=== PATIENT | male | born 1945 | race Caucasian/White ===

== ENCOUNTER → 2018-01-24 10:47 | Outpatient (CLI) | payer OTHER, SELFPAY ==
[2018-01-24 11:38] LABS: Add Manual Diff / Slide Review NO; Basophils Percent Auto 0.5 % (0-2); Eosinophils Percent Auto 1.1 % (2-4); Hematocrit 43.8 % (41-53); Lymphocytes Percent Auto 29.4 % (25-40); Mean Corpuscular HGB Conc 34.2 % (30-36); Mean Corpuscular Volume 93.7 fL (80-100); Monocytes Percent Auto 9.5 % (3-14); Neutrophils Absolute Auto 3400 /uL (3000-5900); Neutrophils Percent Auto 59.5 % (50-75); Platelet Count 106 X10^3/uL (150-400); Red Blood Cell Count 4.68 X10^6/uL (4.5-5.9); Red Cell Distribution Width 14.7 % (11.6-14.8); White Blood Cell Count 5.7 X10^3/uL (4.5-11.0)
[2018-01-24 11:43] LABS: Alanine Aminotransferase 35 IU/L (21-72); Albumin 4.4 g/dL (3.5-5.0); Albumin Globulin Ratio 1.4 (1.0-2.8); Alkaline Phosphatase 118 U/L (38-126); Aspartate Aminotransferase 35 IU/L (17-59); BUN Creatinine Ratio 17.3 (6-22); Bilirubin Total 2.1 mg/dL (0.2-1.3); Blood Urea Nitrogen 19 mg/dL (9-20); Calcium 9.5 mg/dL (8.4-10.2); Carbon Dioxide 27 mmol/L (22-32); Chloride 102 mmol/L (98-107); Cholesterol 114 mg/dL (140-199); Estimated Glomerular Filt Rate > 60.0 mL/min (>60); Globulin 3.2 g/dL (1.7-4.1); Glucose 110 mg/dL (80-110); HDL Cholesterol 44 mg/dL (40-60); HEMOLYSIS 28 (0-50); LDL Cholesterol Calculated 51 mg/dL (<100); Potassium 4.3 mmol/L (3.4-5.1); Sodium 141 mmol/L (137-145); Total Protein 7.6 g/dL (6.3-8.2); Triglycerides 94 mg/dL (35-150)
[2018-01-24 12:11] LABS: Prostate Specific Antigen Scrn 1.73 ng/mL (0.1-4.0)
== END ==
PROVIDERS: PCP Family Medicine; Visit Provider Family Medicine
DX: E78.2 Mixed hyperlipidemia (principal); I10 Essential (primary) hypertension; I25.10 Atherosclerotic heart disease of native coronary artery without angina pectoris; Z12.5 Encounter for screening for malignant neoplasm of prostate
CPT/HCPCS: 36415; 80053; 80061; 85025; G0103

== ENCOUNTER → 2018-07-10 10:00 | Outpatient (CLI) | payer OTHER, SELFPAY ==
[2018-07-10 10:40] LABS: Add Manual Diff / Slide Review NO; Basophils Percent Auto 0.4 % (0-2); Eosinophils Percent Auto 1.2 % (2-4); Hemoglobin 16.5 g/dL (13.5-17.5); Lymphocytes Percent Auto 27.6 % (25-40); Mean Corpuscular HGB Conc 34.4 % (30-36); Mean Corpuscular Volume 93.1 fL (80-100); Monocytes Percent Auto 11.7 % (3-14); Neutrophils Absolute Auto 3500 /uL (1500-7000); Neutrophils Percent Auto 59.1 % (50-75); Platelet Count 108 X10^3/uL (150-400); Red Blood Cell Count 5.16 X10^6/uL (4.5-5.9); Red Cell Distribution Width 14.3 % (11.6-14.8); White Blood Cell Count 5.9 X10^3/uL (4.5-11.0)
[2018-07-10 10:51] LABS: Alanine Aminotransferase 28 IU/L (21-72); Albumin 4.6 g/dL (3.5-5.0); Albumin Globulin Ratio 1.4 (1.0-2.8); Alkaline Phosphatase 119 U/L (38-126); Aspartate Aminotransferase 27 IU/L (17-59); BUN Creatinine Ratio 16.7 (6-22); Bilirubin Total 2.5 mg/dL (0.2-1.3); Blood Urea Nitrogen 20 mg/dL (9-20); Calcium 9.8 mg/dL (8.4-10.2); Carbon Dioxide 27 mmol/L (22-32); Chloride 101 mmol/L (98-107); Cholesterol 131 mg/dL (140-199); Estimated Glomerular Filt Rate 59.3 mL/min (>60); Globulin 3.2 g/dL (1.7-4.1); Glucose 119 mg/dL (80-110); HDL Cholesterol 42 mg/dL (40-60); HEMOLYSIS < 15 (0-50); LDL Cholesterol Calculated 65 mg/dL (<100); Potassium 4.6 mmol/L (3.4-5.1); Sodium 139 mmol/L (137-145); Total Protein 7.8 g/dL (6.3-8.2); Triglycerides 121 mg/dL (35-150)
[2018-07-10 11:09] LABS: Creatinine Urine Random 203.9 mg/dL
[2018-07-10 11:12] LABS: Microalbumi Creatinin Ratio Ur 11.7 ug/mg CR (<30); Microalbumin Urine Random 2.4 mg/dL (0-1.6)
[2018-07-10 11:17] LABS: Prostate Specific Antigen Scrn 2.13 ng/mL (0.1-4.0)
[2018-07-10 11:39] LABS: Thyroid Stimulating Hormone 3.12 uIU/mL (0.47-4.68)
== END ==
PROVIDERS: PCP Family Medicine; Visit Provider Family Medicine
DX: E78.2 Mixed hyperlipidemia (principal); Z12.5 Encounter for screening for malignant neoplasm of prostate; I10 Essential (primary) hypertension; I25.10 Atherosclerotic heart disease of native coronary artery without angina pectoris
CPT/HCPCS: 36415; 80053; 80061; 82043; 82570; 84443; 85025; G0103

== ENCOUNTER → 2019-04-17 10:31 | Outpatient (CLI) | payer OTHER, SELFPAY ==
[2019-04-17 11:10] LABS: Add Manual Diff / Slide Review NO; Basophils Absolute Auto 0 /uL (0-100); Basophils Percent Auto 0.4 % (0-2); Eosinophils Absolute Auto 100 /uL (0-450); Eosinophils Percent Auto 1.2 % (2-4); Hematocrit 44.9 % (41-53); Hemoglobin 15.4 g/dL (13.5-17.5); Lymphocytes Absolute Auto 1800 /uL (1100-4500); Mean Corpuscular HGB Conc 34.2 % (30-36); Mean Corpuscular Hemoglobin 32.2 PG (26-34); Mean Corpuscular Volume 94.1 fL (80-100); Monocytes Absolute Auto 600 /uL (0-900); Monocytes Percent Auto 9.1 % (3-14); Neutrophils Absolute Auto 3900 /uL (1500-7000); Neutrophils Percent Auto 61.3 % (50-75); Platelet Count 109 X10^3/uL (150-400); Red Blood Cell Count 4.77 X10^6/uL (4.5-5.9); Red Cell Distribution Width 14.3 % (11.6-14.8); White Blood Cell Count 6.4 X10^3/uL (4.5-11.0)
[2019-04-17 12:02] LABS: Alanine Aminotransferase 28 IU/L (21-72); Albumin 4.3 g/dL (3.5-5.0); Albumin Globulin Ratio 1.6 (1.0-2.8); Alkaline Phosphatase 123 U/L (38-126); Aspartate Aminotransferase 27 IU/L (17-59); BUN Creatinine Ratio 16.7 (6-22); Bilirubin Total 1.6 mg/dL (0.2-1.3); Blood Urea Nitrogen 20 mg/dL (9-20); Calcium 9.4 mg/dL (8.4-10.2); Carbon Dioxide 30 mmol/L (22-32); Chloride 102 mmol/L (98-107); Cholesterol 123 mg/dL (140-199); Estimated Glomerular Filt Rate 59.2 mL/min (>60); Globulin 2.7 g/dL (1.7-4.1); Glucose 115 mg/dL (80-110); HDL Cholesterol 50 mg/dL (40-60); HEMOLYSIS < 15 (0-50); LDL Cholesterol Calculated 56 mg/dL (<100); Potassium 3.9 mmol/L (3.4-5.1); Sodium 139 mmol/L (137-145); Triglycerides 85 mg/dL (35-150)
== END ==
PROVIDERS: PCP Family Medicine; Visit Provider Family Medicine
DX: E78.2 Mixed hyperlipidemia (principal); I10 Essential (primary) hypertension; I25.10 Atherosclerotic heart disease of native coronary artery without angina pectoris
CPT/HCPCS: 36415; 80053; 80061; 85025

== ENCOUNTER 2019-09-15 09:42 | Day surgery (SDC) | payer OTHER, SELFPAY ==
[2019-09-15] VITALS (16 sets, daily range): BP systolic 94–141; BP diastolic 55–75; PULSE 16–81; RESP 12–98; TEMP 36.1–36.4; O2SAT 93–98; BMI 24.9
--- NOTE | 2019-09-15 10:19 | PM.HP.1 ---
History of Present Illness History of Present Illness Date Patient Seen: 09/15/19 Time Patient Seen: 10:20 Chief complaint: [id number] SCREENING COLONOSCOPY Narrative: The patient is a gentleman whose last colonoscopy was 10 years ago. He has no family history colon cancer. He is here for screening exam. The patient does have small-vessel cardiac disease. He has had a 4 vessel bypass in the distant past. He has had no chest pain since then but does get short of breath with exertion. He had a cardiac catheterization that revealed small vessel disease which could not be treated other than medically. He is normally takes a nitroglycerin patch but did not wear it this morning and and he is being a given 1 now. The patient also takes a beta sam any took it last night as he normally does. Patient History Medical History (Updated 09/15/19 @ 10:22 by Ceasar Cowan MD) Coronary artery disease (Chronic) History of kidney stones (Acute) Hyperlipidemia (Chronic) Hypertension (Chronic) Myocardial infarction (Resolved) Surgical History Status post coronary artery bypass graft (~1998) Family & Social History Tobacco & Substance use: Smoking Status Never smoker Meds Home Medications and Allergies Home Medications Medication Instructions Recorded Confirmed Type ASPIRIN (Aspirin) 81 mg PO Q DAY #0 05/15/11 06/19/19 History triamcinolone acetonide 0 TOPICAL BID #30 g 10/29/16 06/19/19 Rx lorazepam 0.5 - 1 mg PO Q4HP PRN #25 tab 11/16/16 06/19/19 Rx gabapentin [Neurontin] 300 mg PO BID #180 cap 01/14/17 06/19/19 Rx ranolazine [Ranexa] 500 mg PO BID #0 05/01/17 06/19/19 History hydrocodone 5 mg-acetaminophen 325 1 - 2 tab PO Q4HP PRN #30 tab 01/05/19 06/19/19 Rx mg tablet metoprolol succinate 25 mg 25 mg PO QDAY #90 tab 06/19/19 06/19/19 Rx tablet,extended release 24 hr niacin 1,000 mg tablet,extended 1,000 mg PO Q DAY #180 tab 06/19/19 06/19/19 Rx release 24 hr simvastatin 40 mg tablet 40 mg PO QDAY #90 tab 06/19/19 06/19/19 Rx nitroglycerin 0.4 mg/hr 1 patch TRANSDERMAL Q24H #30 each 07/07/19 Rx transdermal 24 hour patch Allergies Allergy/AdvReac Type Severity Reaction Status Date / Time No Known Drug Allergies Allergy Unverified 06/19/19 11:40 Review of Systems Review of Systems ROS: Yes All systems reviewed with the patient and are negative except as otherwise documented Cardiovascular Comments: Elevated cholesterol Neurologic Comments: Headaches Exam Narrative Exam Narrative: Pleasant cooperative patient no apparent distress. Lungs are clear to auscultation. No rales or rhonchi. Heart regular rate and rhythm no murmur gallop. Abdomen is soft nontender without mass. No obvious hernias. Lower abdominal midline scar noted(kidney stone extractions scar). Patient is alert and oriented x3. Assessment & Plan Assessment & Plan narrative: The patient for a screening colonoscopy. I have discussed the procedure with them. Risks of bleeding, perforation which would necessitate major operation, failure to find remove all lesions, the potential tattoo were all discussed. All questions were answered. They wished to proceed. I also discussed heart issues with him.
--- NOTE | 2019-09-15 10:26 | PM.PREOP ---
Pre-operative Note Interval Note History & Physical reviewed/Exam performed by Physician: Yes Changes to H&P: No ASA Class (for procedural sedation): III
[2019-09-15] MEDS: NITROGLYCERIN 0.4 MG PATCH TOP (10:27)
[2019-09-15] MEDS: fentaNYL 250 MCG/5 ML INJ IV (10:51)
[2019-09-15] MEDS: MIDAZOLAM 5 MG/5 ML VIAL IV (10:52)
--- NOTE | 2019-09-15 10:56 | PM.OP.ENDO ---
Operative Date/Time/Diagnoses Date of procedure: 09/15/19 Time of procedure: 10:56 Pre-op diagnosis: Screening examination. Last colonoscopy 10 years ago. Post-op diagnosis: same (Sigmoid diverticulosis) Procedure & Clinicians Study performed: Colonoscopy Same procedure as scheduled: Yes Indications: Screening Surgeon: Ceasar Cowan Procedure Notes SCOAP/Timeout: Performed Procedure in detail: The patient was placed in the left lateral decubitus position and underwent IV sedation directed by the surgeon consisting of fentanyl and Versed. Digital exam was unremarkable. Prostate felt normal for age. I could feel no masses in it. The scope was inserted and advanced through the rectum into the sigmoid, descending, transverse, and ascending colon. Sigmoid diverticulosis was noted. The cecum was reached identified by the ileocecal valve and the appendiceal opening. The ileocecal valve was successfully cannulated. The terminal ileum was normal in appearance. The scope was gradually brought out. No Polyps were found. The scope ultimately was retroflexed in the rectum. The appearance was normal. The scope was removed and the patient tolerated the procedure well. The prep was excellent Scope withdrawal time: 7-1/2 minutes Sedation minutes: 24 Findings: diverticulosis (Sigmoid) Specimen(s): none sent Complications: none Post-procedure Recommendations: High fiber diet Plan for aftercare: Due to her age you probably do not need any additional colonoscopies for screening purposes. We usually stop these between 75 and 80 years of age. Your neck is recommended colonoscopy would be at age 79 for which is beyond both of those limits. Follow up: as needed Disposition: PACU
[2019-09-15] MEDS: ONDANSETRON 4 MG/2 ML INJ IV (11:40)
--- NOTE | 2019-09-15 11:45 | SUR.PHASEI ---
Patient states relief of nausea after zofran. Sipping on gingerale, vss.
--- NOTE | 2019-09-15 12:30 | SUR.PHASEII ---
Patient nauseated after moving to chair to be discharged. Aromatherapy attempted. Daughter at bedside. Patient sitting for a few minutes before going to car. No pain at this time. Report given to IRIS Sanbaria.
== END 2019-09-15 12:36 | disposition home or self-care (01) ==
PROVIDERS: PCP Family Medicine; Referring Provider Specialist; Visit Provider Specialist
PROC: 0DJD8ZZ Inspection of Lower Intestinal Tract, Via Natural or Artificial Opening Endoscopic (ICD-10-PCS; CPT 45378; principal; 2019-09-15 10:45)
DX: Z12.11 Encounter for screening for malignant neoplasm of colon (principal); I25.10 Atherosclerotic heart disease of native coronary artery without angina pectoris; E78.5 Hyperlipidemia, unspecified; I10 Essential (primary) hypertension; I25.2 Old myocardial infarction; Z95.1 Presence of aortocoronary bypass graft; K57.30 Diverticulosis of large intestine without perforation or abscess without bleeding
CPT/HCPCS: G0121; 99152; J2250; J2405; J3010

== ENCOUNTER → 2020-03-01 08:28 | Outpatient (CLI) | payer OTHER, SELFPAY ==
[2020-03-01 09:26] LABS: Add Manual Diff / Slide Review NO; Basophils Absolute Auto 0 /uL (0-100); Basophils Percent Auto 0.4 % (0-2); Eosinophils Absolute Auto 100 /uL (0-450); Eosinophils Percent Auto 1.4 % (2-4); Hematocrit 43.8 % (41-53); Hemoglobin 14.9 g/dL (13.5-17.5); Lymphocytes Absolute Auto 1500 /uL (1100-4500); Lymphocytes Percent Auto 30.1 % (25-40); Mean Corpuscular HGB Conc 33.9 % (30-36); Mean Corpuscular Hemoglobin 33.3 PG (26-34); Mean Corpuscular Volume 98.3 fL (80-100); Monocytes Absolute Auto 500 /uL (0-900); Neutrophils Absolute Auto 2900 /uL (1500-7000); Neutrophils Percent Auto 58.1 % (50-75); Platelet Count 90 X10^3/uL (150-400); Red Blood Cell Count 4.46 X10^6/uL (4.5-5.9); Red Cell Distribution Width 14.6 % (11.6-14.8); White Blood Cell Count 4.9 X10^3/uL (4.5-11.0)
[2020-03-01 09:40] LABS: Alanine Aminotransferase 31 IU/L (<50); Albumin 3.9 g/dL (3.5-5.0); Albumin Globulin Ratio 1.5 (1.0-2.8); Alkaline Phosphatase 137 U/L (38-126); Aspartate Aminotransferase 36 IU/L (17-59); BUN Creatinine Ratio 14.9 (6-22); Bilirubin Total 1.9 mg/dL (0.2-1.3); Blood Urea Nitrogen 17 mg/dL (9-20); Calcium 9.1 mg/dL (8.4-10.2); Carbon Dioxide 28 mmol/L (22-32); Chloride 104 mmol/L (98-107); Cholesterol 100 mg/dL (140-199); Estimated Glomerular Filt Rate > 60.0 mL/min (>60); Globulin 2.6 g/dL (1.7-4.1); Glucose 106 mg/dL (80-110); HDL Cholesterol 52 mg/dL (40-60); HEMOLYSIS < 15 (0-50); LDL Cholesterol Calculated 32 mg/dL (<100); Potassium 4.2 mmol/L (3.4-5.1); Sodium 140 mmol/L (137-145); Total Protein 6.5 g/dL (6.3-8.2); Triglycerides 82 mg/dL (35-150)
[2020-03-01 10:12] LABS: Prostate Specific Antigen Scrn 1.68 ng/mL (0.1-4.0)
== END ==
PROVIDERS: PCP Family Medicine; Referring Provider Family Medicine; Visit Provider Family Medicine
DX: Z95.1 Presence of aortocoronary bypass graft (principal)
CPT/HCPCS: 36415; 80053; 80061; 85025; G0103

== ENCOUNTER → 2020-07-28 07:27 | Outpatient (CLI) | payer MEDICARE, SELFPAY ==
[2020-07-28] MEDS: COVID-19 VACC #1, MRNA(MOD) 100 MCG/0.5 ML VIAL IM (07:36)
== END ==
PROVIDERS: PCP Family Medicine; Visit Provider Internal Medicine
DX: Z23 Encounter for immunization (principal)
CPT/HCPCS: 0011A; 91301

== ENCOUNTER → 2020-08-05 07:29 | Outpatient (CLI) | payer OTHER, SELFPAY ==
--- NOTE | 2020-08-05 07:31 | DI.US.S_ITS ---
PROCEDURE: US ABD AORTA ANEURYSM SCREEN INDICATIONS: AAA screen TECHNIQUE: Real time scanning was performed of the aorta and iliac arteries, with image documentation. COMPARISON: None. FINDINGS: Aorta: Proximal aortic diameter measures 2.5 cm. Mid-aorta measures 2.1 cm. Distal aortic diameter is 2.1 cm. Iliac arteries: Right common iliac artery measures 1.7 cm. Left common iliac artery measures 1.7 cm. IMPRESSION: No aneurysm found. Dictated by: Joe Martinez M.D. on 08/05/2020 at 9:40 Approved by: Joe Martinez M.D. on 08/05/2020 at 9:41
== END ==
PROVIDERS: PCP Student in an Organized Health Care Education/Training Program; Referring Provider Student in an Organized Health Care Education/Training Program; Visit Provider Student in an Organized Health Care Education/Training Program
DX: Z13.6 Encounter for screening for cardiovascular disorders (principal); Z87.891 Personal history of nicotine dependence
CPT/HCPCS: 76706

== ENCOUNTER → 2020-08-25 07:26 | Outpatient (CLI) | payer MEDICARE, SELFPAY ==
[2020-08-25] MEDS: COVID-19 VACC #2, MRNA(MOD) 100 MCG/0.5 ML VIAL IM (07:28)
== END ==
PROVIDERS: PCP Student in an Organized Health Care Education/Training Program; Visit Provider Internal Medicine
DX: Z23 Encounter for immunization (principal)
CPT/HCPCS: 0012A; 91301

== ENCOUNTER → 2021-01-04 15:16 | Outpatient (CLI) | payer OTHER, SELFPAY ==
[2021-01-04 15:23] LABS: RBC Urine None Seen (0-5/HPF)
[2021-01-04 16:22] LABS: Appearance Urine UA CLEAR; Bilirubin Urine UA NEGATIVE (NEGATIVE); Color Urine UA YELLOW; Glucose Urine UA TRACE g/dL (Negative); Ketones Urine UA NEGATIVE (NEGATIVE); Leukocyte Esterase Urine UA NEGATIVE (NEGATIVE); Nitrite Urine UA NEGATIVE (Negative); Occult Blood Urine UA NEGATIVE (Negative); Protein Urine UA TRACE (Negative)
[2021-01-04 16:36] LABS: Bacteria Urine Occasional (0-1); Culture Indicated Urine Specimen Cultured; Squamous Epithelial Cell Urine 0-1 /HPF (0-5/HPF); WBC Urine 5-10/HPF (0-5/HPF)
== END ==
PROVIDERS: PCP Student in an Organized Health Care Education/Training Program; Referring Provider Student in an Organized Health Care Education/Training Program; Visit Provider Student in an Organized Health Care Education/Training Program
DX: R30.0 Dysuria (principal)
CPT/HCPCS: 81001; 87086

== ENCOUNTER → 2021-01-05 08:44 | Outpatient (CLI) | payer OTHER, SELFPAY ==
[2021-01-05 09:55] LABS: Add Manual Diff / Slide Review NO; Basophils Absolute Auto 0 /uL (0-100); Basophils Percent Auto 0.3 % (0-2); Eosinophils Absolute Auto 100 /uL (0-450); Hematocrit 44.6 % (41-53); Hemoglobin 15.3 g/dL (13.5-17.5); Lymphocytes Absolute Auto 1400 /uL (1100-4500); Lymphocytes Percent Auto 25.7 % (25-40); Mean Corpuscular HGB Conc 34.2 % (30-36); Mean Corpuscular Hemoglobin 33.2 PG (26-34); Monocytes Absolute Auto 500 /uL (0-900); Monocytes Percent Auto 8.6 % (3-14); Neutrophils Absolute Auto 3600 /uL (1500-7000); Neutrophils Percent Auto 64.4 % (50-75); Platelet Count 84 X10^3/uL (150-400); Red Cell Distribution Width 14.3 % (11.6-14.8); White Blood Cell Count 5.6 X10^3/uL (4.5-11.0)
[2021-01-05 10:14] LABS: Alanine Aminotransferase 19 IU/L (<50); Albumin 4.1 g/dL (3.5-5.0); Albumin Globulin Ratio 1.4 (1.0-2.8); Alkaline Phosphatase 111 U/L (38-126); Aspartate Aminotransferase 30 IU/L (17-59); BUN Creatinine Ratio 18.5 (6-22); Bilirubin Total 1.5 mg/dL (0.2-1.3); Blood Urea Nitrogen 23 mg/dL (9-20); Calcium 9.5 mg/dL (8.4-10.2); Carbon Dioxide 27 mmol/L (22-32); Chloride 104 mmol/L (98-107); Cholesterol 113 mg/dL (140-199); Estimated Glomerular Filt Rate 56.7 mL/min (>60); Globulin 2.9 g/dL (1.7-4.1); Glucose 107 mg/dL (80-110); HDL Cholesterol 52 mg/dL (40-60); HEMOLYSIS < 15 (0-50); LDL Cholesterol Calculated 44 mg/dL (<100); Potassium 4.6 mmol/L (3.4-5.1); Sodium 138 mmol/L (137-145); Triglycerides 83 mg/dL (35-150)
== END ==
PROVIDERS: PCP Student in an Organized Health Care Education/Training Program; Referring Provider Student in an Organized Health Care Education/Training Program; Visit Provider Student in an Organized Health Care Education/Training Program
DX: E78.2 Mixed hyperlipidemia (principal); I10 Essential (primary) hypertension; I20.8 Other forms of angina pectoris; I25.10 Atherosclerotic heart disease of native coronary artery without angina pectoris
CPT/HCPCS: 80053; 80061; 85025

== ENCOUNTER → 2021-08-16 07:05 | Outpatient (CLI) | payer OTHER, SELFPAY ==
[2021-08-16 09:28] LABS: Hematocrit 44.7 % (41-53); Hemoglobin 15.4 g/dL (13.5-17.5); Mean Corpuscular HGB Conc 34.4 % (30-36); Mean Corpuscular Hemoglobin 33.3 PG (26-34); Mean Corpuscular Volume 96.6 fL (80-100); Platelet Count 94 X10^3/uL (150-400); Red Blood Cell Count 4.63 X10^6/uL (4.5-5.9); Red Cell Distribution Width 14.2 % (11.6-14.8); White Blood Cell Count 5.2 X10^3/uL (4.5-11.0)
[2021-08-16 09:49] LABS: Alanine Aminotransferase 16 IU/L (<50); Albumin 4.5 g/dL (3.5-5.0); Albumin Globulin Ratio 1.6 (1.0-2.8); Alkaline Phosphatase 103 U/L (38-126); Aspartate Aminotransferase 28 IU/L (17-59); BUN Creatinine Ratio 21.8 (6-22); Bilirubin Total 1.4 mg/dL (0.2-1.3); Blood Urea Nitrogen 24 mg/dL (9-20); Calcium 9.3 mg/dL (8.4-10.2); Carbon Dioxide 29 mmol/L (22-32); Chloride 102 mmol/L (98-107); Cholesterol 135 mg/dL (140-199); Estimated Glomerular Filt Rate > 60.0 mL/min (>60); Globulin 2.9 g/dL (1.7-4.1); Glucose 97 mg/dL (80-110); HDL Cholesterol 56 mg/dL (40-60); HEMOLYSIS < 15 (0-50); LDL Cholesterol Calculated 65 mg/dL (<100); Potassium 4.5 mmol/L (3.4-5.1); Sodium 139 mmol/L (137-145); Total Protein 7.4 g/dL (6.3-8.2); Triglycerides 71 mg/dL (35-150)
== END ==
PROVIDERS: PCP Student in an Organized Health Care Education/Training Program; Referring Provider Internal Medicine Cardiovascular Disease; Visit Provider Internal Medicine Cardiovascular Disease
DX: I20.8 Other forms of angina pectoris (principal)
CPT/HCPCS: 36415; 80053; 80061; 85027

== ENCOUNTER 2021-09-06 19:25 | Emergency (ER) | payer OTHER, SELFPAY ==
[2021-09-06] VITALS (17 sets, daily range): BP systolic 165–221; BP diastolic 72–82; PULSE 51–60; RESP 7–22; TEMP 36.6; O2SAT 96–100; BMI 31.9
--- NOTE | 2021-09-06 19:44 | DI.RAD.S_ITS ---
PROCEDURE: XR ACUTE ABDOMEN SERIES INDICATIONS: abdominal pain, N/V TECHNIQUE: One view chest and two views of the abdomen were acquired. COMPARISON: [facility], , CHEST 2 VIEW, 08/27/2012, 14:21. FINDINGS: Surgical changes and devices: Sternotomy wires and mediastinal clips are noted. Chest: Lungs are clear. Heart size is normal. No pleural effusions. No pneumoperitoneum. Aortic atherosclerotic calcifications are noted. Abdomen: Bowel gas pattern is normal. No suspicious calcifications. Visualized solid organ contours appear normal. Bones: No suspicious bony lesions. Degenerative changes are seen in the spine. IMPRESSION: Nonobstructive bowel gas pattern. No pneumoperitoneum. Dictated by: Odin Haley M.D. on 09/06/2021 at 20:01 Approved by: Odin Haley M.D. on 09/06/2021 at 20:02
--- NOTE | 2021-09-06 19:46 | ED_ITS ---
HPI - Abdominal Pain General Chief Complaint: Dizziness Stated Complaint: dizziness, abd pain, dryheaving, weakness x 3 days Time Seen by Provider: 09/06/21 19:32 History of Present Illness HPI narrative: 75-year-old male nonsmoker with extensive cardiac history and a prior for way CABG presents with his daughter and a chief complaint of a few days of increasing generalized abdominal pain, nausea, vomiting, dry heaves and now dizziness and lightheadedness. He states he went to bed in his normal state of health on Saturday evening and woke up at about 3:00 a.m. the morning with dry h eaves. He then developed generalized abdominal pain and has become lightheaded. Prior to this he denies any medication or dietary change. Denies recent antibiotics, exposure to bad foods or other ill persons. He has had no runny nose, sore throat or cough. He denies any fever or chills. He is still having normal bowel movements and passing gas. He denies any abdominal surgeries. He denies any change in urination such as dysuria, frequency or urgency. Related Data Home Medications Medication Instructions Recorded Confirmed aspirin 81 mg tablet,delayed 81 mg PO DAILY 07/29/20 09/06/21 release ranolazine 500 mg tablet,extended 1,000 mg PO BID 07/29/20 09/06/21 release,12 hr (Ranexa) Previous Rx's Medication Instructions Recorded niacin 1,000 mg tablet,extended 2,000 mg PO Q DAY #180 tab 11/21/20 release 24 hr (Niaspan) metoprolol succinate 25 mg 25 mg PO DAILY #90 tab 06/27/21 tablet,extended release 24 hr simvastatin 40 mg tablet 40 mg PO BEDTIME #90 tab 06/27/21 hydrocodone 5 mg-acetaminophen 325 1 - 2 tab PO Q4HP PRN #10 tab 08/07/21 mg tablet nitroglycerin 0.4 mg/hr 1 patch TRANSDERMAL Q24H #30 each 08/08/21 transdermal 24 hour patch (Nitro-Dur) ondansetron 4 mg disintegrating 4 mg PO TID-QID PRN #10 tab 09/06/21 tablet pantoprazole 40 mg tablet,delayed 40 mg PO DAILY #30 tab 09/06/21 release (Protonix) Allergies Allergy/AdvReac Type Severity Reaction Status Date / Time No Known Drug Allergies Allergy Verified 08/07/21 08:52 Review of Systems Review of Systems Narrative: GENERAL: See HPI HEENT: Denies sinus pain, ear pain, sore throat, difficulty swallowing, dizziness. RESPIRATORY: Denies dyspnea, cough, wheezing, hemoptysis, sputum. CARDIOVASCULAR: Denies chest pain, palpitations, orthopnea, edema, GASTROINTESTINAL: See HPI : Denies dysuria, frequency, incontinence, hematuria, urinary retention. MUSCULOSKELETAL: denies weakness, joint pain, or bony pain SKIN: Denies rash, skin lesions, or other NEUROLOGIC: Denies weakness, headache, numbness, change in speech, confusion, s eizures, incoordination. PSYCHIATRIC: No concerning psychosocial issues. 12 point review of systems is negative except for those stated above Patient History Medical History Coronary artery disease involving cher-ae heights coronary artery of cher-ae heights heart without angina pectoris (12/21/15) Healed perforation of tympanic membrane (06/03/14) History of kidney stones Hyperlipidemia Hypertension Myocardial infarction Subconjunctival hemorrhage of left eye (05/01/17) Surgical History Status post coronary artery bypass graft (~1998) Social History household members: friend(s) Smoking Status: Former smoker alcohol intake: former Smoking Status: Former smoker Substance Use Type: does not use Exam Narrative Exam Narrative: GENERAL: [75 year old patient appears stated age. Well-developed patient, in mild distress. HEAD: Atraumatic. Normocephalic. EYES: Pupils equal round and reactive. Extraocular motions intact. No scleral icterus. No injection or drainage. ENT: Nose without bleeding, purulent drainage. Throat without erythema, tonsillar hypertrophy or exudate. Airway patent. NECK: Trachea midline. Non tender CARDIOVASCULAR: Regular rate and rhythm without murmurs, gallops, or rubs. RESPIRATORY: Clear to auscultation. Breath sounds equal bilaterally. No wheezes, rales, or rhonchi. GASTROINTESTINAL: Abdomen soft, slightly distended in mild periumbilical pain. Bowel sounds present in all 4 quadrants EXTREMITIES: No edema or joint tenderness. BACK: Nontender without deformity or crepitance. No flank tenderness. NEURO: AOx3. SKIN: No rash or erythema of visible areas Initial Vital Signs Initial Vital Signs: Vital Signs Pulse Oximetry 100 09/06/21 19:32 Course Orders Ordered: Discontinued Medications Hydromorphone HCl (Hydromorphone 0.5 Mg Inj) 0.5 mg IV NOW ONE Stop: 09/06/21 20:14 Last Admin: 09/06/21 20:19 Dose: 0.5 mg Documented by: JULIEN Sodium Chloride (Normal Saline 0.9%) 1,000 mls @ 1,000 mls/hr IV BOLUS ONE Stop: 09/06/21 20:43 Last Infusion: 09/06/21 22:04 Dose: 0 mls/hr Documented by: Admin: 09/06/21 19:59 Dose: 1,000 mls/hr Documented by: JULIEN Ondansetron HCl (Ondansetron 4 Mg/2 Ml Inj) 4 mg IV NOW ONE Stop: 09/06/21 19:45 Last Admin: 09/06/21 20:00 Dose: 4 mg Documented by: JULIEN Ondansetron HCl (Ondansetron 4 Mg Odt Prepack) 1 bottle MISC SEEINSTR ONE Stop: 09/06/21 23:48 Last Admin: 09/07/21 00:00 Dose: 1 bottle Documented by: JULIEN Pantoprazole Sodium (Pantoprazole 40 Mg Vial) 40 mg IV NOW ONE Stop: 09/06/21 19:45 Last Admin: 09/06/21 20:00 Dose: 40 mg Documented by: JULIEN Vital Signs Vital signs: Vital Signs - 8 hr 09/06/21 19:32 09/06/21 19:33 09/06/21 19:35 Temperature 97.9 F Pulse Rate 59 L 60 Respiratory Rate 18 Blood Pressure 221/82 H Pulse Oximetry 100 99 100 09/06/21 20:01 09/06/21 20:03 09/06/21 20:30 Temperature Pulse Rate 54 L 53 L 51 L Respiratory Rate 20 10 L Blood Pressure 190/79 H Pulse Oximetry 96 98 09/06/21 20:31 09/06/21 21:04 09/06/21 21:05 Temperature Pulse Rate 51 L 59 L 58 L Respiratory Rate 13 11 L 8 L Blood Pressure 174/72 H 194/79 H Pulse Oximetry 96 99 98 09/06/21 21:30 09/06/21 21:31 09/06/21 22:00 Temperature Pulse Rate 56 L 56 L 55 L Respiratory Rate 7 L 9 L 14 Blood Pressure 165/82 H Pulse Oximetry 99 98 98 09/06/21 22:01 09/06/21 22:30 09/06/21 22:31 Temperature Pulse Rate 55 L 56 L 56 L Respiratory Rate 12 19 22 Blood Pressure 166/72 H 193/81 H Pulse Oximetry 98 100 98 09/06/21 23:00 09/06/21 23:01 Temperature Pulse Rate 55 L 55 L Respiratory Rate 12 10 L Blood Pressure 179/76 H Pulse Oximetry 99 97 MDM - Abdominal Pain Lab Data Result diagrams: 09/06/21 19:35 09/06/21 19:35 Labs: Lab Results 09/06/21 09/06/21 09/06/21 Range/Units 19:35 19:35 19:35 WBC 5.6 (4.5-11.0) X10^3/uL RBC 4.71 (4.5-5.9) X10^6/uL Hgb 15.3 (13.5-17.5) g/dL Hct 45.8 (41-53) % MCV 97.2 (80-100) fL MCH 32.6 (26-34) PG MCHC 33.5 (30-36) % RDW 14.0 (11.6-14.8) % Plt Count 99 L (150-400) X10^3/uL Neut % (Auto) 64.4 (50-75) % Lymph % (Auto) 24.1 L (25-40) % Stanton % (Auto) 10.3 (3-14) % Eos % (Auto) 0.8 L (2-4) % Baso % (Auto) 0.4 (0-2) % Neut # (Auto) 3600 (6206-1503) /uL Lymph # (Auto) 1400 (5203-5544) /uL Stanton # (Auto) 600 (0-900) /uL Eos # (Auto) 0 (0-450) /uL Baso # (Auto) 0 (0-100) /uL PT 13.3 H (10.1-12.7) SECONDS INR 1.2 (0.9-1.3) APTT 30 (26.4-36.2) SECONDS Sodium 137 (137-145) mmol/L Potassium 4.3 (3.4-5.1) mmol/L Chloride 102 (98-107) mmol/L Carbon Dioxide 27 (22-32) mmol/L BUN 14 (9-20) mg/dL Creatinine 0.98 (0.66-1.25) mg/dL Estimated GFR > 60.0 (>60) mL/min BUN/Creatinine Ratio 14.3 (6-22) Glucose 139 H (80-110) mg/dL Calcium 9.7 (8.4-10.2) mg/dL Magnesium 1.9 (1.6-2.3) mg/dL Total Bilirubin 1.9 H (0.2-1.3) mg/dL AST 32 (17-59) IU/L ALT 19 (<50) IU/L Alkaline Phosphatase 83 (38-126) U/L Total Creatine Kinase 77 (55-170) U/L CK-MB (CK-2) TNP CK-MB (CK-2) Rel Index TNP Troponin I 0.022 (0.01-0.034) ng/mL Total Protein 7.9 (6.3-8.2) g/dL Albumin 4.6 (3.5-5.0) g/dL Globulin 3.3 (1.7-4.1) g/dL Albumin/Globulin Ratio 1.4 (1.0-2.8) Lipase 102 (23-300) U/L SARS-CoV-2 (PCR) (Negative) Influenza A (RT-PCR) (NEGATIVE) Influenza B (RT-PCR) (NEGATIVE) 09/06/21 Range/Units 20:00 WBC (4.5-11.0) X10^3/uL RBC (4.5-5.9) X10^6/uL Hgb (13.5-17.5) g/dL Hct (41-53) % MCV (80-100) fL MCH (26-34) PG MCHC (30-36) % RDW (11.6-14.8) % Plt Count (150-400) X10^3/uL Neut % (Auto) (50-75) % Lymph % (Auto) (25-40) % Stanton % (Auto) (3-14) % Eos % (Auto) (2-4) % Baso % (Auto) (0-2) % Neut # (Auto) (4164-6477) /uL Lymph # (Auto) (0184-1282) /uL Stanton # (Auto) (0-900) /uL Eos # (Auto) (0-450) /uL Baso # (Auto) (0-100) /uL PT (10.1-12.7) SECONDS INR (0.9-1.3) APTT (26.4-36.2) SECONDS Sodium (137-145) mmol/L Potassium (3.4-5.1) mmol/L Chloride (98-107) mmol/L Carbon Dioxide (22-32) mmol/L BUN (9-20) mg/dL Creatinine (0.66-1.25) mg/dL Estimated GFR (>60) mL/min BUN/Creatinine Ratio (6-22) Glucose (80-110) mg/dL Calcium (8.4-10.2) mg/dL Magnesium (1.6-2.3) mg/dL Total Bilirubin (0.2-1.3) mg/dL AST (17-59) IU/L ALT (<50) IU/L Alkaline Phosphatase (38-126) U/L Total Creatine Kinase (55-170) U/L CK-MB (CK-2) CK-MB (CK-2) Rel Index Troponin I (0.01-0.034) ng/mL Total Protein (6.3-8.2) g/dL Albumin (3.5-5.0) g/dL Globulin (1.7-4.1) g/dL Albumin/Globulin Ratio (1.0-2.8) Lipase (23-300) U/L SARS-CoV-2 (PCR) Negative (Negative) Influenza A (RT-PCR) Flu a negative (NEGATIVE) Influenza B (RT-PCR) Flu b negative (NEGATIVE) Imaging Data CT scan - abdomen/pelvis: Radiologist's Impression: Chart Viewer Diagnostics Subcategory All Activity ??:?? All Time ??:?? All Subcategories Filter Laboratory Imaging Microbiology Pathology Blood Bank Tests Cardiovascular Other Specialty DATE TYPE STATUS REF RANGE/AUTHOR Hx Today 20:50 Abdomen/Pelvis CT Signed Odin Haley Today 20:03 Abdomen Ultrasound Signed Odin Haley Today 19:44 Chest/Abdomen X-ray Signed Odin Haley 06/21/21 10:26 DI Result CC MRI Cardiac w stress w/wo c 08/05/20 07:31 Abdominal Arterial Study US Signed JuanJoe 09/15/19 09:42 Telemetry Strips ? 02/04/19 08:33 DI Result CC Echocardiogram (Hardeep) Ceasar Euceda ED 75, M?1945 MRN#? [id number] REG ER,?Main ED??R04?? 172.72cm 95.254kg BMI: 31.9kg/m? Dizziness Acc#? [id number] Resus Status Not Ordered No Hx Avail Special Indicators Preferred Name Home Meds Confirmed Prescription Monitoring Program Total 0 MME/Day Incomplete MEDICATIONS (INSTRUCTIONS) LAST TAKEN Active aspirin 81 mg tablet,delayed release 81 mgPODAILY Unknown hydrocodone 5 mg-acetaminophen 325 mg tablet 1 - 2 [id number]#10 tab Unknown 0 MME/Day metoprolol succinate 25 mg tablet,extended release 24 hr 25 mgPODAILY#90 tab Unknown niacin 1,000 mg tablet,extended release 24 hr 2,000 mgPOQ DAY#180 tab Unknown nitroglycerin 0.4 mg/hr transdermal 24 hour patch 1 [id number]#30 each Unknown ranolazine 500 mg tablet,extended release,12 hr 1,000 mgPOBID Unknown simvastatin 40 mg tablet 40 mgPOBEDTIME#90 tab Unknown Allergies No Known Drug Allergies Problems ? ONSET Myofascial muscle pain Coronary artery disease involving cher-ae heights coronary artery of cher-ae heights heart without angina pectoris 12/21/15 Stable angina pectoris Essential hypertension 05/01/17 Mixed hyperlipidemia 05/01/17 Vital Signs Today 23:01 BP 179/76?H Pulse 55?L Resp 10?L O2 Sat 97? Diagnostics Reports Ceasar Euceda?(Hardeep)??75??M??1945 ? Allergy/Adv: No Known Drug Allergies (More??) Close Abdomen/Pelvis CT (Signed) Odin Haley - 09/06/21 Abdomen Ultrasound (Signed) Odin Haley - 09/06/21 Chest/Abdomen X-ray (Signed) Odin Haley - 09/06/21 DI Result CC 06/21/21 Abdominal Arterial Study US (Signed) Joe Martinez - 08/05/20 Telemetry Strips 09/15/19 DI Result CC 02/04/19 Launch?[address] [address] [address] Scan Report Signed Patient: Ceasar Euceda MR#: [id number] : 1945 Acct:[id number] Age/Sex: 75 / M Date of Service: 09/06/21 Loc: ED Accession Number: [id number] ?? Procedure: CT abdomen pelvis w con Ordering Provider: Ángel Willingham D.O. PROCEDURE:? CT ABDOMEN PELVIS W CON ? INDICATIONS:? severe abdominal pain, N/V ? TECHNIQUE:? After the administration of intravenous contrast, axial sections acquired from the lung bases to the pubic symphysis.? Coronal and sagittal reformats were performed.? For radiation dose reduction, the following was used:? automated exposure control, adjustment of mA and/or kV according to patient size.? ? COMPARISON:? None. ? FINDINGS:? Image quality:? Excellent.? ? Lung bases:? Atelectasis is seen in the lung bases with possible superimposed reticulations that could indicate a component of chronic interstitial lung disease. Heart:? No significant findings. ? ABDOMEN: Liver:? Unremarkable.? ? Gallbladder:? Unremarkable. Biliary ducts:? Unremarkable.? ? Pancreas:? Unremarkable.? ? Spleen:? Unremarkable.? ? Adrenal Glands:? Unremarkable.? ? Kidneys and Ureters:? A 4 mm calculus is seen at the superior pole of the left kidney.? Additional calculi are seen in the inferior pole of the left kidney.? No right renal calculus.? No ureteral calculus or hydronephrosis.? Multiple bilateral renal cysts. ? Stomach and Bowel:? Stomach, small bowel loops, and colon are unremarkable.? Normal appendix. Peritoneum:? No abnormal intraperitoneal fluid.? No free air.? ? Ventral Wall: ? No hernias.? Abdominal Nodes:? No retroperitoneal or mesenteric adenopathy by size criteria.? Vessels:? Focal saccular outpouching of the infrarenal abdominal aorta measuring up to 3.2 x 2.5 cm in axial dimensions by 2.5 cm in length.? No surrounding inflammatory changes are seen.? Moderate to severe aortic atherosclerotic calcifications. ? PELVIS: Pelvic Organs:? Unremarkable.? ? Bladder:? Unremarkable.? ? Pelvic Nodes: No enlarged lymph nodes.? Miscellaneous:? Small fat containing left inguinal hernia. ? Bones:? Generalized osteopenia.? Multilevel degenerative changes. ? ? IMPRESSION: 1. No acute abnormality identified in the abdomen or pelvis. 2. Nonobstructing left renal calculi measuring up to 4 mm.? No ureteral calculus or hydronephrosis. 3. 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 ? ? Dictated by: Odin Haley M.D. on 09/06/2021 at 21:59 ? ? Approved by: Odin Haley M.D. on 09/06/2021 at 22:04 ? US - abdomen: Radiologist's Impression: Ceasar Euceda?(Hardeep)??75??M??1945 ? Allergy/Adv: No Known Drug Allergies (More??) Close Abdomen/Pelvis CT (Signed) Odin Haley - 09/06/21 Abdomen Ultrasound (Signed) Odin Haley - 09/06/21 Chest/Abdomen X-ray (Signed) Odin Haley - 09/06/21 DI Result CC 06/21/21 Abdominal Arterial Study US (Signed) Joe Martinez - 08/05/20 Telemetry Strips 09/15/19 DI Result CC 02/04/19 Launch?[address] [address] Ultrasound Report Signed Patient: Ceasar Euceda MR#: [id number] : 1945 Acct:[id number] Age/Sex: 75 / M Date of Service: 09/06/21 Loc: ED Accession Number: [id number] ?? Procedure: US abdomen limited Ordering Provider: Ángel Willingham D.O. PROCEDURE: US ABDOMEN LIMITED ? INDICATIONS:? ELEVATED BILIRUBIN; PAIN, N/V ? TECHNIQUE:? Real-time focused scanning was performed of the abdomen, with image documentation.? ? COMPARISON:? [facility], CT, CT ABDOMEN PELVIS W CON, 09/06/2021, 20:53. ? FINDINGS:? Liver is normal in size and echogenicity, measuring 15.9 cm in length. ? The gallbladder appears normal without gallstones or gallbladder wall thickening.? There is no pericholecystic fluid.? Sonographic Holcomb sign is negative. ? No intrahepatic or extrahepatic biliary ductal dilatation.? Common bile duct measures 5 mm in diameter. ? Pancreas is not well visualized due to overlying bowel gas. ? IMPRESSION:? No acute sonographic abnormality is seen in the right upper quadrant. ? ? Dictated by: Odin Haley M.D. on 09/06/2021 at 22:05 ? ? Approved by: Odin Haley M.D. on 09/06/2021 at 22:0 Discharge Plan Departure Patient Disposition: Home Clinical Impression: Abdominal pain, Nausea & vomiting Instructions: DI for Abdominal Pain-Adult, DI for Nausea -- Adult Activity Restrictions/Additional Instructions: *You have been diagnosed with [abdominal pain with nausea and vomiting. As we discussed, your history and physical exam as well as labs and CT scan are very reassuring. There is no evidence of an emergent condition that would require a specific intervention or surgery. Also as we discussed there is a potential that this is even a side effect of 1 of your medications. *What to do: *Please continue to take your regular medications as directed. [x ] New medication prescriptions sent to your pharmacy: [ [facility]] [ ] New medication written as a paper prescription [ ] No new medications given *Please follow up with your primary care provider in 2-3 days, call for an appointment. Let them know you were seen in the Emergency Department and that we ask that you be seen in follow up. We will electronically transmit a record of today's note if your PCP is in our system *If you do not have a primary care provider please contact the [facility] Resource line at [phone]. They will ask some questions about your medical history and help get you set up with a doctor in the community. *Return to Emergency Department if you should have any new, worsening or concer cornelius symptoms, such as [fever greater than 101 F, shaking chills, worsening pain, persistent vomiting or other bothersome symptoms] Prescriptions: New pantoprazole [Protonix] 40 mg tablet,delayed release (DR/EC) 40 mg PO DAILY Qty: 30 0RF ondansetron 4 mg tablet,disintegrating 4 mg PO TID-QID PRN (Reason: nausea and vomiting) Qty: 10 0RF No Action niacin [Niaspan Extended-Release] 1,000 mg tablet extended release 24 hr 2,000 mg PO Q DAY Qty: 180 2RF Rx Instructions: Take two tabs by mouth daily. simvastatin 40 mg tablet 40 mg PO BEDTIME Qty: 90 1RF metoprolol succinate 25 mg tablet extended release 24 hr 25 mg PO DAILY Qty: 90 1RF nitroglycerin [Nitro-Dur] 0.4 mg/hr patch 24 hour 1 patch transdermal Q24H Qty: 30 11RF Rx Instructions: allow nitrate-free interval of approx. 10-12 hrs per 24-hour period, Apply at 0800, off at 1400. hydrocodone-acetaminophen 5-325 mg tablet 1 - 2 tab PO Q4HP PRN (Reason: pain, moderate) Qty: 10 0RF Hold Instructions: Change to #10 with next fill ranolazine [Ranexa] 500 mg tablet extended release 12 hr 1,000 mg PO BID 0RF aspirin 81 mg tablet,delayed release (DR/EC) 81 mg PO DAILY 0RF Referrals: Daniel Almanza MD [Primary Care Provider] -
[2021-09-06 19:52] LABS: INR 1.2 (0.9-1.3); Prothrombin Time 13.3 SECONDS (10.1-12.7)
[2021-09-06 19:54] LABS: PTT Partial Thromboplastin Tim 30 SECONDS (26.4-36.2)
[2021-09-06 19:56] LABS: Alanine Aminotransferase 19 IU/L (<50); Albumin 4.6 g/dL (3.5-5.0); Albumin Globulin Ratio 1.4 (1.0-2.8); Alkaline Phosphatase 83 U/L (38-126); Aspartate Aminotransferase 32 IU/L (17-59); BUN Creatinine Ratio 14.3 (6-22); Bilirubin Total 1.9 mg/dL (0.2-1.3); Blood Urea Nitrogen 14 mg/dL (9-20); Calcium 9.7 mg/dL (8.4-10.2); Carbon Dioxide 27 mmol/L (22-32); Chloride 102 mmol/L (98-107); Creatine Kinase 77 U/L (55-170); Estimated Glomerular Filt Rate > 60.0 mL/min (>60); Globulin 3.3 g/dL (1.7-4.1); Glucose 139 mg/dL (80-110); HEMOLYSIS 46 (0-50); Lipase 102 U/L (23-300); Magnesium 1.9 mg/dL (1.6-2.3); Potassium 4.3 mmol/L (3.4-5.1); Sodium 137 mmol/L (137-145); Total Protein 7.9 g/dL (6.3-8.2)
[2021-09-06 19:57] LABS: Add Manual Diff / Slide Review NO; Basophils Absolute Auto 0 /uL (0-100); Basophils Percent Auto 0.4 % (0-2); Eosinophils Absolute Auto 0 /uL (0-450); Eosinophils Percent Auto 0.8 % (2-4); Hematocrit 45.8 % (41-53); Hemoglobin 15.3 g/dL (13.5-17.5); Lymphocytes Absolute Auto 1400 /uL (1100-4500); Lymphocytes Percent Auto 24.1 % (25-40); Mean Corpuscular HGB Conc 33.5 % (30-36); Mean Corpuscular Hemoglobin 32.6 PG (26-34); Mean Corpuscular Volume 97.2 fL (80-100); Monocytes Absolute Auto 600 /uL (0-900); Monocytes Percent Auto 10.3 % (3-14); Neutrophils Absolute Auto 3600 /uL (1500-7000); Neutrophils Percent Auto 64.4 % (50-75); Platelet Count 99 X10^3/uL (150-400); Red Blood Cell Count 4.71 X10^6/uL (4.5-5.9); White Blood Cell Count 5.6 X10^3/uL (4.5-11.0)
[2021-09-06] MEDS: SODIUM CHLORIDE 0.9% 1,000 ML 1000 ML IV (19:59)
[2021-09-06] MEDS: ONDANSETRON 4 MG/2 ML INJ IV (20:00)
[2021-09-06] MEDS: PANTOPRAZOLE 40 MG VIAL IV (20:00)
--- NOTE | 2021-09-06 20:03 | DI.US.S_ITS ---
PROCEDURE: US ABDOMEN LIMITED INDICATIONS: ELEVATED BILIRUBIN; PAIN, N/V TECHNIQUE: Real-time focused scanning was performed of the abdomen, with image documentation. COMPARISON: [facility], CT, CT ABDOMEN PELVIS W CON, 09/06/2021, 20:53. FINDINGS: Liver is normal in size and echogenicity, measuring 15.9 cm in length. The gallbladder appears normal without gallstones or gallbladder wall thickening. There is no pericholecystic fluid. Sonographic Holcomb sign is negative. No intrahepatic or extrahepatic biliary ductal dilatation. Common bile duct measures 5 mm in diameter. Pancreas is not well visualized due to overlying bowel gas. IMPRESSION: No acute sonographic abnormality is seen in the right upper quadrant. Dictated by: Odin Haley M.D. on 09/06/2021 at 22:05 Approved by: Odin Haley M.D. on 09/06/2021 at 22:06
[2021-09-06 20:07] LABS: Troponin I 0.022 ng/mL (0.01-0.034)
[2021-09-06] MEDS: HYDROMORPHONE 0.5 MG INJ IV (20:19)
--- NOTE | 2021-09-06 20:50 | DI.CT.S_ITS ---
PROCEDURE: CT ABDOMEN PELVIS W CON INDICATIONS: severe abdominal pain, N/V TECHNIQUE: After the administration of intravenous contrast, axial sections acquired from the lung bases to the pubic symphysis. Coronal and sagittal reformats were performed. For radiation dose reduction, the following was used: automated exposure control, adjustment of mA and/or kV according to patient size. COMPARISON: None. FINDINGS: Image quality: Excellent. Lung bases: Atelectasis is seen in the lung bases with possible superimposed reticulations that could indicate a component of chronic interstitial lung disease. Heart: No significant findings. ABDOMEN: Liver: Unremarkable. Gallbladder: Unremarkable. Biliary ducts: Unremarkable. Pancreas: Unremarkable. Spleen: Unremarkable. Adrenal Glands: Unremarkable. Kidneys and Ureters: A 4 mm calculus is seen at the superior pole of the left kidney. Additional calculi are seen in the inferior pole of the left kidney. No right renal calculus. No ureteral calculus or hydronephrosis. Multiple bilateral renal cysts. Stomach and Bowel: Stomach, small bowel loops, and colon are unremarkable. Normal appendix. Peritoneum: No abnormal intraperitoneal fluid. No free air. Ventral Wall: No hernias. Abdominal Nodes: No retroperitoneal or mesenteric adenopathy by size criteria. Vessels: Focal saccular outpouching of the infrarenal abdominal aorta measuring up to 3.2 x 2.5 cm in axial dimensions by 2.5 cm in length. No surrounding inflammatory changes are seen. Moderate to severe aortic atherosclerotic calcifications. PELVIS: Pelvic Organs: Unremarkable. Bladder: Unremarkable. Pelvic Nodes: No enlarged lymph nodes. Miscellaneous: Small fat containing left inguinal hernia. Bones: Generalized osteopenia. Multilevel degenerative changes. IMPRESSION: 1. No acute abnormality identified in the abdomen or pelvis. 2. Nonobstructing left renal calculi measuring up to 4 mm. No ureteral calculus or hydronephrosis. 3. 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 Dictated by: Odin Haley M.D. on 09/06/2021 at 21:59 Approved by: Odin Haley M.D. on 09/06/2021 at 22:04
[2021-09-06 21:34] LABS: Influenza A - CEPHEID Flu A NEGATIVE (NEGATIVE); Influenza B - CEPHEID Flu B NEGATIVE (NEGATIVE)
[2021-09-06 21:36] LABS: COVID-19 CEPHEID PCR (VTM/NP) Negative (Negative)
[2021-09-07] MEDS: ONDANSETRON 4 MG ODT PREPACK 1 BOTTLE MISC
== END 2021-09-07 00:02 | disposition home or self-care (01) ==
PROVIDERS: Emergency Provider Emergency Medicine; PCP Student in an Organized Health Care Education/Training Program
DX: R10.33 Periumbilical pain (principal); R11.2 Nausea with vomiting, unspecified; Z87.891 Personal history of nicotine dependence; Z20.822 Contact with and (suspected) exposure to COVID-19
CPT/HCPCS: 36415; 74022; 74177; 76705; 80053; 82550; 83690; 83735; 84484; 85025; 85610; 85730; 87635; 93005; 93010; 96361; 96374; 96375; 99284; C9803; C9113; J1170; J2405; Q9967

== ENCOUNTER → 2021-11-06 15:16 | Outpatient (CLI) | payer OTHER, SELFPAY ==
[2021-11-06 16:26] LABS: Alanine Aminotransferase 21 IU/L (<50); Albumin 4.5 g/dL (3.5-5.0); Albumin Globulin Ratio 1.5 (1.0-2.8); Alkaline Phosphatase 109 U/L (38-126); Aspartate Aminotransferase 31 IU/L (17-59); Bilirubin Total 1.3 mg/dL (0.2-1.3); Bilirubin Unconjugated 1.3 mg/dL (0.0-1.1); HEMOLYSIS 15 (0-50); Total Protein 7.5 g/dL (6.3-8.2)
[2021-11-07 07:36] LABS: HBsAg Screen Negative (Negative); Hepatitis A Antibody IgM Negative (Negative); Hepatitis B Core Antibody IgM Negative (Negative); Hepatitis C Antibody 0.2 s/co ratio (0.0-0.9)
== END ==
PROVIDERS: PCP Student in an Organized Health Care Education/Training Program; Referring Provider Student in an Organized Health Care Education/Training Program; Visit Provider Student in an Organized Health Care Education/Training Program
DX: R17 Unspecified jaundice (principal)
CPT/HCPCS: 36415; 80074; 80076

== ENCOUNTER 2021-11-10 12:14 | Emergency (ER) | payer OTHER, SELFPAY ==
[2021-11-10] VITALS (11 sets, daily range): BP systolic 120–175; BP diastolic 56–76; PULSE 53–71; RESP 15–21; TEMP 36.4; O2SAT 97–98; BMI 31.3
[2021-11-10 12:46] LABS: Add Manual Diff / Slide Review NO; Basophils Absolute Auto 0 /uL (0-100); Basophils Percent Auto 0.4 % (0-2); Eosinophils Absolute Auto 0 /uL (0-450); Eosinophils Percent Auto 0.8 % (2-4); Hematocrit 39.4 % (41-53); Hemoglobin 13.6 g/dL (13.5-17.5); Lymphocytes Absolute Auto 1200 /uL (1100-4500); Lymphocytes Percent Auto 24.9 % (25-40); Mean Corpuscular HGB Conc 34.6 % (30-36); Mean Corpuscular Hemoglobin 33.2 PG (26-34); Mean Corpuscular Volume 96.2 fL (80-100); Monocytes Absolute Auto 700 /uL (0-900); Monocytes Percent Auto 13.1 % (3-14); Neutrophils Absolute Auto 3000 /uL (1500-7000); Neutrophils Percent Auto 60.8 % (50-75); Platelet Count 114 X10^3/uL (150-400); Red Cell Distribution Width 14.5 % (11.6-14.8)
[2021-11-10 12:52] LABS: INR 1.2 (0.9-1.3); Prothrombin Time 13.6 SECONDS (10.1-12.7)
[2021-11-10 12:54] LABS: PTT Partial Thromboplastin Tim 28 SECONDS (26.4-36.2)
[2021-11-10 13:01] LABS: Alanine Aminotransferase 23 IU/L (<50); Albumin 4.3 g/dL (3.5-5.0); Albumin Globulin Ratio 1.5 (1.0-2.8); Alkaline Phosphatase 117 U/L (38-126); Aspartate Aminotransferase 34 IU/L (17-59); Bilirubin Total 1.6 mg/dL (0.2-1.3); Blood Urea Nitrogen 15 mg/dL (9-20); Carbon Dioxide 27 mmol/L (22-32); Chloride 104 mmol/L (98-107); Estimated Glomerular Filt Rate > 60 mL/min (>60); Globulin 2.9 g/dL (1.7-4.1); Glucose 110 mg/dL (80-110); HEMOLYSIS < 15 (0-50); Lipase 182 U/L (23-300); Sodium 137 mmol/L (137-145); Total Protein 7.2 g/dL (6.3-8.2)
--- NOTE | 2021-11-10 13:57 | ED.GENADULT ---
HPI - General Adult General Chief complaint: Abdominal Pain Stated complaint: Chills/Abd Pain/Weakness/Nausea Time Seen by Provider: 11/10/21 12:58 Source: patient and family Mode of arrival: Wheelchair History of Present Illness HPI narrative: 76-year-old male who for the past several days has been having issues with weakness. He has seen his primary doctor and also [place] attorney and they have made some adjustments to his medications they thought that this was potentially causing some of his issues. Over the past 24 hours he has developed some abdominal pain and chills and nausea. No vomiting. No change in bowel habits. No urinary symptoms. Does have a history of diverticulosis but no history of diverticulitis. No objective fevers. Related Data Home Medications Medication Instructions Recorded Confirmed aspirin 81 mg tablet,delayed 81 mg PO DAILY 07/29/20 11/06/21 release metoprolol succinate 25 mg 12.5 mg PO DAILY tab 11/06/21 11/06/21 tablet,extended release 24 hr ranolazine 500 mg tablet,extended 500 mg PO BID tab 11/06/21 11/06/21 release,12 hr (Ranexa) Previous Rx's Medication Instructions Recorded niacin 1,000 mg tablet,extended 2,000 mg PO Q DAY #180 tab 11/21/20 release 24 hr (Niaspan) simvastatin 40 mg tablet 40 mg PO BEDTIME #90 tab 06/27/21 hydrocodone 5 mg-acetaminophen 325 1 - 2 tab PO Q4HP PRN #10 tab 08/07/21 mg tablet nitroglycerin 0.4 mg/hr 1 patch TRANSDERMAL Q24H #30 each 08/08/21 transdermal 24 hour patch (Nitro-Dur) Parking Permit... #1 ea 11/06/21 Allergies Allergy/AdvReac Type Severity Reaction Status Date / Time No Known Drug Allergies Allergy Verified 11/06/21 14:29 Review of Systems Constitutional Constitutional: Reports system reviewed and no additional complaints, except as documented Cardiovascular Cardiovascular: Reports system reviewed and no additional complaints, except as documented Respiratory Respiratory: Reports system reviewed and no additional complaints, except as documented Gastrointestinal Gastrointestinal: Reports as per HPI and Reports system reviewed and no additional complaints, except as documented Genitourinary Genitourinary: Reports system reviewed and no additional complaints, except as documented Integumentary/Breasts Skin/Breast: Reports system reviewed and no additional complaints, except as documented Hematologic/Lymphatic On Anticoagulants: No Patient History Medical History Coronary artery disease involving [place] coronary artery of [place] heart without angina pectoris (12/21/15) Healed perforation of tympanic membrane (06/03/14) History of kidney stones Hyperlipidemia Hypertension Myocardial infarction Subconjunctival hemorrhage of left eye (05/01/17) Surgical History Status post coronary artery bypass graft (~1998) Social History household members: friend(s) Smoking Status: Former smoker alcohol intake: former Smoking Status: Former smoker Substance Use Type: does not use Exam Initial Vital Signs Initial Vital Signs: Vital Signs Temperature 97.6 F 11/10/21 12:20 Pulse Rate 65 11/10/21 12:20 Respiratory Rate 18 11/10/21 12:20 Blood Pressure 175/76 H 11/10/21 12:20 Pulse Oximetry 98 11/10/21 12:20 HENMT Head: normal to inspection and normocephalic Resp Effort & Inspection: normal respiratory effort Auscultation: clear to auscultation bilaterally Cardio Rate: regular rate Rhythm: regular rhythm GI Inspection: normal to inspection and non-distended Palpation: soft and No tender Skin General: no rashes or lesions noted Neuro General: patient alert, patient awake and moves all extremities Extrem General: normal to inspection and capillary refill normal Psych Appearance: grossly normal and well kempt Course Orders Ordered: ED Orders 11/10/21 12:28 EKG-12 Lead Stat 11/10/21 12:32 Complete Blood Count AUTO DIFF Stat Comprehensive Metabolic Panel Stat Lipase Stat Partial Thromboplastin Time Stat Prothrombin Time INR Stat 11/10/21 14:23 CT abdomen pelvis w con Stat Vital Signs Vital signs: Vital Signs - 8 hr 11/10/21 12:20 11/10/21 12:58 11/10/21 13:00 Temperature 97.6 F Pulse Rate 65 58 L 56 L Respiratory Rate 18 19 19 Blood Pressure 175/76 H 129/62 Pulse Oximetry 98 98 98 11/10/21 13:30 11/10/21 14:00 11/10/21 14:01 Temperature Pulse Rate 53 L 61 60 Respiratory Rate 18 19 21 Blood Pressure 120/58 L 152/70 H Pulse Oximetry 98 97 97 11/10/21 14:35 11/10/21 14:52 11/10/21 15:00 Temperature Pulse Rate 63 71 58 L Respiratory Rate 20 18 17 Blood Pressure 146/63 H 132/56 L Pulse Oximetry 98 98 97 11/10/21 15:30 11/10/21 15:31 Temperature Pulse Rate 65 64 Respiratory Rate 15 20 Blood Pressure 169/75 H Pulse Oximetry 98 98 Medical Decision Making Lab Data Lab results reviewed: Yes I reviewed the patient's lab results. Result diagrams: 11/10/21 12:32 11/10/21 12:32 Labs: Lab Results 11/10/21 11/10/21 11/10/21 Range/Units 12:32 12:32 12:32 WBC 5.0 (4.5-11.0) X10^3/uL RBC 4.10 L (4.5-5.9) X10^6/uL Hgb 13.6 (13.5-17.5) g/dL Hct 39.4 L (41-53) % MCV 96.2 (80-100) fL MCH 33.2 (26-34) PG MCHC 34.6 (30-36) % RDW 14.5 (11.6-14.8) % Plt Count 114 L (150-400) X10^3/uL Neut % (Auto) 60.8 (50-75) % Lymph % (Auto) 24.9 L (25-40) % [place] % (Auto) 13.1 (3-14) % Eos % (Auto) 0.8 L (2-4) % Baso % (Auto) 0.4 (0-2) % Neut # (Auto) 3000 (0944-5015) /uL Lymph # (Auto) 1200 (0418-8236) /uL [place] # (Auto) 700 (0-900) /uL Eos # (Auto) 0 (0-450) /uL Baso # (Auto) 0 (0-100) /uL PT 13.6 H (10.1-12.7) SECONDS INR 1.2 (0.9-1.3) APTT 28 (26.4-36.2) SECONDS Sodium 137 (137-145) mmol/L Potassium 4.0 (3.4-5.1) mmol/L Chloride 104 (98-107) mmol/L Carbon Dioxide 27 (22-32) mmol/L BUN 15 (9-20) mg/dL Creatinine 1.00 (0.66-1.25) mg/dL Estimated GFR > 60 (>60) mL/min BUN/Creatinine Ratio 15.0 (6-22) Glucose 110 (80-110) mg/dL Calcium 9.0 (8.4-10.2) mg/dL Total Bilirubin 1.6 H (0.2-1.3) mg/dL AST 34 (17-59) IU/L ALT 23 (<50) IU/L Alkaline Phosphatase 117 (38-126) U/L Total Protein 7.2 (6.3-8.2) g/dL Albumin 4.3 (3.5-5.0) g/dL Globulin 2.9 (1.7-4.1) g/dL Albumin/Globulin Ratio 1.5 (1.0-2.8) Lipase 182 (23-300) U/L Urine Dip Bedside Urine Glucose Negative Bedside Urine Bilirubin - Negative Bedside Urine Ketone - Negative Urine Specific [place] 1.020 Bedside Urine Occult Blood - Negative Bedside Urine pH 6.0 Bedside Urine Protein - Negative Bedside Urine Urobilinogen - Negative Bedside Urine Nitrite - Negative Bedside Urine Leukocytes - Negative Esterase Point of care testing: Urine Dip Bedside Urine Glucose Negative Bedside Urine Bilirubin - Negative Bedside Urine Ketone - Negative Urine Specific [place] 1.020 Bedside Urine Occult Blood - Negative Bedside Urine pH 6.0 Bedside Urine Protein - Negative Bedside Urine Urobilinogen - Negative Bedside Urine Nitrite - Negative Bedside Urine Leukocytes - Negative Esterase Imaging Data CT scan - abdomen/pelvis: Radiologist's Impression: [address] [address] [address] Scan Report Signed Patient: Ceasar Euceda MR#: [id number] : 1945 Acct:[id number] Age/Sex: 76 / M Date of Service: 11/10/21 Loc: ED Accession Number: [id number] ?? Procedure: CT abdomen pelvis w con Ordering Provider: Kelton Lance D.O. PROCEDURE:? CT ABDOMEN PELVIS W CON ? INDICATIONS:? LLQ abd pain ? TECHNIQUE:? After the administration of intravenous contrast, axial sections acquired from the lung bases to the pubic symphysis.? Coronal and sagittal reformats were performed.? For radiation dose reduction, the following was used:? automated exposure control, adjustment of mA and/or kV according to patient size.? ? COMPARISON:? [facility], CT, CT ABDOMEN PELVIS W CON, 09/06/2021, 20:53. ? FINDINGS:? Image quality:? Excellent.? ? Lung bases:? Unremarkable. Heart:? Inferior anterior pericardial clips.? Normal heart size. ? ABDOMEN: Liver:? Unremarkable.? ? Gallbladder:? Unremarkable.? ? Biliary ducts:? Unremarkable.? ? Pancreas:? Unremarkable.? ? Spleen:? Unremarkable.? ? Adrenal Glands:? Unremarkable.? ? Kidneys and Ureters:? There are 2 small nonobstructing left renal stones.? No suspicious renal masses.? No hydronephrosis..? ? ? Stomach and Bowel:? Mild sigmoid diverticulosis without evidence of diverticulitis.? Peritoneum:? No abnormal intraperitoneal fluid.? No free air.? ? Ventral Wall: ? No hernias.? Abdominal Nodes:? No retroperitoneal or mesenteric adenopathy by size criteria.? Vessels:? Small saccular infrarenal abdominal aortic aneurysm measuring approximately 3.1 cm, with moderate thrombus. ? PELVIS: Pelvic Organs:? Unremarkable.? ? Bladder:? Unremarkable.? ? Pelvic Nodes: No enlarged lymph nodes.? Miscellaneous:? Fat containing left inguinal hernia. ? Bones:? Lumbar degenerative change.? No lytic or blastic bony lesions.? No compression fractures. ? ? ? IMPRESSION: ? 1. Mild sigmoid diverticulosis without evidence of diverticulitis. ? 2. No evidence of acute abdominal process. ? 3. Small saccular infrarenal abdominal aortic aneurysm. ? 4. Left nephrolithiasis. ? 5. Small fat containing left inguinal hernia.? ? ? Dictated by: Julio Mcdonough M.D. on 11/10/2021 at 14:42 ? ? Approved by: Julio Mcdonough M.D. on 11/10/2021 at 14:48? ECG Data Attestation: I personally reviewed and interpreted this ECG as follows: Interpretation: Sinus rhythm Ventricular rate is [address] T wave changes MDM Narrative Medical decision making narrative: The weakness that he has been having is not new. He has had this for the past several days/weeks. He has been under the care of his primary doctor and [place] attorney they have been changing some of his medications. He wears a nitro patch on a daily basis. CT scan shows diverticulosis but no signs of diverticulitis and no other acute pathology. Afebrile. No specific indication of any infection. No leukocytosis. No indication for antibiotics. No indication for surgery consultation. No indication for admission the hospital. I did discuss all of the findings with the patient. He was given return precautions and follow-up instructions. He expressed understanding and agreement. Discharge Plan Departure Patient Disposition: Home Clinical Impression: Abdominal pain, Chills Instructions: DI for Abdominal Pain-Adult Activity Restrictions/Additional Instructions: Continue to take all of your medications as directed. Contact your primary doctor for a follow-up. Return to the emergency department for any new or worsening symptoms. Prescriptions: No Action niacin [Niaspan Extended-Release] 1,000 mg tablet extended release 24 hr 2,000 mg PO Q DAY Qty: 180 2RF Rx Instructions: Take two tabs by mouth daily. simvastatin 40 mg tablet 40 mg PO BEDTIME Qty: 90 1RF nitroglycerin [Nitro-Dur] 0.4 mg/hr patch 24 hour 1 patch transdermal Q24H Qty: 30 11RF Rx Instructions: allow nitrate-free interval of approx. 10-12 hrs per 24-hour period, Apply at 0800, off at 1400. hydrocodone-acetaminophen 5-325 mg tablet 1 - 2 tab PO Q4HP PRN (Reason: pain, moderate) Qty: 10 0RF Hold Instructions: Change to #10 with next fill metoprolol succinate 25 mg tablet extended release 24 hr 12.5 mg PO DAILY 0RF (DME) Parking Permit... See Rx Instructions .ROUTE .MEDSUPPLY Qty: 1 0RF Rx Instructions: As directed aspirin 81 mg tablet,delayed release (DR/EC) 81 mg PO DAILY 0RF ranolazine [Ranexa] 500 mg tablet extended release 12 hr 500 mg PO BID 0RF Referrals: Daniel Almanza MD [Primary Care Provider] -
--- NOTE | 2021-11-10 14:23 | DI.CT.S_ITS ---
PROCEDURE: CT ABDOMEN PELVIS W CON INDICATIONS: LLQ abd pain TECHNIQUE: After the administration of intravenous contrast, axial sections acquired from the lung bases to the pubic symphysis. Coronal and sagittal reformats were performed. For radiation dose reduction, the following was used: automated exposure control, adjustment of mA and/or kV according to patient size. COMPARISON: [facility], CT, CT ABDOMEN PELVIS W CON, 09/06/2021, 20:53. FINDINGS: Image quality: Excellent. Lung bases: Unremarkable. Heart: Inferior anterior pericardial clips. Normal heart size. ABDOMEN: Liver: Unremarkable. Gallbladder: Unremarkable. Biliary ducts: Unremarkable. Pancreas: Unremarkable. Spleen: Unremarkable. Adrenal Glands: Unremarkable. Kidneys and Ureters: There are 2 small nonobstructing left renal stones. No suspicious renal masses. No hydronephrosis.. Stomach and Bowel: Mild sigmoid diverticulosis without evidence of diverticulitis. Peritoneum: No abnormal intraperitoneal fluid. No free air. Ventral Wall: No hernias. Abdominal Nodes: No retroperitoneal or mesenteric adenopathy by size criteria. Vessels: Small saccular infrarenal abdominal aortic aneurysm measuring approximately 3.1 cm, with moderate thrombus. PELVIS: Pelvic Organs: Unremarkable. Bladder: Unremarkable. Pelvic Nodes: No enlarged lymph nodes. Miscellaneous: Fat containing left inguinal hernia. Bones: Lumbar degenerative change. No lytic or blastic bony lesions. No compression fractures. IMPRESSION: 1. Mild sigmoid diverticulosis without evidence of diverticulitis. 2. No evidence of acute abdominal process. 3. Small saccular infrarenal abdominal aortic aneurysm. 4. Left nephrolithiasis. 5. Small fat containing left inguinal hernia. Dictated by: Julio Mcdonough M.D. on 11/10/2021 at 14:42 Approved by: Julio Mcdonough M.D. on 11/10/2021 at 14:48
== END 2021-11-10 15:45 | disposition home or self-care (01) ==
PROVIDERS: Emergency Provider Emergency Medicine; PCP Student in an Organized Health Care Education/Training Program
DX: R10.9 Unspecified abdominal pain (principal); R68.83 Chills (without fever); R11.0 Nausea
CPT/HCPCS: 36415; 74177; 80053; 81003; 83690; 85025; 85610; 85730; 93005; 99283; Q9967

== ENCOUNTER → 2021-11-17 06:58 | Outpatient (CLI) | payer OTHER, SELFPAY ==
--- NOTE | 2021-11-17 06:59 | DI.US.S_ITS ---
PROCEDURE: US RETRO PERITONEAL LIMITED INDICATIONS: AAA ON RECENT CT TECHNIQUE: Real time scanning was performed of the aorta and iliac arteries, with image documentation. COMPARISON: [facility], CT, CT ABDOMEN PELVIS W CON, 11/10/2021, 14:25. FINDINGS: Aorta: Proximal aortic is obscured by bowel gas. Mid-aorta measures 1.8 cm. Distal aortic diameter is 2.2 x 3.0 cm. Iliac arteries: Right common iliac artery measures 0.8 cm. Left common iliac artery measures 1.0 cm. IMPRESSION: 3.0 centimeter aneurysm of the infrarenal abdominal aorta. Dictated by: Kaitlyn Lyn MD, PhD on 11/17/2021 at 10:33 Approved by: Kaitlyn Lyn MD, PhD on 11/17/2021 at 10:35
== END ==
PROVIDERS: PCP Student in an Organized Health Care Education/Training Program; Referring Provider Student in an Organized Health Care Education/Training Program; Visit Provider Student in an Organized Health Care Education/Training Program
DX: I71.4 Abdominal aortic aneurysm, without rupture (principal)
CPT/HCPCS: 76775

== ENCOUNTER → 2022-02-23 07:56 | Outpatient (CLI) | payer OTHER, SELFPAY ==
--- NOTE | 2022-02-23 07:59 | DI.MRI.S_ITS ---
PROCEDURE: MR HEAD/BRAIN WO/W CON INDICATIONS: Parkinson's disease TECHNIQUE: Noncontrast axial T1 spin echo, axial T2 fast spin echo, sagittal and axial FLAIR, coronal T2 fast spin echo, axial gradient echo, axial diffusion and ADC through the brain. After the administration of contrast, axial and coronal and sagittal T1 spin echo with fat saturation through the brain. COMPARISON: None. FINDINGS: Image quality: Excellent. CSF spaces: Basal cisterns are patent. No extra-axial fluid collections. Ventricles are normal in size and shape. Brain: No midline shift. No intracranial bleeds or masses. No abnormal intracranial enhancement. There is cerebral volume loss for age. There is periventricular white matter chronic small vessel ischemic change. The brainstem appears normal. Diffusion-weighted images demonstrate no acute ischemic insults. No chronic ischemic insults. Normal intravascular flow voids are present. Skull and face: Calvarial marrow is normal in signal. Orbits appear normal. Sinuses: Sinuses and mastoids appear clear. IMPRESSION: Brain MRI within normal limits for age, with brain parenchymal volume loss small vessel ischemic change. No masses or abnormal enhancement can be seen. Dictated by: Samir Henning M.D. on 02/23/2022 at 8:09 Approved by: Samir Henning M.D. on 02/23/2022 at 8:11
== END ==
PROVIDERS: Family Provider Student in an Organized Health Care Education/Training Program; PCP Student in an Organized Health Care Education/Training Program; Referring Provider Psychiatry & Neurology Neurology; Visit Provider Psychiatry & Neurology Neurology
DX: G20 Parkinson's disease (principal)
CPT/HCPCS: 70553

== ENCOUNTER 2022-03-01 09:00 | Outpatient (RCR) | payer OTHER, SELFPAY ==
--- NOTE | 2021-12-06 17:09 | PT.OIE ---
Current Diagnoses Myalgia, other site (12/06/21) Other abnormalities of gait and mobility (12/06/21) Weakness (12/06/21) Past Medical History (Last Reviewed 11/10/21 @ 18:36 by Kelton Lance DO) Coronary artery disease involving koi coronary artery of koi heart without angina pectoris (12/21/15) Healed perforation of tympanic membrane (06/03/14) History of kidney stones Hyperlipidemia Hypertension Myocardial infarction Subconjunctival hemorrhage of left eye (05/01/17) Past Surgical History (Last Reviewed 09/06/21 @ 19:47 by Ángel Willingham DO) Status post coronary artery bypass graft (~1998) Visit Care Team Role Provider Type Daniel Almanza MD Attending Provider Physician Family Provider Primary Care Provider Referring Provider Specialty: Internal Medicine Address: [address] [place] [address], [address], [facility] Email: [email or web address] Physical Therapy Initial Evaluation PT-OP-A Visit Information Start: 12/05/21 17:51 Freq: Status: Active Protocol: Document 12/06/21 12:00 AW (Rec: 12/05/21 18:00 AW [id number]) Out-Patient Physical Therapy Visit Information Visit Information Visit Type Initial Evaluation Visit Start Time 11:15 Visit Stop Time 12:00 Total Visit Minutes 45 Visit Number 1 Number of [employer]GER Visits 0 Evaluation Information Evaluation Date 12/06/21 PT-OP-B Current Condition Start: 12/05/21 17:51 Freq: Status: Active Protocol: Document 12/06/21 12:00 AW (Rec: 12/05/21 18:00 AW [id number]) Current Condition History of Current Condition Onset Date 8 months Current Complaints weakness in legs; shuffling, unsteady gait; right low back pain and spasm History of Current Condition Hardeep has noticed shuffling and unsteady gait for the past 8 months to a year. He denies falls. He used to be a lot more active, taking care of his [place].[address] acre property but he nows pays a gardening service. He denies tremors. He does notice increased shakiness with writing and small writing . He says he moves slowly secondary to vertigo. Pressed for details, pt does describe occasions with room- spinning sensation during positional changes but his symptoms clear quickly. This has only happend 5 or 6 times and resolves quickly each time . He has been treated with meclizine which was effective. His vision is good and his corrective lens prescription was updates within the past one year. Hardeep also complains of random low back spasms, mostly right side. They are occasionally disabling but he has not had any serious problem with this recently. Hardeep lives alone on [place] acres. 5 years ago. 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 He has supportive daughters who live in [place] and [place]. Prior Treatments and Tests None identified Future Testing and Treatments Planned Neurology consult in January. Treatment Goals Patient/Caregiver Goals Imrpove gait. Improve balance. Feel more confident on uneven surfaces. Personal Factors Other Personal Factors That May Effect Chart indicates memory Therapy/Recovery problems but pt states memory is good. PMH includes CAD s/p CABG x 4 in 1998, CHF. PT-OP-C Subjective Start: 12/05/21 17:51 Freq: Status: Active Protocol: Document 12/06/21 12:00 AW (Rec: 12/06/21 12:24 AW [id number]) Patient Questionnaires ABC- Activity Specific Balance Confidence Scale ABC Score 92.5% OP-PT Pain Assessment Pain Assessment Grid Paper Pain Assessment Grid Completed No: Pt self-reports R low back spasms but does not rate or quantify. Home Pain Medication Use Pain Medications Used Yes Home Pain Medication Frequency Pt states he takes alleve regularly for back pain, anterior thigh pain. PT-OP-D Balance Start: 12/05/21 17:51 Freq: Status: Active Protocol: Document 12/06/21 12:00 AW (Rec: 12/06/21 12:24 AW [id number]) Balance Tests mCTSIB mCTSIB Position 1 30 mCTSIB Position 2 30 mCTSIB Position 3 20 mCTSIB Position 4 8 Single Limb Standing Single Limb- Right 1 sec Single Limb- Left 2 sec Tandem Tandem Standing able take 4 tandem steps PT-OP-E Functional Tests Start: 12/05/21 17:51 Freq: Status: Active Protocol: Document 12/06/21 12:00 AW (Rec: 12/06/21 12:24 AW [id number]) Functional Tests 2 Minute Walk Test Distance 185 feet/ 92 seconds Device Used no AD Comments 0.61 m/s average gait speed Dynamic Gait Index (DGI) Score 18 DGI Impairment Rating 20 to <40% Impaired (Score 15- 19) PT-OP-F Manual Assessment Start: 12/05/21 17:51 Freq: Status: Active Protocol: Document 12/06/21 12:00 AW (Rec: 12/06/21 12:24 AW [id number]) Manual Assessments Soft Tissue Assessment Soft Tissue Mobility Assessment Passive SLR ~75 degrees bilaterally PT-OP-G Mobility & Gait Start: 12/05/21 17:51 Freq: Status: Active Protocol: Document 12/06/21 12:00 AW (Rec: 12/06/21 12:26 AW [id number]) OP Mobility Evaluation Bed Mobility Rolling Independent but slow. Supine to and from Sit Independent but slow. Transfers Sit to Stand Pt tends to use hands on knees or seat but is able to rise when prompted without use of UE's though does tend to use momentum OP Gait Assessment Comments Gait Comments Pt ambulates with flexed trunk held rigidly, arms bent at elbow with no arm swing bilaterally, short and inconsistent step lengths, average gait speed ~0.6 m/s. PT-OP-H Neuro Start: 12/05/21 17:51 Freq: Status: Active Protocol: Document 12/06/21 12:00 AW (Rec: 12/06/21 12:58 AW [id number]) Sensation Evaluation Gross Sensation Gross Sensation WNL Coordination Evaluation Comments Coordination Comments Finger to nose with eyes closed mildly impaired RUE. Pt able to perform eyes open finger to PT finger to nose EO with good speed. Deep Tendon Reflex & Clonus Assessment Deep Tendon Reflex Bilateral Bicep Deep Tendon Reflex 2+ Normal Bilateral Achilles Deep Tendon Reflex 2+ Normal Bilateral Patellar Deep Tendon Reflex 2+ Normal Muscle Tone Tone Assessment trunk Flexor Tone Description Rigidity Muscle Tone Comments Rigid trunk notable during bed mobility, transfers, and gait . See notes on gait. PT-OP-J Posture/Palpation/Skin Start: 12/05/21 17:51 Freq: Status: Active Protocol: Document 12/06/21 12:00 AW (Rec: 12/06/21 12:58 AW [id number]) Posture Evaluation Comments Posture Comments Forward head, flexed trunk posture held rigidly. Weight distrubuted anteriorly, PT-OP-K Range of Motion Start: 12/05/21 17:51 Freq: Status: Active Protocol: Document 12/06/21 12:00 AW (Rec: 12/06/21 13:02 AW [id number]) Hip Goniometric Range of Motion Hip bilat Hip ROM WFL Yes Knee Goniometric Range of Motion Knee bilat Knee ROM WFL Yes Ankle and Foot Goniometric Range of Motion Ankle and Foot bilat Ankle/Foot ROM WFL Yes PT-OP-M Strength Start: 12/05/21 17:51 Freq: Status: Active Protocol: Document 12/06/21 12:00 AW (Rec: 12/06/21 13:02 AW [id number]) Shoulder Strength Shoulder Manual Muscle Testing bilat Flexion 4+ Good+ Abduction (C5) 4 Good External Rotation 4+ Good+ Internal Rotation 4+ Good+ Hip Strength Hip Manual Muscle Testing bilat Flexion (L2) 4 Good Extension (S1) 3 Fair Abduction 4- Good- External Rotation 4+ Good+ Internal Rotation 4 Good Knee Strength Knee Manual Muscle Testing bilat Flexion (S2) 4 Good Extension (L3) 4+ Good+ Ankle/Foot Strength Ankle and Foot Manual Muscle Testing bilat Dorsiflexion (L4) 4+ Good+ Plantarflexion (S1) 4- Good- Comments PF tested with standing heel raise. Pt able to do 3 bilateral, none single leg. PT-OP-O Vestibular Start: 12/05/21 17:51 Freq: Status: Active Protocol: Document 12/06/21 12:00 AW (Rec: 12/06/21 15:45 AW [id number]) Vestibular Assessment Visual Testing Smooth Pursuits Horizontal WNL Smooth Pursuits Vertical WNL Saccades Horizontal WNL Gaze Evoked Nystagmus With Fixation Negative Thrust Head Negative Cover/Uncover Test WNL Convergence Test WNL PT-OP-T Assessment and Plan Start: 12/05/21 17:51 Freq: Status: Active Protocol: Document 12/06/21 12:00 AW (Rec: 12/06/21 16:01 AW [id number]) Physical Therapy Assessment Rehab Potential Rehabilitation Potential Good Evaluation Complexity Number of Personal Factors/Comorbidities 1-2 Number of Body Systems Impaired 4 or More Clinical Presentation at Evaluation Evolving Impairments Impairments Balance,Gait,Pain,Posture,ROM, Soft Tissue Mobility,Strength Other Concerns Fall Risk high per DGI score Goals Four Impairment strength Long-Term Goal (LTG) Pt will complete 5 Time Sit to Stand without use of UE assist in 13 seconds or less as a measure of improved BLE strength. Three Impairment dynamic balance Long-Term Goal (LTG) Pt will improve DGI score from 17/24 to 21/24 or greater as a measure of reduced falls risk. Two Impairment bradykinesia Short Term Goal (STG) Pt will improve average gait speed on 6MWT from 0.6 m/s to 0/75 m/s or greater STG Duration 01/17/22 Long-Term Goal (LTG) Pt will improve average gait speed on 6MWT to 1.0 m/s or greater as a measure of reduced bradykinesia LTG Duration 03/08/22 One Impairment lacks HEP Short Term Goal (STG) Pt will be instructed in HEP to improve amplitude, strength , and balance. STG Duration 01/17/22 Long-Term Goal (LTG) Pt will be independent with HEP to improve amplitude, strength, and balance. LTG Duration 03/08/22 Assessment Summary Assessment Hardeep is a 76 yo man who attends outpatient physical therapy with complaints of worsening balance and unsteady gait for at least the last 8 months. He also reports low back spasms - mostly on the right side. He is scheduled for consult with neurology in January. He presents with bilateral lower extremity weakness, hypokinesia, truncal rigidity affecting transfers and gait, and bradykinesia evidenced by average gait speed of 0.6 m/s. Pt's significant amplitude and strength deficits are expected to improve with physical therapy. If pt does not respond well to 1-2x weekly treatment but is stimulable in terms of amplitude, he may benefit from engaging with LSVT BIG protocol. Physical Therapy Plan Frequency and Duration Frequency of Treatment 1-2x/week Duration of Treatment 3 months Plan of Care Start Date 12/06/21 Plan of Care End Date 03/08/22 Therapeutic Interventions Therapeutic Interventions Balance Training,Gait Training ,Home Exercise Program,Manual Therapy,Neuromuscular Re- education,Self-Care/Home Management,Soft Tissue Mobilization,Therapeutic Activities,Therapeutic Exercises Modalities Cold Pack/Ice Massage,Electric Stimulation,Hot Packs Other Referrals/Consults Referrals/Consults Recommended Pt to see neurology in January. Next Visit Focus/Plan Next Note Type Treatment Note Next Visit Plan Initiate lumbar mobility in supine. Assess stimulability in gait training to improve amplitude. Further assess fine motor activities such as buttoning and zipping as well as donning a jacket or other functional task. General LE strength.
--- NOTE | 2021-12-06 17:09 | PT.OPPOC ---
Physical, Occupational & Speech Therapy At [facility] Current Diagnoses Myalgia, other site (12/06/21) Other abnormalities of gait and mobility (12/06/21) Weakness (12/06/21) Visit Care Team Role Provider Type Daniel Almanza MD Attending Provider Physician Family Provider Primary Care Provider Referring Provider Specialty: Internal Medicine Address: [address] [place] [address], [address], [facility] Email: [email or web address] Plan Of Care PT-OP-T Assessment and Plan Start: 12/05/21 17:51 Freq: Status: Active Protocol: Document 12/06/21 12:00 AW (Rec: 12/06/21 16:01 AW [id number]) Physical Therapy Assessment Rehab Potential Rehabilitation Potential Good Evaluation Complexity Number of Personal Factors/Comorbidities 1-2 Number of Body Systems Impaired 4 or More Clinical Presentation at Evaluation Evolving Impairments Impairments Balance,Gait,Pain,Posture,ROM, Soft Tissue Mobility,Strength Other Concerns Fall Risk high per DGI score 17/24 Goals Four Impairment strength Recovery Operator Goal (LTG) Pt will complete 5 Time Sit to Stand without use of UE assist in 13 seconds or less as a measure of improved BLE strength. Three Impairment dynamic balance Recovery Operator Goal (LTG) Pt will improve DGI score from 17/24 to 21/24 or greater as a measure of reduced falls risk. Two Impairment bradykinesia Short Term Goal (STG) Pt will improve average gait speed on 6MWT from 0.6 m/s to 0/75 m/s or greater STG Duration 01/17/22 [facility] Goal (LTG) Pt will improve average gait speed on 6MWT to 1.0 m/s or greater as a measure of reduced bradykinesia LTG Duration 03/08/22 One Impairment lacks HEP Short Term Goal (STG) Pt will be instructed in HEP to improve amplitude, strength , and balance. STG Duration 01/17/22 Recovery Operator Goal (LTG) Pt will be independent with HEP to improve amplitude, strength, and balance. LTG Duration 03/08/22 Assessment Summary Assessment Hardeep is a 76 yo man who attends outpatient physical therapy with complaints of worsening balance and unsteady gait for at least the last 8 months. He also reports low back spasms - mostly on the right side. He is scheduled for consult with neurology in January. He presents with bilateral lower extremity weakness, hypokinesia, truncal rigidity affecting transfers and gait, and bradykinesia evidenced by average gait speed of 0.6 m/s. Pt's significant amplitude and strength deficits are expected to improve with physical therapy. If pt does not respond well to 1-2x weekly treatment but is stimulable in terms of amplitude, he may benefit from engaging with LSVT BIG protocol. Physical Therapy Plan Frequency and Duration Frequency of Treatment 1-2x/week Duration of Treatment 3 months Plan of Care Start Date 12/06/21 Plan of Care End Date 03/08/22 Therapeutic Interventions Therapeutic Interventions Balance Training,Gait Training ,Home Exercise Program,Manual Therapy,Neuromuscular Re- education,Self-Care/Home Management,Soft Tissue Mobilization,Therapeutic Activities,Therapeutic Exercises Modalities Cold Pack/Ice Massage,Electric Stimulation,Hot Packs Other Referrals/Consults Referrals/Consults Recommended Pt to see neurology in January. Next Visit Focus/Plan Next Note Type Treatment Note Next Visit Plan Initiate lumbar mobility in supine. Assess stimulability in gait training to improve amplitude. Further assess fine motor activities such as buttoning and zipping as well as donning a jacket or other functional task. General LE strength. Plan of Care Dates Plan of Care Start Date 12/06/21 Plan of Care End Date 03/08/22 Electronically Signed by: Xiomara Hutton PT 12/06/21 [id number] If you are in agreement with this Plan of Care, please return a signed and dated copy. I have reviewed this Plan of Care and certify that the skilled therapy services above are required to meet the patient?s needs. Physician Signature Date Printed Name and Credentials Clinical Instructor Signature Printed Name and Credentials
--- NOTE | 2021-12-13 17:31 | PT.OTN ---
Current Diagnoses Myalgia, other site (12/13/21) Other abnormalities of gait and mobility (12/13/21) Weakness (12/13/21) Physical Therapy Treatment Note PT-OP-A Visit Information Start: 12/05/21 17:51 Freq: Status: Active Protocol: Document 12/13/21 12:53 AW (Rec: 12/13/21 14:32 AW [id number]) Out-Patient Physical Therapy Visit Information Visit Information Visit Type Treatment Note Visit Start Time 13:45 Visit Stop Time 14:30 Total Visit Minutes 45 Visit Number 2 Number of LINEN CONTROLLER Visits 0 Evaluation Information Evaluation Date 12/06/21 PT-OP-B Current Condition Start: 12/05/21 17:51 Freq: Status: Active Protocol: Document 12/06/21 12:00 AW (Rec: 12/05/21 18:00 AW [id number]) Current Condition History of Current Condition Onset Date 8 months Current Complaints weakness in legs; shuffling, unsteady gait; right low back pain and spasm History of Current Condition Hardeep has noticed shuffling and unsteady gait for the past 8 months to a year. He denies falls. He used to be a lot more active, taking care of his [address] acre property but he nows pays a gardening service. He denies tremors. He does notice increased shakiness with writing and small writing . He says he moves slowly secondary to vertigo. Pressed for details, pt does describe occasions with room- spinning sensation during positional changes but his symptoms clear quickly. This has only happend 5 or 6 times and resolves quickly each time . He has been treated with meclizine which was effective. His vision is good and his corrective lens prescription was updates within the past one year. Hardeep also complains of random low back spasms, mostly right side. They are occasionally disabling but he has not had any serious problem with this recently. Hardeep lives alone on [address]. 5 years ago. 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 He has supportive daughters who live in [place] and [place]. Prior Treatments and Tests None identified Future Testing and Treatments Planned Neurology consult in January. Treatment Goals Patient/Caregiver Goals Imrpove gait. Improve balance. Feel more confident on uneven surfaces. Personal Factors Other Personal Factors That May Effect Chart indicates memory Therapy/Recovery problems but pt states memory is good. PMH includes CAD s/p CABG x 4 in 1998, CHF. PT-OP-C Subjective Start: 12/05/21 17:51 Freq: Status: Active Protocol: Document 12/13/21 12:53 AW (Rec: 12/13/21 17:23 AW [id number]) OP-PT Subjective Patient Comments Patient Comments Pt is motivated and ready to get to work PT-OP-D Balance Start: 12/05/21 17:51 Freq: Status: Active Protocol: Document 12/06/21 12:00 AW (Rec: 12/06/21 12:24 AW [id number]) Balance Tests mCTSIB mCTSIB Position 1 30 mCTSIB Position 2 30 mCTSIB Position 3 20 mCTSIB Position 4 8 Single Limb Standing Single Limb- Right 1 sec Single Limb- Left 2 sec Tandem Tandem Standing able take 4 tandem steps PT-OP-E Functional Tests Start: 12/05/21 17:51 Freq: Status: Active Protocol: Document 12/06/21 12:00 AW (Rec: 12/06/21 12:24 AW [id number]) Functional Tests 2 Minute Walk Test Distance 185 feet/ 92 seconds Device Used no AD Comments 0.61 m/s average gait speed Dynamic Gait Index (DGI) Score 18 DGI Impairment Rating 20 to <40% Impaired (Score 15- 19) PT-OP-F Manual Assessment Start: 12/05/21 17:51 Freq: Status: Active Protocol: Document 12/06/21 12:00 AW (Rec: 12/06/21 12:24 AW [id number]) Manual Assessments Soft Tissue Assessment Soft Tissue Mobility Assessment Passive SLR ~75 degrees bilaterally PT-OP-G Mobility & Gait Start: 12/05/21 17:51 Freq: Status: Active Protocol: Document 12/06/21 12:00 AW (Rec: 12/06/21 12:26 AW [id number]) OP Mobility Evaluation Bed Mobility Rolling Independent but slow. Supine to and from Sit Independent but slow. Transfers Sit to Stand Pt tends to use hands on knees or seat but is able to rise when prompted without use of UE's though does tend to use momentum OP Gait Assessment Comments Gait Comments Pt ambulates with flexed trunk held rigidly, arms bent at elbow with no arm swing bilaterally, short and inconsistent step lengths, average gait speed ~0.6 m/s. PT-OP-H Neuro Start: 12/05/21 17:51 Freq: Status: Active Protocol: Document 12/06/21 12:00 AW (Rec: 12/06/21 12:58 AW [id number]) Sensation Evaluation Gross Sensation Gross Sensation WNL Coordination Evaluation Comments Coordination Comments Finger to nose with eyes closed mildly impaired RUE. Pt able to perform eyes open finger to PT finger to nose EO with good speed. Deep Tendon Reflex & Clonus Assessment Deep Tendon Reflex Bilateral Bicep Deep Tendon Reflex 2+ Normal Bilateral Achilles Deep Tendon Reflex 2+ Normal Bilateral Patellar Deep Tendon Reflex 2+ Normal Muscle Tone Tone Assessment trunk Flexor Tone Description Rigidity Muscle Tone Comments Rigid trunk notable during bed mobility, transfers, and gait . See notes on gait. PT-OP-J Posture/Palpation/Skin Start: 12/05/21 17:51 Freq: Status: Active Protocol: Document 12/06/21 12:00 AW (Rec: 12/06/21 12:58 AW [id number]) Posture Evaluation Comments Posture Comments Forward head, flexed trunk posture held rigidly. Weight distrubuted anteriorly, PT-OP-K Range of Motion Start: 12/05/21 17:51 Freq: Status: Active Protocol: Document 12/06/21 12:00 AW (Rec: 12/06/21 13:02 AW [id number]) Hip Goniometric Range of Motion Hip bilat Hip ROM WFL Yes Knee Goniometric Range of Motion Knee bilat Knee ROM WFL Yes Ankle and Foot Goniometric Range of Motion Ankle and Foot bilat Ankle/Foot ROM WFL Yes PT-OP-M Strength Start: 12/05/21 17:51 Freq: Status: Active Protocol: Document 12/06/21 12:00 AW (Rec: 12/06/21 13:02 AW [id number]) Shoulder Strength Shoulder Manual Muscle Testing bilat Flexion 4+ Good+ Abduction (C5) 4 Good External Rotation 4+ Good+ Internal Rotation 4+ Good+ Hip Strength Hip Manual Muscle Testing bilat Flexion (L2) 4 Good Extension (S1) 3 Fair Abduction 4- Good- External Rotation 4+ Good+ Internal Rotation 4 Good Knee Strength Knee Manual Muscle Testing bilat Flexion (S2) 4 Good Extension (L3) 4+ Good+ Ankle/Foot Strength Ankle and Foot Manual Muscle Testing bilat Dorsiflexion (L4) 4+ Good+ Plantarflexion (S1) 4- Good- Comments PF tested with standing heel raise. Pt able to do 3 bilateral, none single leg. PT-OP-O Vestibular Start: 12/05/21 17:51 Freq: Status: Active Protocol: Document 12/06/21 12:00 AW (Rec: 12/06/21 15:45 AW [id number]) Vestibular Assessment Visual Testing Smooth Pursuits Horizontal WNL Smooth Pursuits Vertical WNL Saccades Horizontal WNL Gaze Evoked Nystagmus With Fixation Negative Thrust Head Negative Cover/Uncover Test WNL Convergence Test WNL PT-OP-Q Treatments Start: 12/05/21 17:51 Freq: Status: Active Protocol: Document 12/13/21 12:53 AW (Rec: 12/13/21 14:32 AW [id number]) Cardio Equipment Recumbent Stepper (Sci-Fit) Duration (Minutes) 5 Resistance 2 Seat Position 8 Therapeutic Exercises Supine Exercises active SLR Supine Exercise Name A SLR Side bilateral Comments cued QS, lift to 45 deg TrA Supine Exercise Name BKFO, SL march, DL march Resistance nylon belt under L/S for tactile feedback Comments good control up to level of DL march LTR Supine Exercise Name LTR Comments HEP? Sitting Exercises floor to ceiling Sitting Exercise Name floor to ceiling Equipment Used std ht chair without arms Comments cued increased amplitude; HEP Other Exercises sit to stand Other Exercise Name sit to stand Resistance without use of hands Comments cued inc anterior weight shift ; HEP Gait Training Gait Activity amplitude Device Used no AD Level of Assistance IND Surface tile Distance/Duration 80' x 10 Treatment Focus amplitude Comments Cued increased amplitude in arm swing fwd/bwd first 4 laps . Cued increased amplitude in step length last laps. Pt responded well to cues and was able to maintain amplitude throughout. Neuro Re-Education Treatment Balance Activities half tandem Details half tandem Surface firm Equipment rail Comments HEP NBOS Details NBOS Surface firm Equipment rail prn Comments EO EC head turns PT-OP-T Assessment and Plan Start: 12/05/21 17:51 Freq: Status: Active Protocol: Document 12/13/21 12:53 AW (Rec: 12/13/21 14:32 AW [id number]) Physical Therapy Assessment Other Concerns Fall Risk high per DGI score Goals Four Impairment strength Retirement Goal (LTG) Pt will complete 5 Time Sit to Stand without use of UE assist in 13 seconds or less as a measure of improved BLE strength. Three Impairment dynamic balance Retirement Goal (LTG) Pt will improve DGI score from 17/24 to 21/24 or greater as a measure of reduced falls risk. Two Impairment bradykinesia Short Term Goal (STG) Pt will improve average gait speed on 6MWT from 0.6 m/s to 0/75 m/s or greater STG Duration 01/17/22 Retirement Goal (LTG) Pt will improve average gait speed on 6MWT to 1.0 m/s or greater as a measure of reduced bradykinesia LTG Duration 03/08/22 One Impairment lacks HEP Short Term Goal (STG) Pt will be instructed in HEP to improve amplitude, strength , and balance. 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 LTG Duration 03/08/22 Assessment Summary Assessment Hardeep proved stimulable in terms of amplitude with min cues for arm swing and step length during gait training today. Assigned sit to stand, floor to ceiling, half-tandem stance with rail, and gait training with arm swing awareness for HEP. Physical Therapy Plan Frequency and Duration Frequency of Treatment 1-2x/week Duration of Treatment 3 months Plan of Care Start Date 12/06/21 Plan of Care End Date 03/08/22 Therapeutic Interventions Therapeutic Interventions Balance Training,Gait Training ,Home Exercise Program,Manual Therapy,Neuromuscular Re- education,Self-Care/Home Management,Soft Tissue Mobilization,Therapeutic Activities,Therapeutic Exercises Modalities Cold Pack/Ice Massage,Electric Stimulation,Hot Packs Other Referrals/Consults Referrals/Consults Recommended Pt to see neurology in January. Next Visit Focus/Plan Next Note Type Treatment Note Next Visit Plan Follow up HEP including gait with arm swing. Further assess fine motor activities such as buttoning and zipping as well as donning a jacket or other functional task. General LE strength. Static balance.
--- NOTE | 2021-12-19 12:27 | PT.OTN ---
Current Diagnoses Myalgia, other site (12/19/21) Other abnormalities of gait and mobility (12/19/21) Weakness (12/19/21) Physical Therapy Treatment Note PT-OP-A Visit Information Start: 12/05/21 17:51 Freq: Status: Active Protocol: Document 12/19/21 09:00 AW (Rec: 12/19/21 10:33 AW [id number]) Out-Patient Physical Therapy Visit Information Visit Information Visit Type Treatment Note Visit Start Time 09:45 Visit Stop Time 10:30 Total Visit Minutes 45 Visit Number 3 Number of DISTRIBUTION SYSTEMS SUPERINTENDENT Visits 0 Evaluation Information Evaluation Date 12/06/21 PT-OP-B Current Condition Start: 12/05/21 17:51 Freq: Status: Active Protocol: Document 12/06/21 12:00 AW (Rec: 12/05/21 18:00 AW [id number]) Current Condition History of Current Condition Onset Date 8 months Current Complaints weakness in legs; shuffling, unsteady gait; right low back pain and spasm History of Current Condition Hardeep has noticed shuffling and unsteady gait for the past 8 months to a year. He denies falls. He used to be a lot more active, taking care of his [address] acre property but he nows pays a gardening service. He denies tremors. He does notice increased shakiness with writing and small writing . He says he moves slowly secondary to vertigo. Pressed for details, pt does describe occasions with room- spinning sensation during positional changes but his symptoms clear quickly. This has only happend 5 or 6 times and resolves quickly each time . He has been treated with meclizine which was effective. His vision is good and his corrective lens prescription was updates within the past one year. Hardeep also complains of random low back spasms, mostly right side. They are occasionally disabling but he has not had any serious problem with this recently. Hardeep lives alone on [address] [place]. 5 years ago. 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 He has supportive daughters who live in [place] and [place]. Prior Treatments and Tests None identified Future Testing and Treatments Planned Neurology consult in January. Treatment Goals Patient/Caregiver Goals Imrpove gait. Improve balance. Feel more confident on uneven surfaces. Personal Factors Other Personal Factors That May Effect Chart indicates memory Therapy/Recovery problems but pt states memory is good. PMH includes CAD s/p CABG x 4 in 1998, CHF. PT-OP-C Subjective Start: 12/05/21 17:51 Freq: Status: Active Protocol: Document 12/19/21 09:00 AW (Rec: 12/19/21 10:33 AW [id number]) OP-PT Subjective Patient Comments Patient Comments I might have overdone it yesterday. Lots of weeding. I' ve also been doing my exercises a few times per day PT-OP-D Balance Start: 12/05/21 17:51 Freq: Status: Active Protocol: Document 12/06/21 12:00 AW (Rec: 12/06/21 12:24 AW [id number]) Balance Tests mCTSIB mCTSIB Position 1 30 mCTSIB Position 2 30 mCTSIB Position 3 20 mCTSIB Position 4 8 Single Limb Standing Single Limb- Right 1 sec Single Limb- Left 2 sec Tandem Tandem Standing able take 4 tandem steps PT-OP-E Functional Tests Start: 12/05/21 17:51 Freq: Status: Active Protocol: Document 12/06/21 12:00 AW (Rec: 12/06/21 12:24 AW [id number]) Functional Tests 2 Minute Walk Test Distance 185 feet/ 92 seconds Device Used no AD Comments 0.61 m/s average gait speed Dynamic Gait Index (DGI) Score 18 DGI Impairment Rating 20 to <40% Impaired (Score 15- 19) PT-OP-F Manual Assessment Start: 12/05/21 17:51 Freq: Status: Active Protocol: Document 12/06/21 12:00 AW (Rec: 12/06/21 12:24 AW [id number]) Manual Assessments Soft Tissue Assessment Soft Tissue Mobility Assessment Passive SLR ~75 degrees bilaterally PT-OP-G Mobility & Gait Start: 12/05/21 17:51 Freq: Status: Active Protocol: Document 12/06/21 12:00 AW (Rec: 12/06/21 12:26 AW [id number]) OP Mobility Evaluation Bed Mobility Rolling Independent but slow. Supine to and from Sit Independent but slow. Transfers Sit to Stand Pt tends to use hands on knees or seat but is able to rise when prompted without use of UE's though does tend to use momentum OP Gait Assessment Comments Gait Comments Pt ambulates with flexed trunk held rigidly, arms bent at elbow with no arm swing bilaterally, short and inconsistent step lengths, average gait speed ~0.6 m/s. PT-OP-H Neuro Start: 12/05/21 17:51 Freq: Status: Active Protocol: Document 12/06/21 12:00 AW (Rec: 12/06/21 12:58 AW [id number]) Sensation Evaluation Gross Sensation Gross Sensation WNL Coordination Evaluation Comments Coordination Comments Finger to nose with eyes closed mildly impaired RUE. Pt able to perform eyes open finger to PT finger to nose EO with good speed. Deep Tendon Reflex & Clonus Assessment Deep Tendon Reflex Bilateral Bicep Deep Tendon Reflex 2+ Normal Bilateral Achilles Deep Tendon Reflex 2+ Normal Bilateral Patellar Deep Tendon Reflex 2+ Normal Muscle Tone Tone Assessment trunk Flexor Tone Description Rigidity Muscle Tone Comments Rigid trunk notable during bed mobility, transfers, and gait . See notes on gait. PT-OP-J Posture/Palpation/Skin Start: 12/05/21 17:51 Freq: Status: Active Protocol: Document 12/06/21 12:00 AW (Rec: 12/06/21 12:58 AW [id number]) Posture Evaluation Comments Posture Comments Forward head, flexed trunk posture held rigidly. Weight distrubuted anteriorly, PT-OP-K Range of Motion Start: 12/05/21 17:51 Freq: Status: Active Protocol: Document 12/06/21 12:00 AW (Rec: 12/06/21 13:02 AW [id number]) Hip Goniometric Range of Motion Hip bilat Hip ROM WFL Yes Knee Goniometric Range of Motion Knee bilat Knee ROM WFL Yes Ankle and Foot Goniometric Range of Motion Ankle and Foot bilat Ankle/Foot ROM WFL Yes PT-OP-M Strength Start: 12/05/21 17:51 Freq: Status: Active Protocol: Document 12/06/21 12:00 AW (Rec: 12/06/21 13:02 AW [id number]) Shoulder Strength Shoulder Manual Muscle Testing bilat Flexion 4+ Good+ Abduction (C5) 4 Good External Rotation 4+ Good+ Internal Rotation 4+ Good+ Hip Strength Hip Manual Muscle Testing bilat Flexion (L2) 4 Good Extension (S1) 3 Fair Abduction 4- Good- External Rotation 4+ Good+ Internal Rotation 4 Good Knee Strength Knee Manual Muscle Testing bilat Flexion (S2) 4 Good Extension (L3) 4+ Good+ Ankle/Foot Strength Ankle and Foot Manual Muscle Testing bilat Dorsiflexion (L4) 4+ Good+ Plantarflexion (S1) 4- Good- Comments PF tested with standing heel raise. Pt able to do 3 bilateral, none single leg. PT-OP-O Vestibular Start: 12/05/21 17:51 Freq: Status: Active Protocol: Document 12/06/21 12:00 AW (Rec: 12/06/21 15:45 AW [id number]) Vestibular Assessment Visual Testing Smooth Pursuits Horizontal WNL Smooth Pursuits Vertical WNL Saccades Horizontal WNL Gaze Evoked Nystagmus With Fixation Negative Thrust Head Negative Cover/Uncover Test WNL Convergence Test WNL PT-OP-Q Treatments Start: 12/05/21 17:51 Freq: Status: Active Protocol: Document 12/19/21 09:00 AW (Rec: 12/19/21 10:33 AW [id number]) Cardio Equipment Recumbent Stepper (Sci-Fit) Duration (Minutes) 5 Resistance 2.5 Seat Position 8 Therapeutic Exercises Supine Exercises SKTC Supine Exercise Name SKTC Side bilateral Reps/Minutes 30 SH x 2 Comments HEP bridge Supine Exercise Name bridge Side bilateral Resistance AROM Reps/Minutes 5SH x 10 Comments HEP LTR Supine Exercise Name LTR Comments HEP Other Exercises sit to stand Other Exercise Name sit to stand Resistance without use of hands Equipment Used std chair; 2nd set with blue foam on ground Reps/Minutes 2x10; Comments cued inc anterior weight shift ; HEP Gait Training Gait Activity amplitude Device Used no AD Level of Assistance IND Surface tile Distance/Duration 80' x 10 Treatment Focus amplitude Comments Cued increased amplitude in arm swing, step length, heel strike. Pt is able to focus on one trait at a time, struggles to maintain arm swing while also focusing on step length. Neuro Re-Education Treatment Balance Activities fwd rock and reach Details fwd rock and reach Comments modified - HEP half tandem Details half tandem>tandem Surface firm Equipment rail prn - touched ~10% Comments tandem for HEP PT-OP-T Assessment and Plan Start: 12/05/21 17:51 Freq: Status: Active Protocol: Document 12/19/21 09:00 AW (Rec: 12/19/21 10:33 AW [id number]) Physical Therapy Assessment Other Concerns Fall Risk high per DGI score Goals Four Impairment strength Snf Goal (LTG) Pt will complete 5 Time Sit to Stand without use of UE assist in 13 seconds or less as a measure of improved BLE strength. Three Impairment dynamic balance Poultry Hanger Goal (LTG) Pt will improve DGI score from 17/24 to 21/24 or greater as a measure of reduced falls risk. Two Impairment bradykinesia Short Term Goal (STG) Pt will improve average gait speed on 6MWT from 0.6 m/s to 0/75 m/s or greater STG Duration 01/17/22 Poultry Hanger Goal (LTG) Pt will improve average gait speed on 6MWT to 1.0 m/s or greater as a measure of reduced bradykinesia LTG Duration 03/08/22 One Impairment lacks HEP Short Term Goal (STG) Pt will be instructed in HEP to improve amplitude, strength , and balance. STG Duration 01/17/22 Poultry Hanger Goal (LTG) Pt will be independent with HEP to improve amplitude, strength, and balance. LTG Duration 03/08/22 Assessment Summary Assessment Hardeep tolerated increased load in ther ex today and was able to maintain good arm swing during standing forward rock and reach exercise. He remains challenged maintaining arm swing while focusing on other aspects of gait. Will continue gait training and add cognitive load when appropriate. Physical Therapy Plan Frequency and Duration Frequency of Treatment 1-2x/week Duration of Treatment 3 months Plan of Care Start Date 12/06/21 Plan of Care End Date 03/08/22 Therapeutic Interventions Therapeutic Interventions Balance Training,Gait Training ,Home Exercise Program,Manual Therapy,Neuromuscular Re- education,Self-Care/Home Management,Soft Tissue Mobilization,Therapeutic Activities,Therapeutic Exercises Modalities Cold Pack/Ice Massage,Electric Stimulation,Hot Packs Other Referrals/Consults Referrals/Consults Recommended Pt to see neurology in January. Next Visit Focus/Plan Next Note Type Treatment Note Next Visit Plan Follow up HEP including gait with arm swing. Further assess fine motor activities such as buttoning and zipping as well as donning a jacket or other functional task. General LE strength. Static balance.
--- NOTE | 2021-12-21 12:13 | PT.OTN ---
Current Diagnoses Myalgia, other site (12/21/21) Other abnormalities of gait and mobility (12/21/21) Weakness (12/21/21) Physical Therapy Treatment Note PT-OP-A Visit Information Start: 12/05/21 17:51 Freq: Status: Active Protocol: Document 12/21/21 09:50 AW (Rec: 12/21/21 10:30 AW [id number]) Out-Patient Physical Therapy Visit Information Visit Information Visit Type Treatment Note Visit Start Time 09:45 Visit Stop Time 10:30 Total Visit Minutes 40 Visit Number 4 Number of WIRELESS DEVELOPMENT MANAGER Visits 0 Evaluation Information Evaluation Date 12/06/21 PT-OP-B Current Condition Start: 12/05/21 17:51 Freq: Status: Active Protocol: Document 12/06/21 12:00 AW (Rec: 12/05/21 18:00 AW [id number]) Current Condition History of Current Condition Onset Date 8 months Current Complaints weakness in legs; shuffling, unsteady gait; right low back pain and spasm History of Current Condition Hardeep has noticed shuffling and unsteady gait for the past 8 months to a year. He denies falls. He used to be a lot more active, taking care of his [address] acre property but he nows pays a gardening service. He denies tremors. He does notice increased shakiness with writing and small writing . He says he moves slowly secondary to vertigo. Pressed for details, pt does describe occasions with room- spinning sensation during positional changes but his symptoms clear quickly. This has only happend 5 or 6 times and resolves quickly each time . He has been treated with meclizine which was effective. His vision is good and his corrective lens prescription was updates within the past one year. Hardeep also complains of random low back spasms, mostly right side. They are occasionally disabling but he has not had any serious problem with this recently. Hardeep lives alone on [address] [place]. 5 years ago. 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 He has supportive daughters who live in [place] and [place]. Prior Treatments and Tests None identified Future Testing and Treatments Planned Neurology consult in January. Treatment Goals Patient/Caregiver Goals Imrpove gait. Improve balance. Feel more confident on uneven surfaces. Personal Factors Other Personal Factors That May Effect Chart indicates memory Therapy/Recovery problems but pt states memory is good. PMH includes CAD s/p CABG x 4 in 1998, CHF. PT-OP-C Subjective Start: 12/05/21 17:51 Freq: Status: Active Protocol: Document 12/21/21 09:50 AW (Rec: 12/21/21 10:30 AW [id number]) OP-PT Subjective Patient Comments Patient Comments Pt had a bad headache yesterday (has occasional migraines) but is feeling better today. PT-OP-D Balance Start: 12/05/21 17:51 Freq: Status: Active Protocol: Document 12/06/21 12:00 AW (Rec: 12/06/21 12:24 AW [id number]) Balance Tests mCTSIB mCTSIB Position 1 30 mCTSIB Position 2 30 mCTSIB Position 3 20 mCTSIB Position 4 8 Single Limb Standing Single Limb- Right 1 sec Single Limb- Left 2 sec Tandem Tandem Standing able take 4 tandem steps PT-OP-E Functional Tests Start: 12/05/21 17:51 Freq: Status: Active Protocol: Document 12/06/21 12:00 AW (Rec: 12/06/21 12:24 AW [id number]) Functional Tests 2 Minute Walk Test Distance 185 feet/ 92 seconds Device Used no AD Comments 0.61 m/s average gait speed Dynamic Gait Index (DGI) Score 18 DGI Impairment Rating 20 to <40% Impaired (Score 15- 19) PT-OP-F Manual Assessment Start: 12/05/21 17:51 Freq: Status: Active Protocol: Document 12/06/21 12:00 AW (Rec: 12/06/21 12:24 AW [id number]) Manual Assessments Soft Tissue Assessment Soft Tissue Mobility Assessment Passive SLR ~75 degrees bilaterally PT-OP-G Mobility & Gait Start: 12/05/21 17:51 Freq: Status: Active Protocol: Document 12/06/21 12:00 AW (Rec: 12/06/21 12:26 AW [id number]) OP Mobility Evaluation Bed Mobility Rolling Independent but slow. Supine to and from Sit Independent but slow. Transfers Sit to Stand Pt tends to use hands on knees or seat but is able to rise when prompted without use of UE's though does tend to use momentum OP Gait Assessment Comments Gait Comments Pt ambulates with flexed trunk held rigidly, arms bent at elbow with no arm swing bilaterally, short and inconsistent step lengths, average gait speed ~0.6 m/s. PT-OP-H Neuro Start: 12/05/21 17:51 Freq: Status: Active Protocol: Document 12/06/21 12:00 AW (Rec: 12/06/21 12:58 AW [id number]) Sensation Evaluation Gross Sensation Gross Sensation WNL Coordination Evaluation Comments Coordination Comments Finger to nose with eyes closed mildly impaired RUE. Pt able to perform eyes open finger to PT finger to nose EO with good speed. Deep Tendon Reflex & Clonus Assessment Deep Tendon Reflex Bilateral Bicep Deep Tendon Reflex 2+ Normal Bilateral Achilles Deep Tendon Reflex 2+ Normal Bilateral Patellar Deep Tendon Reflex 2+ Normal Muscle Tone Tone Assessment trunk Flexor Tone Description Rigidity Muscle Tone Comments Rigid trunk notable during bed mobility, transfers, and gait . See notes on gait. PT-OP-J Posture/Palpation/Skin Start: 12/05/21 17:51 Freq: Status: Active Protocol: Document 12/06/21 12:00 AW (Rec: 12/06/21 12:58 AW [id number]) Posture Evaluation Comments Posture Comments Forward head, flexed trunk posture held rigidly. Weight distrubuted anteriorly, PT-OP-K Range of Motion Start: 12/05/21 17:51 Freq: Status: Active Protocol: Document 12/06/21 12:00 AW (Rec: 12/06/21 13:02 AW [id number]) Hip Goniometric Range of Motion Hip bilat Hip ROM WFL Yes Knee Goniometric Range of Motion Knee bilat Knee ROM WFL Yes Ankle and Foot Goniometric Range of Motion Ankle and Foot bilat Ankle/Foot ROM WFL Yes PT-OP-M Strength Start: 12/05/21 17:51 Freq: Status: Active Protocol: Document 12/06/21 12:00 AW (Rec: 12/06/21 13:02 AW [id number]) Shoulder Strength Shoulder Manual Muscle Testing bilat Flexion 4+ Good+ Abduction (C5) 4 Good External Rotation 4+ Good+ Internal Rotation 4+ Good+ Hip Strength Hip Manual Muscle Testing bilat Flexion (L2) 4 Good Extension (S1) 3 Fair Abduction 4- Good- External Rotation 4+ Good+ Internal Rotation 4 Good Knee Strength Knee Manual Muscle Testing bilat Flexion (S2) 4 Good Extension (L3) 4+ Good+ Ankle/Foot Strength Ankle and Foot Manual Muscle Testing bilat Dorsiflexion (L4) 4+ Good+ Plantarflexion (S1) 4- Good- Comments PF tested with standing heel raise. Pt able to do 3 bilateral, none single leg. PT-OP-O Vestibular Start: 12/05/21 17:51 Freq: Status: Active Protocol: Document 12/06/21 12:00 AW (Rec: 12/06/21 15:45 AW [id number]) Vestibular Assessment Visual Testing Smooth Pursuits Horizontal WNL Smooth Pursuits Vertical WNL Saccades Horizontal WNL Gaze Evoked Nystagmus With Fixation Negative Thrust Head Negative Cover/Uncover Test WNL Convergence Test WNL PT-OP-Q Treatments Start: 12/05/21 17:51 Freq: Status: Active Protocol: Document 12/21/21 09:50 AW (Rec: 12/21/21 10:30 AW [id number]) Cardio Equipment Recumbent Stepper (Sci-Fit) Duration (Minutes) 5 Resistance 3 Seat Position 8 Therapeutic Exercises Supine Exercises SKTC Supine Exercise Name SKTC Side bilateral Reps/Minutes 30 SH x 2 Comments HEP review; cues to pull toward chest bridge Supine Exercise Name bridge Side bilateral Resistance AROM Reps/Minutes 10SH x 10; cued segmental control Comments HEP active SLR Supine Exercise Name A SLR Side bilateral Reps/Minutes cued QS, lift to 45 deg Comments HEP review LTR Supine Exercise Name LTR Comments HEP Standing Exercises step ups Standing Exercise Name step ups - fwd and lateral Side bilateral Equipment Used 6 step, rain prn Other Exercises sit to stand Other Exercise Name sit to stand Resistance without use of hands Equipment Used std chair; blue foam on ground Reps/Minutes 2x10; Comments cued tail tuck in standing Gait Training Gait Activity amplitude Device Used no AD Level of Assistance IND Surface tile Distance/Duration 80' x 10 Treatment Focus amplitude Comments -Arm swing, step length -Head turns -Changes in speed -Pivot turns Neuro Re-Education Treatment Balance Activities hurdles Details hurdles Surface firm Equipment 6 hurdles Comments -fwd -lateral fwd rock and reach Details fwd rock and reach Comments modified - HEP PT-OP-T Assessment and Plan Start: 12/05/21 17:51 Freq: Status: Active Protocol: Document 12/21/21 09:50 AW (Rec: 12/21/21 10:30 AW [id number]) Physical Therapy Assessment Other Concerns Fall Risk high per DGI score 17/24 Goals Four Impairment strength Immigration Paralegal Goal (LTG) Pt will complete 5 Time Sit to Stand without use of UE assist in 13 seconds or less as a measure of improved BLE strength. Three Impairment dynamic balance Fdc Goal (LTG) Pt will improve DGI score from 17/24 to 21/24 or greater as a measure of reduced falls risk. Two Impairment bradykinesia Short Term Goal (STG) Pt will improve average gait speed on 6MWT from 0.6 m/s to 0/75 m/s or greater STG Duration 01/17/22 Fdc Goal (LTG) Pt will improve average gait speed on 6MWT to 1.0 m/s or greater as a measure of reduced bradykinesia LTG Duration 03/08/22 One Impairment lacks HEP Short Term Goal (STG) Pt will be instructed in HEP to improve amplitude, strength , and balance. STG Duration 01/17/22 Fdc Goal (LTG) Pt will be independent with HEP to improve amplitude, strength, and balance. LTG Duration 03/08/22 Assessment Summary Assessment Hardeep remains limited in terms of UE arm swing, is able to focus on only one aspect of gait at a time which limits amplitude training although step length does appear to be improving. Will add cognitive load when appropriate. Physical Therapy Plan Frequency and Duration Frequency of Treatment 1-2x/week Duration of Treatment 3 months Plan of Care Start Date 12/06/21 Plan of Care End Date 03/08/22 Therapeutic Interventions Therapeutic Interventions Balance Training,Gait Training ,Home Exercise Program,Manual Therapy,Neuromuscular Re- education,Self-Care/Home Management,Soft Tissue Mobilization,Therapeutic Activities,Therapeutic Exercises Modalities Cold Pack/Ice Massage,Electric Stimulation,Hot Packs Other Referrals/Consults Referrals/Consults Recommended Pt to see neurology in January. Next Visit Focus/Plan Next Note Type Treatment Note Next Visit Plan Follow up HEP including gait with arm swing. Further assess fine motor activities such as buttoning and zipping as well as donning a jacket or other functional task. General LE strength. Static balance.
--- NOTE | 2021-12-26 11:17 | PT.OTN ---
Current Diagnoses Myalgia, other site (12/26/21) Other abnormalities of gait and mobility (12/26/21) Weakness (12/26/21) Physical Therapy Treatment Note PT-OP-A Visit Information Start: 12/05/21 17:51 Freq: Status: Active Protocol: Document 12/26/21 10:18 [facility] (Rec: 12/26/21 11:17 [facility] [id number]) Out-Patient Physical Therapy Visit Information Visit Information Visit Type Treatment Note Visit Start Time 10:31 Visit Stop Time 11:13 Total Visit Minutes 42 Visit Number 5 Number of EXTRACTION SUPERVISOR Visits 0 PT-OP-B Current Condition Start: 12/05/21 17:51 Freq: Status: Active Protocol: Document 12/06/21 12:00 AW (Rec: 12/05/21 18:00 AW [id number]) Current Condition History of Current Condition Onset Date 8 months Current Complaints weakness in legs; shuffling, unsteady gait; right low back pain and spasm History of Current Condition Hardeep has noticed shuffling and unsteady gait for the past 8 months to a year. He denies falls. He used to be a lot more active, taking care of his [address] acre property but he nows pays a gardening service. He denies tremors. He does notice increased shakiness with writing and small writing . He says he moves slowly secondary to vertigo. Pressed for details, pt does describe occasions with room- spinning sensation during positional changes but his symptoms clear quickly. This has only happend 5 or 6 times and resolves quickly each time . He has been treated with meclizine which was effective. His vision is good and his corrective lens prescription was updates within the past one year. Hardeep also complains of random low back spasms, mostly right side. They are occasionally disabling but he has not had any serious problem with this recently. Hardeep lives alone on [address] [place]. 5 years ago. 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 He has supportive daughters who live in [place] and [place]. Prior Treatments and Tests None identified Future Testing and Treatments Planned Neurology consult in January. Treatment Goals Patient/Caregiver Goals Imrpove gait. Improve balance. Feel more confident on uneven surfaces. Personal Factors Other Personal Factors That May Effect Chart indicates memory Therapy/Recovery problems but pt states memory is good. PMH includes CAD s/p CABG x 4 in 1998, CHF. PT-OP-C Subjective Start: 12/05/21 17:51 Freq: Status: Active Protocol: Document 12/26/21 10:18 [facility] (Rec: 12/26/21 11:17 [facility] [id number]) OP-PT Subjective Patient Comments Patient Comments I think it has helped a little bit Pt has been compliant w/HEP PT-OP-D Balance Start: 12/05/21 17:51 Freq: Status: Active Protocol: Document 12/06/21 12:00 AW (Rec: 12/06/21 12:24 AW [id number]) Balance Tests mCTSIB mCTSIB Position 1 30 mCTSIB Position 2 30 mCTSIB Position 3 20 mCTSIB Position 4 8 Single Limb Standing Single Limb- Right 1 sec Single Limb- Left 2 sec Tandem Tandem Standing able take 4 tandem steps PT-OP-E Functional Tests Start: 12/05/21 17:51 Freq: Status: Active Protocol: Document 12/06/21 12:00 AW (Rec: 12/06/21 12:24 AW [id number]) Functional Tests 2 Minute Walk Test Distance 185 feet/ 92 seconds Device Used no AD Comments 0.61 m/s average gait speed Dynamic Gait Index (DGI) Score 18 DGI Impairment Rating 20 to <40% Impaired (Score 15- 19) PT-OP-F Manual Assessment Start: 12/05/21 17:51 Freq: Status: Active Protocol: Document 12/06/21 12:00 AW (Rec: 12/06/21 12:24 AW [id number]) Manual Assessments Soft Tissue Assessment Soft Tissue Mobility Assessment Passive SLR ~75 degrees bilaterally PT-OP-G Mobility & Gait Start: 12/05/21 17:51 Freq: Status: Active Protocol: Document 12/06/21 12:00 AW (Rec: 12/06/21 12:26 AW [id number]) OP Mobility Evaluation Bed Mobility Rolling Independent but slow. Supine to and from Sit Independent but slow. Transfers Sit to Stand Pt tends to use hands on knees or seat but is able to rise when prompted without use of UE's though does tend to use momentum OP Gait Assessment Comments Gait Comments Pt ambulates with flexed trunk held rigidly, arms bent at elbow with no arm swing bilaterally, short and inconsistent step lengths, average gait speed ~0.6 m/s. PT-OP-H Neuro Start: 12/05/21 17:51 Freq: Status: Active Protocol: Document 12/06/21 12:00 AW (Rec: 12/06/21 12:58 AW [id number]) Sensation Evaluation Gross Sensation Gross Sensation WNL Coordination Evaluation Comments Coordination Comments Finger to nose with eyes closed mildly impaired RUE. Pt able to perform eyes open finger to PT finger to nose EO with good speed. Deep Tendon Reflex & Clonus Assessment Deep Tendon Reflex Bilateral Bicep Deep Tendon Reflex 2+ Normal Bilateral Achilles Deep Tendon Reflex 2+ Normal Bilateral Patellar Deep Tendon Reflex 2+ Normal Muscle Tone Tone Assessment trunk Flexor Tone Description Rigidity Muscle Tone Comments Rigid trunk notable during bed mobility, transfers, and gait . See notes on gait. PT-OP-J Posture/Palpation/Skin Start: 12/05/21 17:51 Freq: Status: Active Protocol: Document 12/06/21 12:00 AW (Rec: 12/06/21 12:58 AW [id number]) Posture Evaluation Comments Posture Comments Forward head, flexed trunk posture held rigidly. Weight distrubuted anteriorly, PT-OP-K Range of Motion Start: 12/05/21 17:51 Freq: Status: Active Protocol: Document 12/06/21 12:00 AW (Rec: 12/06/21 13:02 AW [id number]) Hip Goniometric Range of Motion Hip bilat Hip ROM WFL Yes Knee Goniometric Range of Motion Knee bilat Knee ROM WFL Yes Ankle and Foot Goniometric Range of Motion Ankle and Foot bilat Ankle/Foot ROM WFL Yes PT-OP-M Strength Start: 12/05/21 17:51 Freq: Status: Active Protocol: Document 12/06/21 12:00 AW (Rec: 12/06/21 13:02 AW [id number]) Shoulder Strength Shoulder Manual Muscle Testing bilat Flexion 4+ Good+ Abduction (C5) 4 Good External Rotation 4+ Good+ Internal Rotation 4+ Good+ Hip Strength Hip Manual Muscle Testing bilat Flexion (L2) 4 Good Extension (S1) 3 Fair Abduction 4- Good- External Rotation 4+ Good+ Internal Rotation 4 Good Knee Strength Knee Manual Muscle Testing bilat Flexion (S2) 4 Good Extension (L3) 4+ Good+ Ankle/Foot Strength Ankle and Foot Manual Muscle Testing bilat Dorsiflexion (L4) 4+ Good+ Plantarflexion (S1) 4- Good- Comments PF tested with standing heel raise. Pt able to do 3 bilateral, none single leg. PT-OP-O Vestibular Start: 12/05/21 17:51 Freq: Status: Active Protocol: Document 12/06/21 12:00 AW (Rec: 12/06/21 15:45 AW [id number]) Vestibular Assessment Visual Testing Smooth Pursuits Horizontal WNL Smooth Pursuits Vertical WNL Saccades Horizontal WNL Gaze Evoked Nystagmus With Fixation Negative Thrust Head Negative Cover/Uncover Test WNL Convergence Test WNL PT-OP-Q Treatments Start: 12/05/21 17:51 Freq: Status: Active Protocol: Document 12/26/21 10:18 [facility] (Rec: 12/26/21 11:17 [facility] [id number]) Cardio Equipment Recumbent Elliptical (Biodex) Duration (Minutes) 5 Resistance 5 Seat Position 8 Gym Equipment Shuttle Rebound balance Comments marches x15 B Therapeutic Exercises Supine Exercises SKTC Supine Exercise Name SKTC Side bilateral Reps/Minutes 30 Sec ea Comments HEP review; cues to pull toward chest bridge Supine Exercise Name bridge Side bilateral Resistance AROM Reps/Minutes 10SH x 5; cued segmental control Comments HEP active SLR Supine Exercise Name A SLR Side bilateral Reps/Minutes cued QS, lift to 45 deg x ea Comments HEP review Standing Exercises step ups Standing Exercise Name step ups - fwd and lateral Side bilateral Equipment Used 6 step, rain prn Reps/Minutes 10 ea Other Exercises sit to stand Other Exercise Name sit to stand Resistance without use of hands Equipment Used std chair; blue foam on ground Reps/Minutes x10 Comments cued tail tuck in standing Gait Training Gait Activity amplitude Device Used no AD Level of Assistance IND Surface tile Distance/Duration 50' x 10 Treatment Focus amplitude Comments -Arm swing, step length -Head turns -Changes in speed -Pivot turns Neuro Re-Education Treatment Balance Activities Foam Details EC trials Surface blue foam Comments WBOS NBOS staggered stance hurdles Details hurdles Surface firm Equipment 6 hurdles Comments -fwd x7 -lateral x2 B PT-OP-T Assessment and Plan Start: 12/05/21 17:51 Freq: Status: Active Protocol: Document 12/26/21 10:18 [facility] (Rec: 12/26/21 11:17 [facility] [id number]) Physical Therapy Assessment Goals Four Impairment strength Log Loader Goal (LTG) Pt will complete 5 Time Sit to Stand without use of UE assist in 13 seconds or less as a measure of improved BLE strength. Three Impairment dynamic balance Log Loader Goal (LTG) Pt will improve DGI score from 17/24 to 21/24 or greater as a measure of reduced falls risk. Two Impairment bradykinesia Short Term Goal (STG) Pt will improve average gait speed on 6MWT from 0.6 m/s to 0/75 m/s or greater STG Duration 01/17/22 Log Loader Goal (LTG) Pt will improve average gait speed on 6MWT to 1.0 m/s or greater as a measure of reduced bradykinesia LTG Duration 03/08/22 One Impairment lacks HEP Short Term Goal (STG) Pt will be instructed in HEP to improve amplitude, strength , and balance. STG Duration 01/17/22 Correction Goal (LTG) Pt will be independent with HEP to improve amplitude, strength, and balance. LTG Duration 03/08/22 Assessment Summary Assessment Pt required very minimal cues w/supine exercises today. He did well with balance exercises but was challenged by august on trampoline. He verbalizes good understanding w/exercises noting cues he is working on at home Physical Therapy Plan Frequency and Duration Frequency of Treatment 1-2x/week Duration of Treatment 3 months Plan of Care Start Date 12/06/21 Plan of Care End Date 03/08/22 Next Visit Focus/Plan Next Note Type Treatment Note Next Visit Plan Follow up HEP including gait with arm swing. Further assess fine motor activities such as buttoning and zipping as well as donning a jacket or other functional task. General LE strength. Static balance.
--- NOTE | 2021-12-28 12:22 | PT.OTN ---
Current Diagnoses Myalgia, other site (12/28/21) Other abnormalities of gait and mobility (12/28/21) Weakness (12/28/21) Physical Therapy Treatment Note PT-OP-A Visit Information Start: 12/05/21 17:51 Freq: Status: Active Protocol: Document 12/28/21 08:56 AW (Rec: 12/28/21 10:31 AW [id number]) Out-Patient Physical Therapy Visit Information Visit Information Visit Type Treatment Note Visit Start Time 10:30 Visit Stop Time 11:15 Total Visit Minutes 45 Visit Number 6 Number of CARDIOLOGY MANAGER Visits 0 Evaluation Information Evaluation Date 12/06/21 PT-OP-B Current Condition Start: 12/05/21 17:51 Freq: Status: Active Protocol: Document 12/06/21 12:00 AW (Rec: 12/05/21 18:00 AW [id number]) Current Condition History of Current Condition Onset Date 8 months Current Complaints weakness in legs; shuffling, unsteady gait; right low back pain and spasm History of Current Condition Hardeep has noticed shuffling and unsteady gait for the past 8 months to a year. He denies falls. He used to be a lot more active, taking care of his [address] acre property but he nows pays a gardening service. He denies tremors. He does notice increased shakiness with writing and small writing . He says he moves slowly secondary to vertigo. Pressed for details, pt does describe occasions with room- spinning sensation during positional changes but his symptoms clear quickly. This has only happend 5 or 6 times and resolves quickly each time . He has been treated with meclizine which was effective. His vision is good and his corrective lens prescription was updates within the past one year. Hardeep also complains of random low back spasms, mostly right side. They are occasionally disabling but he has not had any serious problem with this recently. Hardeep lives alone on [address]. 5 years ago. 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 He has supportive daughters who live in [place] and [place]. Prior Treatments and Tests None identified Future Testing and Treatments Planned Neurology consult in January. Treatment Goals Patient/Caregiver Goals Imrpove gait. Improve balance. Feel more confident on uneven surfaces. Personal Factors Other Personal Factors That May Effect Chart indicates memory Therapy/Recovery problems but pt states memory is good. PMH includes CAD s/p CABG x 4 in 1998, CHF. PT-OP-C Subjective Start: 12/05/21 17:51 Freq: Status: Active Protocol: Document 12/28/21 08:56 AW (Rec: 12/28/21 12:18 AW [id number]) OP-PT Subjective Patient Comments Patient Comments I don't think I did very well on Saturday. I felt a little off. PT-OP-D Balance Start: 12/05/21 17:51 Freq: Status: Active Protocol: Document 12/06/21 12:00 AW (Rec: 12/06/21 12:24 AW [id number]) Balance Tests mCTSIB mCTSIB Position 1 30 mCTSIB Position 2 30 mCTSIB Position 3 20 mCTSIB Position 4 8 Single Limb Standing Single Limb- Right 1 sec Single Limb- Left 2 sec Tandem Tandem Standing able take 4 tandem steps PT-OP-E Functional Tests Start: 12/05/21 17:51 Freq: Status: Active Protocol: Document 12/06/21 12:00 AW (Rec: 12/06/21 12:24 AW [id number]) Functional Tests 2 Minute Walk Test Distance 185 feet/ 92 seconds Device Used no AD Comments 0.61 m/s average gait speed Dynamic Gait Index (DGI) Score 18 DGI Impairment Rating 20 to <40% Impaired (Score 15- 19) PT-OP-F Manual Assessment Start: 12/05/21 17:51 Freq: Status: Active Protocol: Document 12/06/21 12:00 AW (Rec: 12/06/21 12:24 AW [id number]) Manual Assessments Soft Tissue Assessment Soft Tissue Mobility Assessment Passive SLR ~75 degrees bilaterally PT-OP-G Mobility & Gait Start: 12/05/21 17:51 Freq: Status: Active Protocol: Document 12/06/21 12:00 AW (Rec: 12/06/21 12:26 AW [id number]) OP Mobility Evaluation Bed Mobility Rolling Independent but slow. Supine to and from Sit Independent but slow. Transfers Sit to Stand Pt tends to use hands on knees or seat but is able to rise when prompted without use of UE's though does tend to use momentum OP Gait Assessment Comments Gait Comments Pt ambulates with flexed trunk held rigidly, arms bent at elbow with no arm swing bilaterally, short and inconsistent step lengths, average gait speed ~0.6 m/s. PT-OP-H Neuro Start: 12/05/21 17:51 Freq: Status: Active Protocol: Document 12/06/21 12:00 AW (Rec: 12/06/21 12:58 AW [id number]) Sensation Evaluation Gross Sensation Gross Sensation WNL Coordination Evaluation Comments Coordination Comments Finger to nose with eyes closed mildly impaired RUE. Pt able to perform eyes open finger to PT finger to nose EO with good speed. Deep Tendon Reflex & Clonus Assessment Deep Tendon Reflex Bilateral Bicep Deep Tendon Reflex 2+ Normal Bilateral Achilles Deep Tendon Reflex 2+ Normal Bilateral Patellar Deep Tendon Reflex 2+ Normal Muscle Tone Tone Assessment trunk Flexor Tone Description Rigidity Muscle Tone Comments Rigid trunk notable during bed mobility, transfers, and gait . See notes on gait. PT-OP-J Posture/Palpation/Skin Start: 12/05/21 17:51 Freq: Status: Active Protocol: Document 12/06/21 12:00 AW (Rec: 12/06/21 12:58 AW [id number]) Posture Evaluation Comments Posture Comments Forward head, flexed trunk posture held rigidly. Weight distrubuted anteriorly, PT-OP-K Range of Motion Start: 12/05/21 17:51 Freq: Status: Active Protocol: Document 12/06/21 12:00 AW (Rec: 12/06/21 13:02 AW [id number]) Hip Goniometric Range of Motion Hip bilat Hip ROM WFL Yes Knee Goniometric Range of Motion Knee bilat Knee ROM WFL Yes Ankle and Foot Goniometric Range of Motion Ankle and Foot bilat Ankle/Foot ROM WFL Yes PT-OP-M Strength Start: 12/05/21 17:51 Freq: Status: Active Protocol: Document 12/06/21 12:00 AW (Rec: 12/06/21 13:02 AW [id number]) Shoulder Strength Shoulder Manual Muscle Testing bilat Flexion 4+ Good+ Abduction (C5) 4 Good External Rotation 4+ Good+ Internal Rotation 4+ Good+ Hip Strength Hip Manual Muscle Testing bilat Flexion (L2) 4 Good Extension (S1) 3 Fair Abduction 4- Good- External Rotation 4+ Good+ Internal Rotation 4 Good Knee Strength Knee Manual Muscle Testing bilat Flexion (S2) 4 Good Extension (L3) 4+ Good+ Ankle/Foot Strength Ankle and Foot Manual Muscle Testing bilat Dorsiflexion (L4) 4+ Good+ Plantarflexion (S1) 4- Good- Comments PF tested with standing heel raise. Pt able to do 3 bilateral, none single leg. PT-OP-O Vestibular Start: 12/05/21 17:51 Freq: Status: Active Protocol: Document 12/06/21 12:00 AW (Rec: 12/06/21 15:45 AW [id number]) Vestibular Assessment Visual Testing Smooth Pursuits Horizontal WNL Smooth Pursuits Vertical WNL Saccades Horizontal WNL Gaze Evoked Nystagmus With Fixation Negative Thrust Head Negative Cover/Uncover Test WNL Convergence Test WNL PT-OP-Q Treatments Start: 12/05/21 17:51 Freq: Status: Active Protocol: Document 12/28/21 08:56 AW (Rec: 12/28/21 10:31 AW [id number]) Cardio Equipment Recumbent Elliptical (BiodChango) Duration (Minutes) 5 Resistance 5 Seat Position 8 Gym Equipment Shuttle Rebound NBOS Exercise Details blue clips initially; changed to red Comments -NBOS -NBOS with head turn/nods -NBOS with arms swinging balance Comments marchzoran x15 B Therapeutic Exercises Other Exercises sit to stand Other Exercise Name sit to stand Resistance without use of hands Equipment Used std chair; blue foam on ground Reps/Minutes x10 Comments cued tail tuck in standing Gait Training Gait Activity amplitude Device Used no AD Level of Assistance IND Surface inside, outside (grass, hills, curbs, stairs) Distance/Duration 50' x 10 Treatment Focus amplitude Comments -Arm swing, step length -Head turns -Changes in speed -Pivot turns Neuro Re-Education Treatment Balance Activities rocker board Details rocker board Comments A/P orientation; no UE support after set up hurdles Details hurdles Surface firm Equipment 6 hurdles Comments -fwd -lateral fwd rock and reach Details fwd rock and reach Comments modified - HEP half tandem Details half tandem>tandem Surface firm Equipment rail prn - touched <10% Comments updated to tandem for HEP PT-OP-T Assessment and Plan Start: 12/05/21 17:51 Freq: Status: Active Protocol: Document 12/28/21 08:56 AW (Rec: 12/28/21 10:31 AW [id number]) Physical Therapy Assessment Goals Four Impairment strength Senior Living Goal (LTG) Pt will complete 5 Time Sit to Stand without use of UE assist in 13 seconds or less as a measure of improved BLE strength. Three Impairment dynamic balance [facility] Living Goal (LTG) Pt will improve DGI score from 17/24 to 21/24 or greater as a measure of reduced falls risk. Two Impairment bradykinesia Short Term Goal (STG) Pt will improve average gait speed on 6MWT from 0.6 m/s to 0/75 m/s or greater STG Duration 01/17/22 Senior Living Goal (LTG) Pt will improve average gait speed on 6MWT to 1.0 m/s or greater as a measure of reduced bradykinesia LTG Duration 03/08/22 One Impairment lacks HEP Short Term Goal (STG) Pt will be instructed in HEP to improve amplitude, strength , and balance. STG Duration 01/17/22 Senior Living Goal (LTG) Pt will be independent with HEP to improve amplitude, strength, and balance. LTG Duration 03/08/22 Assessment Summary Assessment Continued focus on gait and balance today. Amplitude is becoming more self-calibrated with pt able to maintain amplitude in outside environment and with distracting conversation. Physical Therapy Plan Frequency and Duration Frequency of Treatment 1-2x/week Duration of Treatment 3 months Plan of Care Start Date 12/06/21 Plan of Care End Date 03/08/22 Therapeutic Interventions Therapeutic Interventions Balance Training,Gait Training ,Home Exercise Program,Manual Therapy,Neuromuscular Re- education,Self-Care/Home Management,Soft Tissue Mobilization,Therapeutic Activities,Therapeutic Exercises Modalities Cold Pack/Ice Massage,Electric Stimulation,Hot Packs Next Visit Focus/Plan Next Note Type Treatment Note Next Visit Plan Follow up HEP including gait with arm swing. Further assess fine motor activities such as buttoning and zipping as well as donning a jacket or other functional task. General LE strength. Static balance.
--- NOTE | 2022-01-02 08:14 | PT.OTN ---
Current Diagnoses Myalgia, other site (01/02/22) Other abnormalities of gait and mobility (01/02/22) Weakness (01/02/22) Physical Therapy Treatment Note PT-OP-A Visit Information Start: 12/05/21 17:51 Freq: Status: Active Protocol: Document 01/02/22 07:26 AMB (Rec: 01/02/22 08:09 AMB [id number]) Out-Patient Physical Therapy Visit Information Visit Information Visit Type Treatment Note Visit Start Time 07:30 Visit Stop Time 08:15 Total Visit Minutes 45 Visit Number 7 PT-OP-B Current Condition Start: 12/05/21 17:51 Freq: Status: Active Protocol: Document 12/06/21 12:00 AW (Rec: 12/05/21 18:00 AW [id number]) Current Condition History of Current Condition Onset Date 8 months Current Complaints weakness in legs; shuffling, unsteady gait; right low back pain and spasm History of Current Condition Hardeep has noticed shuffling and unsteady gait for the past 8 months to a year. He denies falls. He used to be a lot more active, taking care of his [address] acre property but he nows pays a gardening service. He denies tremors. He does notice increased shakiness with writing and small writing . He says he moves slowly secondary to vertigo. Pressed for details, pt does describe occasions with room- spinning sensation during positional changes but his symptoms clear quickly. This has only happend 5 or 6 times and resolves quickly each time . He has been treated with meclizine which was effective. His vision is good and his corrective lens prescription was updates within the past one year. Hardeep also complains of random low back spasms, mostly right side. They are occasionally disabling but he has not had any serious problem with this recently. Hardeep lives alone on [address]. 5 years ago. 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 He has supportive daughters who live in [place] and [place]. Prior Treatments and Tests None identified Future Testing and Treatments Planned Neurology consult in January. Treatment Goals Patient/Caregiver Goals Imrpove gait. Improve balance. Feel more confident on uneven surfaces. Personal Factors Other Personal Factors That May Effect Chart indicates memory Therapy/Recovery problems but pt states memory is good. PMH includes CAD s/p CABG x 4 in 1998, CHF. PT-OP-C Subjective Start: 12/05/21 17:51 Freq: Status: Active Protocol: Document 01/02/22 07:26 AMB (Rec: 01/02/22 08:09 AMB [id number]) OP-PT Subjective Patient Comments Patient Comments Pt reports he thinks the therapy is good, has good days and bad days. PT-OP-D Balance Start: 12/05/21 17:51 Freq: Status: Active Protocol: Document 12/06/21 12:00 AW (Rec: 12/06/21 12:24 AW [id number]) Balance Tests mCTSIB mCTSIB Position 1 30 mCTSIB Position 2 30 mCTSIB Position 3 20 mCTSIB Position 4 8 Single Limb Standing Single Limb- Right 1 sec Single Limb- Left 2 sec Tandem Tandem Standing able take 4 tandem steps PT-OP-E Functional Tests Start: 12/05/21 17:51 Freq: Status: Active Protocol: Document 12/06/21 12:00 AW (Rec: 12/06/21 12:24 AW [id number]) Functional Tests 2 Minute Walk Test Distance 185 feet/ 92 seconds Device Used no AD Comments 0.61 m/s average gait speed Dynamic Gait Index (DGI) Score 18 DGI Impairment Rating 20 to <40% Impaired (Score 15- 19) PT-OP-F Manual Assessment Start: 12/05/21 17:51 Freq: Status: Active Protocol: Document 12/06/21 12:00 AW (Rec: 12/06/21 12:24 AW [id number]) Manual Assessments Soft Tissue Assessment Soft Tissue Mobility Assessment Passive SLR ~75 degrees bilaterally PT-OP-G Mobility & Gait Start: 12/05/21 17:51 Freq: Status: Active Protocol: Document 12/06/21 12:00 AW (Rec: 12/06/21 12:26 AW [id number]) OP Mobility Evaluation Bed Mobility Rolling Independent but slow. Supine to and from Sit Independent but slow. Transfers Sit to Stand Pt tends to use hands on knees or seat but is able to rise when prompted without use of UE's though does tend to use momentum OP Gait Assessment Comments Gait Comments Pt ambulates with flexed trunk held rigidly, arms bent at elbow with no arm swing bilaterally, short and inconsistent step lengths, average gait speed ~0.6 m/s. PT-OP-H Neuro Start: 12/05/21 17:51 Freq: Status: Active Protocol: Document 12/06/21 12:00 AW (Rec: 12/06/21 12:58 AW [id number]) Sensation Evaluation Gross Sensation Gross Sensation WNL Coordination Evaluation Comments Coordination Comments Finger to nose with eyes closed mildly impaired RUE. Pt able to perform eyes open finger to PT finger to nose EO with good speed. Deep Tendon Reflex & Clonus Assessment Deep Tendon Reflex Bilateral Bicep Deep Tendon Reflex 2+ Normal Bilateral Achilles Deep Tendon Reflex 2+ Normal Bilateral Patellar Deep Tendon Reflex 2+ Normal Muscle Tone Tone Assessment trunk Flexor Tone Description Rigidity Muscle Tone Comments Rigid trunk notable during bed mobility, transfers, and gait . See notes on gait. PT-OP-J Posture/Palpation/Skin Start: 12/05/21 17:51 Freq: Status: Active Protocol: Document 12/06/21 12:00 AW (Rec: 12/06/21 12:58 AW [id number]) Posture Evaluation Comments Posture Comments Forward head, flexed trunk posture held rigidly. Weight distrubuted anteriorly, PT-OP-K Range of Motion Start: 12/05/21 17:51 Freq: Status: Active Protocol: Document 12/06/21 12:00 AW (Rec: 12/06/21 13:02 AW [id number]) Hip Goniometric Range of Motion Hip bilat Hip ROM WFL Yes Knee Goniometric Range of Motion Knee bilat Knee ROM WFL Yes Ankle and Foot Goniometric Range of Motion Ankle and Foot bilat Ankle/Foot ROM WFL Yes PT-OP-M Strength Start: 12/05/21 17:51 Freq: Status: Active Protocol: Document 12/06/21 12:00 AW (Rec: 12/06/21 13:02 AW [id number]) Shoulder Strength Shoulder Manual Muscle Testing bilat Flexion 4+ Good+ Abduction (C5) 4 Good External Rotation 4+ Good+ Internal Rotation 4+ Good+ Hip Strength Hip Manual Muscle Testing bilat Flexion (L2) 4 Good Extension (S1) 3 Fair Abduction 4- Good- External Rotation 4+ Good+ Internal Rotation 4 Good Knee Strength Knee Manual Muscle Testing bilat Flexion (S2) 4 Good Extension (L3) 4+ Good+ Ankle/Foot Strength Ankle and Foot Manual Muscle Testing bilat Dorsiflexion (L4) 4+ Good+ Plantarflexion (S1) 4- Good- Comments PF tested with standing heel raise. Pt able to do 3 bilateral, none single leg. PT-OP-O Vestibular Start: 12/05/21 17:51 Freq: Status: Active Protocol: Document 12/06/21 12:00 AW (Rec: 12/06/21 15:45 AW [id number]) Vestibular Assessment Visual Testing Smooth Pursuits Horizontal WNL Smooth Pursuits Vertical WNL Saccades Horizontal WNL Gaze Evoked Nystagmus With Fixation Negative Thrust Head Negative Cover/Uncover Test WNL Convergence Test WNL PT-OP-Q Treatments Start: 12/05/21 17:51 Freq: Status: Active Protocol: Document 01/02/22 07:26 AMB (Rec: 01/02/22 08:09 AMB [id number]) Cardio Equipment Recumbent Elliptical (Biodex) Duration (Minutes) 5 Resistance 5 Seat Position 8 Gym Equipment Shuttle Rebound NBOS Exercise Details RED Comments -NBOS -NBOS with head turn/nods -NBOS with arms swinging Therapeutic Exercises Other Exercises sit to stand Other Exercise Name sit to stand Resistance without use of hands Equipment Used std chair; blue foam on ground Reps/Minutes x10 Comments cued tail tuck in standing Gait Training Gait Activity amplitude Device Used no AD Level of Assistance IND Surface inside (grass, hills, curbs, stairs) Distance/Duration 50' x 10 Treatment Focus amplitude Comments -Arm swing, step length -Head turns -Changes in speed -Pivot turns Neuro Re-Education Treatment Balance Activities hurdles Details hurdles Surface firm Equipment 6 hurdles Comments -fwd -lateral fwd rock and reach Details fwd rock and reach Comments modified - HEP PT-OP-T Assessment and Plan Start: 12/05/21 17:51 Freq: Status: Active Protocol: Document 01/02/22 07:26 AMB (Rec: 01/02/22 08:09 AMB [id number]) Physical Therapy Assessment Goals Four Impairment strength [facility] Goal (LTG) Pt will complete 5 Time Sit to Stand without use of UE assist in 13 seconds or less as a measure of improved BLE strength. Three Impairment dynamic balance Commercial Loan Manager Goal (LTG) Pt will improve DGI score from 17/24 to 21/24 or greater as a measure of reduced falls risk. Two Impairment bradykinesia Short Term Goal (STG) Pt will improve average gait speed on 6MWT from 0.6 m/s to 0/75 m/s or greater STG Duration 01/17/22 [facility] Goal (LTG) Pt will improve average gait speed on 6MWT to 1.0 m/s or greater as a measure of reduced bradykinesia LTG Duration 03/08/22 One Impairment lacks HEP Short Term Goal (STG) Pt will be instructed in HEP to improve amplitude, strength , and balance. STG Duration 01/17/22 [facility] Goal (LTG) Pt will be independent with HEP to improve amplitude, strength, and balance. LTG Duration 03/08/22 Assessment Summary Assessment Good ability to maintain amplitude with dual task exercises today. Did need cues for equal shoulder extension with arm swing. Physical Therapy Plan Frequency and Duration Frequency of Treatment 1-2x/week Duration of Treatment 3 months Plan of Care Start Date 12/06/21 Plan of Care End Date 03/08/22 Next Visit Focus/Plan Next Note Type Treatment Note Next Visit Plan Follow up HEP including gait with arm swing. Further assess fine motor activities such as buttoning and zipping as well as donning a jacket or other functional task. General LE strength. Static balance.
--- NOTE | 2022-01-08 11:01 | PT.OTN ---
Current Diagnoses Myalgia, other site (01/08/22) Other abnormalities of gait and mobility (01/08/22) Weakness (01/08/22) Physical Therapy Treatment Note PT-OP-A Visit Information Start: 12/05/21 17:51 Freq: Status: Active Protocol: Document 01/08/22 08:17 AMB (Rec: 01/08/22 08:59 AMB [id number]) Out-Patient Physical Therapy Visit Information Visit Information Visit Type Treatment Note Visit Start Time 08:15 Visit Stop Time 09:00 Total Visit Minutes 45 Visit Number 8 PT-OP-B Current Condition Start: 12/05/21 17:51 Freq: Status: Active Protocol: Document 12/06/21 12:00 AW (Rec: 12/05/21 18:00 AW [id number]) Current Condition History of Current Condition Onset Date 8 months Current Complaints weakness in legs; shuffling, unsteady gait; right low back pain and spasm History of Current Condition Hardeep has noticed shuffling and unsteady gait for the past 8 months to a year. He denies falls. He used to be a lot more active, taking care of his [address] acre property but he nows pays a gardening service. He denies tremors. He does notice increased shakiness with writing and small writing . He says he moves slowly secondary to vertigo. Pressed for details, pt does describe occasions with room- spinning sensation during positional changes but his symptoms clear quickly. This has only happend 5 or 6 times and resolves quickly each time . He has been treated with meclizine which was effective. His vision is good and his corrective lens prescription was updates within the past one year. Hardeep also complains of random low back spasms, mostly right side. They are occasionally disabling but he has not had any serious problem with this recently. Hardeep lives alone on [address] [place]. 5 years ago. 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 He has supportive daughters who live in [place] and [place]. Prior Treatments and Tests None identified Future Testing and Treatments Planned Neurology consult in January. Treatment Goals Patient/Caregiver Goals Imrpove gait. Improve balance. Feel more confident on uneven surfaces. Personal Factors Other Personal Factors That May Effect Chart indicates memory Therapy/Recovery problems but pt states memory is good. PMH includes CAD s/p CABG x 4 in 1998, CHF. PT-OP-C Subjective Start: 12/05/21 17:51 Freq: Status: Active Protocol: Document 01/08/22 08:17 AMB (Rec: 01/08/22 08:59 AMB [id number]) OP-PT Subjective Patient Comments Patient Comments Blurred vision is intermittent , felt like legs were weak/ sore this weekend. PT-OP-D Balance Start: 12/05/21 17:51 Freq: Status: Active Protocol: Document 12/06/21 12:00 AW (Rec: 12/06/21 12:24 AW [id number]) Balance Tests mCTSIB mCTSIB Position 1 30 mCTSIB Position 2 30 mCTSIB Position 3 20 mCTSIB Position 4 8 Single Limb Standing Single Limb- Right 1 sec Single Limb- Left 2 sec Tandem Tandem Standing able take 4 tandem steps PT-OP-E Functional Tests Start: 12/05/21 17:51 Freq: Status: Active Protocol: Document 12/06/21 12:00 AW (Rec: 12/06/21 12:24 AW [id number]) Functional Tests 2 Minute Walk Test Distance 185 feet/ 92 seconds Device Used no AD Comments 0.61 m/s average gait speed Dynamic Gait Index (DGI) Score 18 DGI Impairment Rating 20 to <40% Impaired (Score 15- 19) PT-OP-F Manual Assessment Start: 12/05/21 17:51 Freq: Status: Active Protocol: Document 12/06/21 12:00 AW (Rec: 12/06/21 12:24 AW [id number]) Manual Assessments Soft Tissue Assessment Soft Tissue Mobility Assessment Passive SLR ~75 degrees bilaterally PT-OP-G Mobility & Gait Start: 12/05/21 17:51 Freq: Status: Active Protocol: Document 12/06/21 12:00 AW (Rec: 12/06/21 12:26 AW [id number]) OP Mobility Evaluation Bed Mobility Rolling Independent but slow. Supine to and from Sit Independent but slow. Transfers Sit to Stand Pt tends to use hands on knees or seat but is able to rise when prompted without use of UE's though does tend to use momentum OP Gait Assessment Comments Gait Comments Pt ambulates with flexed trunk held rigidly, arms bent at elbow with no arm swing bilaterally, short and inconsistent step lengths, average gait speed ~0.6 m/s. PT-OP-H Neuro Start: 12/05/21 17:51 Freq: Status: Active Protocol: Document 12/06/21 12:00 AW (Rec: 12/06/21 12:58 AW [id number]) Sensation Evaluation Gross Sensation Gross Sensation WNL Coordination Evaluation Comments Coordination Comments Finger to nose with eyes closed mildly impaired RUE. Pt able to perform eyes open finger to PT finger to nose EO with good speed. Deep Tendon Reflex & Clonus Assessment Deep Tendon Reflex Bilateral Bicep Deep Tendon Reflex 2+ Normal Bilateral Achilles Deep Tendon Reflex 2+ Normal Bilateral Patellar Deep Tendon Reflex 2+ Normal Muscle Tone Tone Assessment trunk Flexor Tone Description Rigidity Muscle Tone Comments Rigid trunk notable during bed mobility, transfers, and gait . See notes on gait. PT-OP-J Posture/Palpation/Skin Start: 12/05/21 17:51 Freq: Status: Active Protocol: Document 12/06/21 12:00 AW (Rec: 12/06/21 12:58 AW [id number]) Posture Evaluation Comments Posture Comments Forward head, flexed trunk posture held rigidly. Weight distrubuted anteriorly, PT-OP-K Range of Motion Start: 12/05/21 17:51 Freq: Status: Active Protocol: Document 12/06/21 12:00 AW (Rec: 12/06/21 13:02 AW [id number]) Hip Goniometric Range of Motion Hip bilat Hip ROM WFL Yes Knee Goniometric Range of Motion Knee bilat Knee ROM WFL Yes Ankle and Foot Goniometric Range of Motion Ankle and Foot bilat Ankle/Foot ROM WFL Yes PT-OP-M Strength Start: 12/05/21 17:51 Freq: Status: Active Protocol: Document 12/06/21 12:00 AW (Rec: 12/06/21 13:02 AW [id number]) Shoulder Strength Shoulder Manual Muscle Testing bilat Flexion 4+ Good+ Abduction (C5) 4 Good External Rotation 4+ Good+ Internal Rotation 4+ Good+ Hip Strength Hip Manual Muscle Testing bilat Flexion (L2) 4 Good Extension (S1) 3 Fair Abduction 4- Good- External Rotation 4+ Good+ Internal Rotation 4 Good Knee Strength Knee Manual Muscle Testing bilat Flexion (S2) 4 Good Extension (L3) 4+ Good+ Ankle/Foot Strength Ankle and Foot Manual Muscle Testing bilat Dorsiflexion (L4) 4+ Good+ Plantarflexion (S1) 4- Good- Comments PF tested with standing heel raise. Pt able to do 3 bilateral, none single leg. PT-OP-O Vestibular Start: 12/05/21 17:51 Freq: Status: Active Protocol: Document 12/06/21 12:00 AW (Rec: 12/06/21 15:45 AW [id number]) Vestibular Assessment Visual Testing Smooth Pursuits Horizontal WNL Smooth Pursuits Vertical WNL Saccades Horizontal WNL Gaze Evoked Nystagmus With Fixation Negative Thrust Head Negative Cover/Uncover Test WNL Convergence Test WNL PT-OP-Q Treatments Start: 12/05/21 17:51 Freq: Status: Active Protocol: Document 01/08/22 08:17 AMB (Rec: 01/08/22 08:59 AMB [id number]) Gym Equipment Shuttle Recovery Bilateral Squats Details warm up Resistance 25 Reps/Time 2x20 Therapeutic Exercises Sitting Exercises floor to ceiling Sitting Exercise Name floor to ceiling Equipment Used std ht chair without arms Comments cued increased amplitude; HEP Standing Exercises step ups Standing Exercise Name step ups - fwd and lateral Side bilateral Equipment Used 6 step, rain prn Reps/Minutes 10 ea Therapeutic Activity Therapeutic Activity buttoning Name finger flicks, then buttoning top button on shirt Comments discussed handwriting, large pen, forearm supported. Vc punch arm through jacket. PT-OP-T Assessment and Plan Start: 12/05/21 17:51 Freq: Status: Active Protocol: Document 01/08/22 08:17 AMB (Rec: 01/08/22 08:59 AMB [id number]) Physical Therapy Assessment Goals Four Impairment strength Repair Weaver Goal (LTG) Pt will complete 5 Time Sit to Stand without use of UE assist in 13 seconds or less as a measure of improved BLE strength. Three Impairment dynamic balance Repair Weaver Goal (LTG) Pt will improve DGI score from 17/24 to 21/24 or greater as a measure of reduced falls risk. Two Impairment bradykinesia Short Term Goal (STG) Pt will improve average gait speed on 6MWT from 0.6 m/s to 0/75 m/s or greater STG Duration 01/17/22 Repair Weaver Goal (LTG) Pt will improve average gait speed on 6MWT to 1.0 m/s or greater as a measure of reduced bradykinesia LTG Duration 03/08/22 One Impairment lacks HEP Short Term Goal (STG) Pt will be instructed in HEP to improve amplitude, strength , and balance. STG Duration 01/17/22 Repair Weaver Goal (LTG) Pt will be independent with HEP to improve amplitude, strength, and balance. LTG Duration 03/08/22 Assessment Summary Assessment Hardeep was interested in talking about his symptoms today. His daughter who is a nurse might be interested in attending an appointment, and this was ok' ed as he could have 1 support person. He did well with finger flicks, but did have difficulty donning his jacket, would benefit from further practice. [place] better after PT today, after starting out pretty slow. Physical Therapy Plan Next Visit Focus/Plan Next Note Type Treatment Note Next Visit Plan Follow up HEP including gait with arm swing. Further assess fine motor activities such as buttoning and zipping as well as donning a jacket or other functional task. General LE strength. Static balance.
--- NOTE | 2022-01-16 12:40 | PT.OTN ---
Current Diagnoses Myalgia, other site (01/16/22) Other abnormalities of gait and mobility (01/16/22) Weakness (01/16/22) Physical Therapy Treatment Note PT-OP-A Visit Information Start: 12/05/21 17:51 Freq: Status: Active Protocol: Document 01/16/22 08:55 AW (Rec: 01/16/22 10:31 AW [id number]) Out-Patient Physical Therapy Visit Information Visit Information Visit Type Treatment Note Visit Start Time 09:45 Visit Stop Time 10:30 Total Visit Minutes 45 Visit Number 9 Number of FIRE SAFETY INSPECTOR Visits 0 Evaluation Information Evaluation Date 12/06/21 PT-OP-B Current Condition Start: 12/05/21 17:51 Freq: Status: Active Protocol: Document 12/06/21 12:00 AW (Rec: 12/05/21 18:00 AW [id number]) Current Condition History of Current Condition Onset Date 8 months Current Complaints weakness in legs; shuffling, unsteady gait; right low back pain and spasm History of Current Condition Hardeep has noticed shuffling and unsteady gait for the past 8 months to a year. He denies falls. He used to be a lot more active, taking care of his 2.5 acre property but he nows pays a gardening service. He denies tremors. He does notice increased shakiness with writing and small writing . He says he moves slowly secondary to vertigo. Pressed for details, pt does describe occasions with room- spinning sensation during positional changes but his symptoms clear quickly. This has only happend 5 or 6 times and resolves quickly each time . He has been treated with meclizine which was effective. His vision is good and his corrective lens prescription was updates within the past one year. Hardeep also complains of random low back spasms, mostly right side. They are occasionally disabling but he has not had any serious problem with this recently. Hardeep lives alone on [address]. 5 years ago. 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 He has supportive daughters who live in [place] and [place]. Prior Treatments and Tests None identified Future Testing and Treatments Planned Neurology consult in January. Treatment Goals Patient/Caregiver Goals Imrpove gait. Improve balance. Feel more confident on uneven surfaces. Personal Factors Other Personal Factors That May Effect Chart indicates memory Therapy/Recovery problems but pt states memory is good. PMH includes CAD s/p CABG x 4 in 1998, CHF. PT-OP-C Subjective Start: 12/05/21 17:51 Freq: Status: Active Protocol: Document 01/16/22 08:55 AW (Rec: 01/16/22 10:31 AW [id number]) OP-PT Subjective Patient Comments Patient Comments Pt says he is happy with progress. His daughter, Shelley, is interested in attending therapy on 01/31. PT-OP-D Balance Start: 12/05/21 17:51 Freq: Status: Active Protocol: Document 12/06/21 12:00 AW (Rec: 12/06/21 12:24 AW [id number]) Balance Tests mCTSIB mCTSIB Position 1 30 mCTSIB Position 2 30 mCTSIB Position 3 20 mCTSIB Position 4 8 Single Limb Standing Single Limb- Right 1 sec Single Limb- Left 2 sec Tandem Tandem Standing able take 4 tandem steps PT-OP-E Functional Tests Start: 12/05/21 17:51 Freq: Status: Active Protocol: Document 12/06/21 12:00 AW (Rec: 12/06/21 12:24 AW [id number]) Functional Tests 2 Minute Walk Test Distance 185 feet/ 92 seconds Device Used no AD Comments 0.61 m/s average gait speed Dynamic Gait Index (DGI) Score 18 DGI Impairment Rating 20 to <40% Impaired (Score 15- 19) PT-OP-F Manual Assessment Start: 12/05/21 17:51 Freq: Status: Active Protocol: Document 12/06/21 12:00 AW (Rec: 12/06/21 12:24 AW [id number]) Manual Assessments Soft Tissue Assessment Soft Tissue Mobility Assessment Passive SLR ~75 degrees bilaterally PT-OP-G Mobility & Gait Start: 12/05/21 17:51 Freq: Status: Active Protocol: Document 12/06/21 12:00 AW (Rec: 12/06/21 12:26 AW [id number]) OP Mobility Evaluation Bed Mobility Rolling Independent but slow. Supine to and from Sit Independent but slow. Transfers Sit to Stand Pt tends to use hands on knees or seat but is able to rise when prompted without use of UE's though does tend to use momentum OP Gait Assessment Comments Gait Comments Pt ambulates with flexed trunk held rigidly, arms bent at elbow with no arm swing bilaterally, short and inconsistent step lengths, average gait speed ~0.6 m/s. PT-OP-H Neuro Start: 12/05/21 17:51 Freq: Status: Active Protocol: Document 12/06/21 12:00 AW (Rec: 12/06/21 12:58 AW [id number]) Sensation Evaluation Gross Sensation Gross Sensation WNL Coordination Evaluation Comments Coordination Comments Finger to nose with eyes closed mildly impaired RUE. Pt able to perform eyes open finger to PT finger to nose EO with good speed. Deep Tendon Reflex & Clonus Assessment Deep Tendon Reflex Bilateral Bicep Deep Tendon Reflex 2+ Normal Bilateral Achilles Deep Tendon Reflex 2+ Normal Bilateral Patellar Deep Tendon Reflex 2+ Normal Muscle Tone Tone Assessment trunk Flexor Tone Description Rigidity Muscle Tone Comments Rigid trunk notable during bed mobility, transfers, and gait . See notes on gait. PT-OP-J Posture/Palpation/Skin Start: 12/05/21 17:51 Freq: Status: Active Protocol: Document 12/06/21 12:00 AW (Rec: 12/06/21 12:58 AW [id number]) Posture Evaluation Comments Posture Comments Forward head, flexed trunk posture held rigidly. Weight distrubuted anteriorly, PT-OP-K Range of Motion Start: 12/05/21 17:51 Freq: Status: Active Protocol: Document 12/06/21 12:00 AW (Rec: 12/06/21 13:02 AW [id number]) Hip Goniometric Range of Motion Hip bilat Hip ROM WFL Yes Knee Goniometric Range of Motion Knee bilat Knee ROM WFL Yes Ankle and Foot Goniometric Range of Motion Ankle and Foot bilat Ankle/Foot ROM WFL Yes PT-OP-M Strength Start: 12/05/21 17:51 Freq: Status: Active Protocol: Document 12/06/21 12:00 AW (Rec: 12/06/21 13:02 AW [id number]) Shoulder Strength Shoulder Manual Muscle Testing bilat Flexion 4+ Good+ Abduction (C5) 4 Good External Rotation 4+ Good+ Internal Rotation 4+ Good+ Hip Strength Hip Manual Muscle Testing bilat Flexion (L2) 4 Good Extension (S1) 3 Fair Abduction 4- Good- External Rotation 4+ Good+ Internal Rotation 4 Good Knee Strength Knee Manual Muscle Testing bilat Flexion (S2) 4 Good Extension (L3) 4+ Good+ Ankle/Foot Strength Ankle and Foot Manual Muscle Testing bilat Dorsiflexion (L4) 4+ Good+ Plantarflexion (S1) 4- Good- Comments PF tested with standing heel raise. Pt able to do 3 bilateral, none single leg. PT-OP-O Vestibular Start: 12/05/21 17:51 Freq: Status: Active Protocol: Document 12/06/21 12:00 AW (Rec: 12/06/21 15:45 AW [id number]) Vestibular Assessment Visual Testing Smooth Pursuits Horizontal WNL Smooth Pursuits Vertical WNL Saccades Horizontal WNL Gaze Evoked Nystagmus With Fixation Negative Thrust Head Negative Cover/Uncover Test WNL Convergence Test WNL PT-OP-Q Treatments Start: 12/05/21 17:51 Freq: Status: Active Protocol: Document 01/16/22 08:55 AW (Rec: 01/16/22 10:31 AW [id number]) Cardio Equipment Recumbent Elliptical (Biodmangofizz jobs) Duration (Minutes) 5 Resistance 5 Seat Position 8 Gym Equipment Shuttle Recovery Bilateral Squats Details warm up Resistance 25 Reps/Time 2x20 Shuttle Rebound NBOS Exercise Details RED Comments -NBOS -NBOS with head turn/nods -NBOS with arms swinging Therapeutic Activity Therapeutic Activity buttoning Name finger flicks, then buttoning top button on shirt Comments Reviewed handwriting, large pen, forearm supported. Vc punch arm through jacket. Pt reports improved performance at home Gait Training Gait Activity 6MWT Description 6MWT Device Used none Level of Assistance IND Surface firm - tile, carpet Distance/Duration 1091 feet/6 min Treatment Focus goal assessment Comments average gait speed 0.9 m/s with no loss of speed lap to lap amplitude Device Used no AD Level of Assistance IND Surface outside (grass, hills, curbs, stairs) Distance/Duration 50' x 10 Treatment Focus amplitude Comments -Arm swing, step length -Head turns -Changes in speed -Pivot turns Neuro Re-Education Treatment Balance Activities hurdles Details hurdles Surface firm Equipment 6 hurdles Comments -fwd -lateral half tandem Details half tandem>tandem Surface firm Equipment rail prn - touched <10% Comments progressed to tandem walk with min contact // PT-OP-T Assessment and Plan Start: 12/05/21 17:51 Freq: Status: Active Protocol: Document 01/16/22 08:55 AW (Rec: 01/16/22 10:31 AW [id number]) Physical Therapy Assessment Goals Four Impairment strength Detention Goal (LTG) Pt will complete 5 Time Sit to Stand without use of UE assist in 13 seconds or less as a measure of improved BLE strength. Three Impairment dynamic balance Insurance Compliance Analyst Goal (LTG) Pt will improve DGI score from 17/24 to 21/24 or greater as a measure of reduced falls risk. Two Impairment bradykinesia Short Term Goal (STG) Pt will improve average gait speed on 6MWT from 0.6 m/s to 0.75 m/s or greater 01/16/22 - Pt walked 1091 feet in 6 minutes - average gait speed 0.9 m/s STG Duration GOAL MET Insurance Compliance Analyst Goal (LTG) Pt will improve average gait speed on 6MWT to 1.0 m/s or greater as a measure of reduced bradykinesia LTG Duration 03/08/22 One Impairment lacks HEP Short Term Goal (STG) Pt will be instructed in HEP to improve amplitude, strength , and balance. STG Duration GOAL MET Insurance Compliance Analyst Goal (LTG) Pt will be independent with HEP to improve amplitude, strength, and balance. LTG Duration 03/08/22 Progress Towards Goals Progress Towards Goals Progressing Toward Goals Progress Comments Hardeep has improved his average gait speed on 6MWT to 0.9 m/s which is an excellent improvement. Gait quality is also improved with minimal but certainly increased UE swing and improved heelstrike with initial contact. Assessment Summary Assessment Reassessed today and pt showed improvement in gait quality and average gait speed. Hardeep is happy with his progress and spoke today of having his daughter attend a session on January 31 which this therapist encouraged. Physical Therapy Plan Frequency and Duration Frequency of Treatment 1-2x/week Duration of Treatment 3 months Plan of Care Start Date 12/06/21 Plan of Care End Date 03/08/22 Next Visit Focus/Plan Next Note Type Treatment Note Next Visit Plan Follow up HEP including gait with arm swing. Further assess fine motor activities such as buttoning and zipping as well as donning a jacket or other functional task. General LE strength. Static balance.
--- NOTE | 2022-01-16 12:57 | PT.OPPN ---
Current Diagnoses Myalgia, other site (01/16/22) Other abnormalities of gait and mobility (01/16/22) Weakness (01/16/22) Physical Therapy Progress Note PT-OP-A Visit Information Start: 12/05/21 17:51 Freq: Status: Active Protocol: Document 01/16/22 08:55 AW (Rec: 01/16/22 10:31 AW [id number]) Out-Patient Physical Therapy Visit Information Visit Information Visit Type Progress Note Visit Start Time 09:45 Visit Stop Time 10:30 Total Visit Minutes 45 Visit Number 9 Number of BLEACH MIXER Visits 0 Evaluation Information Evaluation Date 12/06/21 PT-OP-B Current Condition Start: 12/05/21 17:51 Freq: Status: Active Protocol: Document 12/06/21 12:00 AW (Rec: 12/05/21 18:00 AW [id number]) Current Condition History of Current Condition Onset Date 8 months Current Complaints weakness in legs; shuffling, unsteady gait; right low back pain and spasm History of Current Condition Hardeep has noticed shuffling and unsteady gait for the past 8 months to a year. He denies falls. He used to be a lot more active, taking care of his [address] acre property but he nows pays a gardening service. He denies tremors. He does notice increased shakiness with writing and small writing . He says he moves slowly secondary to vertigo. Pressed for details, pt does describe occasions with room- spinning sensation during positional changes but his symptoms clear quickly. This has only happend 5 or 6 times and resolves quickly each time . He has been treated with meclizine which was effective. His vision is good and his corrective lens prescription was updates within the past one year. Hardeep also complains of random low back spasms, mostly right side. They are occasionally disabling but he has not had any serious problem with this recently. Hardeep lives alone on [address]. 5 years ago. 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 He has supportive daughters who live in [place] and [place]. Prior Treatments and Tests None identified Future Testing and Treatments Planned Neurology consult in January. Treatment Goals Patient/Caregiver Goals Imrpove gait. Improve balance. Feel more confident on uneven surfaces. Personal Factors Other Personal Factors That May Effect Chart indicates memory Therapy/Recovery problems but pt states memory is good. PMH includes CAD s/p CABG x 4 in 1998, CHF. PT-OP-C Subjective Start: 12/05/21 17:51 Freq: Status: Active Protocol: Document 01/16/22 08:55 AW (Rec: 01/16/22 10:31 AW [id number]) OP-PT Subjective Patient Comments Patient Comments Pt says he is happy with progress. His daughter, Shelley, is interested in attending therapy on 01/31. PT-OP-D Balance Start: 12/05/21 17:51 Freq: Status: Active Protocol: Document 12/06/21 12:00 AW (Rec: 12/06/21 12:24 AW [id number]) Balance Tests mCTSIB mCTSIB Position 1 30 mCTSIB Position 2 30 mCTSIB Position 3 20 mCTSIB Position 4 8 Single Limb Standing Single Limb- Right 1 sec Single Limb- Left 2 sec Tandem Tandem Standing able take 4 tandem steps PT-OP-E Functional Tests Start: 12/05/21 17:51 Freq: Status: Active Protocol: Document 12/06/21 12:00 AW (Rec: 12/06/21 12:24 AW [id number]) Functional Tests 2 Minute Walk Test Distance 185 feet/ 92 seconds Device Used no AD Comments 0.61 m/s average gait speed Dynamic Gait Index (DGI) Score 18 DGI Impairment Rating 20 to <40% Impaired (Score 15- 19) PT-OP-F Manual Assessment Start: 12/05/21 17:51 Freq: Status: Active Protocol: Document 12/06/21 12:00 AW (Rec: 12/06/21 12:24 AW [id number]) Manual Assessments Soft Tissue Assessment Soft Tissue Mobility Assessment Passive SLR ~75 degrees bilaterally PT-OP-G Mobility & Gait Start: 12/05/21 17:51 Freq: Status: Active Protocol: Document 12/06/21 12:00 AW (Rec: 12/06/21 12:26 AW [id number]) OP Mobility Evaluation Bed Mobility Rolling Independent but slow. Supine to and from Sit Independent but slow. Transfers Sit to Stand Pt tends to use hands on knees or seat but is able to rise when prompted without use of UE's though does tend to use momentum OP Gait Assessment Comments Gait Comments Pt ambulates with flexed trunk held rigidly, arms bent at elbow with no arm swing bilaterally, short and inconsistent step lengths, average gait speed ~0.6 m/s. PT-OP-H Neuro Start: 12/05/21 17:51 Freq: Status: Active Protocol: Document 12/06/21 12:00 AW (Rec: 12/06/21 12:58 AW [id number]) Sensation Evaluation Gross Sensation Gross Sensation WNL Coordination Evaluation Comments Coordination Comments Finger to nose with eyes closed mildly impaired RUE. Pt able to perform eyes open finger to PT finger to nose EO with good speed. Deep Tendon Reflex & Clonus Assessment Deep Tendon Reflex Bilateral Bicep Deep Tendon Reflex 2+ Normal Bilateral Achilles Deep Tendon Reflex 2+ Normal Bilateral Patellar Deep Tendon Reflex 2+ Normal Muscle Tone Tone Assessment trunk Flexor Tone Description Rigidity Muscle Tone Comments Rigid trunk notable during bed mobility, transfers, and gait . See notes on gait. PT-OP-J Posture/Palpation/Skin Start: 12/05/21 17:51 Freq: Status: Active Protocol: Document 12/06/21 12:00 AW (Rec: 12/06/21 12:58 AW [id number]) Posture Evaluation Comments Posture Comments Forward head, flexed trunk posture held rigidly. Weight distrubuted anteriorly, PT-OP-K Range of Motion Start: 12/05/21 17:51 Freq: Status: Active Protocol: Document 12/06/21 12:00 AW (Rec: 12/06/21 13:02 AW [id number]) Hip Goniometric Range of Motion Hip Measured in Degrees bilat Hip ROM WFL Yes Knee Goniometric Range of Motion Knee Measured in Degrees bilat Knee ROM WFL Yes Ankle and Foot Goniometric Range of Motion Ankle and Foot Measured in Degrees bilat Ankle/Foot ROM WFL Yes PT-OP-M Strength Start: 12/05/21 17:51 Freq: Status: Active Protocol: Document 12/06/21 12:00 AW (Rec: 12/06/21 13:02 AW [id number]) Shoulder Strength Shoulder Manual Muscle Testing bilat Flexion 4+ Good+ Abduction (C5) 4 Good External Rotation 4+ Good+ Internal Rotation 4+ Good+ Hip Strength Hip Manual Muscle Testing bilat Flexion (L2) 4 Good Extension (S1) 3 Fair Abduction 4- Good- External Rotation 4+ Good+ Internal Rotation 4 Good Knee Strength Knee Manual Muscle Testing bilat Flexion (S2) 4 Good Extension (L3) 4+ Good+ Ankle/Foot Strength Ankle and Foot Manual Muscle Testing bilat Dorsiflexion (L4) 4+ Good+ Plantarflexion (S1) 4- Good- Comments PF tested with standing heel raise. Pt able to do 3 bilateral, none single leg. PT-OP-O Vestibular Start: 12/05/21 17:51 Freq: Status: Active Protocol: Document 12/06/21 12:00 AW (Rec: 12/06/21 15:45 AW [id number]) Vestibular Assessment Visual Testing Smooth Pursuits Horizontal WNL Smooth Pursuits Vertical WNL Saccades Horizontal WNL Gaze Evoked Nystagmus With Fixation Negative Thrust Head Negative Cover/Uncover Test WNL Convergence Test WNL PT-OP-T Assessment and Plan Start: 12/05/21 17:51 Freq: Status: Active Protocol: Document 01/16/22 08:55 AW (Rec: 01/16/22 10:31 AW [id number]) Physical Therapy Assessment Goals Four Impairment strength [place] Wi[employer] Goal (LTG) Pt will complete 5 Time Sit to Stand without use of UE assist in 13 seconds or less as a measure of improved BLE strength. Three Impairment dynamic balance Long-Term Goal (LTG) Pt will improve DGI score from 17/24 to 21/24 or greater as a measure of reduced falls risk. Two Impairment bradykinesia Short Term Goal (STG) Pt will improve average gait speed on 6MWT from 0.6 m/s to 0.75 m/s or greater 01/16/22 - Pt walked 1091 feet in 6 minutes - average gait speed 0.9 m/s STG Duration GOAL MET Long-Term Goal (LTG) Pt will improve average gait speed on 6MWT to 1.0 m/s or greater as a measure of reduced bradykinesia LTG Duration 03/08/22 One Impairment lacks HEP Short Term Goal (STG) Pt will be instructed in HEP to improve amplitude, strength , and balance. STG Duration GOAL MET [place] Wiper Goal (LTG) Pt will be independent with HEP to improve amplitude, strength, and balance. LTG Duration 03/08/22 Progress Towards Goals Progress Towards Goals Progressing Toward Goals Progress Comments Hardeep has improved his average gait speed on 6MWT to 0.9 m/s which is an excellent improvement. Gait quality is also improved with minimal but certainly increased UE swing and improved heelstrike with initial contact. Assessment Summary Assessment Reassessed today and pt showed improvement in gait quality and average gait speed. Hardeep is happy with his progress and spoke today of having his daughter attend a session on January 31 which this therapist encouraged. Physical Therapy Plan Frequency and Duration Frequency of Treatment 1-2x/week Duration of Treatment 3 months Plan of Care Start Date 12/06/21 Plan of Care End Date 03/08/22 Next Visit Focus/Plan Next Note Type Treatment Note Next Visit Plan Follow up HEP including gait with arm swing. Further assess fine motor activities such as buttoning and zipping as well as donning a jacket or other functional task. General LE strength. Static balance.
--- NOTE | 2022-01-23 12:59 | PT.OTN ---
Current Diagnoses Myalgia, other site (01/23/22) Other abnormalities of gait and mobility (01/23/22) Weakness (01/23/22) Physical Therapy Treatment Note PT-OP-A Visit Information Start: 12/05/21 17:51 Freq: Status: Active Protocol: Document 01/23/22 07:34 AMB (Rec: 01/23/22 08:15 AMB [id number]) Out-Patient Physical Therapy Visit Information Visit Information Visit Type Treatment Note Visit Start Time 07:30 Visit Stop Time 08:15 Total Visit Minutes 45 Visit Number 10 PT-OP-B Current Condition Start: 12/05/21 17:51 Freq: Status: Active Protocol: Document 12/06/21 12:00 AW (Rec: 12/05/21 18:00 AW [id number]) Current Condition History of Current Condition Onset Date 8 months Current Complaints weakness in legs; shuffling, unsteady gait; right low back pain and spasm History of Current Condition Hardeep has noticed shuffling and unsteady gait for the past 8 months to a year. He denies falls. He used to be a lot more active, taking care of his [address] acre property but he nows pays a gardening service. He denies tremors. He does notice increased shakiness with writing and small writing . He says he moves slowly secondary to vertigo. Pressed for details, pt does describe occasions with room- spinning sensation during positional changes but his symptoms clear quickly. This has only happend 5 or 6 times and resolves quickly each time . He has been treated with meclizine which was effective. His vision is good and his corrective lens prescription was updates within the past one year. Hardeep also complains of random low back spasms, mostly right side. They are occasionally disabling but he has not had any serious problem with this recently. Hardeep lives alone on [address]. 5 years ago. 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 He has supportive daughters who live in [place] and [place]. Prior Treatments and Tests None identified Future Testing and Treatments Planned Neurology consult in January. Treatment Goals Patient/Caregiver Goals Imrpove gait. Improve balance. Feel more confident on uneven surfaces. Personal Factors Other Personal Factors That May Effect Chart indicates memory Therapy/Recovery problems but pt states memory is good. PMH includes CAD s/p CABG x 4 in 1998, CHF. PT-OP-C Subjective Start: 12/05/21 17:51 Freq: Status: Active Protocol: Document 01/23/22 07:34 AMB (Rec: 01/23/22 08:15 AMB [id number]) OP-PT Subjective Patient Comments Patient Comments Pt states he has good days and bad days. PT-OP-D Balance Start: 12/05/21 17:51 Freq: Status: Active Protocol: Document 12/06/21 12:00 AW (Rec: 12/06/21 12:24 AW [id number]) Balance Tests mCTSIB mCTSIB Position 1 30 mCTSIB Position 2 30 mCTSIB Position 3 20 mCTSIB Position 4 8 Single Limb Standing Single Limb- Right 1 sec Single Limb- Left 2 sec Tandem Tandem Standing able take 4 tandem steps PT-OP-E Functional Tests Start: 12/05/21 17:51 Freq: Status: Active Protocol: Document 12/06/21 12:00 AW (Rec: 12/06/21 12:24 AW [id number]) Functional Tests 2 Minute Walk Test Distance 185 feet/ 92 seconds Device Used no AD Comments 0.61 m/s average gait speed Dynamic Gait Index (DGI) Score 18 DGI Impairment Rating 20 to <40% Impaired (Score 15- 19) PT-OP-F Manual Assessment Start: 12/05/21 17:51 Freq: Status: Active Protocol: Document 12/06/21 12:00 AW (Rec: 12/06/21 12:24 AW [id number]) Manual Assessments Soft Tissue Assessment Soft Tissue Mobility Assessment Passive SLR ~75 degrees bilaterally PT-OP-G Mobility & Gait Start: 12/05/21 17:51 Freq: Status: Active Protocol: Document 12/06/21 12:00 AW (Rec: 12/06/21 12:26 AW [id number]) OP Mobility Evaluation Bed Mobility Rolling Independent but slow. Supine to and from Sit Independent but slow. Transfers Sit to Stand Pt tends to use hands on knees or seat but is able to rise when prompted without use of UE's though does tend to use momentum OP Gait Assessment Comments Gait Comments Pt ambulates with flexed trunk held rigidly, arms bent at elbow with no arm swing bilaterally, short and inconsistent step lengths, average gait speed ~0.6 m/s. PT-OP-H Neuro Start: 12/05/21 17:51 Freq: Status: Active Protocol: Document 12/06/21 12:00 AW (Rec: 12/06/21 12:58 AW [id number]) Sensation Evaluation Gross Sensation Gross Sensation WNL Coordination Evaluation Comments Coordination Comments Finger to nose with eyes closed mildly impaired RUE. Pt able to perform eyes open finger to PT finger to nose EO with good speed. Deep Tendon Reflex & Clonus Assessment Deep Tendon Reflex Bilateral Bicep Deep Tendon Reflex 2+ Normal Bilateral Achilles Deep Tendon Reflex 2+ Normal Bilateral Patellar Deep Tendon Reflex 2+ Normal Muscle Tone Tone Assessment trunk Flexor Tone Description Rigidity Muscle Tone Comments Rigid trunk notable during bed mobility, transfers, and gait . See notes on gait. PT-OP-J Posture/Palpation/Skin Start: 12/05/21 17:51 Freq: Status: Active Protocol: Document 12/06/21 12:00 AW (Rec: 12/06/21 12:58 AW [id number]) Posture Evaluation Comments Posture Comments Forward head, flexed trunk posture held rigidly. Weight distrubuted anteriorly, PT-OP-K Range of Motion Start: 12/05/21 17:51 Freq: Status: Active Protocol: Document 12/06/21 12:00 AW (Rec: 12/06/21 13:02 AW [id number]) Hip Goniometric Range of Motion Hip bilat Hip ROM WFL Yes Knee Goniometric Range of Motion Knee bilat Knee ROM WFL Yes Ankle and Foot Goniometric Range of Motion Ankle and Foot bilat Ankle/Foot ROM WFL Yes PT-OP-M Strength Start: 12/05/21 17:51 Freq: Status: Active Protocol: Document 12/06/21 12:00 AW (Rec: 12/06/21 13:02 AW [id number]) Shoulder Strength Shoulder Manual Muscle Testing bilat Flexion 4+ Good+ Abduction (C5) 4 Good External Rotation 4+ Good+ Internal Rotation 4+ Good+ Hip Strength Hip Manual Muscle Testing bilat Flexion (L2) 4 Good Extension (S1) 3 Fair Abduction 4- Good- External Rotation 4+ Good+ Internal Rotation 4 Good Knee Strength Knee Manual Muscle Testing bilat Flexion (S2) 4 Good Extension (L3) 4+ Good+ Ankle/Foot Strength Ankle and Foot Manual Muscle Testing bilat Dorsiflexion (L4) 4+ Good+ Plantarflexion (S1) 4- Good- Comments PF tested with standing heel raise. Pt able to do 3 bilateral, none single leg. PT-OP-O Vestibular Start: 12/05/21 17:51 Freq: Status: Active Protocol: Document 12/06/21 12:00 AW (Rec: 12/06/21 15:45 AW [id number]) Vestibular Assessment Visual Testing Smooth Pursuits Horizontal WNL Smooth Pursuits Vertical WNL Saccades Horizontal WNL Gaze Evoked Nystagmus With Fixation Negative Thrust Head Negative Cover/Uncover Test WNL Convergence Test WNL PT-OP-Q Treatments Start: 12/05/21 17:51 Freq: Status: Active Protocol: Document 01/23/22 07:34 AMB (Rec: 01/23/22 08:15 AMB [id number]) Cardio Equipment Recumbent Elliptical (BiodCognitum) Duration (Minutes) 5 Resistance 5 Seat Position 8 Therapeutic Exercises Sitting Exercises floor to ceiling Sitting Exercise Name floor to ceiling Equipment Used std ht chair without arms Comments cued increased amplitude; HEP Other Exercises sit to stand Other Exercise Name sit to stand Resistance without use of hands Equipment Used std chair; blue foam on ground Reps/Minutes x10 Comments cued tail tuck in standing Gait Training Gait Activity amplitude Device Used no AD Level of Assistance IND Distance/Duration 50' x 10 Treatment Focus amplitude Comments -Arm swing, step length -Head turns -Changes in speed -Pivot turns Neuro Re-Education Treatment Balance Activities hurdles Details hurdles Surface firm Equipment 6 hurdles Comments -fwd -lateral fwd rock and reach Details fwd rock and reach Comments modified - HEP PT-OP-T Assessment and Plan Start: 12/05/21 17:51 Freq: Status: Active Protocol: Document 01/23/22 07:34 AMB (Rec: 01/23/22 08:15 AMB [id number]) Physical Therapy Assessment Goals Four Impairment strength Nursing Home Goal (LTG) Pt will complete 5 Time Sit to Stand without use of UE assist in 13 seconds or less as a measure of improved BLE strength. Three Impairment dynamic balance Nursing Home Goal (LTG) Pt will improve DGI score from 17/24 to 21/24 or greater as a measure of reduced falls risk. Two Impairment bradykinesia Short Term Goal (STG) Pt will improve average gait speed on 6MWT from 0.6 m/s to 0.75 m/s or greater 7/19/22 - Pt walked 1091 feet in 6 minutes - average gait speed 0.9 m/s STG Duration GOAL MET Nursing Home Goal (LTG) Pt will improve average gait speed on 6MWT to 1.0 m/s or greater as a measure of reduced bradykinesia LTG Duration 03/08/22 One Impairment lacks HEP Short Term Goal (STG) Pt will be instructed in HEP to improve amplitude, strength , and balance. STG Duration GOAL MET Nursing Home Goal (LTG) Pt will be independent with HEP to improve amplitude, strength, and balance. LTG Duration 03/08/22 Assessment Summary Assessment Hardeep does show a decline in his gait with dual tasking. Encouraged L UE extension with gait. Physical Therapy Plan Next Visit Focus/Plan Next Note Type Treatment Note Next Visit Plan Follow up HEP including gait with arm swing. Further assess fine motor activities such as buttoning and zipping as well as donning a jacket or other functional task. General LE strength. Static balance.
--- NOTE | 2022-01-31 12:20 | PT.OTN ---
Current Diagnoses Myalgia, other site (01/31/22) Other abnormalities of gait and mobility (01/31/22) Weakness (01/31/22) Physical Therapy Treatment Note PT-OP-A Visit Information Start: 12/05/21 17:51 Freq: Status: Active Protocol: Document 01/31/22 09:14 AW (Rec: 01/31/22 10:32 AW [id number]) Out-Patient Physical Therapy Visit Information Visit Information Visit Type Treatment Note Visit Start Time 09:45 Visit Stop Time 10:30 Total Visit Minutes 45 Visit Number 11 Number of PLANT ELECTRICIAN Visits 0 Evaluation Information Evaluation Date 12/06/21 PT-OP-B Current Condition Start: 12/05/21 17:51 Freq: Status: Active Protocol: Document 12/06/21 12:00 AW (Rec: 12/05/21 18:00 AW [id number]) Current Condition History of Current Condition Onset Date 8 months Current Complaints weakness in legs; shuffling, unsteady gait; right low back pain and spasm History of Current Condition Hardeep has noticed shuffling and unsteady gait for the past 8 months to a year. He denies falls. He used to be a lot more active, taking care of his [address] acre property but he nows pays a gardening service. He denies tremors. He does notice increased shakiness with writing and small writing . He says he moves slowly secondary to vertigo. Pressed for details, pt does describe occasions with room- spinning sensation during positional changes but his symptoms clear quickly. This has only happend 5 or 6 times and resolves quickly each time . He has been treated with meclizine which was effective. His vision is good and his corrective lens prescription was updates within the past one year. Hardeep also complains of random low back spasms, mostly right side. They are occasionally disabling but he has not had any serious problem with this recently. Hardeep lives alone on [address] [place]. 5 years ago. 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 He has supportive daughters who live in [place] and [place]. Prior Treatments and Tests None identified Future Testing and Treatments Planned Neurology consult in January. Treatment Goals Patient/Caregiver Goals Imrpove gait. Improve balance. Feel more confident on uneven surfaces. Personal Factors Other Personal Factors That May Effect Chart indicates memory Therapy/Recovery problems but pt states memory is good. PMH includes CAD s/p CABG x 4 in 1998, CHF. PT-OP-C Subjective Start: 12/05/21 17:51 Freq: Status: Active Protocol: Document 01/31/22 09:14 AW (Rec: 01/31/22 10:32 AW [id number]) OP-PT Subjective Patient Comments Patient Comments Pt arrives with his daughter, Shelley. Neurology appt is scheduled for later this month . PT-OP-D Balance Start: 12/05/21 17:51 Freq: Status: Active Protocol: Document 12/06/21 12:00 AW (Rec: 12/06/21 12:24 AW [id number]) Balance Tests mCTSIB mCTSIB Position 1 30 mCTSIB Position 2 30 mCTSIB Position 3 20 mCTSIB Position 4 8 Single Limb Standing Single Limb- Right 1 sec Single Limb- Left 2 sec Tandem Tandem Standing able take 4 tandem steps PT-OP-E Functional Tests Start: 12/05/21 17:51 Freq: Status: Active Protocol: Document 12/06/21 12:00 AW (Rec: 12/06/21 12:24 AW [id number]) Functional Tests 2 Minute Walk Test Distance 185 feet/ 92 seconds Device Used no AD Comments 0.61 m/s average gait speed Dynamic Gait Index (DGI) Score 18 DGI Impairment Rating 20 to <40% Impaired (Score 15- 19) PT-OP-F Manual Assessment Start: 12/05/21 17:51 Freq: Status: Active Protocol: Document 12/06/21 12:00 AW (Rec: 12/06/21 12:24 AW [id number]) Manual Assessments Soft Tissue Assessment Soft Tissue Mobility Assessment Passive SLR ~75 degrees bilaterally PT-OP-G Mobility & Gait Start: 12/05/21 17:51 Freq: Status: Active Protocol: Document 12/06/21 12:00 AW (Rec: 12/06/21 12:26 AW [id number]) OP Mobility Evaluation Bed Mobility Rolling Independent but slow. Supine to and from Sit Independent but slow. Transfers Sit to Stand Pt tends to use hands on knees or seat but is able to rise when prompted without use of UE's though does tend to use momentum OP Gait Assessment Comments Gait Comments Pt ambulates with flexed trunk held rigidly, arms bent at elbow with no arm swing bilaterally, short and inconsistent step lengths, average gait speed ~0.6 m/s. PT-OP-H Neuro Start: 12/05/21 17:51 Freq: Status: Active Protocol: Document 12/06/21 12:00 AW (Rec: 12/06/21 12:58 AW [id number]) Sensation Evaluation Gross Sensation Gross Sensation WNL Coordination Evaluation Comments Coordination Comments Finger to nose with eyes closed mildly impaired RUE. Pt able to perform eyes open finger to PT finger to nose EO with good speed. Deep Tendon Reflex & Clonus Assessment Deep Tendon Reflex Bilateral Bicep Deep Tendon Reflex 2+ Normal Bilateral Achilles Deep Tendon Reflex 2+ Normal Bilateral Patellar Deep Tendon Reflex 2+ Normal Muscle Tone Tone Assessment trunk Flexor Tone Description Rigidity Muscle Tone Comments Rigid trunk notable during bed mobility, transfers, and gait . See notes on gait. PT-OP-J Posture/Palpation/Skin Start: 12/05/21 17:51 Freq: Status: Active Protocol: Document 12/06/21 12:00 AW (Rec: 12/06/21 12:58 AW [id number]) Posture Evaluation Comments Posture Comments Forward head, flexed trunk posture held rigidly. Weight distrubuted anteriorly, PT-OP-K Range of Motion Start: 12/05/21 17:51 Freq: Status: Active Protocol: Document 12/06/21 12:00 AW (Rec: 12/06/21 13:02 AW [id number]) Hip Goniometric Range of Motion Hip bilat Hip ROM WFL Yes Knee Goniometric Range of Motion Knee bilat Knee ROM WFL Yes Ankle and Foot Goniometric Range of Motion Ankle and Foot bilat Ankle/Foot ROM WFL Yes PT-OP-M Strength Start: 12/05/21 17:51 Freq: Status: Active Protocol: Document 12/06/21 12:00 AW (Rec: 12/06/21 13:02 AW [id number]) Shoulder Strength Shoulder Manual Muscle Testing bilat Flexion 4+ Good+ Abduction (C5) 4 Good External Rotation 4+ Good+ Internal Rotation 4+ Good+ Hip Strength Hip Manual Muscle Testing bilat Flexion (L2) 4 Good Extension (S1) 3 Fair Abduction 4- Good- External Rotation 4+ Good+ Internal Rotation 4 Good Knee Strength Knee Manual Muscle Testing bilat Flexion (S2) 4 Good Extension (L3) 4+ Good+ Ankle/Foot Strength Ankle and Foot Manual Muscle Testing bilat Dorsiflexion (L4) 4+ Good+ Plantarflexion (S1) 4- Good- Comments PF tested with standing heel raise. Pt able to do 3 bilateral, none single leg. PT-OP-O Vestibular Start: 12/05/21 17:51 Freq: Status: Active Protocol: Document 12/06/21 12:00 AW (Rec: 12/06/21 15:45 AW [id number]) Vestibular Assessment Visual Testing Smooth Pursuits Horizontal WNL Smooth Pursuits Vertical WNL Saccades Horizontal WNL Gaze Evoked Nystagmus With Fixation Negative Thrust Head Negative Cover/Uncover Test WNL Convergence Test WNL PT-OP-Q Treatments Start: 12/05/21 17:51 Freq: Status: Active Protocol: Document 01/31/22 09:14 AW (Rec: 01/31/22 10:32 AW [id number]) Cardio Equipment Recumbent Elliptical ([employer]) Duration (Minutes) 5 Resistance 5 Seat Position 8 Gym Equipment Shuttle Rebound NBOS Exercise Details RED Comments -NBOS -NBOS with head turn/nods -NBOS with arms swinging Therapeutic Exercises Sitting Exercises floor to ceiling Sitting Exercise Name floor to ceiling Equipment Used std ht chair without arms Comments cued increased amplitude; HEP Other Exercises sit to stand Other Exercise Name sit to stand Resistance without use of hands Equipment Used std chair; blue foam on ground ; rocker board Reps/Minutes 8 reps x 3 Gait Training Gait Activity amplitude Device Used no AD Level of Assistance IND Distance/Duration 15 min Treatment Focus amplitude Comments -Arm swing, step length -Head turns -Changes in speed -Pivot turns -Carry cup of water -Cog dual task: counting backward by 3's or 2's Neuro Re-Education Treatment Balance Activities hurdles Details hurdles Surface firm Equipment 6 hurdles Comments -fwd -with cog task ([employer] grocery list) fwd rock and reach Details fwd rock and reach Comments modified - HEP half tandem Details half tandem>tandem Surface firm Equipment rail prn - touched <10% Comments progressed to tandem walk with hands hovering over // PT-OP-T Assessment and Plan Start: 12/05/21 17:51 Freq: Status: Active Protocol: Document 01/31/22 09:14 AW (Rec: 01/31/22 10:32 AW [id number]) Physical Therapy Assessment Goals Four Impairment strength Case Operator Goal (LTG) Pt will complete 5 Time Sit to Stand without use of UE assist in 13 seconds or less as a measure of improved BLE strength. Three Impairment dynamic balance Half-Way Goal (LTG) Pt will improve DGI score from 17/24 to 21/24 or greater as a measure of reduced falls risk. Two Impairment bradykinesia Short Term Goal (STG) Pt will improve average gait speed on 6MWT from 0.6 m/s to 0.75 m/s or greater 01/16/22 - Pt walked 1091 feet in 6 minutes - average gait speed 0.9 m/s STG Duration GOAL MET Case Operator Goal (LTG) Pt will improve average gait speed on 6MWT to 1.0 m/s or greater as a measure of reduced bradykinesia LTG Duration 03/08/22 One Impairment lacks HEP Short Term Goal (STG) Pt will be instructed in HEP to improve amplitude, strength , and balance. STG Duration GOAL MET Case Operator Goal (LTG) Pt will be independent with HEP to improve amplitude, strength, and balance. LTG Duration 03/08/22 Assessment Summary Assessment Worked on dual task gait with cognitive load and physical tasks. Amplitude in gait deteriorated somewhat with physical tasks but much more with cognitive tasks. Physical Therapy Plan Frequency and Duration Frequency of Treatment 1-2x/week Duration of Treatment 3 months Plan of Care Start Date 12/06/21 Plan of Care End Date 03/08/22 Next Visit Focus/Plan Next Note Type Treatment Note Next Visit Plan Follow up HEP including gait with arm swing. Further assess fine motor activities such as buttoning and zipping as well as donning a jacket or other functional task. General LE strength. Dual task gait - especially cognitive load.
--- NOTE | 2022-02-02 09:55 | PT.OTN ---
Current Diagnoses Myalgia, other site (02/02/22) Other abnormalities of gait and mobility (02/02/22) Weakness (02/02/22) Physical Therapy Treatment Note PT-OP-A Visit Information Start: 12/05/21 17:51 Freq: Status: Active Protocol: Document 02/02/22 09:06 AMB (Rec: 02/02/22 09:55 AMB [id number]) Out-Patient Physical Therapy Visit Information Visit Information Visit Type Treatment Note Visit Start Time 09:00 Visit Stop Time 09:45 Total Visit Minutes 45 Visit Number 12 Number of OPTICS ENGINEER Visits 0 PT-OP-B Current Condition Start: 12/05/21 17:51 Freq: Status: Active Protocol: Document 12/06/21 12:00 AW (Rec: 12/05/21 18:00 AW [id number]) Current Condition History of Current Condition Onset Date 8 months Current Complaints weakness in legs; shuffling, unsteady gait; right low back pain and spasm History of Current Condition Hardeep has noticed shuffling and unsteady gait for the past 8 months to a year. He denies falls. He used to be a lot more active, taking care of his [address] acre property but he nows pays a gardening service. He denies tremors. He does notice increased shakiness with writing and small writing . He says he moves slowly secondary to vertigo. Pressed for details, pt does describe occasions with room- spinning sensation during positional changes but his symptoms clear quickly. This has only happend 5 or 6 times and resolves quickly each time . He has been treated with meclizine which was effective. His vision is good and his corrective lens prescription was updates within the past one year. Hardeep also complains of random low back spasms, mostly right side. They are occasionally disabling but he has not had any serious problem with this recently. Hardeep lives alone on [address] [place]. 5 years ago. 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 He has supportive daughters who live in [place] and [place]. Prior Treatments and Tests None identified Future Testing and Treatments Planned Neurology consult in January. Treatment Goals Patient/Caregiver Goals Imrpove gait. Improve balance. Feel more confident on uneven surfaces. Personal Factors Other Personal Factors That May Effect Chart indicates memory Therapy/Recovery problems but pt states memory is good. PMH includes CAD s/p CABG x 4 in 1998, CHF. PT-OP-C Subjective Start: 12/05/21 17:51 Freq: Status: Active Protocol: Document 02/02/22 09:06 AMB (Rec: 02/02/22 09:55 AMB [id number]) OP-PT Subjective Patient Comments Patient Comments Pt did some work out in the yard yesterday, feeling a bit sore in the feet ankles today. PT-OP-D Balance Start: 12/05/21 17:51 Freq: Status: Active Protocol: Document 12/06/21 12:00 AW (Rec: 12/06/21 12:24 AW [id number]) Balance Tests mCTSIB mCTSIB Position 1 30 mCTSIB Position 2 30 mCTSIB Position 3 20 mCTSIB Position 4 8 Single Limb Standing Single Limb- Right 1 sec Single Limb- Left 2 sec Tandem Tandem Standing able take 4 tandem steps PT-OP-E Functional Tests Start: 12/05/21 17:51 Freq: Status: Active Protocol: Document 12/06/21 12:00 AW (Rec: 12/06/21 12:24 AW [id number]) Functional Tests 2 Minute Walk Test Distance 185 feet/ 92 seconds Device Used no AD Comments 0.61 m/s average gait speed Dynamic Gait Index (DGI) Score 18 DGI Impairment Rating 20 to <40% Impaired (Score 15- 19) PT-OP-F Manual Assessment Start: 12/05/21 17:51 Freq: Status: Active Protocol: Document 12/06/21 12:00 AW (Rec: 12/06/21 12:24 AW [id number]) Manual Assessments Soft Tissue Assessment Soft Tissue Mobility Assessment Passive SLR ~75 degrees bilaterally PT-OP-G Mobility & Gait Start: 12/05/21 17:51 Freq: Status: Active Protocol: Document 12/06/21 12:00 AW (Rec: 12/06/21 12:26 AW [id number]) OP Mobility Evaluation Bed Mobility Rolling Independent but slow. Supine to and from Sit Independent but slow. Transfers Sit to Stand Pt tends to use hands on knees or seat but is able to rise when prompted without use of UE's though does tend to use momentum OP Gait Assessment Comments Gait Comments Pt ambulates with flexed trunk held rigidly, arms bent at elbow with no arm swing bilaterally, short and inconsistent step lengths, average gait speed ~0.6 m/s. PT-OP-H Neuro Start: 12/05/21 17:51 Freq: Status: Active Protocol: Document 12/06/21 12:00 AW (Rec: 12/06/21 12:58 AW [id number]) Sensation Evaluation Gross Sensation Gross Sensation WNL Coordination Evaluation Comments Coordination Comments Finger to nose with eyes closed mildly impaired RUE. Pt able to perform eyes open finger to PT finger to nose EO with good speed. Deep Tendon Reflex & Clonus Assessment Deep Tendon Reflex Bilateral Bicep Deep Tendon Reflex 2+ Normal Bilateral Achilles Deep Tendon Reflex 2+ Normal Bilateral Patellar Deep Tendon Reflex 2+ Normal Muscle Tone Tone Assessment trunk Flexor Tone Description Rigidity Muscle Tone Comments Rigid trunk notable during bed mobility, transfers, and gait . See notes on gait. PT-OP-J Posture/Palpation/Skin Start: 12/05/21 17:51 Freq: Status: Active Protocol: Document 12/06/21 12:00 AW (Rec: 12/06/21 12:58 AW [id number]) Posture Evaluation Comments Posture Comments Forward head, flexed trunk posture held rigidly. Weight distrubuted anteriorly, PT-OP-K Range of Motion Start: 12/05/21 17:51 Freq: Status: Active Protocol: Document 12/06/21 12:00 AW (Rec: 12/06/21 13:02 AW [id number]) Hip Goniometric Range of Motion Hip bilat Hip ROM WFL Yes Knee Goniometric Range of Motion Knee bilat Knee ROM WFL Yes Ankle and Foot Goniometric Range of Motion Ankle and Foot bilat Ankle/Foot ROM WFL Yes PT-OP-M Strength Start: 12/05/21 17:51 Freq: Status: Active Protocol: Document 12/06/21 12:00 AW (Rec: 12/06/21 13:02 AW [id number]) Shoulder Strength Shoulder Manual Muscle Testing bilat Flexion 4+ Good+ Abduction (C5) 4 Good External Rotation 4+ Good+ Internal Rotation 4+ Good+ Hip Strength Hip Manual Muscle Testing bilat Flexion (L2) 4 Good Extension (S1) 3 Fair Abduction 4- Good- External Rotation 4+ Good+ Internal Rotation 4 Good Knee Strength Knee Manual Muscle Testing bilat Flexion (S2) 4 Good Extension (L3) 4+ Good+ Ankle/Foot Strength Ankle and Foot Manual Muscle Testing bilat Dorsiflexion (L4) 4+ Good+ Plantarflexion (S1) 4- Good- Comments PF tested with standing heel raise. Pt able to do 3 bilateral, none single leg. PT-OP-O Vestibular Start: 12/05/21 17:51 Freq: Status: Active Protocol: Document 12/06/21 12:00 AW (Rec: 12/06/21 15:45 AW [id number]) Vestibular Assessment Visual Testing Smooth Pursuits Horizontal WNL Smooth Pursuits Vertical WNL Saccades Horizontal WNL Gaze Evoked Nystagmus With Fixation Negative Thrust Head Negative Cover/Uncover Test WNL Convergence Test WNL PT-OP-Q Treatments Start: 12/05/21 17:51 Freq: Status: Active Protocol: Document 02/02/22 09:06 AMB (Rec: 02/02/22 09:55 AMB [id number]) Cardio Equipment Recumbent Elliptical ([employer]) Duration (Minutes) 5 Resistance 5 Seat Position 8 Gym Equipment Shuttle Rebound NBOS Exercise Details RED Comments -NBOS -NBOS with head turn/nods -NBOS with arms swinging Therapeutic Exercises Sitting Exercises floor to ceiling Sitting Exercise Name floor to ceiling Equipment Used std ht chair without arms Comments cued increased amplitude; HEP Other Exercises sit to stand Other Exercise Name sit to stand Resistance without use of hands Equipment Used std chair; blue foam on ground ; rocker board Reps/Minutes 8 reps x 3 Neuro Re-Education Treatment Balance Activities hurdles Details hurdles Surface firm Equipment 6 hurdles Comments -fwd with discussion fwd rock and reach Details fwd rock and reach Comments modified - HEP PT-OP-T Assessment and Plan Start: 12/05/21 17:51 Freq: Status: Active Protocol: Document 02/02/22 09:06 AMB (Rec: 02/02/22 09:55 AMB [id number]) Physical Therapy Assessment Goals Four Impairment strength Prison Goal (LTG) Pt will complete 5 Time Sit to Stand without use of UE assist in 13 seconds or less as a measure of improved BLE strength. Three Impairment dynamic balance Prison Goal (LTG) Pt will improve DGI score from 17/24 to 21/24 or greater as a measure of reduced falls risk. Two Impairment bradykinesia Short Term Goal (STG) Pt will improve average gait speed on 6MWT from 0.6 m/s to 0.75 m/s or greater 01/16/22 - Pt walked 1091 feet in 6 minutes - average gait speed 0.9 m/s STG Duration GOAL MET Machine Tool Rebuilder Goal (LTG) Pt will improve average gait speed on 6MWT to 1.0 m/s or greater as a measure of reduced bradykinesia LTG Duration 03/08/22 One Impairment lacks HEP Short Term Goal (STG) Pt will be instructed in HEP to improve amplitude, strength , and balance. STG Duration GOAL MET Prison Goal (LTG) Pt will be independent with HEP to improve amplitude, strength, and balance. LTG Duration 03/08/22 Assessment Summary Assessment Worked on cognitive task with exercise today. Pt needed cues to remember amplitude of exercises and gait when performing dual task. Physical Therapy Plan Next Visit Focus/Plan Next Note Type Treatment Note Next Visit Plan Follow up HEP including gait with arm swing. Further assess fine motor activities such as buttoning and zipping as well as donning a jacket or other functional task. General LE strength. Dual task gait - especially cognitive load.
--- NOTE | 2022-02-06 16:12 | PT.OTN ---
Current Diagnoses Myalgia, other site (02/06/22) Other abnormalities of gait and mobility (02/06/22) Weakness (02/06/22) Physical Therapy Treatment Note PT-OP-A Visit Information Start: 12/05/21 17:51 Freq: Status: Active Protocol: Document 02/06/22 08:20 AMB (Rec: 02/06/22 08:58 AMB [id number]) Out-Patient Physical Therapy Visit Information Visit Information Visit Type Treatment Note Visit Start Time 08:15 Visit Stop Time 09:00 Total Visit Minutes 45 Visit Number 13 PT-OP-B Current Condition Start: 12/05/21 17:51 Freq: Status: Active Protocol: Document 12/06/21 12:00 AW (Rec: 12/05/21 18:00 AW [id number]) Current Condition History of Current Condition Onset Date 8 months Current Complaints weakness in legs; shuffling, unsteady gait; right low back pain and spasm History of Current Condition Hardeep has noticed shuffling and unsteady gait for the past 8 months to a year. He denies falls. He used to be a lot more active, taking care of his [address] acre property but he nows pays a gardening service. He denies tremors. He does notice increased shakiness with writing and small writing . He says he moves slowly secondary to vertigo. Pressed for details, pt does describe occasions with room- spinning sensation during positional changes but his symptoms clear quickly. This has only happend 5 or 6 times and resolves quickly each time . He has been treated with meclizine which was effective. His vision is good and his corrective lens prescription was updates within the past one year. Hardeep also complains of random low back spasms, mostly right side. They are occasionally disabling but he has not had any serious problem with this recently. Hardeep lives alone on [address] [place]. 5 years ago. 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 He has supportive daughters who live in [place] and [place]. Prior Treatments and Tests None identified Future Testing and Treatments Planned Neurology consult in January. Treatment Goals Patient/Caregiver Goals Imrpove gait. Improve balance. Feel more confident on uneven surfaces. Personal Factors Other Personal Factors That May Effect Chart indicates memory Therapy/Recovery problems but pt states memory is good. PMH includes CAD s/p CABG x 4 in 1998, CHF. PT-OP-C Subjective Start: 12/05/21 17:51 Freq: Status: Active Protocol: Document 02/06/22 08:20 AMB (Rec: 02/06/22 08:58 AMB [id number]) OP-PT Subjective Patient Comments Patient Comments Pt is doing well, working on arm swing. PT-OP-D Balance Start: 12/05/21 17:51 Freq: Status: Active Protocol: Document 12/06/21 12:00 AW (Rec: 12/06/21 12:24 AW [id number]) Balance Tests mCTSIB mCTSIB Position 1 30 mCTSIB Position 2 30 mCTSIB Position 3 20 mCTSIB Position 4 8 Single Limb Standing Single Limb- Right 1 sec Single Limb- Left 2 sec Tandem Tandem Standing able take 4 tandem steps PT-OP-E Functional Tests Start: 12/05/21 17:51 Freq: Status: Active Protocol: Document 12/06/21 12:00 AW (Rec: 12/06/21 12:24 AW [id number]) Functional Tests 2 Minute Walk Test Distance 185 feet/ 92 seconds Device Used no AD Comments 0.61 m/s average gait speed Dynamic Gait Index (DGI) Score 18 DGI Impairment Rating 20 to <40% Impaired (Score 15- 19) PT-OP-F Manual Assessment Start: 12/05/21 17:51 Freq: Status: Active Protocol: Document 12/06/21 12:00 AW (Rec: 12/06/21 12:24 AW [id number]) Manual Assessments Soft Tissue Assessment Soft Tissue Mobility Assessment Passive SLR ~75 degrees bilaterally PT-OP-G Mobility & Gait Start: 12/05/21 17:51 Freq: Status: Active Protocol: Document 12/06/21 12:00 AW (Rec: 12/06/21 12:26 AW [id number]) OP Mobility Evaluation Bed Mobility Rolling Independent but slow. Supine to and from Sit Independent but slow. Transfers Sit to Stand Pt tends to use hands on knees or seat but is able to rise when prompted without use of UE's though does tend to use momentum OP Gait Assessment Comments Gait Comments Pt ambulates with flexed trunk held rigidly, arms bent at elbow with no arm swing bilaterally, short and inconsistent step lengths, average gait speed ~0.6 m/s. PT-OP-H Neuro Start: 12/05/21 17:51 Freq: Status: Active Protocol: Document 12/06/21 12:00 AW (Rec: 12/06/21 12:58 AW [id number]) Sensation Evaluation Gross Sensation Gross Sensation WNL Coordination Evaluation Comments Coordination Comments Finger to nose with eyes closed mildly impaired RUE. Pt able to perform eyes open finger to PT finger to nose EO with good speed. Deep Tendon Reflex & Clonus Assessment Deep Tendon Reflex Bilateral Bicep Deep Tendon Reflex 2+ Normal Bilateral Achilles Deep Tendon Reflex 2+ Normal Bilateral Patellar Deep Tendon Reflex 2+ Normal Muscle Tone Tone Assessment trunk Flexor Tone Description Rigidity Muscle Tone Comments Rigid trunk notable during bed mobility, transfers, and gait . See notes on gait. PT-OP-J Posture/Palpation/Skin Start: 12/05/21 17:51 Freq: Status: Active Protocol: Document 12/06/21 12:00 AW (Rec: 12/06/21 12:58 AW [id number]) Posture Evaluation Comments Posture Comments Forward head, flexed trunk posture held rigidly. Weight distrubuted anteriorly, PT-OP-K Range of Motion Start: 12/05/21 17:51 Freq: Status: Active Protocol: Document 12/06/21 12:00 AW (Rec: 12/06/21 13:02 AW [id number]) Hip Goniometric Range of Motion Hip bilat Hip ROM WFL Yes Knee Goniometric Range of Motion Knee bilat Knee ROM WFL Yes Ankle and Foot Goniometric Range of Motion Ankle and Foot bilat Ankle/Foot ROM WFL Yes PT-OP-M Strength Start: 12/05/21 17:51 Freq: Status: Active Protocol: Document 12/06/21 12:00 AW (Rec: 12/06/21 13:02 AW [id number]) Shoulder Strength Shoulder Manual Muscle Testing bilat Flexion 4+ Good+ Abduction (C5) 4 Good External Rotation 4+ Good+ Internal Rotation 4+ Good+ Hip Strength Hip Manual Muscle Testing bilat Flexion (L2) 4 Good Extension (S1) 3 Fair Abduction 4- Good- External Rotation 4+ Good+ Internal Rotation 4 Good Knee Strength Knee Manual Muscle Testing bilat Flexion (S2) 4 Good Extension (L3) 4+ Good+ Ankle/Foot Strength Ankle and Foot Manual Muscle Testing bilat Dorsiflexion (L4) 4+ Good+ Plantarflexion (S1) 4- Good- Comments PF tested with standing heel raise. Pt able to do 3 bilateral, none single leg. PT-OP-O Vestibular Start: 12/05/21 17:51 Freq: Status: Active Protocol: Document 12/06/21 12:00 AW (Rec: 12/06/21 15:45 AW [id number]) Vestibular Assessment Visual Testing Smooth Pursuits Horizontal WNL Smooth Pursuits Vertical WNL Saccades Horizontal WNL Gaze Evoked Nystagmus With Fixation Negative Thrust Head Negative Cover/Uncover Test WNL Convergence Test WNL PT-OP-Q Treatments Start: 12/05/21 17:51 Freq: Status: Active Protocol: Document 02/06/22 16:08 AMB (Rec: 02/06/22 16:09 AMB [id number]) Cardio Equipment Recumbent Elliptical ([employer]) Duration (Minutes) 5 Resistance 5 Seat Position 8 Gym Equipment Shuttle Recovery Bilateral Squats Details warm up Resistance 25 Reps/Time 2x20 Therapeutic Exercises Sitting Exercises floor to ceiling Sitting Exercise Name floor to ceiling Equipment Used std ht chair without arms Comments cued increased amplitude; HEP Other Exercises sit to stand Other Exercise Name sit to stand Resistance without use of hands Equipment Used std chair; blue foam on ground ; rocker board Reps/Minutes 8 reps x 3 Neuro Re-Education Treatment Balance Activities fwd rock and reach Details fwd rock and reach Comments modified - HEP NBOS Details NBOS Surface firm Equipment rail prn Comments EO EC head turns PT-OP-T Assessment and Plan Start: 12/05/21 17:51 Freq: Status: Active Protocol: Document 02/06/22 08:20 AMB (Rec: 02/06/22 08:58 AMB [id number]) Physical Therapy Assessment Goals Four Impairment strength [place] Operator Goal (LTG) Pt will complete 5 Time Sit to Stand without use of UE assist in 13 seconds or less as a measure of improved BLE strength. Three Impairment dynamic balance [place] Operator Goal (LTG) Pt will improve DGI score from 17/24 to 21/24 or greater as a measure of reduced falls risk. Two Impairment bradykinesia Short Term Goal (STG) Pt will improve average gait speed on 6MWT from 0.6 m/s to 0.75 m/s or greater 01/16/22 - Pt walked 1091 feet in 6 minutes - average gait speed 0.9 m/s STG Duration GOAL MET [place] Operator Goal (LTG) Pt will improve average gait speed on 6MWT to 1.0 m/s or greater as a measure of reduced bradykinesia LTG Duration 03/08/22 One Impairment lacks HEP Short Term Goal (STG) Pt will be instructed in HEP to improve amplitude, strength , and balance. STG Duration GOAL MET [facility] Goal (LTG) Pt will be independent with HEP to improve amplitude, strength, and balance. LTG Duration 03/08/22 Assessment Summary Assessment Hardeep did well with weightshifting exercises. Does need cues to maintain amplitude while performing cognitive tasks including convernsation. Physical Therapy Plan Frequency and Duration Frequency of Treatment 1-2x/week Duration of Treatment 3 months Plan of Care Start Date 12/06/21 Plan of Care End Date 03/08/22 Therapeutic Interventions Therapeutic Interventions Balance Training,Gait Training ,Home Exercise Program,Manual Therapy,Neuromuscular Re- education,Self-Care/Home Management,Soft Tissue Mobilization,Therapeutic Activities,Therapeutic Exercises Modalities Cold Pack/Ice Massage,Electric Stimulation,Hot Packs Next Visit Focus/Plan Next Note Type Treatment Note Next Visit Plan Follow up HEP including gait with arm swing. Further assess fine motor activities such as buttoning and zipping as well as donning a jacket or other functional task. General LE strength. Dual task gait - especially cognitive load.
--- NOTE | 2022-02-08 08:57 | PT.OTN ---
Current Diagnoses Myalgia, other site (02/08/22) Other abnormalities of gait and mobility (02/08/22) Weakness (02/08/22) Physical Therapy Treatment Note PT-OP-A Visit Information Start: 12/05/21 17:51 Freq: Status: Active Protocol: Document 02/08/22 08:18 AMB (Rec: 02/08/22 08:50 AMB [id number]) Out-Patient Physical Therapy Visit Information Visit Information Visit Type Treatment Note Visit Start Time 08:15 Visit Stop Time 09:00 Total Visit Minutes 45 Visit Number 14 PT-OP-B Current Condition Start: 12/05/21 17:51 Freq: Status: Active Protocol: Document 12/06/21 12:00 AW (Rec: 12/05/21 18:00 AW [id number]) Current Condition History of Current Condition Onset Date 8 months Current Complaints weakness in legs; shuffling, unsteady gait; right low back pain and spasm History of Current Condition Hardeep has noticed shuffling and unsteady gait for the past 8 months to a year. He denies falls. He used to be a lot more active, taking care of his [address].5 acre property but he nows pays a gardening service. He denies tremors. He does notice increased shakiness with writing and small writing . He says he moves slowly secondary to vertigo. Pressed for details, pt does describe occasions with room- spinning sensation during positional changes but his symptoms clear quickly. This has only happend 5 or 6 times and resolves quickly each time . He has been treated with meclizine which was effective. His vision is good and his corrective lens prescription was updates within the past one year. Hardeep also complains of random low back spasms, mostly right side. They are occasionally disabling but he has not had any serious problem with this recently. Hardeep lives alone on [address]. 5 years ago. 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 He has supportive daughters who live in [place] and [place]. Prior Treatments and Tests None identified Future Testing and Treatments Planned Neurology consult in January. Treatment Goals Patient/Caregiver Goals Imrpove gait. Improve balance. Feel more confident on uneven surfaces. Personal Factors Other Personal Factors That May Effect Chart indicates memory Therapy/Recovery problems but pt states memory is good. PMH includes CAD s/p CABG x 4 in 1998, CHF. PT-OP-C Subjective Start: 12/05/21 17:51 Freq: Status: Active Protocol: Document 02/08/22 08:18 AMB (Rec: 02/08/22 08:50 AMB [id number]) OP-PT Subjective Patient Comments Patient Reported Progress Improving PT-OP-D Balance Start: 12/05/21 17:51 Freq: Status: Active Protocol: Document 12/06/21 12:00 AW (Rec: 12/06/21 12:24 AW [id number]) Balance Tests mCTSIB mCTSIB Position 1 30 mCTSIB Position 2 30 mCTSIB Position 3 20 mCTSIB Position 4 8 Single Limb Standing Single Limb- Right 1 sec Single Limb- Left 2 sec Tandem Tandem Standing able take 4 tandem steps PT-OP-E Functional Tests Start: 12/05/21 17:51 Freq: Status: Active Protocol: Document 12/06/21 12:00 AW (Rec: 12/06/21 12:24 AW [id number]) Functional Tests 2 Minute Walk Test Distance 185 feet/ 92 seconds Device Used no AD Comments 0.61 m/s average gait speed Dynamic Gait Index (DGI) Score 18 DGI Impairment Rating 20 to <40% Impaired (Score 15- 19) PT-OP-F Manual Assessment Start: 12/05/21 17:51 Freq: Status: Active Protocol: Document 12/06/21 12:00 AW (Rec: 12/06/21 12:24 AW [id number]) Manual Assessments Soft Tissue Assessment Soft Tissue Mobility Assessment Passive SLR ~75 degrees bilaterally PT-OP-G Mobility & Gait Start: 12/05/21 17:51 Freq: Status: Active Protocol: Document 12/06/21 12:00 AW (Rec: 12/06/21 12:26 AW [id number]) OP Mobility Evaluation Bed Mobility Rolling Independent but slow. Supine to and from Sit Independent but slow. Transfers Sit to Stand Pt tends to use hands on knees or seat but is able to rise when prompted without use of UE's though does tend to use momentum OP Gait Assessment Comments Gait Comments Pt ambulates with flexed trunk held rigidly, arms bent at elbow with no arm swing bilaterally, short and inconsistent step lengths, average gait speed ~0.6 m/s. PT-OP-H Neuro Start: 12/05/21 17:51 Freq: Status: Active Protocol: Document 12/06/21 12:00 AW (Rec: 12/06/21 12:58 AW [id number]) Sensation Evaluation Gross Sensation Gross Sensation WNL Coordination Evaluation Comments Coordination Comments Finger to nose with eyes closed mildly impaired RUE. Pt able to perform eyes open finger to PT finger to nose EO with good speed. Deep Tendon Reflex & Clonus Assessment Deep Tendon Reflex Bilateral Bicep Deep Tendon Reflex 2+ Normal Bilateral Achilles Deep Tendon Reflex 2+ Normal Bilateral Patellar Deep Tendon Reflex 2+ Normal Muscle Tone Tone Assessment trunk Flexor Tone Description Rigidity Muscle Tone Comments Rigid trunk notable during bed mobility, transfers, and gait . See notes on gait. PT-OP-J Posture/Palpation/Skin Start: 12/05/21 17:51 Freq: Status: Active Protocol: Document 12/06/21 12:00 AW (Rec: 12/06/21 12:58 AW [id number]) Posture Evaluation Comments Posture Comments Forward head, flexed trunk posture held rigidly. Weight distrubuted anteriorly, PT-OP-K Range of Motion Start: 12/05/21 17:51 Freq: Status: Active Protocol: Document 12/06/21 12:00 AW (Rec: 12/06/21 13:02 AW [id number]) Hip Goniometric Range of Motion Hip bilat Hip ROM WFL Yes Knee Goniometric Range of Motion Knee bilat Knee ROM WFL Yes Ankle and Foot Goniometric Range of Motion Ankle and Foot bilat Ankle/Foot ROM WFL Yes PT-OP-M Strength Start: 12/05/21 17:51 Freq: Status: Active Protocol: Document 12/06/21 12:00 AW (Rec: 12/06/21 13:02 AW [id number]) Shoulder Strength Shoulder Manual Muscle Testing bilat Flexion 4+ Good+ Abduction (C5) 4 Good External Rotation 4+ Good+ Internal Rotation 4+ Good+ Hip Strength Hip Manual Muscle Testing bilat Flexion (L2) 4 Good Extension (S1) 3 Fair Abduction 4- Good- External Rotation 4+ Good+ Internal Rotation 4 Good Knee Strength Knee Manual Muscle Testing bilat Flexion (S2) 4 Good Extension (L3) 4+ Good+ Ankle/Foot Strength Ankle and Foot Manual Muscle Testing bilat Dorsiflexion (L4) 4+ Good+ Plantarflexion (S1) 4- Good- Comments PF tested with standing heel raise. Pt able to do 3 bilateral, none single leg. PT-OP-O Vestibular Start: 12/05/21 17:51 Freq: Status: Active Protocol: Document 12/06/21 12:00 AW (Rec: 12/06/21 15:45 AW [id number]) Vestibular Assessment Visual Testing Smooth Pursuits Horizontal WNL Smooth Pursuits Vertical WNL Saccades Horizontal WNL Gaze Evoked Nystagmus With Fixation Negative Thrust Head Negative Cover/Uncover Test WNL Convergence Test WNL PT-OP-Q Treatments Start: 12/05/21 17:51 Freq: Status: Active Protocol: Document 02/08/22 08:18 AMB (Rec: 02/08/22 08:50 AMB [id number]) Cardio Equipment Recumbent Elliptical ([employer]) Duration (Minutes) 5 Resistance 5 Seat Position 8 Therapeutic Exercises Sitting Exercises floor to ceiling Sitting Exercise Name floor to ceiling Equipment Used std ht chair without arms Comments cued increased amplitude; HEP Standing Exercises step ups Standing Exercise Name step ups - fwd and lateral Side bilateral Equipment Used 6 step, rain prn Reps/Minutes 10 ea Other Exercises sit to stand Other Exercise Name sit to stand Resistance without use of hands Equipment Used std chair; blue foam on ground ; rocker board Reps/Minutes 8 reps x 3 Neuro Re-Education Treatment Balance Activities fwd rock and reach Details fwd rock and reach Comments modified - HEP Other Activities 2 Details backwards step Comments rail PRN 1 Details fwd step PT-OP-T Assessment and Plan Start: 12/05/21 17:51 Freq: Status: Active Protocol: Document 02/08/22 08:18 AMB (Rec: 02/08/22 08:50 AMB [id number]) Physical Therapy Assessment Goals Four Impairment strength [facility] Goal (LTG) Pt will complete 5 Time Sit to Stand without use of UE assist in 13 seconds or less as a measure of improved BLE strength. Three Impairment dynamic balance [facility] Goal (LTG) Pt will improve DGI score from 17/24 to 21/24 or greater as a measure of reduced falls risk. Two Impairment bradykinesia Short Term Goal (STG) Pt will improve average gait speed on 6MWT from 0.6 m/s to 0.75 m/s or greater 01/16/22 - Pt walked 1091 feet in 6 minutes - average gait speed 0.9 m/s STG Duration GOAL MET [facility] Goal (LTG) Pt will improve average gait speed on 6MWT to 1.0 m/s or greater as a measure of reduced bradykinesia LTG Duration 03/08/22 One Impairment lacks HEP Short Term Goal (STG) Pt will be instructed in HEP to improve amplitude, strength , and balance. STG Duration GOAL MET [facility] Goal (LTG) Pt will be independent with HEP to improve amplitude, strength, and balance. LTG Duration 03/08/22 Assessment Summary Assessment Doing well with stepping and weightshifting exercises. Sit to stands are improving, good awareness of posture. Physical Therapy Plan Next Visit Focus/Plan Next Note Type Treatment Note Next Visit Plan Follow up HEP including gait with arm swing. Further assess fine motor activities such as buttoning and zipping as well as donning a jacket or other functional task. General LE strength. Dual task gait - especially cognitive load.
--- NOTE | 2022-02-13 09:39 | PT.OTN ---
Current Diagnoses Myalgia, other site (02/13/22) Other abnormalities of gait and mobility (02/13/22) Weakness (02/13/22) Physical Therapy Treatment Note PT-OP-A Visit Information Start: 12/05/21 17:51 Freq: Status: Active Protocol: Document 02/13/22 09:00 AMB (Rec: 02/13/22 09:39 AMB [id number]) Out-Patient Physical Therapy Visit Information Visit Information Visit Type Treatment Note Visit Start Time 09:00 Visit Stop Time 09:45 Total Visit Minutes 45 Visit Number 15 PT-OP-B Current Condition Start: 12/05/21 17:51 Freq: Status: Active Protocol: Document 12/06/21 12:00 AW (Rec: 12/05/21 18:00 AW [id number]) Current Condition History of Current Condition Onset Date 8 months Current Complaints weakness in legs; shuffling, unsteady gait; right low back pain and spasm History of Current Condition Hardeep has noticed shuffling and unsteady gait for the past 8 months to a year. He denies falls. He used to be a lot more active, taking care of his [address] acre property but he nows pays a gardening service. He denies tremors. He does notice increased shakiness with writing and small writing . He says he moves slowly secondary to vertigo. Pressed for details, pt does describe occasions with room- spinning sensation during positional changes but his symptoms clear quickly. This has only happend 5 or 6 times and resolves quickly each time . He has been treated with meclizine which was effective. His vision is good and his corrective lens prescription was updates within the past one year. Hardeep also complains of random low back spasms, mostly right side. They are occasionally disabling but he has not had any serious problem with this recently. Hardeep lives alone on [address]. 5 years ago. 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 He has supportive daughters who live in [place] and [place]. Prior Treatments and Tests None identified Future Testing and Treatments Planned Neurology consult in January. Treatment Goals Patient/Caregiver Goals Imrpove gait. Improve balance. Feel more confident on uneven surfaces. Personal Factors Other Personal Factors That May Effect Chart indicates memory Therapy/Recovery problems but pt states memory is good. PMH includes CAD s/p CABG x 4 in 1998, CHF. PT-OP-C Subjective Start: 12/05/21 17:51 Freq: Status: Active Protocol: Document 02/13/22 09:00 AMB (Rec: 02/13/22 09:39 AMB [id number]) OP-PT Subjective Patient Comments Patient Comments Pt reports some toe pain, overall doing well. PT-OP-D Balance Start: 12/05/21 17:51 Freq: Status: Active Protocol: Document 12/06/21 12:00 AW (Rec: 12/06/21 12:24 AW [id number]) Balance Tests mCTSIB mCTSIB Position 1 30 mCTSIB Position 2 30 mCTSIB Position 3 20 mCTSIB Position 4 8 Single Limb Standing Single Limb- Right 1 sec Single Limb- Left 2 sec Tandem Tandem Standing able take 4 tandem steps PT-OP-E Functional Tests Start: 12/05/21 17:51 Freq: Status: Active Protocol: Document 12/06/21 12:00 AW (Rec: 12/06/21 12:24 AW [id number]) Functional Tests 2 Minute Walk Test Distance 185 feet/ 92 seconds Device Used no AD Comments 0.61 m/s average gait speed Dynamic Gait Index (DGI) Score 18 DGI Impairment Rating 20 to <40% Impaired (Score 15- 19) PT-OP-F Manual Assessment Start: 12/05/21 17:51 Freq: Status: Active Protocol: Document 12/06/21 12:00 AW (Rec: 12/06/21 12:24 AW [id number]) Manual Assessments Soft Tissue Assessment Soft Tissue Mobility Assessment Passive SLR ~75 degrees bilaterally PT-OP-G Mobility & Gait Start: 12/05/21 17:51 Freq: Status: Active Protocol: Document 12/06/21 12:00 AW (Rec: 12/06/21 12:26 AW [id number]) OP Mobility Evaluation Bed Mobility Rolling Independent but slow. Supine to and from Sit Independent but slow. Transfers Sit to Stand Pt tends to use hands on knees or seat but is able to rise when prompted without use of UE's though does tend to use momentum OP Gait Assessment Comments Gait Comments Pt ambulates with flexed trunk held rigidly, arms bent at elbow with no arm swing bilaterally, short and inconsistent step lengths, average gait speed ~0.6 m/s. PT-OP-H Neuro Start: 12/05/21 17:51 Freq: Status: Active Protocol: Document 12/06/21 12:00 AW (Rec: 12/06/21 12:58 AW [id number]) Sensation Evaluation Gross Sensation Gross Sensation WNL Coordination Evaluation Comments Coordination Comments Finger to nose with eyes closed mildly impaired RUE. Pt able to perform eyes open finger to PT finger to nose EO with good speed. Deep Tendon Reflex & Clonus Assessment Deep Tendon Reflex Bilateral Bicep Deep Tendon Reflex 2+ Normal Bilateral Achilles Deep Tendon Reflex 2+ Normal Bilateral Patellar Deep Tendon Reflex 2+ Normal Muscle Tone Tone Assessment trunk Flexor Tone Description Rigidity Muscle Tone Comments Rigid trunk notable during bed mobility, transfers, and gait . See notes on gait. PT-OP-J Posture/Palpation/Skin Start: 12/05/21 17:51 Freq: Status: Active Protocol: Document 12/06/21 12:00 AW (Rec: 12/06/21 12:58 AW [id number]) Posture Evaluation Comments Posture Comments Forward head, flexed trunk posture held rigidly. Weight distrubuted anteriorly, PT-OP-K Range of Motion Start: 12/05/21 17:51 Freq: Status: Active Protocol: Document 12/06/21 12:00 AW (Rec: 12/06/21 13:02 AW [id number]) Hip Goniometric Range of Motion Hip bilat Hip ROM WFL Yes Knee Goniometric Range of Motion Knee bilat Knee ROM WFL Yes Ankle and Foot Goniometric Range of Motion Ankle and Foot bilat Ankle/Foot ROM WFL Yes PT-OP-M Strength Start: 12/05/21 17:51 Freq: Status: Active Protocol: Document 12/06/21 12:00 AW (Rec: 12/06/21 13:02 AW [id number]) Shoulder Strength Shoulder Manual Muscle Testing bilat Flexion 4+ Good+ Abduction (C5) 4 Good External Rotation 4+ Good+ Internal Rotation 4+ Good+ Hip Strength Hip Manual Muscle Testing bilat Flexion (L2) 4 Good Extension (S1) 3 Fair Abduction 4- Good- External Rotation 4+ Good+ Internal Rotation 4 Good Knee Strength Knee Manual Muscle Testing bilat Flexion (S2) 4 Good Extension (L3) 4+ Good+ Ankle/Foot Strength Ankle and Foot Manual Muscle Testing bilat Dorsiflexion (L4) 4+ Good+ Plantarflexion (S1) 4- Good- Comments PF tested with standing heel raise. Pt able to do 3 bilateral, none single leg. PT-OP-O Vestibular Start: 12/05/21 17:51 Freq: Status: Active Protocol: Document 12/06/21 12:00 AW (Rec: 12/06/21 15:45 AW [id number]) Vestibular Assessment Visual Testing Smooth Pursuits Horizontal WNL Smooth Pursuits Vertical WNL Saccades Horizontal WNL Gaze Evoked Nystagmus With Fixation Negative Thrust Head Negative Cover/Uncover Test WNL Convergence Test WNL PT-OP-Q Treatments Start: 12/05/21 17:51 Freq: Status: Active Protocol: Document 02/13/22 09:00 AMB (Rec: 02/13/22 09:39 AMB [id number]) Cardio Equipment Recumbent Elliptical ([employer]) Duration (Minutes) 5 Resistance 5 Seat Position 8 Gym Equipment Shuttle Balance BLUE Details fwd/lateral Reps/Duration 10 min Comments WBOS Therapeutic Exercises Sitting Exercises floor to ceiling Sitting Exercise Name floor to ceiling Equipment Used std ht chair without arms Comments cued increased amplitude; HEP Standing Exercises step ups Standing Exercise Name step ups - fwd and lateral Side bilateral Equipment Used 6 step, rain prn Reps/Minutes 10 ea Other Exercises sit to stand Other Exercise Name sit to stand Resistance without use of hands Equipment Used std chair; blue foam on ground ; rocker board Reps/Minutes 8 reps x 3 Gait Training Gait Activity amplitude Device Used no AD Level of Assistance IND Distance/Duration 10 min Treatment Focus amplitude Comments -Arm swing, step length -Head turns -Changes in speed -Pivot turns -Carry cup of water -Cog dual task: counting backward by 3's or 2's PT-OP-T Assessment and Plan Start: 12/05/21 17:51 Freq: Status: Active Protocol: Document 02/13/22 09:00 AMB (Rec: 02/13/22 09:39 AMB [id number]) Physical Therapy Assessment Goals Four Impairment strength Retirement Goal (LTG) Pt will complete 5 Time Sit to Stand without use of UE assist in 13 seconds or less as a measure of improved BLE strength. Three Impairment dynamic balance Head Coach Goal (LTG) Pt will improve DGI score from 17/24 to 21/24 or greater as a measure of reduced falls risk. Two Impairment bradykinesia Short Term Goal (STG) Pt will improve average gait speed on 6MWT from 0.6 m/s to 0.75 m/s or greater 01/16/22 - Pt walked 1091 feet in 6 minutes - average gait speed 0.9 m/s STG Duration GOAL MET Retirement Goal (LTG) Pt will improve average gait speed on 6MWT to 1.0 m/s or greater as a measure of reduced bradykinesia LTG Duration 03/08/22 One Impairment lacks HEP Short Term Goal (STG) Pt will be instructed in HEP to improve amplitude, strength , and balance. STG Duration GOAL MET Retirement Goal (LTG) Pt will be independent with HEP to improve amplitude, strength, and balance. LTG Duration 03/08/22 Assessment Summary Assessment Pt is thinking about posture more. Toe was bothersome with gait. Challenged by uneven balance. Physical Therapy Plan Next Visit Focus/Plan Next Note Type Treatment Note Next Visit Plan Follow up HEP including gait with arm swing. Further assess fine motor activities such as buttoning and zipping as well as donning a jacket or other functional task. General LE strength. Dual task gait - especially cognitive load.
--- NOTE | 2022-02-15 15:51 | PT.OTN ---
Current Diagnoses Myalgia, other site (02/15/22) Other abnormalities of gait and mobility (02/15/22) Weakness (02/15/22) Physical Therapy Treatment Note PT-OP-A Visit Information Start: 12/05/21 17:51 Freq: Status: Active Protocol: Document 02/15/22 08:15 AMB (Rec: 02/15/22 09:01 AMB [id number]) Out-Patient Physical Therapy Visit Information Visit Information Visit Type Treatment Note Visit Start Time 08:15 Visit Stop Time 09:00 Total Visit Minutes 45 Visit Number 16 PT-OP-B Current Condition Start: 12/05/21 17:51 Freq: Status: Active Protocol: Document 12/06/21 12:00 AW (Rec: 12/05/21 18:00 AW [id number]) Current Condition History of Current Condition Onset Date 8 months Current Complaints weakness in legs; shuffling, unsteady gait; right low back pain and spasm History of Current Condition Hardeep has noticed shuffling and unsteady gait for the past 8 months to a year. He denies falls. He used to be a lot more active, taking care of his [address].5 acre property but he nows pays a gardening service. He denies tremors. He does notice increased shakiness with writing and small writing . He says he moves slowly secondary to vertigo. Pressed for details, pt does describe occasions with room- spinning sensation during positional changes but his symptoms clear quickly. This has only happend 5 or 6 times and resolves quickly each time . He has been treated with meclizine which was effective. His vision is good and his corrective lens prescription was updates within the past one year. Hardeep also complains of random low back spasms, mostly right side. They are occasionally disabling but he has not had any serious problem with this recently. Hardeep lives alone on [address]. 5 years ago. 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 He has supportive daughters who live in [place] and [place]. Prior Treatments and Tests None identified Future Testing and Treatments Planned Neurology consult in January. Treatment Goals Patient/Caregiver Goals Imrpove gait. Improve balance. Feel more confident on uneven surfaces. Personal Factors Other Personal Factors That May Effect Chart indicates memory Therapy/Recovery problems but pt states memory is good. PMH includes CAD s/p CABG x 4 in 1998, CHF. PT-OP-C Subjective Start: 12/05/21 17:51 Freq: Status: Active Protocol: Document 02/15/22 08:15 AMB (Rec: 02/15/22 09:01 AMB [id number]) OP-PT Subjective Patient Comments Patient Comments Pt reports toe is feelign better, going to the neurologist in [place] tomorrow. PT-OP-D Balance Start: 12/05/21 17:51 Freq: Status: Active Protocol: Document 12/06/21 12:00 AW (Rec: 12/06/21 12:24 AW [id number]) Balance Tests mCTSIB mCTSIB Position 1 30 mCTSIB Position 2 30 mCTSIB Position 3 20 mCTSIB Position 4 8 Single Limb Standing Single Limb- Right 1 sec Single Limb- Left 2 sec Tandem Tandem Standing able take 4 tandem steps PT-OP-E Functional Tests Start: 12/05/21 17:51 Freq: Status: Active Protocol: Document 12/06/21 12:00 AW (Rec: 12/06/21 12:24 AW [id number]) Functional Tests 2 Minute Walk Test Distance 185 feet/ 92 seconds Device Used no AD Comments 0.61 m/s average gait speed Dynamic Gait Index (DGI) Score 18 DGI Impairment Rating 20 to <40% Impaired (Score 15- 19) PT-OP-F Manual Assessment Start: 12/05/21 17:51 Freq: Status: Active Protocol: Document 12/06/21 12:00 AW (Rec: 12/06/21 12:24 AW [id number]) Manual Assessments Soft Tissue Assessment Soft Tissue Mobility Assessment Passive SLR ~75 degrees bilaterally PT-OP-G Mobility & Gait Start: 12/05/21 17:51 Freq: Status: Active Protocol: Document 12/06/21 12:00 AW (Rec: 12/06/21 12:26 AW [id number]) OP Mobility Evaluation Bed Mobility Rolling Independent but slow. Supine to and from Sit Independent but slow. Transfers Sit to Stand Pt tends to use hands on knees or seat but is able to rise when prompted without use of UE's though does tend to use momentum OP Gait Assessment Comments Gait Comments Pt ambulates with flexed trunk held rigidly, arms bent at elbow with no arm swing bilaterally, short and inconsistent step lengths, average gait speed ~0.6 m/s. PT-OP-H Neuro Start: 12/05/21 17:51 Freq: Status: Active Protocol: Document 12/06/21 12:00 AW (Rec: 12/06/21 12:58 AW [id number]) Sensation Evaluation Gross Sensation Gross Sensation WNL Coordination Evaluation Comments Coordination Comments Finger to nose with eyes closed mildly impaired RUE. Pt able to perform eyes open finger to PT finger to nose EO with good speed. Deep Tendon Reflex & Clonus Assessment Deep Tendon Reflex Bilateral Bicep Deep Tendon Reflex 2+ Normal Bilateral Achilles Deep Tendon Reflex 2+ Normal Bilateral Patellar Deep Tendon Reflex 2+ Normal Muscle Tone Tone Assessment trunk Flexor Tone Description Rigidity Muscle Tone Comments Rigid trunk notable during bed mobility, transfers, and gait . See notes on gait. PT-OP-J Posture/Palpation/Skin Start: 12/05/21 17:51 Freq: Status: Active Protocol: Document 12/06/21 12:00 AW (Rec: 12/06/21 12:58 AW [id number]) Posture Evaluation Comments Posture Comments Forward head, flexed trunk posture held rigidly. Weight distrubuted anteriorly, PT-OP-K Range of Motion Start: 12/05/21 17:51 Freq: Status: Active Protocol: Document 12/06/21 12:00 AW (Rec: 12/06/21 13:02 AW [id number]) Hip Goniometric Range of Motion Hip bilat Hip ROM WFL Yes Knee Goniometric Range of Motion Knee bilat Knee ROM WFL Yes Ankle and Foot Goniometric Range of Motion Ankle and Foot bilat Ankle/Foot ROM WFL Yes PT-OP-M Strength Start: 12/05/21 17:51 Freq: Status: Active Protocol: Document 12/06/21 12:00 AW (Rec: 12/06/21 13:02 AW [id number]) Shoulder Strength Shoulder Manual Muscle Testing bilat Flexion 4+ Good+ Abduction (C5) 4 Good External Rotation 4+ Good+ Internal Rotation 4+ Good+ Hip Strength Hip Manual Muscle Testing bilat Flexion (L2) 4 Good Extension (S1) 3 Fair Abduction 4- Good- External Rotation 4+ Good+ Internal Rotation 4 Good Knee Strength Knee Manual Muscle Testing bilat Flexion (S2) 4 Good Extension (L3) 4+ Good+ Ankle/Foot Strength Ankle and Foot Manual Muscle Testing bilat Dorsiflexion (L4) 4+ Good+ Plantarflexion (S1) 4- Good- Comments PF tested with standing heel raise. Pt able to do 3 bilateral, none single leg. PT-OP-O Vestibular Start: 12/05/21 17:51 Freq: Status: Active Protocol: Document 12/06/21 12:00 AW (Rec: 12/06/21 15:45 AW [id number]) Vestibular Assessment Visual Testing Smooth Pursuits Horizontal WNL Smooth Pursuits Vertical WNL Saccades Horizontal WNL Gaze Evoked Nystagmus With Fixation Negative Thrust Head Negative Cover/Uncover Test WNL Convergence Test WNL PT-OP-Q Treatments Start: 12/05/21 17:51 Freq: Status: Active Protocol: Document 02/15/22 08:15 AMB (Rec: 02/15/22 09:01 AMB [id number]) Cardio Equipment Recumbent Elliptical ([employer]) Duration (Minutes) 5 Resistance 5 Seat Position 8 Therapeutic Exercises Sitting Exercises floor to ceiling Sitting Exercise Name floor to ceiling Equipment Used std ht chair without arms Comments cued increased amplitude; HEP Standing Exercises step ups Standing Exercise Name step ups - fwd and lateral Side bilateral Equipment Used 6 step, rain prn Reps/Minutes 10 ea Other Exercises sit to stand Other Exercise Name sit to stand Resistance without use of hands Equipment Used std chair; blue foam on ground ; rocker board Reps/Minutes 8 reps x 3 Gait Training Gait Activity amplitude Device Used no AD Level of Assistance IND Distance/Duration 10 min Treatment Focus amplitude Comments -Arm swing, step length -Head turns -Changes in speed -Pivot turns -Carry cup of water -Cog dual task: counting backward by 3's or 2's Neuro Re-Education Treatment Balance Activities Foam Details EC trials Surface blue foam Comments WBOS NBOS staggered stance hurdles Details hurdles Surface firm Equipment 6 hurdles Comments -fwd with discussion fwd rock and reach Details fwd rock and reach Comments modified - HEP NBOS Details NBOS Surface firm Equipment rail prn Comments EO EC head turns Other Activities 3 Details VOR Comments challenging- on foam vs solid, but even solid surfaces and slow is challening PT-OP-T Assessment and Plan Start: 12/05/21 17:51 Freq: Status: Active Protocol: Document 02/15/22 08:15 AMB (Rec: 02/15/22 09:01 AMB [id number]) Physical Therapy Assessment Goals Four Impairment strength [employer] Weigher Goal (LTG) Pt will complete 5 Time Sit to Stand without use of UE assist in 13 seconds or less as a measure of improved BLE strength. Three Impairment dynamic balance [facility] Goal (LTG) Pt will improve DGI score from 17/24 to 21/24 or greater as a measure of reduced falls risk. Two Impairment bradykinesia Short Term Goal (STG) Pt will improve average gait speed on 6MWT from 0.6 m/s to 0.75 m/s or greater 01/16/22 - Pt walked 1091 feet in 6 minutes - average gait speed 0.9 m/s STG Duration GOAL MET Alloy Weigher Goal (LTG) Pt will improve average gait speed on 6MWT to 1.0 m/s or greater as a measure of reduced bradykinesia LTG Duration 03/08/22 One Impairment lacks HEP Short Term Goal (STG) Pt will be instructed in HEP to improve amplitude, strength , and balance. STG Duration GOAL MET [facility] Goal (LTG) Pt will be independent with HEP to improve amplitude, strength, and balance. LTG Duration 03/08/22 Assessment Summary Assessment Pt's daughter encouraged pt in [place] and that would be an appropriate exercise for pt. Pt does well with weightshifting exercises. VOR exercise was very challenging given pt's history of vestibular issues. Physical Therapy Plan Next Visit Focus/Plan Next Note Type Treatment Note Next Visit Plan Follow up HEP including gait with arm swing. Further assess fine motor activities such as buttoning and zipping as well as donning a jacket or other functional task. General LE strength. Dual task gait - especially cognitive load.
--- NOTE | 2022-02-22 09:49 | PT.OTN ---
Current Diagnoses Myalgia, other site (02/22/22) Other abnormalities of gait and mobility (02/22/22) Weakness (02/22/22) Physical Therapy Treatment Note PT-OP-A Visit Information Start: 12/05/21 17:51 Freq: Status: Active Protocol: Document 02/22/22 09:00 AW (Rec: 02/22/22 09:48 AW [id number]) Out-Patient Physical Therapy Visit Information Visit Information Visit Type Treatment Note Visit Start Time 09:00 Visit Stop Time 09:45 Total Visit Minutes 45 Visit Number 17 Evaluation Information Evaluation Date 12/06/21 PT-OP-B Current Condition Start: 12/05/21 17:51 Freq: Status: Active Protocol: Document 12/06/21 12:00 AW (Rec: 12/05/21 18:00 AW [id number]) Current Condition History of Current Condition Onset Date 8 months Current Complaints weakness in legs; shuffling, unsteady gait; right low back pain and spasm History of Current Condition Hardeep has noticed shuffling and unsteady gait for the past 8 months to a year. He denies falls. He used to be a lot more active, taking care of his [address] acre property but he nows pays a gardening service. He denies tremors. He does notice increased shakiness with writing and small writing . He says he moves slowly secondary to vertigo. Pressed for details, pt does describe occasions with room- spinning sensation during positional changes but his symptoms clear quickly. This has only happend 5 or 6 times and resolves quickly each time . He has been treated with meclizine which was effective. His vision is good and his corrective lens prescription was updates within the past one year. Hardeep also complains of random low back spasms, mostly right side. They are occasionally disabling but he has not had any serious problem with this recently. Hardeep lives alone on [address]. 5 years ago. 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 He has supportive daughters who live in [place] and [place]. Prior Treatments and Tests None identified Future Testing and Treatments Planned Neurology consult in January. Treatment Goals Patient/Caregiver Goals Imrpove gait. Improve balance. Feel more confident on uneven surfaces. Personal Factors Other Personal Factors That May Effect Chart indicates memory Therapy/Recovery problems but pt states memory is good. PMH includes CAD s/p CABG x 4 in 1998, CHF. PT-OP-C Subjective Start: 12/05/21 17:51 Freq: Status: Active Protocol: Document 02/22/22 09:00 AW (Rec: 02/22/22 09:48 AW [id number]) OP-PT Subjective Patient Comments Patient Comments Pt saw neurologist at [facility] last Saturday. She thinks Hardeep may have Parkinson's, has ordered an MRI, did lab work, and willl likely start sinemet based on findings. PT-OP-D Balance Start: 12/05/21 17:51 Freq: Status: Active Protocol: Document 12/06/21 12:00 AW (Rec: 12/06/21 12:24 AW [id number]) Balance Tests mCTSIB mCTSIB Position 1 30 mCTSIB Position 2 30 mCTSIB Position 3 20 mCTSIB Position 4 8 Single Limb Standing Single Limb- Right 1 sec Single Limb- Left 2 sec Tandem Tandem Standing able take 4 tandem steps PT-OP-E Functional Tests Start: 12/05/21 17:51 Freq: Status: Active Protocol: Document 12/06/21 12:00 AW (Rec: 12/06/21 12:24 AW [id number]) Functional Tests 2 Minute Walk Test Distance 185 feet/ 92 seconds Device Used no AD Comments 0.61 m/s average gait speed Dynamic Gait Index (DGI) Score 18 DGI Impairment Rating 20 to <40% Impaired (Score 15- 19) PT-OP-F Manual Assessment Start: 12/05/21 17:51 Freq: Status: Active Protocol: Document 12/06/21 12:00 AW (Rec: 12/06/21 12:24 AW [id number]) Manual Assessments Soft Tissue Assessment Soft Tissue Mobility Assessment Passive SLR ~75 degrees bilaterally PT-OP-G Mobility & Gait Start: 12/05/21 17:51 Freq: Status: Active Protocol: Document 12/06/21 12:00 AW (Rec: 12/06/21 12:26 AW [id number]) OP Mobility Evaluation Bed Mobility Rolling Independent but slow. Supine to and from Sit Independent but slow. Transfers Sit to Stand Pt tends to use hands on knees or seat but is able to rise when prompted without use of UE's though does tend to use momentum OP Gait Assessment Comments Gait Comments Pt ambulates with flexed trunk held rigidly, arms bent at elbow with no arm swing bilaterally, short and inconsistent step lengths, average gait speed ~0.6 m/s. PT-OP-H Neuro Start: 12/05/21 17:51 Freq: Status: Active Protocol: Document 12/06/21 12:00 AW (Rec: 12/06/21 12:58 AW [id number]) Sensation Evaluation Gross Sensation Gross Sensation WNL Coordination Evaluation Comments Coordination Comments Finger to nose with eyes closed mildly impaired RUE. Pt able to perform eyes open finger to PT finger to nose EO with good speed. Deep Tendon Reflex & Clonus Assessment Deep Tendon Reflex Bilateral Bicep Deep Tendon Reflex 2+ Normal Bilateral Achilles Deep Tendon Reflex 2+ Normal Bilateral Patellar Deep Tendon Reflex 2+ Normal Muscle Tone Tone Assessment trunk Flexor Tone Description Rigidity Muscle Tone Comments Rigid trunk notable during bed mobility, transfers, and gait . See notes on gait. PT-OP-J Posture/Palpation/Skin Start: 12/05/21 17:51 Freq: Status: Active Protocol: Document 12/06/21 12:00 AW (Rec: 12/06/21 12:58 AW [id number]) Posture Evaluation Comments Posture Comments Forward head, flexed trunk posture held rigidly. Weight distrubuted anteriorly, PT-OP-K Range of Motion Start: 12/05/21 17:51 Freq: Status: Active Protocol: Document 12/06/21 12:00 AW (Rec: 12/06/21 13:02 AW [id number]) Hip Goniometric Range of Motion Hip bilat Hip ROM WFL Yes Knee Goniometric Range of Motion Knee bilat Knee ROM WFL Yes Ankle and Foot Goniometric Range of Motion Ankle and Foot bilat Ankle/Foot ROM WFL Yes PT-OP-M Strength Start: 12/05/21 17:51 Freq: Status: Active Protocol: Document 12/06/21 12:00 AW (Rec: 12/06/21 13:02 AW [id number]) Shoulder Strength Shoulder Manual Muscle Testing bilat Flexion 4+ Good+ Abduction (C5) 4 Good External Rotation 4+ Good+ Internal Rotation 4+ Good+ Hip Strength Hip Manual Muscle Testing bilat Flexion (L2) 4 Good Extension (S1) 3 Fair Abduction 4- Good- External Rotation 4+ Good+ Internal Rotation 4 Good Knee Strength Knee Manual Muscle Testing bilat Flexion (S2) 4 Good Extension (L3) 4+ Good+ Ankle/Foot Strength Ankle and Foot Manual Muscle Testing bilat Dorsiflexion (L4) 4+ Good+ Plantarflexion (S1) 4- Good- Comments PF tested with standing heel raise. Pt able to do 3 bilateral, none single leg. PT-OP-O Vestibular Start: 12/05/21 17:51 Freq: Status: Active Protocol: Document 12/06/21 12:00 AW (Rec: 12/06/21 15:45 AW [id number]) Vestibular Assessment Visual Testing Smooth Pursuits Horizontal WNL Smooth Pursuits Vertical WNL Saccades Horizontal WNL Gaze Evoked Nystagmus With Fixation Negative Thrust Head Negative Cover/Uncover Test WNL Convergence Test WNL PT-OP-Q Treatments Start: 12/05/21 17:51 Freq: Status: Active Protocol: Document 02/22/22 09:00 AW (Rec: 02/22/22 09:48 AW [id number]) Cardio Equipment Recumbent Elliptical ([employer]) Duration (Minutes) 5 Resistance 5 Seat Position 8 Gym Equipment Shuttle Balance BLUE Details fwd/lateral Reps/Duration 10 min Comments WBOS Therapeutic Exercises Sitting Exercises floor to ceiling Sitting Exercise Name floor to ceiling Equipment Used std ht chair without arms Comments cued increased amplitude; HEP Other Exercises sit to stand Other Exercise Name sit to stand Resistance without use of hands Equipment Used 1 set from std chair; 2 sets from 16 block Reps/Minutes 8 reps x 3 Gait Training Gait Activity amplitude Device Used no AD Level of Assistance IND Distance/Duration 10 min Treatment Focus amplitude Comments -Arm swing, step length -Head turns -Changes in speed -Pivot turns -Carry cup of water -Cog dual task: counting backward by 3's or 2's Neuro Re-Education Treatment Balance Activities hurdles Details hurdles Surface firm Equipment 6 hurdles Comments -fwd with discussion fwd rock and reach Details fwd rock and reach Comments modified - HEP Self-Care/Home Management Treatment Education Other Education Discussed information from neurologist. Educated pt on LSVT BIG with rationale and expected results. Pt to think about his interest level in pursuing LSVT BIG. PT-OP-T Assessment and Plan Start: 12/05/21 17:51 Freq: Status: Active Protocol: Document 02/22/22 09:00 AW (Rec: 02/22/22 09:48 AW [id number]) Physical Therapy Assessment Goals Four Impairment strength Mechanic Driver Goal (LTG) Pt will complete 5 Time Sit to Stand without use of UE assist in 13 seconds or less as a measure of improved BLE strength. Three Impairment dynamic balance [facility]ci Goal (LTG) Pt will improve DGI score from 17/24 to 21/24 or greater as a measure of reduced falls risk. Two Impairment bradykinesia Short Term Goal (STG) Pt will improve average gait speed on 6MWT from 0.6 m/s to 0.75 m/s or greater 01/16/22 - Pt walked 1091 feet in 6 minutes - average gait speed 0.9 m/s STG Duration GOAL MET Mechanic Driver Goal (LTG) Pt will improve average gait speed on 6MWT to 1.0 m/s or greater as a measure of reduced bradykinesia LTG Duration 03/08/22 One Impairment lacks HEP Short Term Goal (STG) Pt will be instructed in HEP to improve amplitude, strength , and balance. STG Duration GOAL MET Fci Goal (LTG) Pt will be independent with HEP to improve amplitude, strength, and balance. LTG Duration 03/08/22 Assessment Summary Assessment Pt is able to increase amplitude in gait with sole focus but dual task of any kind remains challenging. Discussed neurology consult and potential for treatment with LSVT BIG. Will follow up at next visit. Physical Therapy Plan Next Visit Focus/Plan Next Note Type Treatment Note Next Visit Plan Follow up HEP including gait with arm swing. Further assess fine motor activities such as buttoning and zipping as well as donning a jacket or other functional task. General LE strength. Dual task gait - especially cognitive load.
--- NOTE | 2022-02-27 12:50 | PT.OTN ---
Current Diagnoses Myalgia, other site (02/27/22) Other abnormalities of gait and mobility (02/27/22) Weakness (02/27/22) Physical Therapy Treatment Note PT-OP-A Visit Information Start: 12/05/21 17:51 Freq: Status: Active Protocol: Document 02/27/22 09:52 AMB (Rec: 02/27/22 10:25 AMB [id number]) Out-Patient Physical Therapy Visit Information Visit Information Visit Type Treatment Note Visit Start Time 09:45 Visit Stop Time 10:30 Total Visit Minutes 45 Visit Number 18 PT-OP-B Current Condition Start: 12/05/21 17:51 Freq: Status: Active Protocol: Document 12/06/21 12:00 AW (Rec: 12/05/21 18:00 AW [id number]) Current Condition History of Current Condition Onset Date 8 months Current Complaints weakness in legs; shuffling, unsteady gait; right low back pain and spasm History of Current Condition Hardeep has noticed shuffling and unsteady gait for the past 8 months to a year. He denies falls. He used to be a lot more active, taking care of his 2.5 acre property but he nows pays a gardening service. He denies tremors. He does notice increased shakiness with writing and small writing . He says he moves slowly secondary to vertigo. Pressed for details, pt does describe occasions with room- spinning sensation during positional changes but his symptoms clear quickly. This has only happend 5 or 6 times and resolves quickly each time . He has been treated with meclizine which was effective. His vision is good and his corrective lens prescription was updates within the past one year. Hardeep also complains of random low back spasms, mostly right side. They are occasionally disabling but he has not had any serious problem with this recently. Hardeep lives alone on [address]. 5 years ago. 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 He has supportive daughters who live in [place] and [place]. Prior Treatments and Tests None identified Future Testing and Treatments Planned Neurology consult in January. Treatment Goals Patient/Caregiver Goals Imrpove gait. Improve balance. Feel more confident on uneven surfaces. Personal Factors Other Personal Factors That May Effect Chart indicates memory Therapy/Recovery problems but pt states memory is good. PMH includes CAD s/p CABG x 4 in 1998, CHF. PT-OP-C Subjective Start: 12/05/21 17:51 Freq: Status: Active Protocol: Document 02/27/22 09:45 AMB (Rec: 02/27/22 12:39 AMB [id number]) OP-PT Subjective Patient Comments Patient Comments Pt states he got his MRI which was normal for his age, nothing of concern. Has not heard from Chetna Lentz yet in regards to starting medication. PT-OP-D Balance Start: 12/05/21 17:51 Freq: Status: Active Protocol: Document 12/06/21 12:00 AW (Rec: 12/06/21 12:24 AW [id number]) Balance Tests mCTSIB mCTSIB Position 1 30 mCTSIB Position 2 30 mCTSIB Position 3 20 mCTSIB Position 4 8 Single Limb Standing Single Limb- Right 1 sec Single Limb- Left 2 sec Tandem Tandem Standing able take 4 tandem steps PT-OP-E Functional Tests Start: 12/05/21 17:51 Freq: Status: Active Protocol: Document 12/06/21 12:00 AW (Rec: 12/06/21 12:24 AW [id number]) Functional Tests 2 Minute Walk Test Distance 185 feet/ 92 seconds Device Used no AD Comments 0.61 m/s average gait speed Dynamic Gait Index (DGI) Score 18 DGI Impairment Rating 20 to <40% Impaired (Score 15- 19) PT-OP-F Manual Assessment Start: 12/05/21 17:51 Freq: Status: Active Protocol: Document 12/06/21 12:00 AW (Rec: 12/06/21 12:24 AW [id number]) Manual Assessments Soft Tissue Assessment Soft Tissue Mobility Assessment Passive SLR ~75 degrees bilaterally PT-OP-G Mobility & Gait Start: 12/05/21 17:51 Freq: Status: Active Protocol: Document 12/06/21 12:00 AW (Rec: 12/06/21 12:26 AW [id number]) OP Mobility Evaluation Bed Mobility Rolling Independent but slow. Supine to and from Sit Independent but slow. Transfers Sit to Stand Pt tends to use hands on knees or seat but is able to rise when prompted without use of UE's though does tend to use momentum OP Gait Assessment Comments Gait Comments Pt ambulates with flexed trunk held rigidly, arms bent at elbow with no arm swing bilaterally, short and inconsistent step lengths, average gait speed ~0.6 m/s. PT-OP-H Neuro Start: 12/05/21 17:51 Freq: Status: Active Protocol: Document 12/06/21 12:00 AW (Rec: 12/06/21 12:58 AW [id number]) Sensation Evaluation Gross Sensation Gross Sensation WNL Coordination Evaluation Comments Coordination Comments Finger to nose with eyes closed mildly impaired RUE. Pt able to perform eyes open finger to PT finger to nose EO with good speed. Deep Tendon Reflex & Clonus Assessment Deep Tendon Reflex Bilateral Bicep Deep Tendon Reflex 2+ Normal Bilateral Achilles Deep Tendon Reflex 2+ Normal Bilateral Patellar Deep Tendon Reflex 2+ Normal Muscle Tone Tone Assessment trunk Flexor Tone Description Rigidity Muscle Tone Comments Rigid trunk notable during bed mobility, transfers, and gait . See notes on gait. PT-OP-J Posture/Palpation/Skin Start: 12/05/21 17:51 Freq: Status: Active Protocol: Document 12/06/21 12:00 AW (Rec: 12/06/21 12:58 AW [id number]) Posture Evaluation Comments Posture Comments Forward head, flexed trunk posture held rigidly. Weight distrubuted anteriorly, PT-OP-K Range of Motion Start: 12/05/21 17:51 Freq: Status: Active Protocol: Document 12/06/21 12:00 AW (Rec: 12/06/21 13:02 AW [id number]) Hip Goniometric Range of Motion Hip bilat Hip ROM WFL Yes Knee Goniometric Range of Motion Knee bilat Knee ROM WFL Yes Ankle and Foot Goniometric Range of Motion Ankle and Foot bilat Ankle/Foot ROM WFL Yes PT-OP-M Strength Start: 12/05/21 17:51 Freq: Status: Active Protocol: Document 12/06/21 12:00 AW (Rec: 12/06/21 13:02 AW [id number]) Shoulder Strength Shoulder Manual Muscle Testing bilat Flexion 4+ Good+ Abduction (C5) 4 Good External Rotation 4+ Good+ Internal Rotation 4+ Good+ Hip Strength Hip Manual Muscle Testing bilat Flexion (L2) 4 Good Extension (S1) 3 Fair Abduction 4- Good- External Rotation 4+ Good+ Internal Rotation 4 Good Knee Strength Knee Manual Muscle Testing bilat Flexion (S2) 4 Good Extension (L3) 4+ Good+ Ankle/Foot Strength Ankle and Foot Manual Muscle Testing bilat Dorsiflexion (L4) 4+ Good+ Plantarflexion (S1) 4- Good- Comments PF tested with standing heel raise. Pt able to do 3 bilateral, none single leg. PT-OP-O Vestibular Start: 12/05/21 17:51 Freq: Status: Active Protocol: Document 12/06/21 12:00 AW (Rec: 12/06/21 15:45 AW [id number]) Vestibular Assessment Visual Testing Smooth Pursuits Horizontal WNL Smooth Pursuits Vertical WNL Saccades Horizontal WNL Gaze Evoked Nystagmus With Fixation Negative Thrust Head Negative Cover/Uncover Test WNL Convergence Test WNL PT-OP-Q Treatments Start: 12/05/21 17:51 Freq: Status: Active Protocol: Document 02/27/22 09:45 AMB (Rec: 02/27/22 10:33 AMB [id number]) Cardio Equipment Recumbent Elliptical ([employer]) Duration (Minutes) 5 Resistance 5 Seat Position 8 Therapeutic Exercises Other Exercises sit to stand Other Exercise Name sit to stand Resistance without use of hands Equipment Used std chair; Reps/Minutes 8 reps x 3 Gait Training Gait Activity 6MWT Description 887 feet, no AD Neuro Re-Education Treatment Balance Activities fwd rock and reach Details fwd rock and reach Comments modified - HEP PT-OP-T Assessment and Plan Start: 12/05/21 17:51 Freq: Status: Active Protocol: Document 02/27/22 09:52 AMB (Rec: 02/27/22 10:25 AMB [id number]) Physical Therapy Assessment Goals Four Impairment strength Prison Goal (LTG) Pt will complete 5 Time Sit to Stand without use of UE assist in 13 seconds or less as a measure of improved BLE strength. LTG Duration MET 10 seconds Three Impairment dynamic balance Prison Goal (LTG) Pt will improve DGI score from 17/24 to 21/24 or greater as a measure of reduced falls risk. Two Impairment bradykinesia Short Term Goal (STG) Pt will improve average gait speed on 6MWT from 0.6 m/s to 0.75 m/s or greater 01/16/22 - Pt walked 1091 feet in 6 minutes - average gait speed 0.9 m/s. 887 on 02/27. STG Duration GOAL MET Prison Goal (LTG) Pt will improve average gait speed on 6MWT to 1.0 m/s or greater as a measure of reduced bradykinesia LTG Duration 03/08/22 One Impairment lacks HEP Short Term Goal (STG) Pt will be instructed in HEP to improve amplitude, strength , and balance. STG Duration GOAL MET Prison Goal (LTG) Pt will be independent with HEP to improve amplitude, strength, and balance. LTG Duration 03/08/22 Assessment Summary Assessment Pt met goal for 5x sit to stand, continues to need to work on 6MWT, although was likely slowed by talking throughout. Will check DGI goal next visit. Pt interested in BIG program, pt hoping Dr. Almanza can send referral for BIG program, will need to make contact with referring provider to get that started. Physical Therapy Plan Next Visit Focus/Plan Next Note Type Treatment Note Next Visit Plan Follow up HEP including gait with arm swing. Further assess fine motor activities such as buttoning and zipping as well as donning a jacket or other functional task. General LE strength. Dual task gait - especially cognitive load.
--- NOTE | 2022-03-01 09:42 | PT.OTN ---
Current Diagnoses Myalgia, other site (03/01/22) Other abnormalities of gait and mobility (03/01/22) Weakness (03/01/22) Physical Therapy Treatment Note PT-OP-A Visit Information Start: 12/05/21 17:51 Freq: Status: Active Protocol: Document 03/01/22 08:59 AW (Rec: 03/01/22 09:42 AW [id number]) Out-Patient Physical Therapy Visit Information Visit Information Visit Type Discharge Summary Visit Note post-Biodex BP: 151/74 Visit Start Time 09:00 Visit Stop Time 09:40 Total Visit Minutes 40 Visit Number 19 Evaluation Information Evaluation Date 12/06/21 PT-OP-B Current Condition Start: 12/05/21 17:51 Freq: Status: Active Protocol: Document 12/06/21 12:00 AW (Rec: 12/05/21 18:00 AW [id number]) Current Condition History of Current Condition Onset Date 8 months Current Complaints weakness in legs; shuffling, unsteady gait; right low back pain and spasm History of Current Condition Hardeep has noticed shuffling and unsteady gait for the past 8 months to a year. He denies falls. He used to be a lot more active, taking care of his [place].[address] acre property but he nows pays a gardening service. He denies tremors. He does notice increased shakiness with writing and small writing . He says he moves slowly secondary to vertigo. Pressed for details, pt does describe occasions with room- spinning sensation during positional changes but his symptoms clear quickly. This has only happend 5 or 6 times and resolves quickly each time . He has been treated with meclizine which was effective. His vision is good and his corrective lens prescription was updates within the past one year. Hardeep also complains of random low back spasms, mostly right side. They are occasionally disabling but he has not had any serious problem with this recently. Hardeep lives alone on [address] [place]. 5 years ago. 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 He has supportive daughters who live in [place] and [place]. Prior Treatments and Tests None identified Future Testing and Treatments Planned Neurology consult in January. Treatment Goals Patient/Caregiver Goals Imrpove gait. Improve balance. Feel more confident on uneven surfaces. Personal Factors Other Personal Factors That May Effect Chart indicates memory Therapy/Recovery problems but pt states memory is good. PMH includes CAD s/p CABG x 4 in 1998, CHF. PT-OP-C Subjective Start: 12/05/21 17:51 Freq: Status: Active Protocol: Document 03/01/22 08:59 AW (Rec: 03/01/22 09:42 AW [id number]) OP-PT Subjective Patient Comments Patient Comments Hardeep understands today will be last appointment in current episode of care and looks forward to picking up with BIG treatment later this year. PT-OP-D Balance Start: 12/05/21 17:51 Freq: Status: Active Protocol: Document 12/06/21 12:00 AW (Rec: 12/06/21 12:24 AW [id number]) Balance Tests mCTSIB mCTSIB Position 1 30 mCTSIB Position 2 30 mCTSIB Position 3 20 mCTSIB Position 4 8 Single Limb Standing Single Limb- Right 1 sec Single Limb- Left 2 sec Tandem Tandem Standing able take 4 tandem steps PT-OP-E Functional Tests Start: 12/05/21 17:51 Freq: Status: Active Protocol: Document 12/06/21 12:00 AW (Rec: 12/06/21 12:24 AW [id number]) Functional Tests 2 Minute Walk Test Distance 185 feet/ 92 seconds Device Used no AD Comments 0.61 m/s average gait speed Dynamic Gait Index (DGI) Score 18 DGI Impairment Rating 20 to <40% Impaired (Score 15- 19) PT-OP-F Manual Assessment Start: 12/05/21 17:51 Freq: Status: Active Protocol: Document 12/06/21 12:00 AW (Rec: 12/06/21 12:24 AW [id number]) Manual Assessments Soft Tissue Assessment Soft Tissue Mobility Assessment Passive SLR ~75 degrees bilaterally PT-OP-G Mobility & Gait Start: 12/05/21 17:51 Freq: Status: Active Protocol: Document 12/06/21 12:00 AW (Rec: 12/06/21 12:26 AW [id number]) OP Mobility Evaluation Bed Mobility Rolling Independent but slow. Supine to and from Sit Independent but slow. Transfers Sit to Stand Pt tends to use hands on knees or seat but is able to rise when prompted without use of UE's though does tend to use momentum OP Gait Assessment Comments Gait Comments Pt ambulates with flexed trunk held rigidly, arms bent at elbow with no arm swing bilaterally, short and inconsistent step lengths, average gait speed ~0.6 m/s. PT-OP-H Neuro Start: 12/05/21 17:51 Freq: Status: Active Protocol: Document 12/06/21 12:00 AW (Rec: 12/06/21 12:58 AW [id number]) Sensation Evaluation Gross Sensation Gross Sensation WNL Coordination Evaluation Comments Coordination Comments Finger to nose with eyes closed mildly impaired RUE. Pt able to perform eyes open finger to PT finger to nose EO with good speed. Deep Tendon Reflex & Clonus Assessment Deep Tendon Reflex Bilateral Bicep Deep Tendon Reflex 2+ Normal Bilateral Achilles Deep Tendon Reflex 2+ Normal Bilateral Patellar Deep Tendon Reflex 2+ Normal Muscle Tone Tone Assessment trunk Flexor Tone Description Rigidity Muscle Tone Comments Rigid trunk notable during bed mobility, transfers, and gait . See notes on gait. PT-OP-J Posture/Palpation/Skin Start: 12/05/21 17:51 Freq: Status: Active Protocol: Document 12/06/21 12:00 AW (Rec: 12/06/21 12:58 AW [id number]) Posture Evaluation Comments Posture Comments Forward head, flexed trunk posture held rigidly. Weight distrubuted anteriorly, PT-OP-K Range of Motion Start: 12/05/21 17:51 Freq: Status: Active Protocol: Document 12/06/21 12:00 AW (Rec: 12/06/21 13:02 AW [id number]) Hip Goniometric Range of Motion Hip bilat Hip ROM WFL Yes Knee Goniometric Range of Motion Knee bilat Knee ROM WFL Yes Ankle and Foot Goniometric Range of Motion Ankle and Foot bilat Ankle/Foot ROM WFL Yes PT-OP-M Strength Start: 12/05/21 17:51 Freq: Status: Active Protocol: Document 12/06/21 12:00 AW (Rec: 12/06/21 13:02 AW [id number]) Shoulder Strength Shoulder Manual Muscle Testing bilat Flexion 4+ Good+ Abduction (C5) 4 Good External Rotation 4+ Good+ Internal Rotation 4+ Good+ Hip Strength Hip Manual Muscle Testing bilat Flexion (L2) 4 Good Extension (S1) 3 Fair Abduction 4- Good- External Rotation 4+ Good+ Internal Rotation 4 Good Knee Strength Knee Manual Muscle Testing bilat Flexion (S2) 4 Good Extension (L3) 4+ Good+ Ankle/Foot Strength Ankle and Foot Manual Muscle Testing bilat Dorsiflexion (L4) 4+ Good+ Plantarflexion (S1) 4- Good- Comments PF tested with standing heel raise. Pt able to do 3 bilateral, none single leg. PT-OP-O Vestibular Start: 12/05/21 17:51 Freq: Status: Active Protocol: Document 12/06/21 12:00 AW (Rec: 12/06/21 15:45 AW [id number]) Vestibular Assessment Visual Testing Smooth Pursuits Horizontal WNL Smooth Pursuits Vertical WNL Saccades Horizontal WNL Gaze Evoked Nystagmus With Fixation Negative Thrust Head Negative Cover/Uncover Test WNL Convergence Test WNL PT-OP-Q Treatments Start: 12/05/21 17:51 Freq: Status: Active Protocol: Document 03/01/22 08:59 AW (Rec: 03/01/22 09:42 AW [id number]) Cardio Equipment Recumbent Elliptical ([place]) Duration (Minutes) 5 Resistance 5 Seat Position 8 Other cues for 30-40 rmp Therapeutic Exercises Other Exercises sit to stand Other Exercise Name sit to stand Resistance without use of hands Equipment Used std chair;std chair with rocker board on floor Reps/Minutes 8 reps x 3 Gait Training Gait Activity DGI Description DGI Device Used none Level of Assistance IND Treatment Focus assessment Comments . see scanned copy amplitude Device Used no AD Level of Assistance IND Surface inside, outside Distance/Duration 10 min Treatment Focus amplitude Comments -Arm swing, step length -Head turns -Changes in speed -Pivot turns -Outside stairs, curbs, hills -Cog dual task: counting backward by 3's or 2's -NBOS walking -backward walking PT-OP-T Assessment and Plan Start: 12/05/21 17:51 Freq: Status: Active Protocol: Document 03/01/22 08:59 AW (Rec: 03/01/22 09:42 AW [id number]) Physical Therapy Assessment Goals Four Impairment strength Technical Business Systems Analyst Goal (LTG) Pt will complete 5 Time Sit to Stand without use of UE assist in 13 seconds or less as a measure of improved BLE strength. LTG Duration MET 10 seconds Three Impairment dynamic balance Fpc Goal (LTG) Pt will improve DGI score from to 21/24 or greater as a measure of reduced falls risk. 03/01/22 - LTG Duration GOAL MET Two Impairment bradykinesia Short Term Goal (STG) Pt will improve average gait speed on 6MWT from 0.6 m/s to 0.75 m/s or greater 01/16/22 - Pt walked 1091 feet in 6 minutes - average gait speed 0.9 m/s. 887 on 02/27. STG Duration GOAL MET Technical Business Systems Analyst Goal (LTG) Pt will improve average gait speed on 6MWT to 1.0 m/s or greater as a measure of reduced bradykinesia LTG Duration 03/08/22 One Impairment lacks HEP Short Term Goal (STG) Pt will be instructed in HEP to improve amplitude, strength , and balance. STG Duration GOAL MET Fpc Goal (LTG) Pt will be independent with HEP to improve amplitude, strength, and balance. LTG Duration 03/08/22 Assessment Summary Assessment Hardeep surpassed his goal for DGI . FGA will likely be a more sensitive test when pt returns for BIG. He is appropriate for discharge to HEP and plans to return for BIG when therapists are available to schedule.
== END 2022-03-06 14:21 ==
LOC: PHYS 09:00
PROVIDERS: Family Provider Student in an Organized Health Care Education/Training Program; PCP Student in an Organized Health Care Education/Training Program; Referring Provider Student in an Organized Health Care Education/Training Program; Visit Provider Student in an Organized Health Care Education/Training Program
DX: R26.89 Other abnormalities of gait and mobility (principal); R53.1 Weakness; M79.18 Myalgia, other site
CPT/HCPCS: 97110; 97112; 97116; 97162; 97530; 97535

== ENCOUNTER 2022-06-05 14:15 | Outpatient (RCR) | payer OTHER, SELFPAY ==
--- NOTE | 2022-05-07 15:54 | PT.OIE ---
Current Diagnoses Parkinson's disease (05/07/22) Past Medical History (Last Reviewed 11/10/21 @ 18:36 by Kelton Lance DO) Coronary artery disease involving [place] coronary artery of [place] heart without angina pectoris (12/21/15) Healed perforation of tympanic membrane (06/03/14) History of kidney stones Hyperlipidemia Hypertension Myocardial infarction Subconjunctival hemorrhage of left eye (05/01/17) Past Surgical History (Last Reviewed 09/06/21 @ 19:47 by Ángel Willingham DO) Status post coronary artery bypass graft (~1998) Visit Care Team Role Provider Type Daniel Almanza MD Attending Provider Physician Family Provider Primary Care Provider Referring Provider Specialty: Internal Medicine Address: [address] [place] [address], [address], [facility] Email: [email or web address] Physical Therapy Initial Evaluation PT-OP-A Visit Information Start: 05/04/22 12:57 Freq: Status: Active Protocol: Document 05/07/22 11:00 AMB (Rec: 05/07/22 12:02 AMB [id number]) Out-Patient Physical Therapy Visit Information Visit Information Visit Type Initial Evaluation Visit Start Time 11:00 Visit Stop Time 12:00 Total Visit Minutes 60 Visit Number 1 PT-OP-B Current Condition Start: 05/04/22 12:57 Freq: Status: Active Protocol: Document 05/07/22 11:00 AMB (Rec: 05/07/22 12:02 AMB [id number]) Current Condition History of Current Condition Onset Date 1 year Current Complaints slowed movement, balance, gait History of Current Condition Has been on carbidopa levodopa full dosage for about the last month, and states has noticed improvement in gait, balance, and upper body dressing. Notices socks and shoes don/doff are stiff and a little frustrating. Ambulates without AD. Does have stairs in his home (5 wiht railing) and to enter (4 with rail) lives alone. Is still driving. Does light housework, daughters check in on him frequently. Treatment Goals Patient/Caregiver Goals Improve gait speed, speed with dressing (shoes), improve balance Personal Factors Other Personal Factors That May Effect CAD, s/p CABG, hx vertigo Therapy/Recovery PT-OP-D Balance Start: 05/04/22 12:57 Freq: Status: Active Protocol: Document 05/07/22 11:00 AMB (Rec: 05/07/22 12:47 AMB [id number]) OP-PT Balance Assessment Standing Balance Standing Balance Comments CTSB 30 seconds all conditions , increased ankle sway with foam and EC. Teixeira Fall Scale Copyright Permission PT-OP-E Functional Tests Start: 05/04/22 12:57 Freq: Status: Active Protocol: Document 05/07/22 10:44 AMB (Rec: 05/07/22 12:02 AMB [id number]) Functional Tests 6 Minute Walk Test Distance 1387 Device Used none 10 Meter Walk Test Distance 6 Device Used none Five Times Sit to Stand Test Score 10 Comments standard chair, with UEs Other don shoes Name of Test slip on 2 shoes Score 14 seconds PT-OP-G Mobility & Gait Start: 05/04/22 12:57 Freq: Status: Active Protocol: Document 05/07/22 11:00 AMB (Rec: 05/07/22 12:56 AMB [id number]) OP Mobility Evaluation Transfers Sit to Stand uses UEs, but good forward lean and eccentric control OP Gait Assessment Comments Gait Comments Ambulates with good armswing, but does lack trunk rotation, no scuffing of feet noted PT-OP-T Assessment and Plan Start: 05/04/22 12:57 Freq: Status: Active Protocol: Document 05/07/22 11:00 AMB (Rec: 05/07/22 13:01 AMB [id number]) Physical Therapy Assessment Rehab Potential Rehabilitation Potential Good Evaluation Complexity Number of Personal Factors/Comorbidities 1-2 Number of Body Systems Impaired 4 or More Clinical Presentation at Evaluation Stable Impairments Impairments Balance,Functional Mobility, Gait,Transfers Goals Three Impairment ADLs Library Media Specialist Goal (LTG) Hardeep will don slip on shoes without difficulty in less than 10 seconds. LTG Duration 4 weeks Two Impairment Transfers Short Term Goal (STG) Hardeep will move from sit to stand 5x from a standard height chair without needing to use his UEs in 9 seconds or less. STG Duration 2 weeks Library Media Specialist Goal (LTG) Hardeep will perform a floor transfer with enviromental support and SBA. LTG Duration 4 weeks One Impairment Gait Short Term Goal (STG) Hardeep will improve his 6MWT to at least 1,500' so that he is closer to age/gender norms. STG Duration 2 weeks Assessment Summary Assessment Hardeep attends physical therapy for [facility]. He has had a good improvement of his PD symptoms with recently adding carbidopa levodopa, but his 6MWT was below age/gender norms. He displays some difficulty with lower body dressing, and overall slower movement with transfers. He will benefit from physical therapy [facility] to improve his mobility, amplitude of movement, balance and gait. Physical Therapy Plan Frequency and Duration Frequency of Treatment 4x/Week Duration of treatment (weeks) 5 Plan of Care Start Date 05/07/22 Plan of Care End Date 06/11/22 Therapeutic Interventions Therapeutic Interventions Balance Training,Gait Training ,Home Exercise Program,Manual Therapy,Neuromuscular Re- education,Self-Care/Home Management,Therapeutic Activities,Therapeutic Exercises Next Visit Focus/Plan Next Note Type Treatment Note Next Visit Plan begin with standard [facility] big, review functional component task list.
--- NOTE | 2022-05-07 15:56 | PT.OPPOC ---
Physical, Occupational & Speech Therapy At [facility] Current Diagnoses Parkinson's disease (05/07/22) Visit Care Team Role Provider Type Daniel Almanza MD Attending Provider Physician Family Provider Primary Care Provider Referring Provider Specialty: Internal Medicine Address: [address] [place] [address], [address], [address] Email: [email or web address] Plan Of Care PT-OP-T Assessment and Plan Start: 05/04/22 12:57 Freq: Status: Active Protocol: Document 05/07/22 11:00 AMB (Rec: 05/07/22 13:01 AMB [id number]) Physical Therapy Assessment Rehab Potential Rehabilitation Potential Good Evaluation Complexity Number of Personal Factors/Comorbidities 1-2 Number of Body Systems Impaired 4 or More Clinical Presentation at Evaluation Stable Impairments Impairments Balance,Functional Mobility, Gait,Transfers Goals Three Impairment ADLs Care Transitions Manager Goal (LTG) Hardeep will don slip on shoes without difficulty in less than 10 seconds. LTG Duration 4 weeks Two Impairment Transfers Short Term Goal (STG) Hardeep will move from sit to stand 5x from a standard height chair without needing to use his UEs in 9 seconds or less. STG Duration 2 weeks Chcf Goal (LTG) Hardeep will perform a floor transfer with enviromental support and SBA. LTG Duration 4 weeks One Impairment Gait Short Term Goal (STG) Hardeep will improve his 6MWT to at least 1,500' so that he is closer to age/gender norms. STG Duration 2 weeks Assessment Summary Assessment Hardeep attends physical therapy for [facility]. He has had a good improvement of his PD symptoms with recently adding carbidopa levodopa, but his 6MWT was below age/gender norms. He displays some difficulty with lower body dressing, and overall slower movement with transfers. He will benefit from physical therapy [facility] to improve his mobility, amplitude of movement, balance and gait. Physical Therapy Plan Frequency and Duration Frequency of Treatment 4x/Week Duration of treatment (weeks) 5 Plan of Care Start Date 05/07/22 Plan of Care End Date 06/11/22 Therapeutic Interventions Therapeutic Interventions Balance Training,Gait Training ,Home Exercise Program,Manual Therapy,Neuromuscular Re- education,Self-Care/Home Management,Therapeutic Activities,Therapeutic Exercises Next Visit Focus/Plan Next Note Type Treatment Note Next Visit Plan begin with standard LSVT big, review functional component task list. Plan of Care Dates Plan of Care Start Date 05/07/22 Plan of Care End Date 06/11/22 Electronically Signed by: Criselda Menezes, PT 05/07/22 3221 If you are in agreement with this Plan of Care, please return a signed and dated copy. I have reviewed this Plan of Care and certify that the skilled therapy services above are required to meet the patient?s needs. Physician Signature Date Printed Name and Credentials Clinical Instructor Signature Printed Name and Credentials
--- NOTE | 2022-05-08 17:08 | PT.OTN ---
Current Diagnoses Parkinson's disease (05/08/22) Physical Therapy Treatment Note PT-OP-A Visit Information Start: 05/04/22 12:57 Freq: Status: Active Protocol: Document 05/08/22 13:16 AW (Rec: 05/08/22 15:16 AW [id number]) Out-Patient Physical Therapy Visit Information Visit Information Visit Type Treatment Note Visit Start Time 14:15 Visit Stop Time 15:15 Total Visit Minutes 60 Visit Number 2 PT-OP-B Current Condition Start: 05/04/22 12:57 Freq: Status: Active Protocol: Document 05/07/22 11:00 AMB (Rec: 05/07/22 12:02 AMB [id number]) Current Condition History of Current Condition Onset Date 1 year Current Complaints slowed movement, balance, gait History of Current Condition Has been on carbidopa levodopa full dosage for about the last month, and states has noticed improvement in gait, balance, and upper body dressing. Notices socks and shoes don/doff are stiff and a little frustrating. Ambulates without AD. Does have stairs in his home (5 wiht railing) and to enter (4 with rail) lives alone. Is still driving. Does light housework, daughters check in on him frequently. Treatment Goals Patient/Caregiver Goals Improve gait speed, speed with dressing (shoes), improve balance Personal Factors Other Personal Factors That May Effect CAD, s/p CABG, hx vertigo Therapy/Recovery PT-OP-C Subjective Start: 05/04/22 12:57 Freq: Status: Active Protocol: Document 05/08/22 13:16 AW (Rec: 05/08/22 16:55 AW [id number]) OP-PT Subjective Patient Comments Patient Comments Hardeep tried to do exercises independently but had a lot of questions. PT-OP-D Balance Start: 05/04/22 12:57 Freq: Status: Active Protocol: Document 05/07/22 11:00 AMB (Rec: 05/07/22 12:47 AMB [id number]) OP-PT Balance Assessment Standing Balance Standing Balance Comments CTSB 30 seconds all conditions , increased ankle sway with foam and EC. Teixeira Fall Scale Copyright Permission PT-OP-E Functional Tests Start: 05/04/22 12:57 Freq: Status: Active Protocol: Document 05/07/22 10:44 AMB (Rec: 05/07/22 12:02 AMB [id number]) Functional Tests 6 Minute Walk Test Distance 1387 Device Used none 10 Meter Walk Test Distance 6 Device Used none Five Times Sit to Stand Test Score 10 Comments standard chair, with UEs Other don shoes Name of Test slip on 2 shoes Score 14 seconds PT-OP-G Mobility & Gait Start: 05/04/22 12:57 Freq: Status: Active Protocol: Document 05/07/22 11:00 AMB (Rec: 05/07/22 12:56 AMB [id number]) OP Mobility Evaluation Transfers Sit to Stand uses UEs, but good forward lean and eccentric control OP Gait Assessment Comments Gait Comments Ambulates with good armswing, but does lack trunk rotation, no scuffing of feet noted PT-OP-Q Treatments Start: 05/04/22 12:57 Freq: Status: Active Protocol: Document 05/08/22 13:16 AW (Rec: 05/08/22 15:16 AW [id number]) Therapeutic Activity Therapeutic Activity donning shoes Name donning shoes Comments 2 reps slipping shoes on: 13.8 sec, 14.1 sec 2 reps with finger flicks and cues for big broiler chef or cook: 9 seconds, 8.3 seconds. Gait Training Gait Activity indoor, level Description indoor, level Device Used none Level of Assistance I Surface tile, carpet Distance/Duration 15 min Treatment Focus amplitude, arm swing, thoracic mobility Comments Cued Think BIG and loose shoulders. Hardeep does not respond well to cues for arm swing as he tends to overthink and then patterns inappropriately. Neuro Re-Education Treatment Other Activities sit to stand Details sit to stand Reps/Duration x10 Comments green chair sideways rock and reach Details sideways rock and reach Reps/Duration x10 fwd rock and reach Details fwd rock and reach Reps/Duration x10 Comments Better amplitude with chair support backward step Details backward step Reps/Duration x10 Comments Better amplitude with chair support sideways step Details sideways step Reps/Duration x10 forward step Details forward step Reps/Duration x10 sitting side to side Details sitting side to side Reps/Duration x10 floor to ceiling Details floor to ceiling Reps/Duration x10 Self-Care/Home Management Treatment Education Patient Education Home Exercise Program Activities Self-Care/Home Management Activities Reviewed expectation that Hardeep will do exercises twice daily throughout the course of treatment. Encouraged him to wait until PT tomorrow to attempt again. PT-OP-T Assessment and Plan Start: 05/04/22 12:57 Freq: Status: Active Protocol: Document 05/08/22 13:16 AW (Rec: 05/08/22 15:16 AW [id number]) Physical Therapy Assessment Goals Three Impairment ADLs Group Home Goal (LTG) Hardeep will don slip on shoes without difficulty in less than 10 seconds. LTG Duration 4 weeks Two Impairment Transfers Short Term Goal (STG) Hardeep will move from sit to stand 5x from a standard height chair without needing to use his UEs in 9 seconds or less. STG Duration 2 weeks Group Home Goal (LTG) Hardeep will perform a floor transfer with enviromental support and SBA. LTG Duration 4 weeks One Impairment Gait Short Term Goal (STG) Hardeep will improve his 6MWT to at least 1,500' so that he is closer to age/gender norms. STG Duration 2 weeks Assessment Summary Assessment Introduced daily maximal exercises today and felt Hardeep may need UE support for backward step and forward rock /reach. Will reassess tomorrow . During gait training, Hardeep did best with general cues for bigger or looser movement. Specific cues for arm swing lead to poor patterning. Physical Therapy Plan Frequency and Duration Frequency of Treatment 4x/Week Duration of treatment (weeks) 5 Plan of Care Start Date 05/07/22 Plan of Care End Date 06/11/22 Therapeutic Interventions Therapeutic Interventions Balance Training,Gait Training ,Home Exercise Program,Manual Therapy,Neuromuscular Re- education,Self-Care/Home Management,Therapeutic Activities,Therapeutic Exercises Next Visit Focus/Plan Next Note Type Treatment Note Next Visit Plan Reassess need for UE support during backward step and fwd rock/reach. Revisit functional task list to pick more
--- NOTE | 2022-05-09 12:42 | PT.OTN ---
Current Diagnoses Parkinson's disease (05/09/22) Physical Therapy Treatment Note PT-OP-A Visit Information Start: 05/04/22 12:57 Freq: Status: Active Protocol: Document 05/09/22 11:05 AMB (Rec: 05/09/22 11:45 AMB [id number]) Out-Patient Physical Therapy Visit Information Visit Information Visit Type Treatment Note Visit Start Time 11:05 Visit Stop Time 12:00 Total Visit Minutes 55 Visit Number 3 PT-OP-B Current Condition Start: 05/04/22 12:57 Freq: Status: Active Protocol: Document 05/07/22 11:00 AMB (Rec: 05/07/22 12:02 AMB [id number]) Current Condition History of Current Condition Onset Date 1 year Current Complaints slowed movement, balance, gait History of Current Condition Has been on carbidopa levodopa full dosage for about the last month, and states has noticed improvement in gait, balance, and upper body dressing. Notices socks and shoes don/doff are stiff and a little frustrating. Ambulates without AD. Does have stairs in his home (5 wiht railing) and to enter (4 with rail) lives alone. Is still driving. Does light housework, daughters check in on him frequently. Treatment Goals Patient/Caregiver Goals Improve gait speed, speed with dressing (shoes), improve balance Personal Factors Other Personal Factors That May Effect CAD, s/p CABG, hx vertigo Therapy/Recovery PT-OP-C Subjective Start: 05/04/22 12:57 Freq: Status: Active Protocol: Document 05/09/22 12:25 AMB (Rec: 05/09/22 12:39 AMB [id number]) OP-PT Subjective Patient Comments Patient Comments Hardeep reports he is doing well ready to exercise. PT-OP-D Balance Start: 05/04/22 12:57 Freq: Status: Active Protocol: Document 05/07/22 11:00 AMB (Rec: 05/07/22 12:47 AMB [id number]) OP-PT Balance Assessment Standing Balance Standing Balance Comments CTSB 30 seconds all conditions , increased ankle sway with foam and EC. Teixeira Fall Scale Copyright Permission PT-OP-E Functional Tests Start: 05/04/22 12:57 Freq: Status: Active Protocol: Document 05/07/22 10:44 AMB (Rec: 05/07/22 12:02 AMB [id number]) Functional Tests 6 Minute Walk Test Distance 1387 Device Used none 10 Meter Walk Test Distance 6 Device Used none Five Times Sit to Stand Test Score 10 Comments standard chair, with UEs Other don shoes Name of Test slip on 2 shoes Score 14 seconds PT-OP-G Mobility & Gait Start: 05/04/22 12:57 Freq: Status: Active Protocol: Document 05/07/22 11:00 AMB (Rec: 05/07/22 12:56 AMB [id number]) OP Mobility Evaluation Transfers Sit to Stand uses UEs, but good forward lean and eccentric control OP Gait Assessment Comments Gait Comments Ambulates with good armswing, but does lack trunk rotation, no scuffing of feet noted PT-OP-Q Treatments Start: 05/04/22 12:57 Freq: Status: Active Protocol: Document 05/09/22 12:25 AMB (Rec: 05/09/22 12:39 AMB [id number]) Gait Training Gait Activity indoor, level Description indoor, level Device Used none Level of Assistance I Surface carpet, tile Distance/Duration 800' Treatment Focus amplitude, speed with dual task Comments Cued Think BIG Neuro Re-Education Treatment Other Activities sit to stand Details sit to stand Reps/Duration x10 Comments green chair sideways rock and reach Details sideways rock and reach Reps/Duration x10 fwd rock and reach Details fwd rock and reach Reps/Duration x10 backward step Details backward step Reps/Duration x10 sideways step Details sideways step Reps/Duration x10 forward step Details forward step Reps/Duration x10 sitting side to side Details sitting side to side Reps/Duration x10 Comments cued back leg extension floor to ceiling Details floor to ceiling Reps/Duration x10 PT-OP-T Assessment and Plan Start: 05/04/22 12:57 Freq: Status: Active Protocol: Document 05/09/22 11:05 AMB (Rec: 05/09/22 11:45 AMB [id number]) Physical Therapy Assessment Goals Three Impairment ADLs Detention Goal (LTG) Hardeep will don slip on shoes without difficulty in less than 10 seconds. LTG Duration 4 weeks Two Impairment Transfers Short Term Goal (STG) Hardeep will move from sit to stand 5x from a standard height chair without needing to use his UEs in 9 seconds or less. STG Duration 2 weeks Detention Goal (LTG) Hardeep will perform a floor transfer with enviromental support and SBA. LTG Duration 4 weeks One Impairment Gait Short Term Goal (STG) Hardeep will improve his 6MWT to at least 1,500' so that he is closer to age/gender norms. STG Duration 2 weeks Assessment Summary Assessment Went back and for about UE support, but Hardeep was able to have good amplitude and stability today. Encouraged to exercise somewhere where he has the option to touch down as necessary. Physical Therapy Plan Next Visit Focus/Plan Next Note Type Treatment Note Next Visit Plan Revisit functional task list to pick more.
--- NOTE | 2022-05-10 15:11 | PT.OTN ---
Current Diagnoses Parkinson's disease (05/10/22) Physical Therapy Treatment Note PT-OP-A Visit Information Start: 05/04/22 12:57 Freq: Status: Active Protocol: Document 05/10/22 13:03 AW (Rec: 05/10/22 15:11 AW [id number]) Out-Patient Physical Therapy Visit Information Visit Information Visit Type Treatment Note Visit Start Time 14:15 Visit Stop Time 15:10 Total Visit Minutes 55 Visit Number 4 PT-OP-B Current Condition Start: 05/04/22 12:57 Freq: Status: Active Protocol: Document 05/07/22 11:00 AMB (Rec: 05/07/22 12:02 AMB [id number]) Current Condition History of Current Condition Onset Date 1 year Current Complaints slowed movement, balance, gait History of Current Condition Has been on carbidopa levodopa full dosage for about the last month, and states has noticed improvement in gait, balance, and upper body dressing. Notices socks and shoes don/doff are stiff and a little frustrating. Ambulates without AD. Does have stairs in his home (5 wiht railing) and to enter (4 with rail) lives alone. Is still driving. Does light housework, daughters check in on him frequently. Treatment Goals Patient/Caregiver Goals Improve gait speed, speed with dressing (shoes), improve balance Personal Factors Other Personal Factors That May Effect CAD, s/p CABG, hx vertigo Therapy/Recovery PT-OP-C Subjective Start: 05/04/22 12:57 Freq: Status: Active Protocol: Document 05/10/22 13:03 AW (Rec: 05/10/22 15:11 AW [id number]) OP-PT Subjective Patient Comments Patient Comments I'm trying to make all my movements bigger. When I reach for my coffee cup, I really reach! PT-OP-D Balance Start: 05/04/22 12:57 Freq: Status: Active Protocol: Document 05/07/22 11:00 AMB (Rec: 05/07/22 12:47 AMB [id number]) OP-PT Balance Assessment Standing Balance Standing Balance Comments CTSB 30 seconds all conditions , increased ankle sway with foam and EC. Teixeira Fall Scale Copyright Permission PT-OP-E Functional Tests Start: 05/04/22 12:57 Freq: Status: Active Protocol: Document 05/07/22 10:44 AMB (Rec: 05/07/22 12:02 AMB [id number]) Functional Tests 6 Minute Walk Test Distance 1387 Device Used none 10 Meter Walk Test Distance 6 Device Used none Five Times Sit to Stand Test Score 10 Comments standard chair, with UEs Other don shoes Name of Test slip on 2 shoes Score 14 seconds PT-OP-G Mobility & Gait Start: 05/04/22 12:57 Freq: Status: Active Protocol: Document 05/07/22 11:00 AMB (Rec: 05/07/22 12:56 AMB [id number]) OP Mobility Evaluation Transfers Sit to Stand uses UEs, but good forward lean and eccentric control OP Gait Assessment Comments Gait Comments Ambulates with good armswing, but does lack trunk rotation, no scuffing of feet noted PT-OP-Q Treatments Start: 05/04/22 12:57 Freq: Status: Active Protocol: Document 05/10/22 13:03 AW (Rec: 05/10/22 15:11 AW [id number]) Therapeutic Activity Therapeutic Activity handwriting Name handwriting Comments Practiced signing name with noted decrease in size over first two lines. Cued flicks and whole UE involvement and practiced more lines. Amplitude improved. donning shoes Name donning shoes Comments multiple reps with consistent times ~12 seconds but with self-reported improvement in ease Gait Training Gait Activity indoor, level Description indoor, level Device Used none Level of Assistance I Surface carpet, tile, hospital hallways, lobby stairs Distance/Duration 800' Treatment Focus amplitude, speed with dual task Comments Cued Think BIG Neuro Re-Education Treatment Other Activities sit to stand Details sit to stand Reps/Duration x10 Comments green chair sideways rock and reach Details sideways rock and reach Reps/Duration x10 Comments cued limit trunk lean, try to rotate on axis fwd rock and reach Details fwd rock and reach Reps/Duration x10 backward step Details backward step Reps/Duration x10 sideways step Details sideways step Reps/Duration x10 forward step Details forward step Reps/Duration x10 sitting side to side Details sitting side to side Reps/Duration x10 Comments cued back leg extension floor to ceiling Details floor to ceiling Reps/Duration x10 PT-OP-T Assessment and Plan Start: 05/04/22 12:57 Freq: Status: Active Protocol: Document 05/10/22 13:03 AW (Rec: 05/10/22 15:11 AW [id number]) Physical Therapy Assessment Goals Three Impairment ADLs Group Home Goal (LTG) Hardeep will don slip on shoes without difficulty in less than 10 seconds. LTG Duration 4 weeks Two Impairment Transfers Short Term Goal (STG) Hardeep will move from sit to stand 5x from a standard height chair without needing to use his UEs in 9 seconds or less. STG Duration 2 weeks [employer] Teacher Goal (LTG) Hardeep will perform a floor transfer with enviromental support and SBA. LTG Duration 4 weeks One Impairment Gait Short Term Goal (STG) Hardeep will improve his 6MWT to at least 1,500' so that he is closer to age/gender norms. STG Duration 2 weeks Assessment Summary Assessment Hardeep is doing well with exercises, needing minor cues for posture and for increased weight shifting. Worked on donning shoes and writing today. Hardeep responds well to cues to use whole arm and trunk while writing. Gait speed did slow during longer walk in hospital hallways today but amplitude was consistent. Hardeep is showing good carryover of amplitude training to all tasks. Physical Therapy Plan Frequency and Duration Frequency of Treatment 4x/Week Duration of treatment (weeks) 5 Plan of Care Start Date 05/07/22 Plan of Care End Date 06/11/22 Therapeutic Interventions Therapeutic Interventions Balance Training,Gait Training ,Home Exercise Program,Manual Therapy,Neuromuscular Re- education,Self-Care/Home Management,Therapeutic Activities,Therapeutic Exercises Next Visit Focus/Plan Next Note Type Treatment Note
--- NOTE | 2022-05-14 16:18 | PT.OTN ---
Current Diagnoses Parkinson's disease (05/14/22) Physical Therapy Treatment Note PT-OP-A Visit Information Start: 05/04/22 12:57 Freq: Status: Active Protocol: Document 05/14/22 11:08 AMB (Rec: 05/14/22 12:08 AMB [id number]) Out-Patient Physical Therapy Visit Information Visit Information Visit Type Treatment Note Visit Start Time 11:00 Visit Stop Time 12:00 Total Visit Minutes 60 Visit Number 5 PT-OP-B Current Condition Start: 05/04/22 12:57 Freq: Status: Active Protocol: Document 05/07/22 11:00 AMB (Rec: 05/07/22 12:02 AMB [id number]) Current Condition History of Current Condition Onset Date 1 year Current Complaints slowed movement, balance, gait History of Current Condition Has been on carbidopa levodopa full dosage for about the last month, and states has noticed improvement in gait, balance, and upper body dressing. Notices socks and shoes don/doff are stiff and a little frustrating. Ambulates without AD. Does have stairs in his home (5 wiht railing) and to enter (4 with rail) lives alone. Is still driving. Does light housework, daughters check in on him frequently. Treatment Goals Patient/Caregiver Goals Improve gait speed, speed with dressing (shoes), improve balance Personal Factors Other Personal Factors That May Effect CAD, s/p CABG, hx vertigo Therapy/Recovery PT-OP-C Subjective Start: 05/04/22 12:57 Freq: Status: Active Protocol: Document 05/14/22 11:00 AMB (Rec: 05/14/22 16:03 AMB [id number]) OP-PT Subjective Patient Comments Patient Comments Pt states he did most of his exercises over the weekend. His grandson is at [employer] with RSV so he is worried about that. PT-OP-D Balance Start: 05/04/22 12:57 Freq: Status: Active Protocol: Document 05/07/22 11:00 AMB (Rec: 05/07/22 12:47 AMB [id number]) OP-PT Balance Assessment Standing Balance Standing Balance Comments CTSB 30 seconds all conditions , increased ankle sway with foam and EC. Teixeira Fall Scale Copyright Permission PT-OP-E Functional Tests Start: 05/04/22 12:57 Freq: Status: Active Protocol: Document 05/07/22 10:44 AMB (Rec: 05/07/22 12:02 AMB [id number]) Functional Tests 6 Minute Walk Test Distance 1387 Device Used none 10 Meter Walk Test Distance 6 Device Used none Five Times Sit to Stand Test Score 10 Comments standard chair, with UEs Other don shoes Name of Test slip on 2 shoes Score 14 seconds PT-OP-G Mobility & Gait Start: 05/04/22 12:57 Freq: Status: Active Protocol: Document 05/07/22 11:00 AMB (Rec: 05/07/22 12:56 AMB [id number]) OP Mobility Evaluation Transfers Sit to Stand uses UEs, but good forward lean and eccentric control OP Gait Assessment Comments Gait Comments Ambulates with good armswing, but does lack trunk rotation, no scuffing of feet noted PT-OP-Q Treatments Start: 05/04/22 12:57 Freq: Status: Active Protocol: Document 05/14/22 11:08 AMB (Rec: 05/14/22 12:08 AMB [id number]) Therapeutic Activity Therapeutic Activity handwriting Name handwriting Comments Practiced signing name with noted large lined paper whole UE involvement and practiced more lines. Amplitude improved . Gait Training Gait Activity hurdles Level of Assistance SBA Distance/Duration 3 hurdles x 6 Treatment Focus amplitude Comments cued soft arms indoor, level Description indoor, level Device Used none Level of Assistance I Surface carpet, tile, hospital hallways, Distance/Duration 800' Treatment Focus amplitude, speed with dual task Comments Cued Think BIG Neuro Re-Education Treatment Other Activities sit to stand Details sit to stand Reps/Duration x10 Comments green chair wiht blue foam under feet sideways rock and reach Details sideways rock and reach Reps/Duration x10 Comments cued limit trunk lean, try to rotate on axis fwd rock and reach Details fwd rock and reach Reps/Duration x10 backward step Details backward step Reps/Duration x10 sideways step Details sideways step Reps/Duration x10 forward step Details forward step Reps/Duration x10 sitting side to side Details sitting side to side Reps/Duration x10 Comments cued back leg extension floor to ceiling Details floor to ceiling Reps/Duration x10 PT-OP-T Assessment and Plan Start: 05/04/22 12:57 Freq: Status: Active Protocol: Document 05/14/22 11:08 AMB (Rec: 05/14/22 12:08 AMB [id number]) Physical Therapy Assessment Goals Three Impairment ADLs Skilled Nursing Goal (LTG) Hardeep will don slip on shoes without difficulty in less than 10 seconds. LTG Duration 4 weeks Two Impairment Transfers Short Term Goal (STG) Hardeep will move from sit to stand 5x from a standard height chair without needing to use his UEs in 9 seconds or less. STG Duration 2 weeks Skilled Nursing Goal (LTG) Hardeep will perform a floor transfer with enviromental support and SBA. LTG Duration 4 weeks One Impairment Gait Short Term Goal (STG) Hardeep will improve his 6MWT to at least 1,500' so that he is closer to age/gender norms. STG Duration 2 weeks Assessment Summary Assessment Hardeep's ability to maintain good amplitude declined with hurdles, but with cues was able to increase again. Physical Therapy Plan Frequency and Duration Frequency of Treatment 4x/Week Duration of treatment (weeks) 5 Plan of Care Start Date 05/07/22 Plan of Care End Date 06/11/22 Therapeutic Interventions Therapeutic Interventions Balance Training,Gait Training ,Home Exercise Program,Manual Therapy,Neuromuscular Re- education,Self-Care/Home Management,Therapeutic Activities,Therapeutic Exercises Next Visit Focus/Plan Next Note Type Treatment Note Next Visit Plan Progress gait with cognitive load. functional activities including donning/doffing clothing, gait over uneven terrain.
--- NOTE | 2022-05-15 15:16 | PT.OTN ---
Current Diagnoses Parkinson's disease (05/15/22) Physical Therapy Treatment Note PT-OP-A Visit Information Start: 05/04/22 12:57 Freq: Status: Active Protocol: Document 05/15/22 13:08 AW (Rec: 05/15/22 15:16 AW [id number]) Out-Patient Physical Therapy Visit Information Visit Information Visit Type Treatment Note Visit Start Time 14:15 Visit Stop Time 15:15 Total Visit Minutes 60 Visit Number 6 PT-OP-B Current Condition Start: 05/04/22 12:57 Freq: Status: Active Protocol: Document 05/07/22 11:00 AMB (Rec: 05/07/22 12:02 AMB [id number]) Current Condition History of Current Condition Onset Date 1 year Current Complaints slowed movement, balance, gait History of Current Condition Has been on carbidopa levodopa full dosage for about the last month, and states has noticed improvement in gait, balance, and upper body dressing. Notices socks and shoes don/doff are stiff and a little frustrating. Ambulates without AD. Does have stairs in his home (5 wiht railing) and to enter (4 with rail) lives alone. Is still driving. Does light housework, daughters check in on him frequently. Treatment Goals Patient/Caregiver Goals Improve gait speed, speed with dressing (shoes), improve balance Personal Factors Other Personal Factors That May Effect CAD, s/p CABG, hx vertigo Therapy/Recovery PT-OP-C Subjective Start: 05/04/22 12:57 Freq: Status: Active Protocol: Document 05/15/22 13:08 AW (Rec: 05/15/22 15:16 AW [id number]) OP-PT Subjective Patient Comments Patient Comments Hardeep is doing exercises at home and feeling fairly confident with them. He feels his balance is improving. PT-OP-D Balance Start: 05/04/22 12:57 Freq: Status: Active Protocol: Document 05/07/22 11:00 AMB (Rec: 05/07/22 12:47 AMB [id number]) OP-PT Balance Assessment Standing Balance Standing Balance Comments CTSB 30 seconds all conditions , increased ankle sway with foam and EC. Teixeira Fall Scale Copyright Permission PT-OP-E Functional Tests Start: 05/04/22 12:57 Freq: Status: Active Protocol: Document 05/07/22 10:44 AMB (Rec: 11/07/22 12:02 AMB [id number]) Functional Tests 6 Minute Walk Test Distance 1387 Device Used none 10 Meter Walk Test Distance 6 Device Used none Five Times Sit to Stand Test Score 10 Comments standard chair, with UEs Other don shoes Name of Test slip on 2 shoes Score 14 seconds PT-OP-G Mobility & Gait Start: 05/04/22 12:57 Freq: Status: Active Protocol: Document 05/07/22 11:00 AMB (Rec: 05/07/22 12:56 AMB [id number]) OP Mobility Evaluation Transfers Sit to Stand uses UEs, but good forward lean and eccentric control OP Gait Assessment Comments Gait Comments Ambulates with good armswing, but does lack trunk rotation, no scuffing of feet noted PT-OP-Q Treatments Start: 05/04/22 12:57 Freq: Status: Active Protocol: Document 05/15/22 13:08 AW (Rec: 05/15/22 15:16 AW [id number]) Therapeutic Activity Therapeutic Activity handwriting Name handwriting Comments Writing checks with focus on amplitude. donning shoes Name donning shoes Comments multiple reps - 7.7 - 11.4 seconds Gait Training Gait Activity hurdles Level of Assistance SBA Distance/Duration 4 hurdles x 6 Treatment Focus amplitude Comments integrated into laps around the gym Neuro Re-Education Treatment Other Activities sit to stand Details sit to stand Reps/Duration 2x10 Comments mesh chair w/ blue foam under feet sideways rock and reach Details sideways rock and reach Reps/Duration x10 Comments cued limit trunk lean, try to rotate on axis fwd rock and reach Details fwd rock and reach Reps/Duration x10 backward step Details backward step Reps/Duration x10 sideways step Details sideways step Reps/Duration x10 forward step Details forward step Reps/Duration x10 sitting side to side Details sitting side to side Reps/Duration x10 Comments cued back leg extension floor to ceiling Details floor to ceiling Reps/Duration x10 PT-OP-T Assessment and Plan Start: 05/04/22 12:57 Freq: Status: Active Protocol: Document 05/15/22 13:08 AW (Rec: 05/15/22 15:16 AW [id number]) Physical Therapy Assessment Goals Three Impairment ADLs [facility] Goal (LTG) Hardeep will don slip on shoes without difficulty in less than 10 seconds. LTG Duration 4 weeks Two Impairment Transfers Short Term Goal (STG) Hardeep will move from sit to stand 5x from a standard height chair without needing to use his UEs in 9 seconds or less. STG Duration 2 weeks Laundry Route Driver Goal (LTG) Hardeep will perform a floor transfer with enviromental support and SBA. LTG Duration 4 weeks One Impairment Gait Short Term Goal (STG) Hardeep will improve his 6MWT to at least 1,500' so that he is closer to age/gender norms. STG Duration 2 weeks Assessment Summary Assessment Hardeep loses amplitude again today with hurdles but improves with verbal cues. He is observed walking in and out of the clinic with long strides and good movement in his arms. Physical Therapy Plan Frequency and Duration Frequency of Treatment 4x/Week Duration of treatment (weeks) 5 Plan of Care Start Date 05/07/22 Plan of Care End Date 06/11/22 Therapeutic Interventions Therapeutic Interventions Balance Training,Gait Training ,Home Exercise Program,Manual Therapy,Neuromuscular Re- education,Self-Care/Home Management,Therapeutic Activities,Therapeutic Exercises Next Visit Focus/Plan Next Note Type Treatment Note Next Visit Plan Progress gait with cognitive load. functional activities including donning/doffing clothing, gait over uneven terrain.
--- NOTE | 2022-05-16 12:47 | PT.OTN ---
Current Diagnoses Parkinson's disease (05/16/22) Physical Therapy Treatment Note PT-OP-A Visit Information Start: 05/04/22 12:57 Freq: Status: Active Protocol: Document 05/16/22 11:04 AMB (Rec: 05/16/22 11:53 AMB [id number]) Out-Patient Physical Therapy Visit Information Visit Information Visit Type Treatment Note Visit Start Time 11:00 Visit Stop Time 12:00 Total Visit Minutes 60 Visit Number 7 PT-OP-B Current Condition Start: 05/04/22 12:57 Freq: Status: Active Protocol: Document 05/07/22 11:00 AMB (Rec: 05/07/22 12:02 AMB [id number]) Current Condition History of Current Condition Onset Date 1 year Current Complaints slowed movement, balance, gait History of Current Condition Has been on carbidopa levodopa full dosage for about the last month, and states has noticed improvement in gait, balance, and upper body dressing. Notices socks and shoes don/doff are stiff and a little frustrating. Ambulates without AD. Does have stairs in his home (5 wiht railing) and to enter (4 with rail) lives alone. Is still driving. Does light housework, daughters check in on him frequently. Treatment Goals Patient/Caregiver Goals Improve gait speed, speed with dressing (shoes), improve balance Personal Factors Other Personal Factors That May Effect CAD, s/p CABG, hx vertigo Therapy/Recovery PT-OP-C Subjective Start: 05/04/22 12:57 Freq: Status: Active Protocol: Document 05/16/22 11:04 AMB (Rec: 05/16/22 11:53 AMB [id number]) OP-PT Subjective Patient Comments Patient Comments Hardeep is feeling well, does feel like his back has been going well, he's a little suprised that the back hasn't been bothering him as much. PT-OP-D Balance Start: 05/04/22 12:57 Freq: Status: Active Protocol: Document 05/07/22 11:00 AMB (Rec: 05/07/22 12:47 AMB [id number]) OP-PT Balance Assessment Standing Balance Standing Balance Comments CTSB 30 seconds all conditions , increased ankle sway with foam and EC. Teixeira Fall Scale Copyright Permission PT-OP-E Functional Tests Start: 05/04/22 12:57 Freq: Status: Active Protocol: Document 05/07/22 10:44 AMB (Rec: 05/07/22 12:02 AMB [id number]) Functional Tests 6 Minute Walk Test Distance 1387 Device Used none 10 Meter Walk Test Distance 6 Device Used none Five Times Sit to Stand Test Score 10 Comments standard chair, with UEs Other don shoes Name of Test slip on 2 shoes Score 14 seconds PT-OP-G Mobility & Gait Start: 05/04/22 12:57 Freq: Status: Active Protocol: Document 05/07/22 11:00 AMB (Rec: 05/07/22 12:56 AMB [id number]) OP Mobility Evaluation Transfers Sit to Stand uses UEs, but good forward lean and eccentric control OP Gait Assessment Comments Gait Comments Ambulates with good armswing, but does lack trunk rotation, no scuffing of feet noted PT-OP-Q Treatments Start: 05/04/22 12:57 Freq: Status: Active Protocol: Document 05/16/22 11:04 AMB (Rec: 05/16/22 11:53 AMB [id number]) Therapeutic Activity Therapeutic Activity donning shoes Name donning shoes Comments multiple reps - 7-12 seconds Gait Training Gait Activity hurdles Level of Assistance SBA Distance/Duration 4 hurdles x 6 Treatment Focus amplitude Comments integrated into laps around the gym indoor, level Description indoor, level Device Used none Level of Assistance I Surface carpet, tile, hospital hallways, Distance/Duration 800' Treatment Focus amplitude, speed with dual task Comments Cued Think BIG Neuro Re-Education Treatment Other Activities sit to stand Details sit to stand Reps/Duration 2x10 Comments mesh chair w/ blue foam under feet sideways rock and reach Details sideways rock and reach Reps/Duration x10 Comments cued limit trunk lean, try to rotate on axis fwd rock and reach Details fwd rock and reach Reps/Duration x10 backward step Details backward step Reps/Duration x10 Comments alternating sideways step Details sideways step Reps/Duration x10 Comments alternating forward step Details forward step Reps/Duration x10 Comments alternating sides sitting side to side Details sitting side to side Reps/Duration x10 Comments cued back leg extension floor to ceiling Details floor to ceiling Reps/Duration x10 PT-OP-T Assessment and Plan Start: 05/04/22 12:57 Freq: Status: Active Protocol: Document 05/16/22 11:04 AMB (Rec: 05/16/22 11:53 AMB [id number]) Physical Therapy Assessment Goals Three Impairment ADLs Detention Goal (LTG) Hardeep will don slip on shoes without difficulty in less than 10 seconds. LTG Duration 4 weeks Two Impairment Transfers Short Term Goal (STG) Hardeep will move from sit to stand 5x from a standard height chair without needing to use his UEs in 9 seconds or less. STG Duration 2 weeks Trim Attacher Goal (LTG) Hardeep will perform a floor transfer with enviromental support and SBA. LTG Duration 4 weeks One Impairment Gait Short Term Goal (STG) Hardeep will improve his 6MWT to at least 1,500' so that he is closer to age/gender norms. STG Duration 2 weeks Assessment Summary Assessment Hardeep interested in LSVT big DVD , did mention LSVT for life and pt was not as interested. Was challenged by gait with cognitive load (remembering food items) and gait did lose amplitude with dual task. Physical Therapy Plan Frequency and Duration Frequency of Treatment 4x/Week Duration of treatment (weeks) 5 Plan of Care Start Date 05/07/22 Plan of Care End Date 06/11/22 Therapeutic Interventions Therapeutic Interventions Balance Training,Gait Training ,Home Exercise Program,Manual Therapy,Neuromuscular Re- education,Self-Care/Home Management,Therapeutic Activities,Therapeutic Exercises Next Visit Focus/Plan Next Note Type Treatment Note Next Visit Plan Progress gait with cognitive load. functional activities including donning/doffing clothing, gait over uneven terrain.
--- NOTE | 2022-05-17 15:16 | PT.OTN ---
Current Diagnoses Parkinson's disease (05/17/22) Physical Therapy Treatment Note PT-OP-A Visit Information Start: 05/04/22 12:57 Freq: Status: Active Protocol: Document 05/17/22 14:14 AW (Rec: 05/17/22 15:15 AW [id number]) Out-Patient Physical Therapy Visit Information Visit Information Visit Type Treatment Note Visit Start Time 14:15 Visit Stop Time 15:15 Total Visit Minutes 60 Visit Number 8 PT-OP-B Current Condition Start: 05/04/22 12:57 Freq: Status: Active Protocol: Document 05/07/22 11:00 AMB (Rec: 05/07/22 12:02 AMB [id number]) Current Condition History of Current Condition Onset Date 1 year Current Complaints slowed movement, balance, gait History of Current Condition Has been on carbidopa levodopa full dosage for about the last month, and states has noticed improvement in gait, balance, and upper body dressing. Notices socks and shoes don/doff are stiff and a little frustrating. Ambulates without AD. Does have stairs in his home (5 wiht railing) and to enter (4 with rail) lives alone. Is still driving. Does light housework, daughters check in on him frequently. Treatment Goals Patient/Caregiver Goals Improve gait speed, speed with dressing (shoes), improve balance Personal Factors Other Personal Factors That May Effect CAD, s/p CABG, hx vertigo Therapy/Recovery PT-OP-C Subjective Start: 05/04/22 12:57 Freq: Status: Active Protocol: Document 05/17/22 14:14 AW (Rec: 05/17/22 15:15 AW [id number]) OP-PT Subjective Patient Comments Patient Comments Feeling good. Does report a little bit of back achiness today but nothing worrisome. It is worst with twisting. PT-OP-D Balance Start: 05/04/22 12:57 Freq: Status: Active Protocol: Document 05/07/22 11:00 AMB (Rec: 05/07/22 12:47 AMB [id number]) OP-PT Balance Assessment Standing Balance Standing Balance Comments CTSB 30 seconds all conditions , increased ankle sway with foam and EC. Teixeira Fall Scale Copyright Permission PT-OP-E Functional Tests Start: 05/04/22 12:57 Freq: Status: Active Protocol: Document 05/07/22 10:44 AMB (Rec: 05/07/22 12:02 AMB [id number]) Functional Tests 6 Minute Walk Test Distance 1387 Device Used none 10 Meter Walk Test Distance 6 Device Used none Five Times Sit to Stand Test Score 10 Comments standard chair, with UEs Other don shoes Name of Test slip on 2 shoes Score 14 seconds PT-OP-G Mobility & Gait Start: 05/04/22 12:57 Freq: Status: Active Protocol: Document 05/07/22 11:00 AMB (Rec: 05/07/22 12:56 AMB [id number]) OP Mobility Evaluation Transfers Sit to Stand uses UEs, but good forward lean and eccentric control OP Gait Assessment Comments Gait Comments Ambulates with good armswing, but does lack trunk rotation, no scuffing of feet noted PT-OP-Q Treatments Start: 05/04/22 12:57 Freq: Status: Active Protocol: Document 05/17/22 14:14 AW (Rec: 05/17/22 15:15 AW [id number]) Therapeutic Activity Therapeutic Activity handwriting Name handwriting Comments Writing checks with focus on amplitude. donning shoes Name donning shoes Comments multiple reps - 7-10 seconds Gait Training Gait Activity hurdles Level of Assistance SBA Distance/Duration 4 hurdles x 6 Treatment Focus amplitude Comments integrated into laps around the gym indoor, level Description indoor, level Device Used none Level of Assistance I Surface carpet, tile, hospital hallways, Distance/Duration 800' Treatment Focus amplitude, speed with dual task Comments Cued Think BIG Neuro Re-Education Treatment Other Activities sit to stand Details sit to stand Reps/Duration 2x10 Comments mesh chair w/ blue foam under feet sideways rock and reach Details sideways rock and reach Reps/Duration x10 Comments cued limit trunk lean, try to rotate on axis fwd rock and reach Details fwd rock and reach Reps/Duration x10 backward step Details backward step Reps/Duration x10 Comments alternating sideways step Details sideways step Reps/Duration x10 Comments alternating forward step Details forward step Reps/Duration x10 Comments alternating sides sitting side to side Details sitting side to side Reps/Duration x10 Comments cued back leg extension floor to ceiling Details floor to ceiling Reps/Duration x10 PT-OP-T Assessment and Plan Start: 05/04/22 12:57 Freq: Status: Active Protocol: Document 05/17/22 14:14 AW (Rec: 05/17/22 15:15 AW [id number]) Physical Therapy Assessment Goals Three Impairment ADLs Long-Term Goal (LTG) Hardeep will don slip on shoes without difficulty in less than 10 seconds. LTG Duration 4 weeks Two Impairment Transfers Short Term Goal (STG) Hardeep will move from sit to stand 5x from a standard height chair without needing to use his UEs in 9 seconds or less. STG Duration 2 weeks Locksmith Goal (LTG) Hardeep will perform a floor transfer with enviromental support and SBA. LTG Duration 4 weeks One Impairment Gait Short Term Goal (STG) Hardeep will improve his 6MWT to at least 1,500' so that he is closer to age/gender norms. STG Duration 2 weeks Assessment Summary Assessment Provided Hardeep with details about the homework helper DVD which he indicated he was interested in purchasing. Cognitive load produces the most notable decrease in amplitude during gait training today. Hardeep did complain of some back achiness and he was moving more slowly today. Encouraged him to continue with daily exercises but to limit twisting if that provoked his back pain. Physical Therapy Plan Frequency and Duration Frequency of Treatment 4x/Week Duration of treatment (weeks) 5 Plan of Care Start Date 05/07/22 Plan of Care End Date 06/11/22 Therapeutic Interventions Therapeutic Interventions Balance Training,Gait Training ,Home Exercise Program,Manual Therapy,Neuromuscular Re- education,Self-Care/Home Management,Therapeutic Activities,Therapeutic Exercises Next Visit Focus/Plan Next Note Type Treatment Note Next Visit Plan Progress gait with cognitive load. functional activities including donning/doffing clothing, gait over uneven terrain.
--- NOTE | 2022-05-21 12:03 | PT.OTN ---
Current Diagnoses Parkinson's disease (05/21/22) Physical Therapy Treatment Note PT-OP-A Visit Information Start: 05/04/22 12:57 Freq: Status: Active Protocol: Document 05/21/22 11:07 AMB (Rec: 05/21/22 12:03 AMB [id number]) Out-Patient Physical Therapy Visit Information Visit Information Visit Type Progress Note Visit Start Time 11:00 Visit Stop Time 12:00 Total Visit Minutes 60 Visit Number 9 PT-OP-B Current Condition Start: 05/04/22 12:57 Freq: Status: Active Protocol: Document 05/07/22 11:00 AMB (Rec: 05/07/22 12:02 AMB [id number]) Current Condition History of Current Condition Onset Date 1 year Current Complaints slowed movement, balance, gait History of Current Condition Has been on carbidopa levodopa full dosage for about the last month, and states has noticed improvement in gait, balance, and upper body dressing. Notices socks and shoes don/doff are stiff and a little frustrating. Ambulates without AD. Does have stairs in his home (5 wiht railing) and to enter (4 with rail) lives alone. Is still driving. Does light housework, daughters check in on him frequently. Treatment Goals Patient/Caregiver Goals Improve gait speed, speed with dressing (shoes), improve balance Personal Factors Other Personal Factors That May Effect CAD, s/p CABG, hx vertigo Therapy/Recovery PT-OP-C Subjective Start: 05/04/22 12:57 Freq: Status: Active Protocol: Document 05/21/22 11:07 AMB (Rec: 05/21/22 12:03 AMB [id number]) OP-PT Subjective Patient Comments Patient Comments Has been wearing a back brace over the weekend, but feels like the back is improving. PT-OP-D Balance Start: 05/04/22 12:57 Freq: Status: Active Protocol: Document 05/07/22 11:00 AMB (Rec: 05/07/22 12:47 AMB [id number]) OP-PT Balance Assessment Standing Balance Standing Balance Comments CTSB 30 seconds all conditions , increased ankle sway with foam and EC. Teixeira Fall Scale Copyright Permission PT-OP-E Functional Tests Start: 05/04/22 12:57 Freq: Status: Active Protocol: Document 05/07/22 10:44 AMB (Rec: 05/07/22 12:02 AMB [id number]) Functional Tests 6 Minute Walk Test Distance 1387 Device Used none 10 Meter Walk Test Distance 6 Device Used none Five Times Sit to Stand Test Score 10 Comments standard chair, with UEs Other don shoes Name of Test slip on 2 shoes Score 14 seconds PT-OP-G Mobility & Gait Start: 05/04/22 12:57 Freq: Status: Active Protocol: Document 05/07/22 11:00 AMB (Rec: 05/07/22 12:56 AMB [id number]) OP Mobility Evaluation Transfers Sit to Stand uses UEs, but good forward lean and eccentric control OP Gait Assessment Comments Gait Comments Ambulates with good armswing, but does lack trunk rotation, no scuffing of feet noted PT-OP-Q Treatments Start: 05/04/22 12:57 Freq: Status: Active Protocol: Document 05/21/22 11:07 AMB (Rec: 05/21/22 12:03 AMB [id number]) Therapeutic Activity Therapeutic Activity buttoning Name shirt buttons Comments good speed can feel it in fingers donning shoes Name donning shoes Comments multiple reps - 6-8seconds Gait Training Gait Activity 6MWT Description 1,200 feet Device Used none Comments L armswing decreases as pt continues walking Neuro Re-Education Treatment Other Activities sit to stand Details sit to stand Reps/Duration 2x10 Comments mesh chair w/ blue foam under feet sideways rock and reach Details sideways rock and reach Reps/Duration x10 Comments pause in the middle, don't use momentum fwd rock and reach Details fwd rock and reach Reps/Duration x10 backward step Details backward step Reps/Duration x10 Comments alternating sideways step Details sideways step Reps/Duration x10 Comments alternating forward step Details forward step Reps/Duration x10 Comments alternating sides sitting side to side Details sitting side to side Reps/Duration x10 Comments cued back leg extension floor to ceiling Details floor to ceiling Reps/Duration x10 PT-OP-T Assessment and Plan Start: 05/04/22 12:57 Freq: Status: Active Protocol: Document 05/21/22 11:07 AMB (Rec: 05/21/22 12:03 AMB [id number]) Physical Therapy Assessment Goals Three Impairment ADLs Correction Goal (LTG) Hardeep will don slip on shoes without difficulty in less than 10 seconds. LTG Duration MET- 6 seconds on 05/12 Two Impairment Transfers Short Term Goal (STG) Hardeep will move from sit to stand 5x from a standard height chair without needing to use his UEs in 9 seconds or less. STG Duration 2 weeks--15 seconds on 05/21 Correction Goal (LTG) Hardeep will perform a floor transfer with enviromental support and SBA. LTG Duration 4 weeks One Impairment Gait Short Term Goal (STG) Hardeep will improve his 6MWT to at least 1,500' so that he is closer to age/gender norms. STG Duration 2 weeks---1,200' on 05/21 Assessment Summary Assessment Pt's 6MWT declined from eval but was wearing soft back brace today due to some back pain. Buttoning shirt, and donning socks and shoes is improving. Physical Therapy Plan Frequency and Duration Frequency of Treatment 4x/Week Duration of treatment (weeks) 5 Plan of Care Start Date 05/07/22 Plan of Care End Date 06/11/22 Therapeutic Interventions Therapeutic Interventions Balance Training,Gait Training ,Home Exercise Program,Manual Therapy,Neuromuscular Re- education,Self-Care/Home Management,Therapeutic Activities,Therapeutic Exercises Next Visit Focus/Plan Next Note Type Treatment Note Next Visit Plan Progress gait with cognitive load. functional activities including donning/doffing clothing, gait over uneven terrain.
--- NOTE | 2022-05-21 15:26 | PT.OPPN ---
Current Diagnoses Parkinson's disease (05/21/22) Physical Therapy Progress Note PT-OP-A Visit Information Start: 05/04/22 12:57 Freq: Status: Active Protocol: Document 05/21/22 11:07 AMB (Rec: 05/21/22 12:03 AMB [id number]) Out-Patient Physical Therapy Visit Information Visit Information Visit Type Progress Note Visit Start Time 11:00 Visit Stop Time 12:00 Total Visit Minutes 60 Visit Number 9 PT-OP-B Current Condition Start: 05/04/22 12:57 Freq: Status: Active Protocol: Document 05/07/22 11:00 AMB (Rec: 05/07/22 12:02 AMB [id number]) Current Condition History of Current Condition Onset Date 1 year Current Complaints slowed movement, balance, gait History of Current Condition Has been on carbidopa levodopa full dosage for about the last month, and states has noticed improvement in gait, balance, and upper body dressing. Notices socks and shoes don/doff are stiff and a little frustrating. Ambulates without AD. Does have stairs in his home (5 wiht railing) and to enter (4 with rail) lives alone. Is still driving. Does light housework, daughters check in on him frequently. Treatment Goals Patient/Caregiver Goals Improve gait speed, speed with dressing (shoes), improve balance Personal Factors Other Personal Factors That May Effect CAD, s/p CABG, hx vertigo Therapy/Recovery PT-OP-C Subjective Start: 05/04/22 12:57 Freq: Status: Active Protocol: Document 05/21/22 11:07 AMB (Rec: 05/21/22 12:03 AMB [id number]) OP-PT Subjective Patient Comments Patient Comments Has been wearing a back brace over the weekend, but feels like the back is improving. PT-OP-D Balance Start: 05/04/22 12:57 Freq: Status: Active Protocol: Document 05/07/22 11:00 AMB (Rec: 05/07/22 12:47 AMB [id number]) OP-PT Balance Assessment Standing Balance Standing Balance Comments CTSB 30 seconds all conditions , increased ankle sway with foam and EC. Teixeira Fall Scale Copyright Permission Puneet MICHAEL, Puneet RM, Jason SJ. Development of a scale to identify the fall- prone patient. Can J Aging 1989;8;366-7. Erica Teixeira (2009). Preventing patient falls. (2nd ed). [place]: [place]. PT-OP-E Functional Tests Start: 05/04/22 12:57 Freq: Status: Active Protocol: Document 05/07/22 10:44 AMB (Rec: 05/07/22 12:02 AMB [id number]) Functional Tests 6 Minute Walk Test Distance 1387 Device Used none 10 Meter Walk Test Distance 6 Device Used none Five Times Sit to Stand Test Score 10 Comments standard chair, with UEs Other don shoes Name of Test slip on 2 shoes Score 14 seconds PT-OP-G Mobility & Gait Start: 05/04/22 12:57 Freq: Status: Active Protocol: Document 05/07/22 11:00 AMB (Rec: 05/07/22 12:56 AMB [id number]) OP Mobility Evaluation Transfers Sit to Stand uses UEs, but good forward lean and eccentric control OP Gait Assessment Comments Gait Comments Ambulates with good armswing, but does lack trunk rotation, no scuffing of feet noted PT-OP-T Assessment and Plan Start: 05/04/22 12:57 Freq: Status: Active Protocol: Document 05/21/22 11:07 AMB (Rec: 05/21/22 12:03 AMB [id number]) Physical Therapy Assessment Goals Three Impairment ADLs Natural Resources Professor Goal (LTG) Hardeep will don slip on shoes without difficulty in less than 10 seconds. LTG Duration MET- 6 seconds on 05/12 Two Impairment Transfers Short Term Goal (STG) Hardeep will move from sit to stand 5x from a standard height chair without needing to use his UEs in 9 seconds or less. STG Duration 2 weeks--15 seconds on 05/21 Natural Resources Professor Goal (LTG) Hardeep will perform a floor transfer with enviromental support and SBA. LTG Duration 4 weeks One Impairment Gait Short Term Goal (STG) Hardeep will improve his 6MWT to at least 1,500' so that he is closer to age/gender norms. STG Duration 2 weeks---1,200' on 05/21 Assessment Summary Assessment Pt's 6MWT declined from eval but was wearing soft back brace today due to some back pain. Buttoning shirt, and donning socks and shoes is improving. Physical Therapy Plan Frequency and Duration Frequency of Treatment 4x/Week Duration of treatment (weeks) 5 Plan of Care Start Date 05/07/22 Plan of Care End Date 06/11/22 Therapeutic Interventions Therapeutic Interventions Balance Training,Gait Training ,Home Exercise Program,Manual Therapy,Neuromuscular Re- education,Self-Care/Home Management,Therapeutic Activities,Therapeutic Exercises Next Visit Focus/Plan Next Note Type Treatment Note Next Visit Plan Progress gait with cognitive load. functional activities including donning/doffing clothing, gait over uneven terrain.
--- NOTE | 2022-05-22 15:15 | PT.OTN ---
Current Diagnoses Parkinson's disease (05/22/22) Physical Therapy Treatment Note PT-OP-A Visit Information Start: 05/04/22 12:57 Freq: Status: Active Protocol: Document 05/22/22 13:18 AW (Rec: 05/22/22 15:15 AW [id number]) Out-Patient Physical Therapy Visit Information Visit Information Visit Type Treatment Note Visit Start Time 14:15 Visit Stop Time 15:15 Total Visit Minutes 60 Visit Number 10 PT-OP-B Current Condition Start: 05/04/22 12:57 Freq: Status: Active Protocol: Document 05/07/22 11:00 AMB (Rec: 05/07/22 12:02 AMB [id number]) Current Condition History of Current Condition Onset Date 1 year Current Complaints slowed movement, balance, gait History of Current Condition Has been on carbidopa levodopa full dosage for about the last month, and states has noticed improvement in gait, balance, and upper body dressing. Notices socks and shoes don/doff are stiff and a little frustrating. Ambulates without AD. Does have stairs in his home (5 wiht railing) and to enter (4 with rail) lives alone. Is still driving. Does light housework, daughters check in on him frequently. Treatment Goals Patient/Caregiver Goals Improve gait speed, speed with dressing (shoes), improve balance Personal Factors Other Personal Factors That May Effect CAD, s/p CABG, hx vertigo Therapy/Recovery PT-OP-C Subjective Start: 05/04/22 12:57 Freq: Status: Active Protocol: Document 05/22/22 13:18 AW (Rec: 05/22/22 15:15 AW [id number]) OP-PT Subjective Patient Comments Patient Comments Hardeep is enjoying therapy but notes his endurance is lacking . Is wearing his back brace today and feels good twisting as long as he moves slowly. PT-OP-D Balance Start: 05/04/22 12:57 Freq: Status: Active Protocol: Document 05/07/22 11:00 AMB (Rec: 05/07/22 12:47 AMB [id number]) OP-PT Balance Assessment Standing Balance Standing Balance Comments CTSB 30 seconds all conditions , increased ankle sway with foam and EC. Teixeira Fall Scale Copyright Permission PT-OP-E Functional Tests Start: 05/04/22 12:57 Freq: Status: Active Protocol: Document 05/07/22 10:44 AMB (Rec: 05/07/22 12:02 AMB [id number]) Functional Tests 6 Minute Walk Test Distance 1387 Device Used none 10 Meter Walk Test Distance 6 Device Used none Five Times Sit to Stand Test Score 10 Comments standard chair, with UEs Other don shoes Name of Test slip on 2 shoes Score 14 seconds PT-OP-G Mobility & Gait Start: 05/04/22 12:57 Freq: Status: Active Protocol: Document 05/07/22 11:00 AMB (Rec: 05/07/22 12:56 AMB [id number]) OP Mobility Evaluation Transfers Sit to Stand uses UEs, but good forward lean and eccentric control OP Gait Assessment Comments Gait Comments Ambulates with good armswing, but does lack trunk rotation, no scuffing of feet noted PT-OP-Q Treatments Start: 05/04/22 12:57 Freq: Status: Active Protocol: Document 05/22/22 13:18 AW (Rec: 05/22/22 15:15 AW [id number]) Therapeutic Activity Therapeutic Activity buttoning Name shirt buttons Comments 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 Pt used flicks uncued handwriting Name handwriting Comments Writing Happy Thanksgiving on wide ruled paper all the way to the edge. donning shoes Name donning shoes Comments multiple reps - 6-8seconds Gait Training Gait Activity hurdles Level of Assistance SBA Distance/Duration 4 hurdles x 10 Treatment Focus amplitude Comments integrated into laps around the gym indoor, level Description indoor, level Device Used none Level of Assistance I Surface carpet, tile, hospital hallways, Distance/Duration 800' Treatment Focus amplitude, speed with dual task Comments Cued Think BIG Added head turns (horizontal and vertical) Neuro Re-Education Treatment Other Activities sit to stand Details sit to stand Reps/Duration 5; 5; 10 Comments mesh chair w/ rocker board under feet - 5 A/P, 5 M/L, 10 firm sideways rock and reach Details sideways rock and reach Reps/Duration x10 Comments pause in the middle, don't use momentum fwd rock and reach Details fwd rock and reach Reps/Duration x10 backward step Details backward step Reps/Duration x10 Comments alternating - one lateral LOB but recovered without assist. sideways step Details sideways step Reps/Duration x10 Comments alternating; on yoga mat forward step Details forward step Reps/Duration x10 Comments alternating sides; on yoga mat sitting side to side Details sitting side to side Reps/Duration x10 Comments cued back leg extension floor to ceiling Details floor to ceiling Reps/Duration x10 PT-OP-T Assessment and Plan Start: 05/04/22 12:57 Freq: Status: Active Protocol: Document 05/22/22 13:18 AW (Rec: 05/22/22 15:15 AW [id number]) Physical Therapy Assessment Goals Three Impairment ADLs Clinical Science Liaison Goal (LTG) Hardeep will don slip on shoes without difficulty in less than 10 seconds. LTG Duration MET- 6 seconds on 05/12 Two Impairment Transfers Short Term Goal (STG) Hardeep will move from sit to stand 5x from a standard height chair without needing to use his UEs in 9 seconds or less. STG Duration 2 weeks--15 seconds on 05/21 [facility] Goal (LTG) Hardeep will perform a floor transfer with enviromental support and SBA. LTG Duration 4 weeks One Impairment Gait Short Term Goal (STG) Hardeep will improve his 6MWT to at least 1,500' so that he is closer to age/gender norms. STG Duration 2 weeks---1,200' on 05/21 Assessment Summary Assessment Hardeep received his homework helper DVD but has not used it yet. He had one lateral LOB during backward step exercise today but recovered with a single step. Practiced gait with head turns and nods today which resulted in loss of amplitude. Physical Therapy Plan Frequency and Duration Frequency of Treatment 4x/Week Duration of treatment (weeks) 5 Plan of Care Start Date 05/07/22 Plan of Care End Date 06/11/22 Therapeutic Interventions Therapeutic Interventions Balance Training,Gait Training ,Home Exercise Program,Manual Therapy,Neuromuscular Re- education,Self-Care/Home Management,Therapeutic Activities,Therapeutic Exercises Next Visit Focus/Plan Next Note Type Treatment Note Next Visit Plan Progress gait with cognitive load. functional activities including donning/doffing clothing, gait over uneven terrain.
--- NOTE | 2022-05-23 12:28 | PT.OTN ---
Current Diagnoses Parkinson's disease (05/23/22) Physical Therapy Treatment Note PT-OP-A Visit Information Start: 05/04/22 12:57 Freq: Status: Active Protocol: Document 05/23/22 11:01 AMB (Rec: 05/23/22 11:53 AMB [id number]) Out-Patient Physical Therapy Visit Information Visit Information Visit Type Treatment Note Visit Start Time 11:00 Visit Stop Time 11:55 Total Visit Minutes 55 Visit Number 11 PT-OP-B Current Condition Start: 05/04/22 12:57 Freq: Status: Active Protocol: Document 05/07/22 11:00 AMB (Rec: 05/07/22 12:02 AMB [id number]) Current Condition History of Current Condition Onset Date 1 year Current Complaints slowed movement, balance, gait History of Current Condition Has been on carbidopa levodopa full dosage for about the last month, and states has noticed improvement in gait, balance, and upper body dressing. Notices socks and shoes don/doff are stiff and a little frustrating. Ambulates without AD. Does have stairs in his home (5 wiht railing) and to enter (4 with rail) lives alone. Is still driving. Does light housework, daughters check in on him frequently. Treatment Goals Patient/Caregiver Goals Improve gait speed, speed with dressing (shoes), improve balance Personal Factors Other Personal Factors That May Effect CAD, s/p CABG, hx vertigo Therapy/Recovery PT-OP-C Subjective Start: 05/04/22 12:57 Freq: Status: Active Protocol: Document 05/23/22 11:01 AMB (Rec: 05/23/22 11:53 AMB [id number]) OP-PT Subjective Patient Comments Patient Comments Back continuing to feel better . But is wearing back brace when doing something Did do have the [employer] BIG DVD today. PT-OP-D Balance Start: 05/04/22 12:57 Freq: Status: Active Protocol: Document 05/07/22 11:00 AMB (Rec: 05/07/22 12:47 AMB [id number]) OP-PT Balance Assessment Standing Balance Standing Balance Comments CTSB 30 seconds all conditions , increased ankle sway with foam and EC. Teixeira Fall Scale Copyright Permission PT-OP-E Functional Tests Start: 05/04/22 12:57 Freq: Status: Active Protocol: Document 05/07/22 10:44 AMB (Rec: 05/07/22 12:02 AMB [id number]) Functional Tests 6 Minute Walk Test Distance 1387 Device Used none 10 Meter Walk Test Distance 6 Device Used none Five Times Sit to Stand Test Score 10 Comments standard chair, with UEs Other don shoes Name of Test slip on 2 shoes Score 14 seconds PT-OP-G Mobility & Gait Start: 05/04/22 12:57 Freq: Status: Active Protocol: Document 05/07/22 11:00 AMB (Rec: 05/07/22 12:56 AMB [id number]) OP Mobility Evaluation Transfers Sit to Stand uses UEs, but good forward lean and eccentric control OP Gait Assessment Comments Gait Comments Ambulates with good armswing, but does lack trunk rotation, no scuffing of feet noted PT-OP-Q Treatments Start: 05/04/22 12:57 Freq: Status: Active Protocol: Document 05/23/22 11:01 AMB (Rec: 05/23/22 11:53 AMB [id number]) Therapeutic Activity Therapeutic Activity handwriting Name handwriting Comments Writing Elizabeth Delvalle on wide ruled paper all the way to the edge. Gait Training Gait Activity indoor, level Description indoor, level Device Used none Level of Assistance I Surface carpet, tile, hospital hallways, Distance/Duration 800' Treatment Focus amplitude, speed with dual task Comments Cued Think BIG Neuro Re-Education Treatment Other Activities sit to stand Details sit to stand Reps/Duration 5; 5; 10 Comments green chair w/ rocker board under feet - 5 A/P, 5 M/L, 10 firm sideways rock and reach Details sideways rock and reach Reps/Duration x10 Comments pause in the middle, don't use momentum fwd rock and reach Details fwd rock and reach Reps/Duration x10 backward step Details backward step Reps/Duration x10 Comments alternating - on blue mat sideways step Details sideways step Reps/Duration x10 Comments alternating; on blue mat forward step Details forward step Reps/Duration x10 Comments alternating sides; on blue mat sitting side to side Details sitting side to side Reps/Duration x10 Comments cued back leg extension floor to ceiling Details floor to ceiling Reps/Duration x10 PT-OP-T Assessment and Plan Start: 05/04/22 12:57 Freq: Status: Active Protocol: Document 05/23/22 11:01 DANTE (Rec: 05/23/22 11:53 AMB [id number]) Physical Therapy Assessment Goals Three Impairment ADLs [place] Driver Goal (LTG) Hardeep will don slip on shoes without difficulty in less than 10 seconds. LTG Duration MET- 6 seconds on 05/12 Two Impairment Transfers Short Term Goal (STG) Hardeep will move from sit to stand 5x from a standard height chair without needing to use his UEs in 9 seconds or less. STG Duration 2 weeks--15 seconds on 05/21 [facility] Goal (LTG) Hardeep will perform a floor transfer with enviromental support and SBA. LTG Duration 4 weeks One Impairment Gait Short Term Goal (STG) Hardeep will improve his 6MWT to at least 1,500' so that he is closer to age/gender norms. STG Duration 2 weeks---1,200' on 05/21 Assessment Summary Assessment Hardeep was challenged by writing Merry Whitehouse with good amplituded on the large lined paper, but with repetition was able to improved. Did well with daily exercises on blue mat, no LOB noted. Physical Therapy Plan Frequency and Duration Frequency of Treatment 4x/Week Duration of treatment (weeks) 5 Plan of Care Start Date 05/07/22 Plan of Care End Date 06/11/22 Therapeutic Interventions Therapeutic Interventions Balance Training,Gait Training ,Home Exercise Program,Manual Therapy,Neuromuscular Re- education,Self-Care/Home Management,Therapeutic Activities,Therapeutic Exercises Next Visit Focus/Plan Next Note Type Treatment Note Next Visit Plan Progress gait with cognitive load. functional activities including donning/doffing clothing, gait over uneven terrain.
--- NOTE | 2022-05-28 11:53 | PT.OTN ---
Current Diagnoses Parkinson's disease (05/28/22) Physical Therapy Treatment Note PT-OP-A Visit Information Start: 05/04/22 12:57 Freq: Status: Active Protocol: Document 05/28/22 11:01 AMB (Rec: 05/28/22 11:52 AMB [id number]) Out-Patient Physical Therapy Visit Information Visit Information Visit Type Treatment Note Visit Start Time 11:00 Visit Stop Time 11:55 Total Visit Minutes 55 Visit Number 12 PT-OP-B Current Condition Start: 05/04/22 12:57 Freq: Status: Active Protocol: Document 05/07/22 11:00 AMB (Rec: 05/07/22 12:02 AMB [id number]) Current Condition History of Current Condition Onset Date 1 year Current Complaints slowed movement, balance, gait History of Current Condition Has been on carbidopa levodopa full dosage for about the last month, and states has noticed improvement in gait, balance, and upper body dressing. Notices socks and shoes don/doff are stiff and a little frustrating. Ambulates without AD. Does have stairs in his home (5 wiht railing) and to enter (4 with rail) lives alone. Is still driving. Does light housework, daughters check in on him frequently. Treatment Goals Patient/Caregiver Goals Improve gait speed, speed with dressing (shoes), improve balance Personal Factors Other Personal Factors That May Effect CAD, s/p CABG, hx vertigo Therapy/Recovery PT-OP-C Subjective Start: 05/04/22 12:57 Freq: Status: Active Protocol: Document 05/28/22 11:01 AMB (Rec: 05/28/22 11:52 AMB [id number]) OP-PT Subjective Patient Comments Patient Comments Not wearing back brace. States he was able to do exercises a couple of times over the long holiday weekend . PT-OP-D Balance Start: 05/04/22 12:57 Freq: Status: Active Protocol: Document 05/07/22 11:00 AMB (Rec: 05/07/22 12:47 AMB [id number]) OP-PT Balance Assessment Standing Balance Standing Balance Comments CTSB 30 seconds all conditions , increased ankle sway with foam and EC. Teixeira Fall Scale Copyright Permission PT-OP-E Functional Tests Start: 05/04/22 12:57 Freq: Status: Active Protocol: Document 05/07/22 10:44 AMB (Rec: 05/07/22 12:02 AMB [id number]) Functional Tests 6 Minute Walk Test Distance 1387 Device Used none 10 Meter Walk Test Distance 6 Device Used none Five Times Sit to Stand Test Score 10 Comments standard chair, with UEs Other don shoes Name of Test slip on 2 shoes Score 14 seconds PT-OP-G Mobility & Gait Start: 05/04/22 12:57 Freq: Status: Active Protocol: Document 05/07/22 11:00 AMB (Rec: 05/07/22 12:56 AMB [id number]) OP Mobility Evaluation Transfers Sit to Stand uses UEs, but good forward lean and eccentric control OP Gait Assessment Comments Gait Comments Ambulates with good armswing, but does lack trunk rotation, no scuffing of feet noted PT-OP-Q Treatments Start: 05/04/22 12:57 Freq: Status: Active Protocol: Document 05/28/22 11:01 AMB (Rec: 05/28/22 11:52 AMB [id number]) Therapeutic Activity Therapeutic Activity handwriting Name handwriting Comments Addressing envelopes Gait Training Gait Activity hurdles Level of Assistance SBA Distance/Duration 4 hurdles x 10 Treatment Focus amplitude Comments integrated into laps around the gym indoor, level Description indoor, level Device Used none Level of Assistance I Surface carpet, tile, hospital hallways, Distance/Duration 800' Treatment Focus amplitude, speed with dual task Comments Cued Think BIG Neuro Re-Education Treatment Other Activities sit to stand Details sit to stand Reps/Duration 5; 5; 10 Comments 16 block sideways rock and reach Details sideways rock and reach Reps/Duration x10 Comments pause in the middle, don't use momentum fwd rock and reach Details fwd rock and reach Reps/Duration x10 backward step Details backward step Reps/Duration x10 Comments alternating - on blue mat sideways step Details sideways step Reps/Duration x10 Comments alternating; on blue mat forward step Details forward step Reps/Duration x10 Comments alternating sides; on blue mat sitting side to side Details sitting side to side Reps/Duration x10 Comments cued back leg extension floor to ceiling Details floor to ceiling Reps/Duration x10 PT-OP-T Assessment and Plan Start: 05/04/22 12:57 Freq: Status: Active Protocol: Document 05/28/22 11:01 AMB (Rec: 05/28/22 11:52 AMB [id number]) Physical Therapy Assessment Goals Three Impairment ADLs Longterm Goal (LTG) Hardeep will don slip on shoes without difficulty in less than 10 seconds. LTG Duration MET- 6 seconds on 05/12 Two Impairment Transfers Short Term Goal (STG) Hardeep will move from sit to stand 5x from a standard height chair without needing to use his UEs in 9 seconds or less. STG Duration 2 weeks--15 seconds on 05/21 Longterm Goal (LTG) Hardeep will perform a floor transfer with enviromental support and SBA. LTG Duration 4 weeks One Impairment Gait Short Term Goal (STG) Hardeep will improve his 6MWT to at least 1,500' so that he is closer to age/gender norms. STG Duration 2 weeks---1,200' on 05/21 Assessment Summary Assessment Hardeep did well with ambulation over blue mat and green hurdles. Addressing envelope went well, legible throughout. Physical Therapy Plan Frequency and Duration Frequency of Treatment 4x/Week Duration of treatment (weeks) 5 Plan of Care Start Date 05/07/22 Plan of Care End Date 06/11/22 Therapeutic Interventions Therapeutic Interventions Balance Training,Gait Training ,Home Exercise Program,Manual Therapy,Neuromuscular Re- education,Self-Care/Home Management,Therapeutic Activities,Therapeutic Exercises Next Visit Focus/Plan Next Note Type Treatment Note Next Visit Plan Progress gait with cognitive load. functional activities including donning/doffing clothing, gait over uneven terrain.
--- NOTE | 2022-05-29 15:17 | PT.OTN ---
Current Diagnoses Parkinson's disease (05/29/22) Physical Therapy Treatment Note PT-OP-A Visit Information Start: 05/04/22 12:57 Freq: Status: Active Protocol: Document 05/29/22 14:14 AW (Rec: 05/29/22 15:16 AW [id number]) Out-Patient Physical Therapy Visit Information Visit Information Visit Type Treatment Note Visit Start Time 14:15 Visit Stop Time 15:10 Total Visit Minutes 55 Visit Number 13 PT-OP-B Current Condition Start: 05/04/22 12:57 Freq: Status: Active Protocol: Document 05/07/22 11:00 AMB (Rec: 05/07/22 12:02 AMB [id number]) Current Condition History of Current Condition Onset Date 1 year Current Complaints slowed movement, balance, gait History of Current Condition Has been on carbidopa levodopa full dosage for about the last month, and states has noticed improvement in gait, balance, and upper body dressing. Notices socks and shoes don/doff are stiff and a little frustrating. Ambulates without AD. Does have stairs in his home (5 wiht railing) and to enter (4 with rail) lives alone. Is still driving. Does light housework, daughters check in on him frequently. Treatment Goals Patient/Caregiver Goals Improve gait speed, speed with dressing (shoes), improve balance Personal Factors Other Personal Factors That May Effect CAD, s/p CABG, hx vertigo Therapy/Recovery PT-OP-C Subjective Start: 05/04/22 12:57 Freq: Status: Active Protocol: Document 05/29/22 14:14 AW (Rec: 05/29/22 15:16 AW [id number]) OP-PT Subjective Patient Comments Patient Comments Feeling ok today. Able to do the exercises at home with the homework helper DVD. PT-OP-D Balance Start: 05/04/22 12:57 Freq: Status: Active Protocol: Document 05/07/22 11:00 AMB (Rec: 05/07/22 12:47 AMB [id number]) OP-PT Balance Assessment Standing Balance Standing Balance Comments CTSB 30 seconds all conditions , increased ankle sway with foam and EC. Teixeira Fall Scale Copyright Permission PT-OP-E Functional Tests Start: 05/04/22 12:57 Freq: Status: Active Protocol: Document 05/07/22 10:44 AMB (Rec: 05/07/22 12:02 AMB [id number]) Functional Tests 6 Minute Walk Test Distance 1387 Device Used none 10 Meter Walk Test Distance 6 Device Used none Five Times Sit to Stand Test Score 10 Comments standard chair, with UEs Other don shoes Name of Test slip on 2 shoes Score 14 seconds PT-OP-G Mobility & Gait Start: 05/04/22 12:57 Freq: Status: Active Protocol: Document 05/07/22 11:00 AMB (Rec: 05/07/22 12:56 AMB [id number]) OP Mobility Evaluation Transfers Sit to Stand uses UEs, but good forward lean and eccentric control OP Gait Assessment Comments Gait Comments Ambulates with good armswing, but does lack trunk rotation, no scuffing of feet noted PT-OP-Q Treatments Start: 05/04/22 12:57 Freq: Status: Active Protocol: Document 05/29/22 14:14 AW (Rec: 05/29/22 15:16 AW [id number]) Therapeutic Activity Therapeutic Activity buttoning Name shirt buttons Comments 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 Pt used flicks uncued . handwriting Name handwriting Comments Addressing envelopes, writing address on wide ruled paper all the way to the edge Gait Training Gait Activity hurdles Level of Assistance SBA Distance/Duration 6 hurdles on yoga mat Treatment Focus amplitude Comments integrated into laps around the gym indoor, level Description indoor, level, stairs Device Used none Level of Assistance I Surface carpet, tile, hospital hallways, Distance/Duration 15 min Treatment Focus amplitude, speed with dual task Comments Cued Think BIG as pt listed types of naval aircraft. Neuro Re-Education Treatment Other Activities sit to stand Details sit to stand Reps/Duration 5; 5; 10 Comments 16 block sideways rock and reach Details sideways rock and reach Reps/Duration x10 Comments cues for back foot pivot. on blue mat. fwd rock and reach Details fwd rock and reach Reps/Duration x10 Comments on blue mat backward step Details backward step Reps/Duration x10 Comments alternating - on blue mat sideways step Details sideways step Reps/Duration x10 Comments alternating; on blue mat forward step Details forward step Reps/Duration x10 Comments alternating sides; on blue mat sitting side to side Details sitting side to side Reps/Duration x10 Comments cued back leg extension floor to ceiling Details floor to ceiling Reps/Duration x10 PT-OP-T Assessment and Plan Start: 05/04/22 12:57 Freq: Status: Active Protocol: Document 05/29/22 14:14 AW (Rec: 05/29/22 15:16 AW [id number]) Physical Therapy Assessment Goals Three Impairment ADLs Stave Grader Goal (LTG) Hardeep will don slip on shoes without difficulty in less than 10 seconds. LTG Duration MET- 6 seconds on 05/12 Two Impairment Transfers Short Term Goal (STG) Hardeep will move from sit to stand 5x from a standard height chair without needing to use his UEs in 9 seconds or less. STG Duration 2 weeks--15 seconds on 05/21 Stave Grader Goal (LTG) Hardeep will perform a floor transfer with enviromental support and SBA. LTG Duration 4 weeks One Impairment Gait Short Term Goal (STG) Hardeep will improve his 6MWT to at least 1,500' so that he is closer to age/gender norms. STG Duration 2 weeks---1,200' on 05/21 Assessment Summary Assessment Handwriting was legible and with good amplitude today. No loss of balance during exercise on blue tumbling mat including rock and reach exercises. Hardeep is feeling less limited with back pain. Amplitude continues to diminish with cognitive load even when the task was very familiar to Hardeep. Physical Therapy Plan Frequency and Duration Frequency of Treatment 4x/Week Duration of treatment (weeks) 5 Plan of Care Start Date 05/07/22 Plan of Care End Date 06/11/22 Therapeutic Interventions Therapeutic Interventions Balance Training,Gait Training ,Home Exercise Program,Manual Therapy,Neuromuscular Re- education,Self-Care/Home Management,Therapeutic Activities,Therapeutic Exercises Next Visit Focus/Plan Next Note Type Treatment Note Next Visit Plan Progress gait with cognitive load. functional activities including donning/doffing clothing, gait over uneven terrain.
--- NOTE | 2022-05-30 11:53 | PT.OTN ---
Current Diagnoses Parkinson's disease (05/30/22) Physical Therapy Treatment Note PT-OP-A Visit Information Start: 05/04/22 12:57 Freq: Status: Active Protocol: Document 05/30/22 11:03 AMB (Rec: 05/30/22 11:51 AMB [id number]) Out-Patient Physical Therapy Visit Information Visit Information Visit Type Treatment Note Visit Start Time 11:00 Visit Stop Time 12:00 Total Visit Minutes 55 Visit Number 14 PT-OP-B Current Condition Start: 05/04/22 12:57 Freq: Status: Active Protocol: Document 05/07/22 11:00 AMB (Rec: 05/07/22 12:02 AMB [id number]) Current Condition History of Current Condition Onset Date 1 year Current Complaints slowed movement, balance, gait History of Current Condition Has been on carbidopa levodopa full dosage for about the last month, and states has noticed improvement in gait, balance, and upper body dressing. Notices socks and shoes don/doff are stiff and a little frustrating. Ambulates without AD. Does have stairs in his home (5 wiht railing) and to enter (4 with rail) lives alone. Is still driving. Does light housework, daughters check in on him frequently. Treatment Goals Patient/Caregiver Goals Improve gait speed, speed with dressing (shoes), improve balance Personal Factors Other Personal Factors That May Effect CAD, s/p CABG, hx vertigo Therapy/Recovery PT-OP-C Subjective Start: 05/04/22 12:57 Freq: Status: Active Protocol: Document 05/30/22 11:03 AMB (Rec: 05/30/22 11:51 AMB [id number]) OP-PT Subjective Patient Comments Patient Comments Hardeep thinks he is doing well with his exercises. PT-OP-D Balance Start: 05/04/22 12:57 Freq: Status: Active Protocol: Document 05/07/22 11:00 AMB (Rec: 05/07/22 12:47 AMB [id number]) OP-PT Balance Assessment Standing Balance Standing Balance Comments CTSB 30 seconds all conditions , increased ankle sway with foam and EC. Teixeira Fall Scale Copyright Permission PT-OP-E Functional Tests Start: 05/04/22 12:57 Freq: Status: Active Protocol: Document 05/07/22 10:44 AMB (Rec: 05/07/22 12:02 AMB [id number]) Functional Tests 6 Minute Walk Test Distance 1387 Device Used none 10 Meter Walk Test Distance 6 Device Used none Five Times Sit to Stand Test Score 10 Comments standard chair, with UEs Other don shoes Name of Test slip on 2 shoes Score 14 seconds PT-OP-G Mobility & Gait Start: 05/04/22 12:57 Freq: Status: Active Protocol: Document 05/07/22 11:00 AMB (Rec: 05/07/22 12:56 AMB [id number]) OP Mobility Evaluation Transfers Sit to Stand uses UEs, but good forward lean and eccentric control OP Gait Assessment Comments Gait Comments Ambulates with good armswing, but does lack trunk rotation, no scuffing of feet noted PT-OP-Q Treatments Start: 05/04/22 12:57 Freq: Status: Active Protocol: Document 05/30/22 11:03 AMB (Rec: 05/30/22 11:51 AMB [id number]) Therapeutic Activity Therapeutic Activity handwriting Name handwriting Comments Addressing envelopes, writing address on wide ruled paper all the way to the edge Gait Training Gait Activity hurdles Level of Assistance SBA Distance/Duration 6 hurdles on yoga mat Treatment Focus amplitude Comments integrated into laps around the gym indoor, level Description indoor, level, stairs Device Used none Level of Assistance I Surface carpet, tile, hospital hallways, stairs Distance/Duration 10 min Treatment Focus amplitude, speed with dual task Comments Cued Think BIG as pt listed types of naval aircraft. Neuro Re-Education Treatment Other Activities sit to stand Details sit to stand Reps/Duration 5; 5; 10 Comments chair with rocker board sideways rock and reach Details sideways rock and reach Reps/Duration x10 Comments cues for back foot pivot. on blue mat. fwd rock and reach Details fwd rock and reach Reps/Duration x10 Comments on blue mat backward step Details backward step Reps/Duration x10 Comments alternating - on blue mat sideways step Details sideways step Reps/Duration x10 Comments alternating; on blue mat forward step Details forward step Reps/Duration x10 Comments alternating sides; on blue mat sitting side to side Details sitting side to side Reps/Duration x10 Comments cued back leg extension floor to ceiling Details floor to ceiling Reps/Duration x10 PT-OP-T Assessment and Plan Start: 05/04/22 12:57 Freq: Status: Active Protocol: Document 05/30/22 11:03 AMB (Rec: 05/30/22 11:51 AMB [id number]) Physical Therapy Assessment Goals Three Impairment ADLs Computer Applications Developer Goal (LTG) Hardeep will don slip on shoes without difficulty in less than 10 seconds. LTG Duration MET- 6 seconds on 05/12 Two Impairment Transfers Short Term Goal (STG) Hardeep will move from sit to stand 5x from a standard height chair without needing to use his UEs in 9 seconds or less. STG Duration 2 weeks--15 seconds on 05/21 Halfway Goal (LTG) Hardeep will perform a floor transfer with enviromental support and SBA. LTG Duration 4 weeks One Impairment Gait Short Term Goal (STG) Hardeep will improve his 6MWT to at least 1,500' so that he is closer to age/gender norms. STG Duration 2 weeks---1,200' on 05/21 Assessment Summary Assessment Hardeep requires handrail with stairs, but was able to maintain good speed and amplitude. Handwriting with cognitive load does get smaller. Physical Therapy Plan Frequency and Duration Frequency of Treatment 4x/Week Duration of treatment (weeks) 5 Plan of Care Start Date 05/07/22 Plan of Care End Date 06/11/22 Therapeutic Interventions Therapeutic Interventions Balance Training,Gait Training ,Home Exercise Program,Manual Therapy,Neuromuscular Re- education,Self-Care/Home Management,Therapeutic Activities,Therapeutic Exercises Next Visit Focus/Plan Next Note Type Treatment Note Next Visit Plan Progress gait with cognitive load. functional activities including donning/doffing clothing, gait over uneven terrain.
--- NOTE | 2022-05-31 14:00 | PT.OTN ---
Current Diagnoses Parkinson's disease (05/30/22) Physical Therapy Treatment Note PT-OP-A Visit Information Start: 05/04/22 12:57 Freq: Status: Active Protocol: Document 05/30/22 11:03 AMB (Rec: 05/30/22 11:51 AMB [id number]) Out-Patient Physical Therapy Visit Information Visit Information Visit Type Treatment Note Visit Start Time 11:00 Visit Stop Time 12:00 Total Visit Minutes 55 Visit Number 14 PT-OP-B Current Condition Start: 05/04/22 12:57 Freq: Status: Active Protocol: Document 05/07/22 11:00 AMB (Rec: 05/07/22 12:02 AMB [id number]) Current Condition History of Current Condition Onset Date 1 year Current Complaints slowed movement, balance, gait History of Current Condition Has been on carbidopa levodopa full dosage for about the last month, and states has noticed improvement in gait, balance, and upper body dressing. Notices socks and shoes don/doff are stiff and a little frustrating. Ambulates without AD. Does have stairs in his home (5 wiht railing) and to enter (4 with rail) lives alone. Is still driving. Does light housework, daughters check in on him frequently. Treatment Goals Patient/Caregiver Goals Improve gait speed, speed with dressing (shoes), improve balance Personal Factors Other Personal Factors That May Effect CAD, s/p CABG, hx vertigo Therapy/Recovery PT-OP-C Subjective Start: 05/04/22 12:57 Freq: Status: Active Protocol: Document 05/30/22 11:03 AMB (Rec: 05/30/22 11:51 AMB [id number]) OP-PT Subjective Patient Comments Patient Comments Hardeep thinks he is doing well with his exercises. PT-OP-D Balance Start: 05/04/22 12:57 Freq: Status: Active Protocol: Document 05/07/22 11:00 AMB (Rec: 05/07/22 12:47 AMB [id number]) OP-PT Balance Assessment Standing Balance Standing Balance Comments CTSB 30 seconds all conditions , increased ankle sway with foam and EC. Teixeira Fall Scale Copyright Permission PT-OP-E Functional Tests Start: 05/04/22 12:57 Freq: Status: Active Protocol: Document 05/07/22 10:44 AMB (Rec: 05/07/22 12:02 AMB [id number]) Functional Tests 6 Minute Walk Test Distance 1387 Device Used none 10 Meter Walk Test Distance 6 Device Used none Five Times Sit to Stand Test Score 10 Comments standard chair, with UEs Other don shoes Name of Test slip on 2 shoes Score 14 seconds PT-OP-G Mobility & Gait Start: 05/04/22 12:57 Freq: Status: Active Protocol: Document 05/07/22 11:00 AMB (Rec: 05/07/22 12:56 AMB [id number]) OP Mobility Evaluation Transfers Sit to Stand uses UEs, but good forward lean and eccentric control OP Gait Assessment Comments Gait Comments Ambulates with good armswing, but does lack trunk rotation, no scuffing of feet noted PT-OP-Q Treatments Start: 05/04/22 12:57 Freq: Status: Active Protocol: Document 05/30/22 11:03 AMB (Rec: 05/30/22 11:51 AMB [id number]) Therapeutic Activity Therapeutic Activity handwriting Name handwriting Comments Addressing envelopes, writing address on wide ruled paper all the way to the edge Gait Training Gait Activity hurdles Level of Assistance SBA Distance/Duration 6 hurdles on yoga mat Treatment Focus amplitude Comments integrated into laps around the gym indoor, level Description indoor, level, stairs Device Used none Level of Assistance I Surface carpet, tile, hospital hallways, stairs Distance/Duration 10 min Treatment Focus amplitude, speed with dual task Comments Cued Think BIG as pt listed types of naval aircraft. Neuro Re-Education Treatment Other Activities sit to stand Details sit to stand Reps/Duration 5; 5; 10 Comments chair with rocker board sideways rock and reach Details sideways rock and reach Reps/Duration x10 Comments cues for back foot pivot. on blue mat. fwd rock and reach Details fwd rock and reach Reps/Duration x10 Comments on blue mat backward step Details backward step Reps/Duration x10 Comments alternating - on blue mat sideways step Details sideways step Reps/Duration x10 Comments alternating; on blue mat forward step Details forward step Reps/Duration x10 Comments alternating sides; on blue mat sitting side to side Details sitting side to side Reps/Duration x10 Comments cued back leg extension floor to ceiling Details floor to ceiling Reps/Duration x10 PT-OP-T Assessment and Plan Start: 05/04/22 12:57 Freq: Status: Active Protocol: Document 05/30/22 11:03 AMB (Rec: 05/30/22 11:51 AMB [id number]) Physical Therapy Assessment Goals Three Impairment ADLs Full Decator Operator Goal (LTG) Hardeep will don slip on shoes without difficulty in less than 10 seconds. LTG Duration MET- 6 seconds on 05/12 Two Impairment Transfers Short Term Goal (STG) Hardeep will move from sit to stand 5x from a standard height chair without needing to use his UEs in 9 seconds or less. STG Duration 2 weeks--15 seconds on 05/21 Detention Goal (LTG) Hardeep will perform a floor transfer with enviromental support and SBA. LTG Duration 4 weeks One Impairment Gait Short Term Goal (STG) Hardeep will improve his 6MWT to at least 1,500' so that he is closer to age/gender norms. STG Duration 2 weeks---1,200' on 05/21 Assessment Summary Assessment Hardeep requires handrail with stairs, but was able to maintain good speed and amplitude. Handwriting with cognitive load does get smaller. Physical Therapy Plan Frequency and Duration Frequency of Treatment 4x/Week Duration of treatment (weeks) 5 Plan of Care Start Date 05/07/22 Plan of Care End Date 06/11/22 Therapeutic Interventions Therapeutic Interventions Balance Training,Gait Training ,Home Exercise Program,Manual Therapy,Neuromuscular Re- education,Self-Care/Home Management,Therapeutic Activities,Therapeutic Exercises Next Visit Focus/Plan Next Note Type Treatment Note Next Visit Plan Progress gait with cognitive load. functional activities including donning/doffing clothing, gait over uneven terrain.
--- NOTE | 2022-05-31 15:08 | PT.OTN ---
Current Diagnoses Parkinson's disease (05/31/22) Physical Therapy Treatment Note PT-OP-A Visit Information Start: 05/04/22 12:57 Freq: Status: Active Protocol: Document 05/31/22 12:45 AW (Rec: 05/31/22 15:08 AW [id number]) Out-Patient Physical Therapy Visit Information Visit Information Visit Type Treatment Note Visit Start Time 14:15 Visit Stop Time 15:15 Total Visit Minutes 60 Visit Number 15 PT-OP-B Current Condition Start: 05/04/22 12:57 Freq: Status: Active Protocol: Document 05/07/22 11:00 AMB (Rec: 05/07/22 12:02 AMB [id number]) Current Condition History of Current Condition Onset Date 1 year Current Complaints slowed movement, balance, gait History of Current Condition Has been on carbidopa levodopa full dosage for about the last month, and states has noticed improvement in gait, balance, and upper body dressing. Notices socks and shoes don/doff are stiff and a little frustrating. Ambulates without AD. Does have stairs in his home (5 wiht railing) and to enter (4 with rail) lives alone. Is still driving. Does light housework, daughters check in on him frequently. Treatment Goals Patient/Caregiver Goals Improve gait speed, speed with dressing (shoes), improve balance Personal Factors Other Personal Factors That May Effect CAD, s/p CABG, hx vertigo Therapy/Recovery PT-OP-C Subjective Start: 05/04/22 12:57 Freq: Status: Active Protocol: Document 05/31/22 12:45 AW (Rec: 05/31/22 15:08 AW [id number]) OP-PT Subjective Patient Comments Patient Comments Hardeep has a bit of a headache today. PT-OP-D Balance Start: 05/04/22 12:57 Freq: Status: Active Protocol: Document 05/07/22 11:00 AMB (Rec: 05/07/22 12:47 AMB [id number]) OP-PT Balance Assessment Standing Balance Standing Balance Comments CTSB 30 seconds all conditions , increased ankle sway with foam and EC. Teixeira Fall Scale Copyright Permission PT-OP-E Functional Tests Start: 05/04/22 12:57 Freq: Status: Active Protocol: Document 05/07/22 10:44 AMB (Rec: 05/07/22 12:02 AMB [id number]) Functional Tests 6 Minute Walk Test Distance 1387 Device Used none 10 Meter Walk Test Distance 6 Device Used none Five Times Sit to Stand Test Score 10 Comments standard chair, with UEs Other don shoes Name of Test slip on 2 shoes Score 14 seconds PT-OP-G Mobility & Gait Start: 05/04/22 12:57 Freq: Status: Active Protocol: Document 05/07/22 11:00 AMB (Rec: 05/07/22 12:56 AMB [id number]) OP Mobility Evaluation Transfers Sit to Stand uses UEs, but good forward lean and eccentric control OP Gait Assessment Comments Gait Comments Ambulates with good armswing, but does lack trunk rotation, no scuffing of feet noted PT-OP-Q Treatments Start: 05/04/22 12:57 Freq: Status: Active Protocol: Document 05/31/22 12:45 AW (Rec: 05/31/22 15:08 AW [id number]) Therapeutic Activity Therapeutic Activity buttoning Name shirt buttons Comments Cued big medical detail representative, 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 Pt used flicks uncued . 5 buttons - unbutton and rebutton in 44 seconds. handwriting Name handwriting Comments -Addressing envelopes -Writing [place] lyrics on wide ruled paper all the way to the edge Gait Training Gait Activity hurdles Level of Assistance SBA Distance/Duration 6 hurdles on yoga mat Treatment Focus amplitude Comments integrated into laps around the gym indoor, level Description indoor, level, stairs Device Used none Level of Assistance I Surface carpet, tile, hospital hallways, stairs Distance/Duration 10 min Treatment Focus amplitude, speed with dual task Comments Cued Think BIG as pt talked about holiday traditions. Neuro Re-Education Treatment Other Activities sit to stand Details sit to stand Reps/Duration 10; 10 Comments chair with rocker board; 2nd set with arms across chest - good challenge sideways rock and reach Details sideways rock and reach Reps/Duration x10 Comments cues for back foot pivot. on blue mat. fwd rock and reach Details fwd rock and reach Reps/Duration x10 Comments on blue mat backward step Details backward step Reps/Duration x10 Comments alternating - on blue mat sideways step Details sideways step Reps/Duration x10 Comments alternating; on blue mat forward step Details forward step Reps/Duration x10 Comments alternating sides; on blue mat sitting side to side Details sitting side to side Reps/Duration x10 Comments cued back leg extension floor to ceiling Details floor to ceiling Reps/Duration x10 PT-OP-T Assessment and Plan Start: 05/04/22 12:57 Freq: Status: Active Protocol: Document 05/31/22 12:45 AW (Rec: 05/31/22 15:08 AW [id number]) Physical Therapy Assessment Goals Three Impairment ADLs Mcfp Goal (LTG) Hardeep will don slip on shoes without difficulty in less than 10 seconds. LTG Duration MET- 6 seconds on 05/12 Two Impairment Transfers Short Term Goal (STG) Hardeep will move from sit to stand 5x from a standard height chair without needing to use his UEs in 9 seconds or less. STG Duration 2 weeks--15 seconds on 05/21 Supervisor Pullet Farm Goal (LTG) Hardeep will perform a floor transfer with enviromental support and SBA. LTG Duration 4 weeks One Impairment Gait Short Term Goal (STG) Hardeep will improve his 6MWT to at least 1,500' so that he is closer to age/gender norms. STG Duration 2 weeks---1,200' on 05/21 Assessment Summary Assessment Handwriting gets smaller when Hardeep is writing dictated lyrics . He is challenged by spelling which makes for a good cognitive task. Hardeep does notice when amplitude diminishes during exercise and makes good adjustments. Physical Therapy Plan Frequency and Duration Frequency of Treatment 4x/Week Duration of treatment (weeks) 5 Plan of Care Start Date 05/07/22 Plan of Care End Date 06/11/22 Therapeutic Interventions Therapeutic Interventions Balance Training,Gait Training ,Home Exercise Program,Manual Therapy,Neuromuscular Re- education,Self-Care/Home Management,Therapeutic Activities,Therapeutic Exercises Next Visit Focus/Plan Next Note Type Treatment Note Next Visit Plan Progress gait with cognitive load. functional activities including donning/doffing clothing, gait over uneven terrain.
--- NOTE | 2022-06-04 13:02 | PT.OTN ---
Current Diagnoses Parkinson's disease (06/04/22) Physical Therapy Treatment Note PT-OP-A Visit Information Start: 05/04/22 12:57 Freq: Status: Active Protocol: Document 06/04/22 11:07 AMB (Rec: 06/04/22 11:48 AMB [id number]) Out-Patient Physical Therapy Visit Information Visit Information Visit Type Treatment Note Visit Start Time 11:00 Visit Stop Time 11:55 Total Visit Minutes 55 Visit Number 16 PT-OP-B Current Condition Start: 05/04/22 12:57 Freq: Status: Active Protocol: Document 05/07/22 11:00 AMB (Rec: 05/07/22 12:02 AMB [id number]) Current Condition History of Current Condition Onset Date 1 year Current Complaints slowed movement, balance, gait History of Current Condition Has been on carbidopa levodopa full dosage for about the last month, and states has noticed improvement in gait, balance, and upper body dressing. Notices socks and shoes don/doff are stiff and a little frustrating. Ambulates without AD. Does have stairs in his home (5 wiht railing) and to enter (4 with rail) lives alone. Is still driving. Does light housework, daughters check in on him frequently. Treatment Goals Patient/Caregiver Goals Improve gait speed, speed with dressing (shoes), improve balance Personal Factors Other Personal Factors That May Effect CAD, s/p CABG, hx vertigo Therapy/Recovery PT-OP-C Subjective Start: 05/04/22 12:57 Freq: Status: Active Protocol: Document 06/04/22 11:07 AMB (Rec: 06/04/22 11:48 AMB [id number]) OP-PT Subjective Patient Comments Patient Comments Hardeep is feeling well today. Did BIG exercises Sat and Saturday, did miss Saturday. PT-OP-D Balance Start: 05/04/22 12:57 Freq: Status: Active Protocol: Document 05/07/22 11:00 AMB (Rec: 05/07/22 12:47 AMB [id number]) OP-PT Balance Assessment Standing Balance Standing Balance Comments CTSB 30 seconds all conditions , increased ankle sway with foam and EC. Teixeira Fall Scale Copyright Permission PT-OP-E Functional Tests Start: 05/04/22 12:57 Freq: Status: Active Protocol: Document 05/07/22 10:44 AMB (Rec: 05/07/22 12:02 AMB [id number]) Functional Tests 6 Minute Walk Test Distance 1387 Device Used none 10 Meter Walk Test Distance 6 Device Used none Five Times Sit to Stand Test Score 10 Comments standard chair, with UEs Other don shoes Name of Test slip on 2 shoes Score 14 seconds PT-OP-G Mobility & Gait Start: 05/04/22 12:57 Freq: Status: Active Protocol: Document 05/07/22 11:00 AMB (Rec: 05/07/22 12:56 AMB [id number]) OP Mobility Evaluation Transfers Sit to Stand uses UEs, but good forward lean and eccentric control OP Gait Assessment Comments Gait Comments Ambulates with good armswing, but does lack trunk rotation, no scuffing of feet noted PT-OP-Q Treatments Start: 05/04/22 12:57 Freq: Status: Active Protocol: Document 06/04/22 11:00 AMB (Rec: 06/04/22 13:00 AMB [id number]) Therapeutic Activity Therapeutic Activity floor transfer Reps/Minutes 3 Comments on blue mat--no environmental support SBA Gait Training Gait Activity hurdles Level of Assistance SBA Distance/Duration 6 hurdles on yoga mat Treatment Focus amplitude Comments integrated into laps around the gym indoor, level Description indoor, level, stairs Device Used none Level of Assistance I Surface carpet, tile, hospital hallways, stairs Distance/Duration 10 min Treatment Focus amplitude, speed with dual task Comments Cued Think BIG as pt talked about holiday traditions. Neuro Re-Education Treatment Other Activities sit to stand Details sit to stand Reps/Duration 10 Comments with arms across chest - good challenge sideways rock and reach Details sideways rock and reach Reps/Duration x10 Comments cues for back foot pivot. on blue mat. fwd rock and reach Details fwd rock and reach Reps/Duration x10 Comments on blue mat backward step Details backward step Reps/Duration x10 Comments on blue mat sideways step Details sideways step Reps/Duration x10 Comments on blue mat forward step Details forward step Reps/Duration x10 Comments on blue mat sitting side to side Details sitting side to side Reps/Duration x10 Comments cued back leg extension floor to ceiling Details floor to ceiling Reps/Duration x10 PT-OP-T Assessment and Plan Start: 05/04/22 12:57 Freq: Status: Active Protocol: Document 06/04/22 11:07 AMB (Rec: 06/04/22 11:48 AMB [id number]) Physical Therapy Assessment Goals Three Impairment ADLs Inspection Clerk Goal (LTG) Hardeep will don slip on shoes without difficulty in less than 10 seconds. LTG Duration MET- 6 seconds on 05/12 Two Impairment Transfers Short Term Goal (STG) Hardeep will move from sit to stand 5x from a standard height chair without needing to use his UEs in 9 seconds or less. STG Duration 2 weeks--15 seconds on 05/21 Snf Goal (LTG) Hardeep will perform a floor transfer with enviromental support and SBA. LTG Duration MET One Impairment Gait Short Term Goal (STG) Hardeep will improve his 6MWT to at least 1,500' so that he is closer to age/gender norms. STG Duration 2 weeks---1,200' on 05/21 Assessment Summary Assessment Hardeep is doing well with this DVD, did need cues for continued UE extension today. Floor transfer went quite well, pt not needing environmental support. Encouraged to continue with HEP for the terminal makeup operator. Physical Therapy Plan Frequency and Duration Frequency of Treatment 4x/Week Duration of treatment (weeks) 5 Plan of Care Start Date 05/07/22 Plan of Care End Date 06/11/22 Therapeutic Interventions Therapeutic Interventions Balance Training,Gait Training ,Home Exercise Program,Manual Therapy,Neuromuscular Re- education,Self-Care/Home Management,Therapeutic Activities,Therapeutic Exercises Next Visit Focus/Plan Next Note Type Discharge Summary Next Visit Plan 6MWT, 5x sit to stand
--- NOTE | 2022-06-05 15:13 | PT.OTN ---
Current Diagnoses Parkinson's disease (06/05/22) Physical Therapy Treatment Note PT-OP-A Visit Information Start: 05/04/22 12:57 Freq: Status: Active Protocol: Document 06/05/22 12:58 AW (Rec: 06/05/22 15:12 AW [id number]) Out-Patient Physical Therapy Visit Information Visit Information Visit Type Discharge Summary Visit Start Time 14:15 Visit Stop Time 15:15 Total Visit Minutes 60 Visit Number 17 PT-OP-B Current Condition Start: 05/04/22 12:57 Freq: Status: Active Protocol: Document 05/07/22 11:00 AMB (Rec: 05/07/22 12:02 AMB [id number]) Current Condition History of Current Condition Onset Date 1 year Current Complaints slowed movement, balance, gait History of Current Condition Has been on carbidopa levodopa full dosage for about the last month, and states has noticed improvement in gait, balance, and upper body dressing. Notices socks and shoes don/doff are stiff and a little frustrating. Ambulates without AD. Does have stairs in his home (5 wiht railing) and to enter (4 with rail) lives alone. Is still driving. Does light housework, daughters check in on him frequently. Treatment Goals Patient/Caregiver Goals Improve gait speed, speed with dressing (shoes), improve balance Personal Factors Other Personal Factors That May Effect CAD, s/p CABG, hx vertigo Therapy/Recovery PT-OP-C Subjective Start: 05/04/22 12:57 Freq: Status: Active Protocol: Document 06/05/22 12:58 AW (Rec: 06/05/22 15:12 AW [id number]) OP-PT Subjective Patient Comments Patient Comments Hardeep is very grateful for the help and feels his walking and balance is much improved. PT-OP-D Balance Start: 05/04/22 12:57 Freq: Status: Active Protocol: Document 05/07/22 11:00 AMB (Rec: 05/07/22 12:47 AMB [id number]) OP-PT Balance Assessment Standing Balance Standing Balance Comments CTSB 30 seconds all conditions , increased ankle sway with foam and EC. Teixeira Fall Scale Copyright Permission PT-OP-E Functional Tests Start: 05/04/22 12:57 Freq: Status: Active Protocol: Document 05/07/22 10:44 AMB (Rec: 05/07/22 12:02 AMB [id number]) Functional Tests 6 Minute Walk Test Distance 1387 Device Used none 10 Meter Walk Test Distance 6 Device Used none Five Times Sit to Stand Test Score 10 Comments standard chair, with UEs Other don shoes Name of Test slip on 2 shoes Score 14 seconds PT-OP-G Mobility & Gait Start: 05/04/22 12:57 Freq: Status: Active Protocol: Document 05/07/22 11:00 AMB (Rec: 05/07/22 12:56 AMB [id number]) OP Mobility Evaluation Transfers Sit to Stand uses UEs, but good forward lean and eccentric control OP Gait Assessment Comments Gait Comments Ambulates with good armswing, but does lack trunk rotation, no scuffing of feet noted PT-OP-Q Treatments Start: 05/04/22 12:57 Freq: Status: Active Protocol: Document 06/05/22 12:58 AW (Rec: 06/05/22 15:12 AW [id number]) Gait Training Gait Activity 6MWT Description 1469 feet Device Used none Comments Slightly faster than self- selected speed but pt is able to maintain amplitude and pace throughout. hurdles Level of Assistance SBA Distance/Duration 6 hurdles on blue mat Treatment Focus amplitude Comments integrated into laps around the gym indoor, level Description indoor, level, stairs Device Used none Level of Assistance I Surface carpet, tile, hospital hallways, stairs Distance/Duration 10 min Treatment Focus amplitude, speed with dual task Comments Cued Think BIG as pt talked about holiday traditions. Neuro Re-Education Treatment Other Activities sit to stand Details sit to stand Reps/Duration 10 Comments with arms across chest - good challenge sideways rock and reach Details sideways rock and reach Reps/Duration x10 Comments cues for back foot pivot. on blue mat. fwd rock and reach Details fwd rock and reach Reps/Duration x10 Comments on blue mat backward step Details backward step Reps/Duration x10 Comments on blue mat sideways step Details sideways step Reps/Duration x10 Comments on blue mat forward step Details forward step Reps/Duration x10 Comments on blue mat sitting side to side Details sitting side to side Reps/Duration x10 Comments cued back leg extension floor to ceiling Details floor to ceiling Reps/Duration x10 PT-OP-T Assessment and Plan Start: 05/04/22 12:57 Freq: Status: Active Protocol: Document 06/05/22 12:58 AW (Rec: 06/05/22 15:12 AW [id number]) Physical Therapy Assessment Goals Three Impairment ADLs Nursing Home Goal (LTG) Hardeep will don slip on shoes without difficulty in less than 10 seconds. LTG Duration MET- 6 seconds on 05/12 Two Impairment Transfers Short Term Goal (STG) Hardeep will move from sit to stand 5x from a standard height chair without needing to use his UEs in 9 seconds or less. 06/05 - 12.6 seconds, 9.5 seconds on 2nd attempt STG Duration 2 weeks--15 seconds on 05/21 Pipeline Controller Goal (LTG) Hardeep will perform a floor transfer with enviromental support and SBA. LTG Duration MET One Impairment Gait Short Term Goal (STG) Hardeep will improve his 6MWT to at least 1,500' so that he is closer to age/gender norms. 1469 feet on 06/05. STG Duration 2 weeks---1,200' on 05/21 Assessment Summary Assessment Encouraged Hardeep to continue with LSVT BIG exercises at least every other day to maintain amplitude in daily activities. Discussed potential for re-assessment in 9-12 months. Physical Therapy Plan Frequency and Duration Frequency of Treatment 4x/Week Duration of treatment (weeks) 5 Plan of Care Start Date 05/07/22 Plan of Care End Date 06/11/22 Therapeutic Interventions Therapeutic Interventions Balance Training,Gait Training ,Home Exercise Program,Manual Therapy,Neuromuscular Re- education,Self-Care/Home Management,Therapeutic Activities,Therapeutic Exercises Discharge Physical Therapy Discharge Reasons Goals Met Discharge Comments Hardeep has progressed significantly toward all goals . His gait, balance, and endurance have all improved. He reports thinking to move BIG during daily tasks and feels confident moving forward on his own.
== END 2022-07-10 16:26 | disposition home or self-care (01) ==
LOC: PHYS 14:15
PROVIDERS: Family Provider Student in an Organized Health Care Education/Training Program; PCP Student in an Organized Health Care Education/Training Program; Referring Provider Student in an Organized Health Care Education/Training Program; Visit Provider Student in an Organized Health Care Education/Training Program
DX: G20 Parkinson's disease (principal)
CPT/HCPCS: 97112; 97116; 97161; 97530; 97535

== ENCOUNTER → 2022-09-11 11:29 | Outpatient (CLI) | payer OTHER, SELFPAY ==
[2022-09-11 12:58] LABS: Cholesterol 139 mg/dL (140-199); HDL Cholesterol 43 mg/dL (40-60); LDL Cholesterol Calculated 75 mg/dL (<100); Triglycerides 106 mg/dL (35-150)
== END ==
PROVIDERS: Family Provider Student in an Organized Health Care Education/Training Program; PCP Student in an Organized Health Care Education/Training Program; Referring Provider Nurse Practitioner; Visit Provider Nurse Practitioner
DX: I10 Essential (primary) hypertension (principal); Z95.1 Presence of aortocoronary bypass graft; E78.00 Pure hypercholesterolemia, unspecified
CPT/HCPCS: 36415; 80061

== ENCOUNTER 2022-09-18 15:30 | Emergency (ER) | payer OTHER, SELFPAY ==
[2022-09-18] VITALS (36 sets, daily range): BP systolic 128–184; BP diastolic 59–79; PULSE 73–87; RESP 16–29; TEMP 38.3; O2SAT 95–99; BMI 33.0
[2022-09-18 16:31] LABS: Bacteria Urine Few (2-10); RBC Urine 1-5/HPF (0-5/HPF); Renal Epithelial Cells Urine 0-1/HPF (0-1/HPF); Squamous Epithelial Cell Urine 1-5 /HPF (0-5/HPF); Transitional Epi Cells Urine 1-5/HPF (0-5/HPF); WBC Urine 10-30/HPF (0-5/HPF)
[2022-09-18 16:32] LABS: Ictotest Urine Negative (Negative)
[2022-09-18 16:35] LABS: Add Manual Diff / Slide Review NO; Basophils Absolute Auto 0 /uL (0-100); Basophils Percent Auto 0.2 % (0-2); Eosinophils Absolute Auto 0 /uL (0-450); Eosinophils Percent Auto 0.1 % (2-4); Hematocrit 42.9 % (41-53); Hemoglobin 14.8 g/dL (13.5-17.5); Lymphocytes Absolute Auto 700 /uL (1100-4500); Lymphocytes Percent Auto 9.8 % (25-40); Mean Corpuscular HGB Conc 34.6 % (30-36); Mean Corpuscular Hemoglobin 31.6 PG (26-34); Mean Corpuscular Volume 91.4 fL (80-100); Monocytes Absolute Auto 1200 /uL (0-900); Monocytes Percent Auto 15.5 % (3-14); Neutrophils Absolute Auto 5500 /uL (1500-7000); Neutrophils Percent Auto 74.4 % (50-75); Platelet Count 92 X10^3/uL (150-400); Red Cell Distribution Width 14.5 % (11.6-14.8); White Blood Cell Count 7.4 X10^3/uL (4.5-11.0)
[2022-09-18] MEDS: SODIUM CHLORIDE 0.9% 1,000 ML 1000 ML IV (16:43)
--- NOTE | 2022-09-18 17:06 | PC.NURSE ---
Patient has a 0.4 nitroglycerin patch on his upper left of his chest. Patient reports that he places one there daily and changes it at night.
[2022-09-18 17:16] LABS: Alanine Aminotransferase 14 IU/L (<50); Albumin 3.5 g/dL (3.5-5.0); Albumin Globulin Ratio 1.1 (1.0-2.8); Alkaline Phosphatase 212 U/L (38-126); Aspartate Aminotransferase 50 IU/L (17-59); BUN Creatinine Ratio 21.3 (6-22); Bilirubin Total 3.1 mg/dL (0.2-1.3); Blood Urea Nitrogen 27 mg/dL (9-20); Calcium 8.3 mg/dL (8.4-10.2); Carbon Dioxide 26 mmol/L (22-32); Chloride 98 mmol/L (98-107); Estimated Glomerular Filt Rate 58 mL/min (>60); Globulin 3.2 g/dL (1.7-4.1); Glucose 121 mg/dL (80-110); HEMOLYSIS < 15 (0-50); Lipase 62 U/L (23-300); Potassium 3.7 mmol/L (3.4-5.1); Sodium 133 mmol/L (137-145); Total Protein 6.7 g/dL (6.3-8.2)
--- NOTE | 2022-09-18 17:18 | DI.CT.S_ITS ---
PROCEDURE: CT ABDOMEN PELVIS W CON INDICATIONS: Abdominal pain eval for obstruction TECHNIQUE: After the administration of intravenous contrast, axial sections acquired from the lung bases to the pubic symphysis. Coronal and sagittal reformats were performed. For radiation dose reduction, the following was used: automated exposure control, adjustment of mA and/or kV according to patient size. COMPARISON: Located Within [facility], CT, CT ABDOMEN PELVIS W CON, 11/10/2021, 14:25. Located Within [facility], CT, CT ABDOMEN PELVIS W CON, 09/06/2021, 20:53. FINDINGS: Image quality: Excellent. Lung bases: Mild peripheral reticulations in the lung bases are most likely related to mild chronic interstitial lung disease. Heart: No significant findings. ABDOMEN: Liver: Unremarkable. Gallbladder: Unremarkable. Biliary ducts: Unremarkable. Pancreas: Unremarkable. Spleen: Spleen is mildly enlarged, measuring 13.8 cm in craniocaudal dimension. Adrenal Glands: Unremarkable. Kidneys and Ureters: A 4 mm nonobstructing calculus is seen at the superior pole of the left kidney. Additional smaller nonobstructing calculi are seen bilaterally. Three small 2-3 mm calculi are seen at in the left distal ureter at the ureterovesicular junction. There is mild left periureteral fat stranding without significant hydroureter or hydronephrosis. Right ureter appears normal. Mild left perinephric fat stranding. Stomach and Bowel: Stomach, small bowel loops, and colon are unremarkable. Peritoneum: No abnormal intraperitoneal fluid. No free air. Ventral Wall: No hernias. Abdominal Nodes: No retroperitoneal or mesenteric adenopathy by size criteria. Vessels: Moderate aortic atherosclerotic calcifications. A saccular aneurysm is seen in the infrarenal abdominal aorta measuring up to 3.4 by 2.7 cm in maximum axial dimensions. Previously, this aneurysm measured 3.1 x 2.[address] from 11/10/2021. PELVIS: Pelvic Organs: Unremarkable. Bladder: Unremarkable. No bladder calculus. Pelvic Nodes: No enlarged lymph nodes. Miscellaneous: Small fat containing left inguinal hernia. Bones: Degenerative changes are seen in the sacroiliac joints and spine. IMPRESSION: 1. Three small left distal ureteral calculi at the ureterovesicular junction measuring 2-3 mm with mild left perinephric and periureteral fat stranding. No significant hydroureter or hydronephrosis. 2. Additional nonobstructing renal calculi bilaterally. 3. No signs of small bowel obstruction. 4. Saccular infrarenal abdominal aortic aneurysm measuring up to 3.4 cm in maximum diameter, which previously measured 3.[address] from 11/10/2021. 5. Mild splenomegaly. 6. Suspected mild chronic interstitial lung disease in the included lung bases. Approved by: Odin Haley M.D. on 09/18/2022 at 18:06
--- NOTE | 2022-09-18 17:20 | ED_ITS ---
HPI - General Adult General Chief complaint: Abdominal Pain Stated complaint: L side abd pain, constipation 1 wk Time Seen by Provider: 09/18/22 15:35 Source: patient Mode of arrival: Ambulatory Limitations: no limitations History of Present Illness HPI narrative: Patient is a 76-year-old male. He was sent over from the walk-in clinic for evaluation of left-sided abdominal pain for the past couple days. He also states that he is had some dysuria. Also states he has been constipated. Has not had a bowel movement in several days. No fevers. Does have history of diverticulosis. No prior abdominal surgeries. He did take laxatives a couple days ago. He is urinating frequently. Some nausea but no vomiting. He states he is not passed any gas today. Does have history of Parkinson's disease. Is on carbidopa levodopa. Related Data Home Medications Medication Instructions Recorded Confirmed aspirin 81 mg tablet,delayed 81 mg PO DAILY 07/29/20 09/18/22 release ranolazine 500 mg tablet,extended 500 mg PO BID 11/06/21 09/18/22 release,12 hr (Ranexa) carbidopa 25 mg-levodopa 100 mg 1 tab PO BEDTIME 09/18/22 09/18/22 tablet Previous Rx's Medication Instructions Recorded nitroglycerin 0.4 mg/hr 1 patch transdermal Q24H #30 ea 08/08/21 transdermal 24 hour patch (Nitro-Dur) Parking Permit... #1 ea 11/06/21 hydrocodone 5 mg-acetaminophen 325 1 - 2 tab PO Q4HP PRN pain, 02/20/22 mg tablet moderate #10 tabs metoprolol succinate 25 mg 12.5 mg PO DAILY #45 tabs 06/18/22 tablet,extended release 24 hr simvastatin 40 mg tablet 40 mg PO BEDTIME #90 tabs 09/10/22 cephalexin 500 mg capsule 500 mg PO BID 7 days #14 caps 09/18/22 Allergies Allergy/AdvReac Type Severity Reaction Status Date / Time No Known Drug Allergies Allergy Verified 09/18/22 14:20 Review of Systems Constitutional Constitutional: Reports system reviewed and no additional complaints, except as documented Cardiovascular Cardiovascular: Reports system reviewed and no additional complaints, except as documented Gastrointestinal Gastrointestinal: Reports system reviewed and no additional complaints, except as documented Genitourinary Genitourinary: Reports system reviewed and no additional complaints, except as documented Integumentary/Breasts Skin/Breast: Reports system reviewed and no additional complaints, except as documented Neurologic Neurologic: Reports system reviewed and no additional complaints, except as documented Hematologic/Lymphatic On Anticoagulants: No Patient History Medical History Coronary artery disease involving [place] coronary artery of [place] heart without angina pectoris (12/21/15) Healed perforation of tympanic membrane (06/03/14) History of kidney stones Hyperlipidemia Hypertension Myocardial infarction Subconjunctival hemorrhage of left eye (05/01/17) Surgical History Status post coronary artery bypass graft (~1998) Social History household members: friend(s) Smoking Status: Former smoker alcohol intake: former Smoking Status: Former smoker Substance Use Type: does not use Exam Initial Vital Signs Initial Vital Signs: Vital Signs Temperature 100.9 F H 09/18/22 15:46 Pulse Rate 86 09/18/22 15:46 Respiratory Rate 16 09/18/22 15:46 Blood Pressure 177/77 H 09/18/22 15:46 Pulse Oximetry 99 09/18/22 15:46 Oxygen Delivery Method Room Air 09/18/22 15:46 Const General: cooperative and comfortable HENMT Head: normal to inspection and normocephalic Resp Effort & Inspection: normal respiratory effort Auscultation: clear to auscultation bilaterally Cardio Rate: regular rate Rhythm: regular rhythm GI Inspection: normal to inspection Palpation: soft, No rigid and No tender Skin General: jaundice Neuro General: patient alert, patient awake and moves all extremities Extrem General: capillary refill normal Course Orders Ordered: ED Orders 09/18/22 15:56 Urine Microscopic Stat 09/18/22 15:58 Ictotest Urine Stat 09/18/22 15:59 Urine Culture Stat 09/18/22 16:10 Blood Culture Stat Complete Blood Count AUTO DIFF Stat 09/18/22 16:55 Comprehensive Metabolic Panel Stat Lactate (Lactic Acid) Stat Lipase Stat Procalcitonin Stat 09/18/22 17:18 CT abdomen pelvis w con Stat Discontinued Medications Cephalexin HCl (Cephalexin 250 Mg Capsule) 500 mg PO NOW ONE Stop: 09/18/22 18:44 Sodium Chloride (Normal Saline 0.9%) 1,000 mls @ 1,000 mls/hr IV BOLUS ONE Stop: 09/18/22 17:02 Last Infusion: 09/18/22 17:43 Dose: 0 mls/hr Documented By: Admin: 09/18/22 16:43 Dose: 1,000 mls/hr Documented By: SB Vital Signs Vital signs: Vital Signs - 8 hr 09/18/22 15:46 09/18/22 15:57 09/18/22 15:59 Temperature 100.9 F H Pulse Rate 86 87 Respiratory Rate 16 Blood Pressure 177/77 H 184/79 H Pulse Oximetry 99 97 Oxygen Delivery Method Room Air 09/18/22 15:59 09/18/22 16:00 09/18/22 16:00 Temperature Pulse Rate 84 81 Respiratory Rate 29 H Blood Pressure 163/60 H Pulse Oximetry 98 98 Oxygen Delivery Method 09/18/22 16:05 09/18/22 16:05 09/18/22 16:10 Temperature Pulse Rate 80 Respiratory Rate 27 H Blood Pressure 146/65 H 134/64 Pulse Oximetry 98 Oxygen Delivery Method 09/18/22 16:10 09/18/22 16:15 09/18/22 16:15 Temperature Pulse Rate 80 79 Respiratory Rate 28 H 27 H Blood Pressure 128/60 Pulse Oximetry 97 97 Oxygen Delivery Method 09/18/22 16:30 09/18/22 16:35 09/18/22 16:39 Temperature Pulse Rate 79 77 77 Respiratory Rate 26 H 26 H 24 Blood Pressure Pulse Oximetry 97 95 95 Oxygen Delivery Method 09/18/22 16:39 09/18/22 16:40 09/18/22 16:40 Temperature Pulse Rate 77 Respiratory Rate 25 H Blood Pressure 128/60 130/62 Pulse Oximetry 97 Oxygen Delivery Method 09/18/22 16:45 09/18/22 16:45 09/18/22 16:50 Temperature Pulse Rate 77 Respiratory Rate 24 Blood Pressure 130/63 132/64 Pulse Oximetry 97 Oxygen Delivery Method 09/18/22 16:50 09/18/22 16:55 09/18/22 16:55 Temperature Pulse Rate 76 75 Respiratory Rate 26 H 26 H Blood Pressure 133/61 Pulse Oximetry 95 95 Oxygen Delivery Method 09/18/22 17:00 09/18/22 17:00 09/18/22 17:05 Temperature Pulse Rate 75 Respiratory Rate 24 Blood Pressure 132/63 131/59 L Pulse Oximetry 96 Oxygen Delivery Method 09/18/22 17:05 09/18/22 17:10 09/18/22 17:10 Temperature Pulse Rate 74 73 Respiratory Rate 22 Blood Pressure 128/60 Pulse Oximetry 96 96 Oxygen Delivery Method 09/18/22 17:15 09/18/22 17:15 09/18/22 17:20 Temperature Pulse Rate 76 Respiratory Rate 26 H Blood Pressure 137/64 146/69 H Pulse Oximetry 97 Oxygen Delivery Method 09/18/22 17:20 09/18/22 17:37 09/18/22 17:40 Temperature Pulse Rate 81 85 82 Respiratory Rate 27 H 26 H 28 H Blood Pressure Pulse Oximetry 98 97 96 Oxygen Delivery Method 09/18/22 17:45 Temperature Pulse Rate 80 Respiratory Rate 26 H Blood Pressure Pulse Oximetry 97 Oxygen Delivery Method Medical Decision Making Medical Records Medical records reviewed: Yes I reviewed the patient's medical records. Lab Data Lab results reviewed: Yes I reviewed the patient's lab results. 09/18/22 16:10 09/18/22 16:55 Labs: Lab Results 09/18/22 09/18/22 09/18/22 Range/Units 15:56 15:58 16:10 WBC 7.4 (4.5-11.0) X10^3/uL RBC 4.70 (4.5-5.9) X10^6/uL Hgb 14.8 (13.5-17.5) g/dL Hct 42.9 (41-53) % MCV 91.4 (80-100) fL MCH 31.6 (26-34) PG MCHC 34.6 (30-36) % RDW 14.5 (11.6-14.8) % Plt Count 92 L (150-400) X10^3/uL Neut % (Auto) 74.4 (50-75) % Lymph % (Auto) 9.8 L (25-40) % [place] % (Auto) 15.5 H (3-14) % Eos % (Auto) 0.1 L (2-4) % Baso % (Auto) 0.2 (0-2) % Neut # (Auto) 5500 (3701-5318) /uL Lymph # (Auto) 700 L (3234-9651) /uL [place] # (Auto) 1200 H (0-900) /uL Eos # (Auto) 0 (0-450) /uL Baso # (Auto) 0 (0-100) /uL Sodium (137-145) mmol/L Potassium (3.4-5.1) mmol/L Chloride (98-107) mmol/L Carbon Dioxide (22-32) mmol/L BUN (9-20) mg/dL Creatinine (0.66-1.25) mg/dL Estimated GFR (>60) mL/min BUN/Creatinine Ratio (6-22) Glucose (80-110) mg/dL Lactate (0.7-2.1) mmol/L Calcium (8.4-10.2) mg/dL Total Bilirubin (0.2-1.3) mg/dL AST (17-59) IU/L ALT (<50) IU/L Alkaline Phosphatase (38-126) U/L Total Protein (6.3-8.2) g/dL Albumin (3.5-5.0) g/dL Globulin (1.7-4.1) g/dL Albumin/Globulin Ratio (1.0-2.8) Lipase (23-300) U/L Procalcitonin (<0.5) ng/mL Ur Bilirubin Confirm Negative (Negative) Urine RBC 1-5/hpf (0-5/HPF) Urine WBC 10-30/hpf H (0-5/HPF) Ur Squamous Epith Cells 1-5 /hpf (0-5/HPF) Ur Transition Epith Cell 1-5/hpf (0-5/HPF) Ur Renal Epithelial Cell 0-1/hpf (0-1/HPF) Urine Bacteria Few (2-10) H (None) 09/18/22 09/18/22 09/18/22 Range/Units 16:55 16:55 16:55 WBC (4.5-11.0) X10^3/uL RBC (4.5-5.9) X10^6/uL Hgb (13.5-17.5) g/dL Hct (41-53) % MCV (80-100) fL MCH (26-34) PG MCHC (30-36) % RDW (11.6-14.8) % Plt Count (150-400) X10^3/uL Neut % (Auto) (50-75) % Lymph % (Auto) (25-40) % [place] % (Auto) (3-14) % Eos % (Auto) (2-4) % Baso % (Auto) (0-2) % Neut # (Auto) (5513-5200) /uL Lymph # (Auto) (5014-9426) /uL [place] # (Auto) (0-900) /uL Eos # (Auto) (0-450) /uL Baso # (Auto) (0-100) /uL Sodium 133 L (137-145) mmol/L Potassium 3.7 (3.4-5.1) mmol/L Chloride 98 (98-107) mmol/L Carbon Dioxide 26 (22-32) mmol/L BUN 27 H (9-20) mg/dL Creatinine 1.27 H (0.66-1.25) mg/dL Estimated GFR 58 L (>60) mL/min BUN/Creatinine Ratio 21.3 (6-22) Glucose 121 H (80-110) mg/dL Lactate 1.4 (0.7-2.1) mmol/L Calcium 8.3 L (8.4-10.2) mg/dL Total Bilirubin 3.1 H (0.2-1.3) mg/dL AST 50 (17-59) IU/L ALT 14 (<50) IU/L Alkaline Phosphatase 212 H (38-126) U/L Total Protein 6.7 (6.3-8.2) g/dL Albumin 3.5 (3.5-5.0) g/dL Globulin 3.2 (1.7-4.1) g/dL Albumin/Globulin Ratio 1.1 (1.0-2.8) Lipase 62 (23-300) U/L Procalcitonin 0.65 H (<0.5) ng/mL Ur Bilirubin Confirm (Negative) Urine RBC (0-5/HPF) Urine WBC (0-5/HPF) Ur Squamous Epith Cells (0-5/HPF) Ur Transition Epith Cell (0-5/HPF) Ur Renal Epithelial Cell (0-1/HPF) Urine Bacteria (None) Urine Dip Bedside Urine Glucose Negative Bedside Urine Bilirubin + 1 Bedside Urine Ketone - Negative Urine Specific [place] 1.030 Bedside Urine Occult Blood +/- Bedside Urine pH 6.0 Bedside Urine Protein ++ 100 Bedside Urine Urobilinogen 2+ 4mg Bedside Urine Nitrite - Negative Bedside Urine Leukocytes + 70 Esterase Point of care testing: Urine Dip Bedside Urine Glucose Negative Bedside Urine Bilirubin + 1 Bedside Urine Ketone - Negative Urine Specific [place] 1.030 Bedside Urine Occult Blood +/- Bedside Urine pH 6.0 Bedside Urine Protein ++ 100 Bedside Urine Urobilinogen 2+ 4mg Bedside Urine Nitrite - Negative Bedside Urine Leukocytes + [address] scan - abdomen/pelvis: Radiologist's Impression: PROCEDURE:? CT ABDOMEN PELVIS W CON ? INDICATIONS:? Abdominal pain eval for obstruction ? TECHNIQUE:? After the administration of intravenous contrast, axial sections acquired from the lung bases to the pubic symphysis.? Coronal and sagittal reformats were performed.? For radiation dose reduction, the following was used:? automated exposure control, adjustment of mA and/or kV according to patient size.? ? COMPARISON:? [facility], CT, CT ABDOMEN PELVIS W CON, 11/10/2021, 14:25.? [facility], CT, CT ABDOMEN PELVIS W CON, 09/06/2021, 20:53. ? FINDINGS:? Image quality:? Excellent.? ? Lung bases:? Mild peripheral reticulations in the lung bases are most likely related to mild chronic interstitial lung disease. Heart:? No significant findings. ? ABDOMEN: Liver:? Unremarkable.? ? Gallbladder:? Unremarkable. Biliary ducts:? Unremarkable.? ? Pancreas:? Unremarkable.? ? Spleen:? Spleen is mildly enlarged, measuring 13.8 cm in craniocaudal dimension.? ? Adrenal Glands:? Unremarkable.? ? Kidneys and Ureters:? A 4 mm nonobstructing calculus is seen at the superior pole of the left kidney.? Additional smaller nonobstructing calculi are seen bilaterally.? Three small 2-3 mm calculi are seen at in the left distal ureter at the ureterovesicular junction.? There is mild left periureteral fat stranding without significant hydroureter or hydronephrosis.? Right ureter appears normal.? Mild left perinephric fat stranding.? Stomach and Bowel:? Stomach, small bowel loops, and colon are unremarkable.? Peritoneum:? No abnormal intraperitoneal fluid.? No free air.? ? Ventral Wall: ? No hernias.? Abdominal Nodes:? No retroperitoneal or mesenteric adenopathy by size criteria.? Vessels:? Moderate aortic atherosclerotic calcifications.? A saccular aneurysm is seen in the infrarenal abdominal aorta measuring up to 3.4 by 2.7 cm in maximum axial dimensions. ?Previously, this aneurysm measured 3.1 x 2.[address] from 11/10/2021. ? PELVIS: Pelvic Organs:? Unremarkable.? ? Bladder:? Unremarkable.? No bladder calculus.? Pelvic Nodes: No enlarged lymph nodes.? Miscellaneous:? Small fat containing left inguinal hernia. ? Bones:? Degenerative changes are seen in the sacroiliac joints and spine. ? IMPRESSION:? 1. Three small left distal ureteral calculi at the ureterovesicular junction measuring 2-3 mm with mild left perinephric and periureteral fat stranding.? No significant hydroureter or hydronephrosis. 2. Additional nonobstructing renal calculi bilaterally. 3. No signs of small bowel obstruction. 4. Saccular infrarenal abdominal aortic aneurysm measuring up to 3.4 cm in maximum diameter, which previously measured 3.[address] from 11/10/2021. 5. Mild splenomegaly. 6. Suspected mild chronic interstitial lung disease in the included lung bases.? MDM Narrative Medical decision making narrative: Patient does have left-sided distal ureteral stones such as most likely the source of his left-sided abdominal tenderness. He does have bacteria and some white blood cells in his urine and given the other findings in the CT scan there is some concern about infection so we will start him on antibiotics. Urine culture was pending at the time of his discharge. Blood cultures were also obtained. Rest of his CT scan does not show any signs of a bowel obstruction. Patient is jaundiced. He also has an elevation in his bilirubin. The hepatic system on his CT scan is unremarkable. I did discuss this with him and his daughter at bedside. Informed him he needed to talk with his primary doctor about follow-up with this. Will discharge patient home. He was given strict return precautions. He expressed understanding and agreement. Discharge Plan Departure Patient Disposition: Home Clinical Impression: Left ureteral calculus, Acute UTI, Hyperbilirubinemia Instructions: DI for Kidney Stones Activity Restrictions/Additional Instructions: Recommend that you continue to take all of your medications as directed. You can contact the Urology Department of the number provided below for follow-up. I also recommend that you talk with your primary doctor about the elevation in your bilirubin today. You are going to require more workup for this. Return to the emergency department for any new or worsening symptoms. Prescriptions: New cephalexin 500 mg capsule 500 mg PO BID 7 Days Qty: 14 0RF No Action carbidopa-levodopa 25-100 mg tablet 1 tab PO BEDTIME nitroglycerin [Nitro-Dur] 0.4 mg/hr patch 24 hour 1 patch transdermal Q24H Qty: 30 11RF Rx Instructions: allow nitrate-free interval of approx. 10-12 hrs per 24-hour period, Apply at 0800, off at 1400. hydrocodone-acetaminophen 5-325 mg tablet 1 - 2 tab PO Q4HP PRN (Reason: pain, moderate) Qty: 10 0RF Hold Instructions: Change to #10 with next fill metoprolol succinate 25 mg tablet extended release 24 hr 12.5 mg PO DAILY Qty: 45 1RF simvastatin 40 mg tablet 40 mg PO BEDTIME Qty: 90 0RF Rx Instructions: APPT DUE W/PCP FOR YEARLY CHECK IN PRIOR TO END OF SCRIPT/FUTURE REFILLS. PLEASE CALL TO SCHEDULE. THANK YOU 09/10/22. (DME) Parking Permit... See Rx Instructions .ROUTE .MEDSUPPLY Qty: 1 0RF Rx Instructions: As directed aspirin 81 mg tablet,delayed release (DR/EC) 81 mg PO DAILY ranolazine [Ranexa] 500 mg tablet extended release 12 hr 500 mg PO BID Referrals: Daniel Almanza MD [Primary Care Provider] - Luis Law MD [Physician] - Stand Alone Forms: Patient Portal/API
[2022-09-18 17:34] LABS: Procalcitonin 0.65 ng/mL (<0.5)
[2022-09-18 17:35] LABS: Lactate (Lactic Acid) 1.4 mmol/L (0.7-2.1)
[2022-09-18] MEDS: cephALEXin 250 MG CAPSULE 500 MG PO (18:53)
== END 2022-09-18 19:04 | disposition home or self-care (01) ==
PROVIDERS: Emergency Provider Emergency Medicine; Family Provider Student in an Organized Health Care Education/Training Program; PCP Student in an Organized Health Care Education/Training Program
DX: N20.1 Calculus of ureter (principal); N39.0 Urinary tract infection, site not specified; E80.6 Other disorders of bilirubin metabolism; R30.0 Dysuria
CPT/HCPCS: 36415; 74177; 80053; 81003; 81015; 83605; 83690; 84145; 85025; 87040; 87077; 87086; 87185; 87186; 96360; 99284

== ENCOUNTER → 2022-10-02 10:13 | Outpatient (CLI) | payer OTHER, SELFPAY ==
[2022-10-02 10:51] LABS: Add Manual Diff / Slide Review NO; Basophils Absolute Auto 0 /uL (0-100); Basophils Percent Auto 0.6 % (0-2); Eosinophils Absolute Auto 0 /uL (0-450); Eosinophils Percent Auto 0.9 % (2-4); Hematocrit 36.1 % (41-53); Hemoglobin 12.2 g/dL (13.5-17.5); Lymphocytes Absolute Auto 1400 /uL (1100-4500); Lymphocytes Percent Auto 26.2 % (25-40); Mean Corpuscular HGB Conc 33.9 % (30-36); Mean Corpuscular Hemoglobin 31.1 PG (26-34); Mean Corpuscular Volume 91.8 fL (80-100); Monocytes Absolute Auto 600 /uL (0-900); Monocytes Percent Auto 11.6 % (3-14); Neutrophils Absolute Auto 3400 /uL (1500-7000); Neutrophils Percent Auto 60.7 % (50-75); Platelet Count 219 X10^3/uL (150-400); Red Blood Cell Count 3.93 X10^6/uL (4.5-5.9); Red Cell Distribution Width 14.9 % (11.6-14.8); White Blood Cell Count 5.5 X10^3/uL (4.5-11.0)
[2022-10-02 11:28] LABS: Alanine Aminotransferase 13 IU/L (<50); Albumin 3.9 g/dL (3.5-5.0); Albumin Globulin Ratio 1.1 (1.0-2.8); Alkaline Phosphatase 171 U/L (38-126); Aspartate Aminotransferase 27 IU/L (17-59); BUN Creatinine Ratio 17.8 (6-22); Bilirubin Total 1.2 mg/dL (0.2-1.3); Bilirubin Unconjugated 0.8 mg/dL (0.0-1.1); Blood Urea Nitrogen 23 mg/dL (9-20); Calcium 9.1 mg/dL (8.4-10.2); Carbon Dioxide 29 mmol/L (22-32); Chloride 101 mmol/L (98-107); Estimated Glomerular Filt Rate 57 mL/min (>60); Globulin 3.6 g/dL (1.7-4.1); Glucose 89 mg/dL (80-110); HEMOLYSIS < 15 (0-50); Sodium 139 mmol/L (137-145); Total Protein 7.5 g/dL (6.3-8.2)
== END ==
PROVIDERS: Family Provider Student in an Organized Health Care Education/Training Program; PCP Student in an Organized Health Care Education/Training Program; Referring Provider Student in an Organized Health Care Education/Training Program; Visit Provider Student in an Organized Health Care Education/Training Program
DX: E80.6 Other disorders of bilirubin metabolism (principal)
CPT/HCPCS: 36415; 80048; 80076; 85025

== ENCOUNTER → 2022-10-23 11:03 | Outpatient (CLI) | payer OTHER, SELFPAY ==
--- NOTE | 2022-10-23 11:07 | DI.RAD.S_ITS ---
PROCEDURE: XR KUB INDICATIONS: urology new patient TECHNIQUE: One view of the abdomen acquired. COMPARISON: [facility], CR, XR ACUTE ABDOMEN SERIES, 09/06/2021, 19:39. FINDINGS: Surgical changes and devices: None. Bowel: Bowel gas pattern is normal. Soft tissues: No suspicious abdominal calcifications. Visualized solid organ contours appear normal in size. Bones: No suspicious bony lesions. IMPRESSION: 1. No acute intra-abdominal findings. 2. No suspicious calcifications to suggest ureterolithiasis or nephrolithiasis. Dictated by: Bonny Dickinson M.D. on 10/23/2022 at 12:49 Approved by: Bonny Dickinson M.D. on 10/23/2022 at 12:50
== END ==
PROVIDERS: Family Provider Student in an Organized Health Care Education/Training Program; PCP Student in an Organized Health Care Education/Training Program; Referring Provider Specialist; Visit Provider Specialist
DX: I71.40 Abdominal aortic aneurysm, without rupture, unspecified (principal)
CPT/HCPCS: 74018

== ENCOUNTER 2022-11-09 08:48 | Day surgery (SDC) | payer OTHER, SELFPAY ==
[2022-11-07 07:45] VITALS: BMI 31.9
--- NOTE | 2022-11-09 | DI.RAD.S_ITS ---
PROCEDURE: XR KUB INDICATIONS: Left ureteral calculus TECHNIQUE: One view of the abdomen acquired. COMPARISON: [facility], CT, CT ABDOMEN PELVIS W CON, 09/18/2022, 17:24. [facility], CR, XR KUB, 10/23/2022, 11:30. FINDINGS: Surgical changes and devices: None. Bowel: Bowel gas pattern is normal. Soft tissues: No calculi are seen overlying the renal shadows. Subtle calcifications in the pelvis are seen which might correspond with prior calcifications at the left UVJ but cannot be confidently correlated. Bones: No suspicious bony lesions. IMPRESSION: No definite nephroureteral calculi identified. Dictated by: Dirk Haile M.D. on 11/09/2022 at 9:52 Approved by: Dirk Haile M.D. on 11/09/2022 at 9:54
[2022-11-09 09:21] VITALS: BP 161/71; PULSE 63; RESP 16; TEMP 36.8; O2SAT 100; BMI 31.9
--- NOTE | 2022-11-09 09:52 | PM.PREOP ---
Pre-operative Note COVID-19 Criteria for continued procedure: Expected advancement of disease process, Deterioration of the patient's condition or overall health, Delay expected to result in less-positive ultimate med/surg outcome and Non-surgical alternatives not available or appropriate per current SOC Interval Note History & Physical reviewed/Exam performed by Physician: Yes Changes to H&P: No
[2022-11-09] MEDS: LACTATED RINGERS 1,000 ML 21 ML IV (09:55)
[2022-11-09] MEDS: CEFAZOLIN 2 GM/100 ML PREMIX 100 ML IV (10:43)
--- NOTE | 2022-11-09 10:52 | SUR.OPER ---
Lithotomy on padded OR bed, head on pillow, arms tucked with gel pads. Legs secured in padded yellow fins stirrups.
--- NOTE | 2022-11-09 11:36 | PM.OP.1 ---
Operative Date/Time/Diagnoses Date of procedure: 11/09/22 Time of procedure: 11:36 Pre-op diagnosis: 1. Multiple left distal ureteral calculi. 2. History of Enterococcus UTI. Post-op diagnosis: same Procedure & Clinicians Procedure: 1. Cystoscopy/left ureteroscopic laser lithotripsy. 2. Cystoscopy/placement left ureteral stent (6 Austrian by 22-32 cm multi-length). Same procedure as scheduled: Yes Indications: 1. Multiple left distal ureteral calculi. 2. History of Enterococcus UTI. Surgeon: Luis Law Click Yes if Unassisted: Yes Anesthesia Type: General Operative Notes Findings: 1. Urethra-normal caliber without annular stricture or lesion. 2. External sphincter-coapted with normal overlying urothelium. 3. Jtnzgpzi-2-5.5 cm with moderate trilobar hyperplasia. 4. Bladder-1+ trabeculation. Normal ureteral orifices bilaterally. Turbid efflux noted from left ureter upon ureteral guidewire placement. 5. Left ureter-at least 3 calculi encountered unchanged in position from preoperative imaging. Delete fragment being the largest and in my estimation was more like 5 mm in greatest dimension. Closure Type: not applicable Specimen(s): other (Stone fragments -left ureter) Applied: other (6 Austrian by 20-32 cm multilink stent.) Estimated Blood Loss (mL): 2 Blood products transfused: none Procedure in detail: The patient was positioned supine and was administered general anesthesia. Patient was then repositioned in semi-lithotomy and the lower abdomen, genitalia, and groin were then prepped and draped in sterile fashion. A 22 Austrian rick endoscope was then passed the lower urinary tract with the findings as described above. A 0.35 hybrid guidewire was then advanced through the working channel of the rick endoscope and advanced to the left ureteral orifice and proximally under direct and fluoroscopic guidance. A 15 Austrian by 6 cm balloon dilating catheter was then selected and advanced over the hybrid guidewire and positioned across the left ureterovesical junction. The balloon is inflated 18 atmospheres in remain in position for 5 minutes after which the balloon was deflated and the balloon dilator backloaded off the hybrid guidewire. Now the rick endoscope was backloaded off the guidewire. The guidewire was secured to the surgical drape. The semi rigid ureteral scope was then prepared and advanced lower urinary tract and then into the left ureteral orifice and proximally with the findings as described above. A 200 micron laser fiber was requested. All operating room personnel and patient were fitted with laser safety eyewear. Laser lithotripsy was then begun and patiently the stone was fragmented and dusted before moving onto the next most proximal stone, again same steps and maneuvers and then proximal advancement or the 3rd stone was encountered. There may have been a smaller 4th stone that was mixed in with the treatment fragments and dust of the 3rd treated stone. There ureteral scope was then advanced proximally to proximally in the mid ureter no further stone or fragments were visualized. As the ureteroscope was gradually withdrawn retained fragments and dust in the distal left ureter were cleared using hydrostatic and mechanical forces. Final inspection revealed a clean ureter. Only mild inflammatory changes and mucosal trauma noted distally. Intraoperative decision was made to place a stent. The ureteral scope was then removed in the rick endoscope was front loaded off the hybrid guidewire. A 6 Austrian by 22-32 cm multilength stent was selected and this was advanced over the hybrid guidewire under directed fluoroscopic guidance. A RETRIEVAL LINE WAS LEFT ATTACHED. The bladder is then drained completely and all instrumentation was removed. The patient was then repositioned in supine, was awakened, and then transported recovery in stable condition. Complications: none Post-operative Condition: stable Disposition: PACU Plan for aftercare: Discharge home.
[2022-11-09 11:37] VITALS: BP 143/67; PULSE 55; RESP 16; TEMP 36.1; O2SAT 94
[2022-11-09 11:43] VITALS: BP 138/58; PULSE 54; RESP 14; O2SAT 98
[2022-11-09 11:48] VITALS: BP 131/61; PULSE 56; RESP 12; O2SAT 100
[2022-11-09 11:53] VITALS: BP 144/60; PULSE 55; RESP 12; O2SAT 99
[2022-11-09 11:55] VITALS: BP 135/70; PULSE 56; RESP 14; O2SAT 100
[2022-11-15 11:38] LABS: Ca oxalate dihydrate 30 % (.); Ca oxalate monohydr 70 % (.); Stone Analysis Source Kidney (.)
== END 2022-11-09 12:40 | disposition home or self-care (01) ==
PROVIDERS: Family Provider Student in an Organized Health Care Education/Training Program; PCP Student in an Organized Health Care Education/Training Program; Referring Provider Specialist; Visit Provider Specialist
PROC: 0TF78ZZ Fragmentation in Left Ureter, Via Natural or Artificial Opening Endoscopic (ICD-10-PCS; CPT 52353; principal; 2022-11-09 10:45)
DX: N20.1 Calculus of ureter (principal); N40.0 Benign prostatic hyperplasia without lower urinary tract symptoms
CPT/HCPCS: 52356; 74018; 76000; 82365; C1771; J0690; J1100; J2405; J2704; J3010

== ENCOUNTER → 2022-11-21 09:35 | Outpatient (CLI) | payer OTHER, SELFPAY ==
--- NOTE | 2022-11-21 09:37 | DI.US.S_ITS ---
PROCEDURE: US RETRO PERITONEAL LIMITED INDICATIONS: Reasses AAA TECHNIQUE: Real time scanning was performed of the aorta and iliac arteries, with image documentation. COMPARISON: [facility], , US RETRO PERITONEAL LIMITED, 11/17/2021, 7:31. FINDINGS: Aorta: Proximal aortic diameter measures 2.0 cm. Mid-aorta measures 1.6 cm. Distal aortic diameter is 3.3 cm, compared to 2.2 x 3.0 cm previously. Mural thrombus is present. Iliac arteries: Right common iliac artery measures 1.0 cm. Left common iliac artery measures 0.9 cm. IMPRESSION: Infrarenal abdominal aortic aneurysm is seen measuring 2.4 x 3.3 cm in diameter, compared to 3.0 cm on the ultrasound from 11/17/2021. Recommend 3 year follow-up ultrasound. Approved by: Odin Haley M.D. on 11/21/2022 at 11:20
--- NOTE | 2022-11-21 09:37 | DI.RAD.S_ITS ---
PROCEDURE: XR KUB INDICATIONS: lithotripsy and placement of left ureteral stent TECHNIQUE: One view of the abdomen acquired. COMPARISON: [facility], , XR KUB, 11/09/2022, 9:00. FINDINGS: Surgical changes and devices: Left-sided ureteral stent in place. Bowel: Bowel gas pattern is normal. Soft tissues: No suspicious abdominal calcifications. Visualized solid organ contours appear normal in size. Bones: No suspicious bony lesions. IMPRESSION: Left-sided ureteral stent in place. No definite renal stone is seen. Dictated by: Marc Varner M.D. on 11/21/2022 at 11:51 Approved by: Marc Varner M.D. on 11/21/2022 at 11:52
== END ==
PROVIDERS: Family Provider Student in an Organized Health Care Education/Training Program; PCP Pediatrics; Referring Provider Internal Medicine; Visit Provider Internal Medicine
DX: I71.40 Abdominal aortic aneurysm, without rupture, unspecified (principal)
CPT/HCPCS: 74018; 76775

== ENCOUNTER → 2022-12-13 13:05 | Outpatient (CLI) | payer OTHER, SELFPAY | PROVIDERS: Family Provider Student in an Organized Health Care Education/Training Program; PCP Pediatrics; Visit Provider Specialist | DX: N20.2 Calculus of kidney with calculus of ureter (principal); Z87.440 Personal history of urinary (tract) infections; Z96.0 Presence of urogenital implants | CPT/HCPCS: 52310; 81002; 87077; 87086; 87185; 87186; 99215 ==

== ENCOUNTER → 2022-12-26 12:46 | Outpatient (CLI) | payer OTHER, SELFPAY ==
--- NOTE | 2022-12-26 12:48 | DI.RAD.S_ITS ---
PROCEDURE: XR KUB INDICATIONS: kidney and ureter calculus TECHNIQUE: One view of the abdomen acquired. COMPARISON: [facility], CT, CT ABDOMEN PELVIS W CON, 09/18/2022, 17:24. [facility], CR, XR KUB, 11/21/2022, 9:43. [facility], CR, XR KUB, 11/09/2022, 9:00. [facility], CR, XR KUB, 10/23/2022, 11:30. [facility], CR, XR ACUTE ABDOMEN SERIES, 09/06/2021, 19:39. FINDINGS: Surgical changes and devices: None. Bowel: Bowel gas pattern is normal. Soft tissues: No suspicious abdominal calcifications. Visualized solid organ contours appear normal in size. Bones: No suspicious bony lesions. Degenerative changes are seen in the spine. At the site of the is noted about the pelvis. IMPRESSION: No definite renal calculus is seen radiographically. Approved by: Odin Haley M.D. on 12/26/2022 at 16:39
== END ==
PROVIDERS: Family Provider Student in an Organized Health Care Education/Training Program; PCP Pediatrics; Referring Provider Specialist; Visit Provider Specialist
DX: N20.2 Calculus of kidney with calculus of ureter (principal)
CPT/HCPCS: 74018

== ENCOUNTER → 2023-02-22 10:59 | Outpatient (CLI) | payer OTHER, SELFPAY ==
--- NOTE | 2023-02-22 11:01 | DI.CT.S_ITS ---
PROCEDURE: CT KIDNEY URETER BLADDER (KUB) INDICATIONS: Kidney stones TECHNIQUE: Axial sections were acquired from the lung bases to the pubic symphysis. Coronal and sagittal reformats were performed. For radiation dose reduction, the following was used: automated exposure control, adjustment of mA and/or kV according to patient size. COMPARISON: [facility], CR, XR KUB, 12/26/2022, 12:49. [facility], CT, CT ABDOMEN PELVIS W CON, 09/18/2022, 17:24. FINDINGS: Image quality: Excellent. Lung bases: Reticular thickening. No pleural effusion. Heart: Coronary artery calcifications. URINARY: Right Kidney: No hydronephrosis. Nonobstructing kidney stone measuring 0.3 cm, (2/25). Right Ureter: No hydroureter. Left Kidney: No hydronephrosis. Nonobstructing kidney stone measuring 0.4 cm, (4/36). Benign cyst measuring 1.7 cm. A stone previously seen in the superior pole the left kidney on CT 09/18/2022 is no longer present. Left Ureter: No hydroureter. Bladder: Decompressed. No stones. ABDOMEN: Liver: Unremarkable. Gallbladder: Unremarkable. Biliary ducts: Unremarkable. Pancreas: Unremarkable. Spleen: Unremarkable. Adrenal Glands: Unremarkable. Stomach and Bowel: Stomach, small bowel loops, and colon are unremarkable. Diverticulosis. Normal appendix. Peritoneum: No abnormal intraperitoneal fluid. No free air. Ventral Wall: No hernia. Abdominal Nodes: No enlarged retroperitoneal or mesenteric lymph nodes. Vessels: Infrarenal saccular abdominal aortic aneurysm measuring 3.3 cm, (4/37), previously 3.1 cm. PELVIS: Pelvic Organs: Unremarkable. Pelvic Nodes: Unremarkable. Miscellaneous: Fat containing left inguinal hernia. Bones: No suspicious lesion. IMPRESSION: 1. No hydronephrosis. No obstructing calculus. 2. Small nonobstructing bilateral kidney stones of note 1 of the stones previously seen in the superior pole the left kidney on CT 09/18/2022 is no longer present in is presumably passed. 3. Diverticulosis. No free fluid. Dictated by: Jose Palmer M.D. on 02/22/2023 at 12:15 Approved by: Jose Palmer M.D. on 02/22/2023 at 12:26
== END ==
PROVIDERS: Family Provider Student in an Organized Health Care Education/Training Program; PCP Pediatrics; Referring Provider Specialist; Visit Provider Specialist
DX: N20.2 Calculus of kidney with calculus of ureter (principal); K57.90 Diverticulosis of intestine, part unspecified, without perforation or abscess without bleeding; K40.90 Unilateral inguinal hernia, without obstruction or gangrene, not specified as recurrent; I25.10 Atherosclerotic heart disease of native coronary artery without angina pectoris; Z87.440 Personal history of urinary (tract) infections
CPT/HCPCS: 74176; 81002; 87086; 99215

== ENCOUNTER → 2023-02-22 15:10 | Outpatient (CLI) | payer OTHER, SELFPAY | PROVIDERS: Family Provider Student in an Organized Health Care Education/Training Program; PCP Pediatrics; Visit Provider Specialist | DX: Z87.440 Personal history of urinary (tract) infections; N20.2 Calculus of kidney with calculus of ureter | CPT/HCPCS: 87086 ==

== ENCOUNTER → 2023-05-10 08:48 | Outpatient (CLI) | payer OTHER, SELFPAY ==
[2023-05-10 10:12] LABS: Hematocrit 41.8 % (41-53); Hemoglobin 14.4 g/dL (13.5-17.5); Mean Corpuscular HGB Conc 34.5 % (30-36); Mean Corpuscular Hemoglobin 31.9 PG (26-34); Mean Corpuscular Volume 92.5 fL (80-100); Platelet Count 103 X10^3/uL (150-400); Red Blood Cell Count 4.52 X10^6/uL (4.5-5.9); Red Cell Distribution Width 14.4 % (11.6-14.8); White Blood Cell Count 5.3 X10^3/uL (4.5-11.0)
[2023-05-10 10:42] LABS: Alanine Aminotransferase 7 IU/L (<50); Albumin Globulin Ratio 1.4 (1.0-2.8); Alkaline Phosphatase 100 U/L (38-126); Aspartate Aminotransferase 23 IU/L (17-59); BUN Creatinine Ratio 25.5 (6-22); Bilirubin Total 1.4 mg/dL (0.2-1.3); Blood Urea Nitrogen 24 mg/dL (9-20); Carbon Dioxide 22 mmol/L (22-32); Chloride 104 mmol/L (98-107); Cholesterol 141 mg/dL (140-199); Estimated Glomerular Filt Rate > 60 mL/min (>60); Globulin 2.9 g/dL (1.7-4.1); Glucose 108 mg/dL (80-110); HDL Cholesterol 44 mg/dL (40-60); HEMOLYSIS 15 (0-50); LDL Cholesterol Calculated 74 mg/dL (<100); Potassium 4.5 mmol/L (3.4-5.1); Sodium 136 mmol/L (137-145); Total Protein 6.9 g/dL (6.3-8.2); Triglycerides 114 mg/dL (35-150)
[2023-05-10 13:04] LABS: TSH w/ Reflex to FT4 2.08 uIU/mL (0.47-4.68)
== END ==
PROVIDERS: Family Provider Student in an Organized Health Care Education/Training Program; PCP Internal Medicine; Referring Provider Internal Medicine; Visit Provider Internal Medicine
DX: I10 Essential (primary) hypertension (principal); E78.2 Mixed hyperlipidemia; I25.10 Atherosclerotic heart disease of native coronary artery without angina pectoris
CPT/HCPCS: 36415; 80053; 80061; 84443; 85027

== ENCOUNTER 2023-12-05 18:31 | Emergency (ER) | payer OTHER, SELFPAY ==
[2023-12-05 18:41] VITALS: BP 144/67; PULSE 73; RESP 17; TEMP 36.8; O2SAT 96; BMI 31.9
--- NOTE | 2023-12-05 18:50 | DI.RAD.S_ITS ---
PROCEDURE: XR CHEST 1V INDICATIONS: chest pain TECHNIQUE: One view of the chest was acquired. COMPARISON: None. FINDINGS: Surgical changes and devices: Sternotomy and CABG. Lungs and pleura: Interstitial opacities and peribronchial cuffing. Mediastinum: Cardiomegaly and dilated main pulmonary arteries. Bones and chest wall: No suspicious bony lesions. Overlying soft tissues appear unremarkable. IMPRESSION: Suspected mild pulmonary edema. Pulmonary hypertension. Dictated by: Reese Perez M.D. on 12/05/2023 at 19:26 Approved by: Reese Perez M.D. on 12/05/2023 at 19:26
--- NOTE | 2023-12-05 18:50 | DI.CT.S_ITS ---
PROCEDURE: CT HEAD/BRAIN WO CON INDICATIONS: fall TECHNIQUE: Noncontrast 4.5 mm thick angled axial sections acquired from the foramen magnum to the vertex, with coronal and sagittal reformats. For radiation dose reduction, the following was used: automated exposure control, adjustment of mA and/or kV according to patient size. COMPARISON: None. FINDINGS: Image quality: Diagnostic. CSF spaces: Basal cisterns are patent. No extra-axial fluid collections. The ventricles are symmetric in size and shape. Brain: No intracranial bleeds or masses. There is cerebral volume loss for age, with resultant ventricular and sulcal prominence. There are periventricular and deep white matter chronic small vessel ischemic changes. There is intracranial internal carotid artery atherosclerosis. Skull and face: Calvarium and visualized facial bones appear intact, without suspicious lesions. Right lateral scalp contusion. Sinuses: Complete occlusion of the right sphenoid locule. IMPRESSION: No acute intracranial pathology. Sinusitis of the right sphenoid locule. Dictated by: Reese Perez M.D. on 12/05/2023 at 19:08 Approved by: Reese Perez M.D. on 12/05/2023 at 19:14
--- NOTE | 2023-12-05 19:06 | ED.GENADULT ---
HPI - General Adult General Chief complaint: Syncope Stated complaint: fall, hit head, no blood thinners Time Seen by Provider: 12/05/23 18:55 Source: patient Mode of arrival: Ambulatory History of Present Illness HPI narrative: 78-year-old gentleman with a history of Parkinson's disease, vertigo, coronary artery disease, hypertension, hyperlipidemia was at home today standing at the kitchen sink around 11:00 a.m. had an episode of syncope where he describes loss of consciousness and hit his head on the bottom of his freezer. There is a laceration to the right parietal area. Possible 5 minute loss of consciousness but this is per patient recollection only. He was nauseated with an episode of vomiting. He was able to get up take shower call his daughter who came from [place] to help him come to the emergency department. Currently is asymptomatic and nausea is resolved Related Data Home Medications Medication Instructions Recorded Confirmed aspirin 81 mg tablet,delayed 81 mg PO DAILY 07/29/20 12/05/23 release carbidopa ER 50 mg-levodopa 200 mg 1 tab PO 3XD 05/07/23 12/05/23 tablet,extended release ranolazine 500 mg tablet,extended 500 mg PO BID 05/07/23 12/05/23 release,12 hr Previous Rx's Medication Instructions Recorded Parking Permit... #1 ea 11/06/21 nitroglycerin 0.4 mg/hr 1 patch transdermal Q24H #30 ea 10/06/22 transdermal 24 hour patch (Nitro-Dur) simvastatin 40 mg tablet 40 mg PO BEDTIME #90 tabs 07/03/23 hydrocodone 5 mg-acetaminophen 325 1 tab PO BID PRN pain #20 tabs 08/06/23 mg tablet metoprolol succinate 25 mg 12.5 mg (1/2 x 25 mg) PO DAILY #45 09/02/23 tablet,extended release 24 hr tabs Allergies Allergy/AdvReac Type Severity Reaction Status Date / Time oxycodone AdvReac Intermediate Nausea Verified 12/05/23 18:46 Review of Systems Review of Systems Narrative: Pertinent positive and negative findings as per HPI Patient History Medical History (Updated 12/06/23 @ 00:19 by Agueda Nguyen MD) Tendonitis of left rotator cuff Obesity (BMI 30.0-34.9) Do not resuscitate Chronic, continuous use of opioids Chronic low back pain Essential hypertension Vertigo Diverticulosis (08/2019) History of UTI Bilateral nephrolithiasis Calculus of distal left ureter H/O nephrolithotomy with removal of calculi Subconjunctival hemorrhage of left eye History of kidney stones Coronary artery disease involving [place] coronary artery of [place] heart without angina pectoris (12/21/15) Healed perforation of tympanic membrane (06/03/14) Surgical History History of cardiac cath Status post coronary artery bypass graft (~1998) Family History Mother CAD in [place] artery Family/Other Hyperlipidemia Father Aneurysm Social History marital status: details: 2016, two children, from [place], retired [employer] number of children: 2 household members: friend(s) Smoking Status: Former smoker alcohol intake: former Smoking Status: Former smoker Substance Use Type: does not use Exam Initial Vital Signs Initial Vital Signs: Vital Signs Temperature 98.3 F 12/05/23 18:41 Pulse Rate 73 12/05/23 18:41 Respiratory Rate 17 12/05/23 18:41 Blood Pressure 144/67 H 12/05/23 18:41 Pulse Oximetry 96 12/05/23 18:41 Oxygen Delivery Method Room Air 12/05/23 18:41 General: Healthy appearing, in no acute distress. Able to give a complete and coherent history. Well-nourished well-developed HEENT: Moist mucous membranes, normal sclera with reactive pupils, 5 cm linear laceration right side of his scalp parietal area without underlying tenderness or hematoma. No palpable skull fracture Neck: No cervical spine tenderness Respiratory: Lungs are clear to auscultation, no wheezing no rales no rhonchi. Full and symmetrical air movement Cardiac: Regular rate and rhythm no murmurs no bruits Abdomen: Soft, nontender, good bowel tones, no flank pain Skin: Warm and dry, no rashes, no other abrasions contusions or concerns from his fall that led to the head laceration Neurologic: Grossly neurologically intact with no obvious asymmetries or abnormalities aside from a mild parkinsonian tremor Extremities: No trauma, well perfused Psych: Cooperative, appropriate insight and affect Procedures Laceration Repair Scalp: Time of procedure: 00:13 Site: scalp Side (If applicable): right Size (cm): 6 Description: linear Depth: simple, single layer Local Anesthetic: lidocaine 1% and with epi Amount of anesthesia used (mL): 4 Pre-repair: wound explored, irrigated extensively and deep structures intact Skin layer closed with: mela Number of sutures: 6 Course Orders Ordered: ED Orders 12/05/23 18:50 CT head/brain wo con Stat XR chest 1V Stat EKG-12 Lead Stat 12/05/23 19:40 Complete Blood Count AUTO DIFF Stat Comprehensive Metabolic Panel Stat Lipase Stat Magnesium Stat PTT Partial Thromboplastin Lloyd Stat Prothrombin Time INR Stat Troponin & CK Cardiac Panel Stat Vital Signs Vital signs: Vital Signs - 8 hr 12/05/23 18:41 Temperature 98.3 F Pulse Rate 73 Respiratory Rate 17 Blood Pressure 144/67 H Pulse Oximetry 96 Oxygen Delivery Method Room Air Medical Decision Making Lab Data 12/05/23 19:40 12/05/23 19:40 Labs: Lab Results 12/05/23 Range/Units 19:40 WBC 7.6 (4.5-11.0) X10^3/uL RBC 4.07 L (4.5-5.9) X10^6/uL Hgb 12.9 L (13.5-17.5) g/dL Hct 38.2 L (41-53) % MCV 93.9 (80-100) fL MCH 31.8 (26-34) PG MCHC 33.9 (30-36) % RDW 14.1 (11.6-14.8) % Plt Count 110 L (150-400) X10^3/uL Neut % (Auto) 70.4 (50-75) % Lymph % (Auto) 17.5 L (25-40) % [place] % (Auto) 11.1 (3-14) % Eos % (Auto) 0.6 L (2-4) % Baso % (Auto) 0.4 (0-2) % Neut # (Auto) 5300 (5372-1450) /uL Lymph # (Auto) 1300 (1971-8532) /uL [place] # (Auto) 800 (0-900) /uL Eos # (Auto) 0 (0-450) /uL Baso # (Auto) 0 (0-100) /uL PT 13.4 H (9.4-12.5) SECONDS INR 1.2 (0.9-1.3) APTT 31 (25.1-36.5) SECONDS Sodium 137 (137-145) mmol/L Potassium 4.2 (3.4-5.1) mmol/L Chloride 106 (98-107) mmol/L Carbon Dioxide 28 (22-32) mmol/L BUN 28 H (9-20) mg/dL Creatinine 1.40 H (0.66-1.25) mg/dL Estimated GFR 51 L (>60) mL/min BUN/Creatinine Ratio 20.0 (6-22) Glucose 118 H (80-110) mg/dL Calcium 9.0 (8.4-10.2) mg/dL Magnesium 2.0 (1.6-2.3) mg/dL Total Bilirubin 1.5 H (0.2-1.3) mg/dL AST 21 (17-59) IU/L ALT 7 (<50) IU/L Alkaline Phosphatase 81 (38-126) U/L Total Creatine Kinase 144 (55-170) U/L Troponin I 0.014 (0.01-0.034) ng/mL Total Protein 6.8 (6.3-8.2) g/dL Albumin 4.1 (3.5-5.0) g/dL Globulin 2.7 (1.7-4.1) g/dL Albumin/Globulin Ratio 1.5 (1.0-2.8) Lipase 87 (23-300) U/L Imaging Data CT scan - head: Radiologist's Impression: PROCEDURE: CT HEAD/BRAIN WO CON INDICATIONS: fall TECHNIQUE: Noncontrast 4.5 mm thick angled axial sections acquired from the foramen magnum to the vertex, with coronal and sagittal reformats. For radiation dose reduction, the following was used: automated exposure control, adjustment of mA and/or kV according to patient size. COMPARISON: None. FINDINGS: Image quality: Diagnostic. CSF spaces: Basal cisterns are patent. No extra-axial fluid collections. The ventricles are symmetric in size and shape. Brain: No intracranial bleeds or masses. There is cerebral volume loss for age, with resultant ventricular and sulcal prominence. There are periventricular and deep white matter chronic small vessel ischemic changes. There is intracranial internal carotid artery atherosclerosis. Skull and face: Calvarium and visualized facial bones appear intact, without suspicious lesions. Right lateral scalp contusion. Sinuses: Complete occlusion of the right sphenoid locule. IMPRESSION: No acute intracranial pathology. Sinusitis of the right sphenoid locule. Dictated by: Reese Perez M.D. on 12/05/2023 at 19:08 MDM Narrative Medical decision making narrative: CC: Fall hit head not on thinners, presumed syncope patient thinks approximately 5 minutes Complicating co-morbidities: Parkinson's disease, patient takes no blood pressure medications and does regularly check blood pressures Data collected from: patient Social determinants of health that may influence the patients condition: Patient lives independently, his daughter lives in [place] Medical records reviewed: Internal Medicine follow up notes from August of this year are reviewed Differential considered: Orthostatic hypotension, sepsis, cardiac syncope, acute coronary syndrome, rupturing AAA Exam documented above, pertinent findings include: Aside from a 5 cm linear laceration to the right parietal area exam is entirely unremarkable Lab Test results independently reviewed as above. Pertinent findings: CBC shows a white count of 7.6. H and H is 12.9 and 38.2 Chemistries show slight increase in creatinine compared to May. 1.4. Total bilirubin is 1.5 and appears relatively stable. Troponin is unremarkable Lipase is unremarkable Independently reviewed EKG: Sinus rhythm overall poor baseline on EKG. Rate of 71. No acute ischemic change Imaging studies independently reviewed: Head CT shows no skull fractures or intracranial hemorrhage X-ray done for syncope shows no acute abnormalities Treatments: Head wound irrigated and 6 mela placed without complication Discussion: 78-year-old gentleman with Parkinson's disease was at home in his kitchen following his usual routine when he woke up on the floor. He does not describe palpitations, a sense that the room was closing in, vertigo. He has not been sick he has not changed his medications. He has a laceration in the right parietal side of his head after hitting the lower part of his freezer. Afterward 2s able to get, stop the bleeding with the kitchen tile, clean up the kitchen, take shower clean himself up take a nap and eventually called his daughter who brought him to the emergency room this evening. His 6 cm laceration was cleaned and stapled. His workup for syncope does not show any acute abnormalities. He does not appear to be dehydrated, he has not orthostatic. He has had regular telemetry findings throughout his hospital stay with no arrhythmias appreciated, no evidence of acute coronary syndrome, sepsis, severe anemia or alternate explanation that would suggest further workup or hospitalization. Neurologically aside from his mild parkinsonian tremor others no evidence of stroke. All of these findings are reviewed with the patient's daughter questions are answered. Recommended mela be removed on or about December 19. Clearly reviewed signs and symptoms of infection and reasons to return to the emergency department. Patient is safe for discharge Discharge Plan Departure Patient Disposition: Home Clinical Impression: Syncope Qualifiers: Syncope type: unspecified Qualified Code(s): R55 - Syncope and collapse Laceration of scalp Qualifiers: Encounter type: initial encounter Qualified Code(s): S01.01XA - Laceration without foreign body of scalp, initial encounter Instructions: DI for Syncope in Adults (Fainting), DI for Laceration Repair of the Scalp Activity Restrictions/Additional Instructions: Thank you for coming in today For your scalp laceration, 6 mela were placed in you will need to have these removed by the your primary care physician or returning to the emergency department on or about December 19. The laceration was clean and should heal nicely. If you notice increasing redness, pain, drainage or smell you need to return to the emergency department The more important part of your emergency department workup was why you have this episode of passing out. I did not find any evidence of stroke, bleeding inside your head, infection, significant low blood pressure, cardiac arrhythmias or heart attack or heart attack like syndrome. I would recommend that you follow up with your primary care physician. Orthostatic hypotension, where your blood pressure dropped so low that you pass out, can be associated with Parkinson's disease. If you find that you are getting worse or develop any new symptoms, please feel free to return to the emergency department for further evaluation. Prescriptions: No Action nitroglycerin [Nitro-Dur] 0.4 mg/hr patch 24 hour 1 patch transdermal Q24H Qty: 30 11RF Rx Instructions: allow nitrate-free interval of approx. 10-12 hrs per 24-hour period, Apply at 0800, off at 1400. simvastatin 40 mg tablet 40 mg PO BEDTIME Qty: 90 3RF Hold Instructions: Reported interaction with simvastatin and ciprofloxacin metoprolol succinate 25 mg tablet extended release 24 hr 12.5 mg PO DAILY Qty: 45 1RF (DME) Parking Permit... See Rx Instructions .ROUTE .MEDSUPPLY Qty: 1 0RF Rx Instructions: As directed aspirin 81 mg tablet,delayed release (DR/EC) 81 mg PO DAILY ranolazine 500 mg tablet extended release 12 hr 500 mg PO BID carbidopa-levodopa 50-200 mg tablet extended release 1 tab PO 3XD hydrocodone-acetaminophen 5-325 mg tablet 1 tab PO BID PRN (Reason: pain) Qty: 20 0RF Referrals: Osbaldo Castorena MD [Primary Care Provider] - Stand Alone Forms: Patient Portal/API
[2023-12-05 19:54] LABS: Add Manual Diff / Slide Review NO; Basophils Absolute Auto 0 /uL (0-100); Basophils Percent Auto 0.4 % (0-2); Eosinophils Absolute Auto 0 /uL (0-450); Eosinophils Percent Auto 0.6 % (2-4); Hematocrit 38.2 % (41-53); Hemoglobin 12.9 g/dL (13.5-17.5); Lymphocytes Absolute Auto 1300 /uL (1100-4500); Lymphocytes Percent Auto 17.5 % (25-40); Mean Corpuscular HGB Conc 33.9 % (30-36); Mean Corpuscular Hemoglobin 31.8 PG (26-34); Mean Corpuscular Volume 93.9 fL (80-100); Monocytes Absolute Auto 800 /uL (0-900); Monocytes Percent Auto 11.1 % (3-14); Neutrophils Absolute Auto 5300 /uL (1500-7000); Neutrophils Percent Auto 70.4 % (50-75); Platelet Count 110 X10^3/uL (150-400); Red Blood Cell Count 4.07 X10^6/uL (4.5-5.9); Red Cell Distribution Width 14.1 % (11.6-14.8); White Blood Cell Count 7.6 X10^3/uL (4.5-11.0)
[2023-12-05 20:02] LABS: INR 1.2 (0.9-1.3); Prothrombin Time 13.4 SECONDS (9.4-12.5)
[2023-12-05 20:04] LABS: PTT Partial Thromboplastin Tim 31 SECONDS (25.1-36.5)
[2023-12-05 20:06] LABS: Alanine Aminotransferase 7 IU/L (<50); Albumin 4.1 g/dL (3.5-5.0); Albumin Globulin Ratio 1.5 (1.0-2.8); Alkaline Phosphatase 81 U/L (38-126); Aspartate Aminotransferase 21 IU/L (17-59); Bilirubin Total 1.5 mg/dL (0.2-1.3); Blood Urea Nitrogen 28 mg/dL (9-20); Carbon Dioxide 28 mmol/L (22-32); Chloride 106 mmol/L (98-107); Creatine Kinase 144 U/L (55-170); Estimated Glomerular Filt Rate 51 mL/min (>60); Globulin 2.7 g/dL (1.7-4.1); Glucose 118 mg/dL (80-110); HEMOLYSIS 22 (0-50); Lipase 87 U/L (23-300); Potassium 4.2 mmol/L (3.4-5.1); Sodium 137 mmol/L (137-145); Total Protein 6.8 g/dL (6.3-8.2)
[2023-12-05 20:18] LABS: Troponin I 0.014 ng/mL (0.01-0.034)
[2023-12-05 23:01] VITALS: PULSE 71; O2SAT 96
[2023-12-05 23:30] VITALS: BP 147/64; PULSE 66; O2SAT 97
[2023-12-06] VITALS: BP 151/68; PULSE 68; O2SAT 97
[2023-12-06 00:30] VITALS: PULSE 67; O2SAT 96
[2023-12-06 00:31] VITALS: BP 158/114; PULSE 67; O2SAT 96
[2023-12-06] MEDS: BACITRACIN OINT 0.9 GM PCKT 1 APPLIC TOP (00:45)
== END 2023-12-06 00:50 | disposition home or self-care (01) ==
PROVIDERS: Emergency Provider Emergency Medicine; Family Provider Student in an Organized Health Care Education/Training Program; PCP Internal Medicine
DX: R55 Syncope and collapse (principal); S01.01XA Laceration without foreign body of scalp, initial encounter; W18.30XA Fall on same level, unspecified, initial encounter; R94.31 Abnormal electrocardiogram [ECG] [EKG]
CPT/HCPCS: 12002; 36415; 70450; 71045; 80053; 82550; 83690; 83735; 84484; 85025; 85610; 85730; 93005; 99283; 99284

== ENCOUNTER → 2024-01-08 11:10 | Outpatient (CLI) | payer OTHER, SELFPAY | LOC: CAR 11:11 | PROVIDERS: PCP Internal Medicine; Referring Provider Internal Medicine; Visit Provider Internal Medicine | DX: R55 Syncope and collapse (principal) | CPT/HCPCS: 93246 ==

== ENCOUNTER → 2024-04-24 14:35 | Outpatient (CLI) | payer OTHER, SELFPAY ==
--- NOTE | 2024-04-24 14:36 | DI.CT.S_ITS ---
PROCEDURE: CT KIDNEY URETER BLADDER (KUB) INDICATIONS: 78 y/o M w/ h/o nephrolithiasis, has right flank pain TECHNIQUE: Axial sections were acquired from the lung bases to the pubic symphysis. Coronal and sagittal reformats were performed. For radiation dose reduction, the following was used: automated exposure control, adjustment of mA and/or kV according to patient size. COMPARISON: [facility], CT, CT ABDOMEN PELVIS W CON, 09/18/2022, 17:24. [facility], CT, CT KIDNEY URETER BLADDER (KUB), 02/22/2023, 11:18. FINDINGS: Image quality: Beyond what appears to be pulmonary hyperexpansion and suspected COPD Lower Chest: No significant findings. URINARY: Right Kidney: No hydronephrosis, punctate 1 mm nonobstructive calculus again noted. Right Ureter: No hydroureter. Left Kidney: No hydronephrosis, 2 x 3 mm lower 3rd collecting system nonobstructive calculus. Left Ureter: No hydroureter. Bladder: Normal wall thickness. No stones. ABDOMEN: Liver: No contour-deforming solid mass. Gallbladder: No radiopaque gallstones or wall thickening. Biliary ducts: No biliary dilation. Pancreas: No ductal dilation. Spleen: Size is within normal limits. Adrenal Glands: No adrenal nodules. Stomach and Bowel: Normal colonic caliber, without significant wall thickening. Peritoneum: No abnormal intraperitoneal fluid. No free air. Ventral Wall: No hernia. Abdominal Nodes: No enlarged retroperitoneal or mesenteric lymph nodes. Vessels: Aorta and inferior vena cava are unchanged in size and a 3.6 cm eccentric border of the middle 3rd of the aorta at the axial level of the lower kidneys is again seen, stable including a contrast enhanced CT from 09/18/22.. PELVIS: Pelvic Organs: Unremarkable. Pelvic Nodes: Unremarkable. Miscellaneous: No inguinal hernias are seen. Bones: Unremarkable. IMPRESSION: No obstructing stones or hydronephrosis. A definite source of new onset right flank pain is not identified. 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 However, this has not changed in caliber from 2022. Given the potential for spontaneous rupture and asymptomatic enlargement follow-up yearly aortic ultrasound may be warranted. Dictated by: Joe Martinez M.D. on 04/24/2024 at 15:19 Approved by: Joe Martinez M.D. on 04/24/2024 at 15:30
== END ==
PROVIDERS: PCP Internal Medicine; Referring Provider Urology; Visit Provider Urology
DX: I71.40 Abdominal aortic aneurysm, without rupture, unspecified (principal); R10.9 Unspecified abdominal pain; R39.15 Urgency of urination; Z87.442 Personal history of urinary calculi
CPT/HCPCS: 51798; 74176; 81002; 99213

== ENCOUNTER 2024-05-06 09:40 | Emergency (ER) | payer OTHER, SELFPAY ==
[2024-05-06 09:55] VITALS: BP 118/57; PULSE 74; RESP 17; TEMP 36.4; O2SAT 98; BMI 31.1
--- NOTE | 2024-05-06 13:08 | ED.SKABFB ---
HPI - Skin/Abscess/Foreign Bdy <Jennyfer Isaacs PA-C - Last Filed: 05/06/24 13:33> General Chief complaint: Skin/Abscess/Foreign Body Stated complaint: Lower left leg infection Time Seen by Provider: 05/06/24 13:08 Source: patient Mode of arrival: Ambulatory History of Present Illness HPI narrative: Mr. Euceda is a very pleasant 78-year-old male with a past medical history of aortic aneurysm, CABG, CAD, HLD, Parkinson's disease who presents to the emergency department for left lower leg skin infection. Patient reports on Saturday he went to the walk-in clinic for 4 days of left lower leg infection and was prescribed Augmentin. He has been taking his antibiotic and reports that the infection actually appears to be improving however he was unsure when it evaluated. This time he has a rectangular area of erythematous and dry skin on his left medial lower leg. He denies any fevers, chills, drainage or swelling. States that he had applied a large Band-Aid to the area prior to the development of the redness. Related Data Home Medications Medication Instructions Recorded Confirmed aspirin 81 mg tablet,delayed 81 mg PO DAILY 07/29/20 05/01/24 release carbidopa ER 50 mg-levodopa 200 mg 1 tab PO 3XD 05/07/23 05/01/24 tablet,extended release ranolazine 500 mg tablet,extended 500 mg PO BID 05/07/23 05/01/24 release,12 hr Previous Rx's Medication Instructions Recorded Parking Permit... #1 ea 11/06/21 nitroglycerin 0.4 mg/hr 1 patch transdermal Q24H #30 ea 10/06/22 transdermal 24 hour patch (Nitro-Dur) hydrocodone 5 mg-acetaminophen 325 1 tab PO BID PRN pain #20 tabs 02/03/24 mg tablet simvastatin 40 mg tablet 40 mg PO BEDTIME #90 tabs 04/22/24 amoxicillin 875 mg-potassium 1 tab PO BID #20 tabs 05/01/24 clavulanate 125 mg tablet Allergies Allergy/AdvReac Type Severity Reaction Status Date / Time oxycodone AdvReac Intermediate Nausea Verified 05/06/24 09:58 Review of Systems <Jennyfer Isaacs PA-C - Last Filed: 05/06/24 13:33> Review of Systems Narrative: All systems reviewed & are unremarkable except as noted in HPI and below Patient History <Jennyfer Isaacs PA-C - Last Filed: 05/06/24 13:33> Medical History Tendonitis of left rotator cuff Obesity (BMI 30.0-34.9) Do not resuscitate Chronic, continuous use of opioids Chronic low back pain Essential hypertension Vertigo Diverticulosis (08/2019) History of UTI Bilateral nephrolithiasis Calculus of distal left ureter H/O nephrolithotomy with removal of calculi Subconjunctival hemorrhage of left eye History of kidney stones Coronary artery disease involving [place] coronary artery of [place] heart without angina pectoris (12/21/15) Healed perforation of tympanic membrane (06/03/14) Surgical History History of cardiac cath Status post coronary artery bypass graft (~1998) Family History Mother CAD in [place] artery Family/Other Hyperlipidemia Father Aneurysm Social History marital status: details: 2017, two children, from [place], [place] number of children: 2 household members: friend(s) Smoking Status: Former smoker alcohol intake: former Smoking Status: Former smoker Substance Use Type: does not use Exam <Jennyfer Isaacs PA-C - Last Filed: 05/06/24 13:33> Narrative Exam Narrative: GENERAL: 78 year old patient appears stated age. Well-developed patient, in no acute distress. HEAD: Atraumatic. Normocephalic. EYES: Pupils equal round and reactive. Extraocular motions intact. No scleral icterus. No injection or drainage. ENT: Nose without bleeding, purulent drainage. Throat without erythema, tonsillar hypertrophy or exudate. Airway patent. NECK: Trachea midline. Non tender CARDIOVASCULAR: Regular rate. RESPIRATORY: Speaking in clear full sentences. Nonlabored breathing. EXTREMITIES: No edema or joint tenderness. NEURO: AOx3. SKIN: 7cm rectangular area of dry, flaking, erythematous skin on medial left lower leg. No drainage. No increased warmth. No edema. Strong DP pulse. Initial Vital Signs Initial Vital Signs: Vital Signs Temperature 97.6 F 05/06/24 09:55 Pulse Rate 74 05/06/24 09:55 Respiratory Rate 17 05/06/24 09:55 Blood Pressure 118/57 L 05/06/24 09:55 Pulse Oximetry 98 05/06/24 09:55 Oxygen Delivery Method Room Air 05/06/24 09:55 <Agueda Nguyen MD - Last Filed: 05/06/24 18:29> Initial Vital Signs Initial Vital Signs: Vital Signs Temperature 97.6 F 05/06/24 09:55 Pulse Rate 74 05/06/24 09:55 Respiratory Rate 17 05/06/24 09:55 Blood Pressure 118/57 L 05/06/24 09:55 Pulse Oximetry 98 05/06/24 09:55 Oxygen Delivery Method Room Air 05/06/24 09:55 Course <Jennyfer Isaacs PA-C - Last Filed: 05/06/24 13:33> Vital Signs Vital signs: Vital Signs - 8 hr 05/06/24 13:47 Pulse Rate 68 Respiratory Rate 18 Blood Pressure 142/79 H Pulse Oximetry 98 Oxygen Delivery Method Room Air <Agueda Nguyen MD - Last Filed: 05/06/24 18:29> Vital Signs Vital signs: Vital Signs - 8 hr 05/06/24 13:47 Pulse Rate 68 Respiratory Rate 18 Blood Pressure 142/79 H Pulse Oximetry 98 Oxygen Delivery Method Room Air MDM - Skin/Abscess/Foreign Bdy <JACKIE Funez Last Filed: 05/06/24 13:33> MDM Narrative Medical decision making narrative: 78-year-old male presents to the emergency department for infection in his left lower leg. Differential diagnosis includes but is not limited to cellulitis, abscess, dermatitis, etc.. On exam patient is in no acute distress, nontoxic appearing, afebrile and not tachycardic. He has a rectangular area of dry flaking erythematous skin on his left medial leg that is in the exact margins of a previous Band-Aid. He showed me a picture from Saturday and there is clear improvement in this area. I recommend he continue with the antibiotics, avoid Band-Aid or Neosporin use, and use Vaseline if needed for dry skin and follow up with the primary care doctor within 1 week for repeat evaluation. Patient verbalized understanding of all the information, is agreeable to plan, and is stable for discharge. Discharge Plan Departure Patient Disposition: Home Clinical Impression: Rash, Dry skin Instructions: DI for Cellulitis -- Adult Activity Restrictions/Additional Instructions: Please complete the full course of antibioitcs. Please keep the skin on your leg clean. You may apply Vaseline for dry skin. Return to the ER if you develop increased redness, swelling, fevers/chills, pus drainage, or streaking redness of the leg. Follow up with your primary care doctor within the next week and return to the ER for any concerns. Prescriptions: No Action amoxicillin-pot clavulanate 875-125 mg tablet 1 tab PO BID Qty: 20 0RF nitroglycerin [Nitro-Dur] 0.4 mg/hr patch 24 hour 1 patch transdermal Q24H Qty: 30 11RF Rx Instructions: allow nitrate-free interval of approx. 10-12 hrs per 24-hour period, Apply at 0800, off at 1400. simvastatin 40 mg tablet 40 mg PO BEDTIME Qty: 90 2RF Hold Instructions: Reported interaction with simvastatin and ciprofloxacin (DME) Parking Permit... See Rx Instructions .ROUTE .MEDSUPPLY Qty: 1 0RF Rx Instructions: As directed hydrocodone-acetaminophen 5-325 mg tablet 1 tab PO BID PRN (Reason: pain) Qty: 20 0RF aspirin 81 mg tablet,delayed release (DR/EC) 81 mg PO DAILY ranolazine 500 mg tablet extended release 12 hr 500 mg PO BID carbidopa-levodopa 50-200 mg tablet extended release 1 tab PO 3XD Referrals: Osbaldo Castorena MD [Primary Care Provider] - Stand Alone Forms: Patient Portal/API/Survey ED Sign-out <Agueda Nguyen MD - Last Filed: 05/06/24 18:29> Cosign ED Attending Carolineature Attestation: I was immediately available in the department for consultation throughout this patient's visit. Agueda Nguyen MD
[2024-05-06 13:47] VITALS: BP 142/79; PULSE 68; RESP 18; O2SAT 98
== END 2024-05-06 13:42 | disposition home or self-care (01) ==
PROVIDERS: Emergency Provider Physician Assistant; PCP Internal Medicine
DX: R21 Rash and other nonspecific skin eruption (principal)
CPT/HCPCS: 99281

== ENCOUNTER → 2024-06-23 13:38 | Outpatient (CLI) | payer OTHER, SELFPAY ==
[2024-06-23 14:44] LABS: Add Manual Diff / Slide Review NO; Basophils Absolute Auto 0 /uL (0-100); Basophils Percent Auto 0.8 % (0-2); Eosinophils Absolute Auto 0 /uL (0-450); Eosinophils Percent Auto 0.8 % (2-4); Hematocrit 40.9 % (41-53); Lymphocytes Absolute Auto 1400 /uL (1100-4500); Lymphocytes Percent Auto 27.8 % (25-40); Mean Corpuscular HGB Conc 34.2 % (30-36); Mean Corpuscular Hemoglobin 31.8 PG (26-34); Mean Corpuscular Volume 92.9 fL (80-100); Monocytes Absolute Auto 600 /uL (0-900); Monocytes Percent Auto 11.8 % (3-14); Neutrophils Absolute Auto 2900 /uL (1500-7000); Neutrophils Percent Auto 58.8 % (50-75); Platelet Count 125 X10^3/uL (150-400); Red Blood Cell Count 4.41 X10^6/uL (4.5-5.9); Red Cell Distribution Width 14.4 % (11.6-14.8); White Blood Cell Count 4.9 X10^3/uL (4.5-11.0)
[2024-06-23 15:12] LABS: Alanine Aminotransferase 8 IU/L (<50); Albumin Globulin Ratio 1.4 (1.0-2.8); Alkaline Phosphatase 97 U/L (38-126); Aspartate Aminotransferase 21 IU/L (17-59); Bilirubin Total 1.3 mg/dL (0.2-1.3); Bilirubin Unconjugated 0.9 mg/dL (0.0-1.1); Globulin 2.8 g/dL (1.7-4.1); HEMOLYSIS < 15 (0-50); Total Protein 6.8 g/dL (6.3-8.2)
== END ==
LOC: LAB 13:41
PROVIDERS: PCP Internal Medicine; Referring Provider Podiatrist; Visit Provider Podiatrist
DX: B35.3 Tinea pedis (principal)
CPT/HCPCS: 36415; 80076; 85025

== ENCOUNTER → 2024-07-16 16:14 | Outpatient (CLI) | payer OTHER, SELFPAY ==
[2024-07-16 18:14] LABS: Aspartate Aminotransferase 26 IU/L (17-59); BUN Creatinine Ratio 15.7 (6-22); Blood Urea Nitrogen 22 mg/dL (9-20); Calcium 9.1 mg/dL (8.4-10.2); Carbon Dioxide 28 mmol/L (22-32); Chloride 104 mmol/L (98-107); Cholesterol 123 mg/dL (140-199); Estimated Glomerular Filt Rate 51 mL/min (>60); Glucose 92 mg/dL (80-110); HDL Cholesterol 38 mg/dL (40-60); HEMOLYSIS 42 (0-50); LDL Cholesterol Calculated 46 mg/dL (<100); Potassium 4.4 mmol/L (3.4-5.1); Sodium 138 mmol/L (137-145); Triglycerides 196 mg/dL (35-150)
[2024-07-16 18:40] LABS: Prostate Specific Antigen 3.17 ng/mL (0.10-4.00)
== END ==
LOC: LAB 16:15
PROVIDERS: PCP Internal Medicine; Referring Provider Internal Medicine; Visit Provider Internal Medicine
DX: E78.2 Mixed hyperlipidemia (principal); N40.1 Benign prostatic hyperplasia with lower urinary tract symptoms; N13.8 Other obstructive and reflux uropathy
CPT/HCPCS: 36415; 80048; 80061; 84153; 84450

== ENCOUNTER → 2024-12-23 08:56 | Outpatient (CLI) | payer OTHER, SELFPAY ==
[2024-12-23 09:53] LABS: Hematocrit 40.9 % (41-53); Mean Corpuscular HGB Conc 34.3 % (30-36); Mean Corpuscular Hemoglobin 32.2 PG (26-34); Mean Corpuscular Volume 93.9 fL (80-100); Platelet Count 112 X10^3/uL (150-400); Red Blood Cell Count 4.36 X10^6/uL (4.5-5.9); Red Cell Distribution Width 14.6 % (11.6-14.8); White Blood Cell Count 4.9 X10^3/uL (4.5-11.0)
[2024-12-23 10:45] LABS: BUN Creatinine Ratio 22.3 (6-22); Blood Urea Nitrogen 21 mg/dL (9-20); Carbon Dioxide 24 mmol/L (22-32); Chloride 105 mmol/L (98-107); Estimated Glomerular Filt Rate > 60 mL/min (>60); Glucose 101 mg/dL (70-99); HEMOLYSIS < 15 (0-50); Potassium 4.5 mmol/L (3.4-5.1); Sodium 138 mmol/L (137-145)
[2024-12-23 11:12] LABS: Prostate Specific Antigen 3.01 ng/mL (0.10-4.00)
== END ==
PROVIDERS: PCP Internal Medicine; Referring Provider Internal Medicine; Visit Provider Internal Medicine
DX: I10 Essential (primary) hypertension (principal); N40.1 Benign prostatic hyperplasia with lower urinary tract symptoms; R79.89 Other specified abnormal findings of blood chemistry; N13.8 Other obstructive and reflux uropathy
CPT/HCPCS: 36415; 80048; 84153; 85027

== ENCOUNTER → 2025-04-28 07:01 | Outpatient (CLI) | payer OTHER, SELFPAY ==
--- NOTE | 2025-04-28 07:18 | DI.CT.S_ITS ---
PROCEDURE: CT KIDNEY URETER BLADDER (KUB) INDICATIONS: Hx of kidney stone TECHNIQUE: Axial sections were acquired from the lung bases to the pubic symphysis. Coronal and sagittal reformats were performed. For radiation dose reduction, the following was used: automated exposure control, adjustment of mA and/or kV according to patient size. COMPARISON: [facility], CT, CT KIDNEY URETER BLADDER (KUB), 04/24/2024, 14:43. FINDINGS: Image quality: Diagnostic. Lower Chest: No significant findings. URINARY: Right Kidney: Punctate 2 mm nonobstructing lower pole stone. No hydronephrosis. Right Ureter: No hydroureter. Left Kidney: 3 x 7 mm nonobstructing lower pole stone with a Hounsfield measurement of 436. No hydronephrosis. Peripelvic cysts. Left Ureter: No hydroureter. Bladder: Normal wall thickness. No stones. ABDOMEN: Liver: No contour-deforming solid mass. Gallbladder: No radiopaque gallstones or wall thickening. Biliary ducts: No biliary dilation. Pancreas: No ductal dilation. Spleen: Size is within normal limits. Adrenal Glands: No adrenal nodules. Stomach and Bowel: Normal colonic caliber, without significant wall thickening. Mild diverticulosis. Peritoneum: No abnormal intraperitoneal fluid. No free air. Ventral Wall: No hernia. Abdominal Nodes: No enlarged retroperitoneal or mesenteric lymph nodes. Vessels: Saccular aneurysmal dilatation of the infrarenal abdominal aorta is unchanged. On previous image 71 of series 2 it measured 3.7 x 2.8 cm. On current image 75 of series 2 it measures 3.7 x 2.9 cm. PELVIS: Pelvic Organs: Unremarkable. Pelvic Nodes: Unremarkable. Miscellaneous: Small fat containing left inguinal hernia. Bones: Lumbar degenerative change. No lytic or blastic bony lesions. No compression fractures. . IMPRESSION: Bilateral small nonobstructing renal stones. No hydronephrosis. No acute abdominal process. Stable infrarenal abdominal aortic aneurysm. Maximum diameter is 3.7 cm. Dictated by: Julio Mcdonough M.D. on 04/28/2025 at 8:35 Approved by: Julio Mcdonough M.D. on 04/28/2025 at 8:42
[2025-04-28 07:32] LABS: Estimated Glomerular Filt Rate > 60 mL/min (>60)
== END ==
PROVIDERS: PCP Internal Medicine; Referring Provider Urology; Visit Provider Urology
DX: I71.43 Infrarenal abdominal aortic aneurysm, without rupture (principal); N20.0 Calculus of kidney; K40.90 Unilateral inguinal hernia, without obstruction or gangrene, not specified as recurrent; Z87.442 Personal history of urinary calculi
CPT/HCPCS: 36415; 74176; 82565